=== PATIENT | male | born 1945 | race Caucasian/White ===

== ENCOUNTER 2021-05-21 11:51 | Outpatient (REF) | payer MEDICARE, OTHER, SELFPAY ==
[2021-05-21 13:35] LABS: Anion Gap 16 (12-20); Blood Urea Nitrogen 13 mg/dL (9-16); Calcium 9.2 mg/dL (8.4-10.2); Carbon Dioxide 23 mmol/L (22-29); Chloride 104 mmol/L (96-108); Estimated Glomerular Filt Rate > 60; Potassium 4.3 mmol/L (3.3-5.1); Sodium 139 mmol/L (135-145)
== END 2021-05-21 11:52 | disposition home or self-care (01) ==
LOC: HO.LAB 11:51
PROVIDERS: PCP Internal Medicine; Visit Provider Internal Medicine Hypertension Specialist
DX: I10 Essential (primary) hypertension (principal)
CPT/HCPCS: 36415; 80051; 82310; 82565; 84520

== ENCOUNTER 2021-08-30 10:07 | Outpatient (REF) | payer MEDICARE, OTHER, SELFPAY ==
[2021-08-30 10:25] LABS: Basophils Absolute Auto 0.1 X10*3/uL (0.0-0.2); Basophils Percent Auto 0.9 % (0-2); Hematocrit 42.4 % (42.0-52.0); Imm Gran Abs Auto 0.03 X10*3/uL (0.00-0.03); Imm Gran Pct Auto 0.4 % (0.0-0.4); Red Blood Count 4.71 X10*6/uL (4.60-5.80); SCAN SMEAR FLAG 1
[2021-08-30 10:28] LABS: Eosinophils Absolute Auto 0.5 X10*3/uL (0.0-0.4); Hemoglobin 13.9 g/dl (14.0-18.0); Lymphocytes Absolute Auto 2.6 X10*3/uL (1.2-4.9); Lymphocytes Percent Auto 34.6 % (20-40); Mean Corpuscular HGB Conc 32.8 g/dl (31.0-36.0); Mean Corpuscular Hemoglobin 29.5 pg (27.0-33.0); Mean Platelet Volume 14.1 fL (9.4-12.4); Monocytes Absolute Auto 0.9 X10*3/uL (0.1-1.2); Monocytes Percent Auto 11.4 % (2-11); Neutrophils Absolute Auto 3.5 x10*3/uL (2.0-8.3); Neutrophils Percent Auto 46.7 % (45-73); PLT CLUMP 1; Red Cell Distribution Width 12.4 % (11.0-16.0)
[2021-08-30 10:35] LABS: PLT ABN DIST 1
[2021-08-30 10:36] LABS: Platelet Count 171 X10*3/uL (160-400); White Blood Count 7.5 X10*3/uL (4.8-10.8)
[2021-08-30 10:37] LABS: Alanine Aminotransferase 30 U/L (0-40); Albumin Level 4.1 g/dL (3.5-5.0); Alkaline Phosphatase 92 U/L (39-117); Anion Gap 14 (12-20); Aspartate Amino Transferase 23 U/L (5-37); Bilirubin Total 0.8 mg/dL (0.0-1.0); Blood Urea Nitrogen 14 mg/dL (9-16); Calcium 9.6 mg/dL (8.4-10.2); Carbon Dioxide 26 mmol/L (22-29); Chloride 104 mmol/L (96-108); Cholesterol 105 mg/dL; Estimated Glomerular Filt Rate > 60; Glucose Fasting 149 mg/dL (60-99); HDL Cholesterol 31 mg/dL; LDL Cholesterol Calculated 49 mg/dl; Potassium 3.8 mmol/L (3.3-5.1); Sodium 140 mmol/L (135-145); Total Protein 6.8 g/dL (6.5-8.0); Triglycerides 125 mg/dL
[2021-08-30 10:45] LABS: Appearance Urine HAZY; Color Urine YELLOW; Glucose Urine UA NEG (NEG); Leukocyte Esterase Urine 1+ (NEG); Nitrite Urine NEG (NEG); Specific Gravity - Urine 1.025 (1.005-1.025); Urine Blood NEG (NEG); Urine Ketones NEG (NEG); Urine Protein NEG (NEG-TRACE)
[2021-08-30 10:58] LABS: PSA,Total (Free>4and<10) 0.96 ng/mL (0.00-4.00)
[2021-08-30 11:05] LABS: Microalbum/Creatinine Ratio Ur 31.1 ug/mg cr; Reflex LDLD? No
[2021-08-30 11:15] LABS: Squamous Epithelial Cell Urine 2+ /LPF
[2021-08-30 11:16] LABS: Amorphous Sediment Urine 3+ /LPF; Bacteria Urine 2+ /LPF
[2021-08-30 11:17] LABS: RBC Urine 0 /HPF (0)
[2021-08-30 14:51] LABS: Estimated Average Glucose 186 mg/dL; Hemoglobin A1c % 8.1 %
== END 2021-08-30 10:08 | disposition home or self-care (01) ==
LOC: HO.LNP 10:07
PROVIDERS: Visit Provider Internal Medicine
DX: Z12.5 Encounter for screening for malignant neoplasm of prostate (principal); E11.65 Type 2 diabetes mellitus with hyperglycemia; E78.00 Pure hypercholesterolemia, unspecified; I10 Essential (primary) hypertension; I25.10 Atherosclerotic heart disease of native coronary artery without angina pectoris; N40.0 Benign prostatic hyperplasia without lower urinary tract symptoms
CPT/HCPCS: 80053; 80061; 81001; 82043; 83036; 84153; 85025

== ENCOUNTER 2022-02-28 10:40 | Outpatient (REF) | payer MEDICARE, OTHER, SELFPAY ==
[2022-02-28 11:16] LABS: Estimated Average Glucose 183 mg/dL
[2022-02-28 11:25] LABS: Alanine Aminotransferase 30 U/L (0-40); Albumin Level 4.1 g/dL (3.5-5.0); Alkaline Phosphatase 109 U/L (39-117); Aspartate Amino Transferase 20 U/L (5-37); Bilirubin Direct 0.3 mg/dL (0.0-0.5); Bilirubin Total 0.7 mg/dL (0.0-1.0); Cholesterol 105 mg/dL; Glucose Fasting 180 mg/dL (60-99); HDL Cholesterol 34 mg/dL; LDL Cholesterol Calculated 44 mg/dl; Total Protein 6.7 g/dL (6.5-8.0); Triglycerides 135 mg/dL
[2022-02-28 12:25] LABS: Reflex LDLD? No
== END 2022-02-28 10:41 | disposition home or self-care (01) ==
LOC: HO.LNP 10:40
PROVIDERS: Visit Provider Internal Medicine
DX: E11.65 Type 2 diabetes mellitus with hyperglycemia (principal); E78.00 Pure hypercholesterolemia, unspecified
CPT/HCPCS: 80061; 80076; 82947; 83036

== ENCOUNTER 2022-06-14 12:23 | Outpatient (REF) | payer MEDICARE, OTHER, SELFPAY ==
[2022-06-14 13:27] LABS: Anion Gap 18 (12-20); Blood Urea Nitrogen 16 mg/dL (9-16); Calcium 9.4 mg/dL (8.4-10.2); Carbon Dioxide 25 mmol/L (22-29); Chloride 101 mmol/L (96-108); Estimated Glomerular Filt Rate > 60; Glucose Random 276 mg/dL (60-115); Potassium 4.6 mmol/L (3.3-5.1); Sodium 139 mmol/L (135-145)
== END 2022-06-14 12:24 | disposition home or self-care (01) ==
LOC: HO.LAB 12:23
PROVIDERS: PCP Internal Medicine; Visit Provider Internal Medicine Hypertension Specialist
DX: I10 Essential (primary) hypertension (principal)
CPT/HCPCS: 36415; 80048

== ENCOUNTER 2022-08-06 06:57 | Day surgery (SDC) | payer MEDICARE, OTHER, SELFPAY ==
--- NOTE | 2022-08-05 14:02 | P.CONAN_ITS ---
Documented by User: Nicole Bailey NP 08/05/22 15:04 HPI - Anesthesia Eval Consult details Narrative: 77yo M for Colonoscopy s/p AVR 2013 - Cardiac records requested from [facility] 08/05/22 Stable at 11/2021 cardiac visit (s/p AVR and CABG x 1 in 2013). Good exercise tolerance. 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 Social History Social History Patient Tobacco Use Status: Former Tobacco user Quit Date: many yeears ago Use of substances other than those prescribed or required for medical reasons: No Are you DNR?: No Advance Directives: No Advance Directives Information Provided: Yes Meds Allergies Allergy/AdvReac Type Severity Reaction Status Date / Time Penicillins [PCN] Allergy Unknown Verified 08/05/22 10:02 Home Medications Medication Instructions Recorded Confirmed Last Taken Type amlodipine 10 mg tablet 1 tab PO DAILY 08/05/22 08/05/22 Unknown History aspirin 81 mg tablet 81 mg PO DAILY 08/05/22 08/05/22 Unknown History atorvastatin 20 mg tablet 1 tab PO DAILY 08/05/22 08/05/22 Unknown History fluticasone propionate 50 1 spray intranasal BID 08/05/22 08/05/22 Unknown History mcg/actuation nasal spray,suspension hydrochlorothiazide 25 mg tablet 1 tab PO DAILY 08/05/22 08/05/22 Unknown History insulin human U-100 NPH-regulr subcut 08/05/22 Unknown History 70-30 mix 100 unit/mL subcutaneous susp (Novolin 70/30 U-100 Insulin) metformin 500 mg tablet,extended 1 tab PO BID 08/05/22 08/05/22 Unknown History release 24 hr nebivolol 10 mg tablet 1 tab PO DAILY 08/05/22 08/05/22 Unknown History terazosin 2 mg capsule 1 cap PO BEDTIME 08/05/22 08/05/22 Unknown History Exam Exam Date and Time: August 05, 2022 1402 Pertinent Lab Results Pertinent Lab Results: Laboratory Tests 08/30/21 06/14/22 07:20 12:46 WBC 7.5 Hgb 13.9 L Hct 42.4 Plt Count 171 Sodium 139 Potassium 4.6 D Chloride 101 Carbon Dioxide 25 BUN 16 Creatinine 1.01 Narrative Narrative: ECHO 2019 Nml LV size and systolic function EF 67% Symmetric LVH Well seated prosthetic aortic valve with thin and mobile leaflets and no paravalvular leak Peak aortic valve gradient 20mmHg, mean aortic valve gradient 10mmHg No aortic insufficiency Mild mitral regurg Findings stable c/w 2013 ECHO Assessment and Plan Assessment Anesthesia Assessment: Chart Reviewed Documented by User: Blanca Solano MD 08/06/22 09:13 [facility] Past Medical History Medical History Diabetes mellitus Diabetic retinopathy Hypertension Nephritis Nephrolithiasis DHAVAL on CPAP Squamous cell carcinoma of neck Tubular adenoma Family History Family history of problems with anesthesia: No Surgical History Surgical History History of aortic valve replacement History of appendectomy History of colonoscopy History of lithotripsy History of radical dissection of right side of neck History of Problems with Anesthesia: Yes (S/p radical neck dissection. Told needs ? smaller ETT as ? trachea deviation) Social History Social History Patient Tobacco Use Status: Former Tobacco user Quit Date: many yeears ago Use of substances other than those prescribed or required for medical reasons: No Are you DNR?: No Advance Directives: No Advance Directives Information Provided: Yes Meds Allergies Allergy/AdvReac Type Severity Reaction Status Date / Time Penicillins [PCN] Allergy Unknown Verified 08/05/22 10:02 Home Medications Medication Instructions Recorded Confirmed Last Taken Type amlodipine 10 mg tablet 1 tab PO DAILY 08/05/22 08/05/22 Unknown History aspirin 81 mg tablet 81 mg PO DAILY 08/05/22 08/05/22 Unknown History atorvastatin 20 mg tablet 1 tab PO DAILY 08/05/22 08/05/22 Unknown History fluticasone propionate 50 1 spray intranasal BID 08/05/22 08/05/22 Unknown History mcg/actuation nasal spray,suspension hydrochlorothiazide 25 mg tablet 1 tab PO DAILY 08/05/22 08/05/22 Unknown Histo ry insulin human U-100 NPH-regulr subcut 08/05/22 Unknown History 70-30 mix 100 unit/mL subcutaneous susp (Novolin 70/30 U-100 Insulin) metformin 500 mg tablet,extended 1 tab PO BID 08/05/22 08/05/22 Unknown History release 24 hr nebivolol 10 mg tablet 1 tab PO DAILY 08/05/22 08/05/22 Unknown History terazosin 2 mg capsule 1 cap PO BEDTIME 08/05/22 08/05/22 Unknown History Exam Height,Weight and Vital Signs: Height 5 ft 10.5 in Weight 117.934 kg Vital Signs Temp Pulse Resp BP Pulse Ox O2 Del Method 08/06/22 07:35 98.2 F 64 18 146/70 H 97 Room Air Pertinent Lab Results Pertinent Lab Results: Laboratory Tests 08/30/21 06/14/22 07:20 12:46 WBC 7.5 Hgb 13.9 L Hct 42.4 Plt Count 171 Sodium 139 Potassium 4.6 D Chloride 101 Carbon Dioxide 25 BUN 16 Creatinine 1.01 Lab Results 08/06/22 Range/Units 07:11 POC Glucose 173 H (60-115) mg/dL Airway Mallampati Class: IV TM Dist: >3cm Neck ROM: Full Loose/Missing/Broken Teeth: No (Denies) Heart: RRR Lungs: CTAB Assessment and Plan Assessment Anesthesia Assessment: Anesthesia Plan Discussed Final Anesthetic Review Family History of Problems with Anesthesia: No History of Problems with Anesthesia: Yes (S/p radical neck dissection. Told needs ? smaller ETT as ? trachea deviation) NPO: Yes ASA Class: III Final Preanesthetic Review: No Changes in Pt Med Stat, Meds/Allgs Chart Reviewed, Consent Obtained/Reviewed and Anes Risks/Benef Reviewed Patient Risk: Intermediate Procedure Risk: Low Assessment/Block/Sedation in SS: Assess/Block/Sedation-SS Anesthetic Plan Anesthetic Plan: MAC: Disposition: Standard PACU
[2022-08-06 07:17] LABS: Glucose, Whole Blood 173 mg/dL (60-115)
[2022-08-06 07:35] VITALS: BP 146/70; PULSE 64; RESP 18; TEMP 36.8; O2SAT 97; BMI 36.8
--- NOTE | 2022-08-06 08:16 | MHC.SHP ---
Pre-Procedural Eval Section A Date of Service: 08/06/22 Section B Chief Complaint: screening Details of Present Illness: screening Relevant Family History (Specify if Yes): No Relevant Social History: None Present Medications: see Short Stay Collaborative assessment Medical History: No relevant PMH History of Previous Operations: No relevant previous surgery Allergies: Allergies Allergy/AdvReac Type Severity Reaction Status Date / Time Penicillins [PCN] Allergy Unknown Verified 08/05/22 10:02 Review of Systems Sugical H&P ROS: Negative: Constitution, Cardiovascular, Respiratory, Neurological, Psychiatric, Hem-Onc, Allergic/Immunologic, Gastrointestinal, Genitourinary, Musculoskeletal, Integumentary, Endocrine and Eyes/Ears/Nose/Throat Exam Surgical H&P Exam: Normal: HEENT, Normal: Heart, Normal: Lungs, Normal: Extremities, Normal: Abdomen, Normal: Skin and Normal: Neurological Plan Diagnosis/Plan: Unchanged I have reviewed the history and physical and performed a pertinent physical examination on my patient. No changes have occurred unless specified.
[2022-08-06] MEDS: Lactated Ringers 1,000 ML 100 ML IVCONT (08:20)
--- NOTE | 2022-08-06 09:16 | PM.OP ---
Brief Operative Note Date of Service: 08/06/22 Pre-op diagnosis: screening Post-op diagnosis: same Procedure: colonoscopy Surgeon: Sandeep Polanco Anesthesia: MAC Was an Jackhammer Operator used for this Procedure?: No Estimated blood loss (mL): 5 Pathology: other Condition: stable Disposition: PACU
[2022-08-06 09:18] VITALS: BP 97/75; PULSE 69; RESP 18; TEMP 36.6; O2SAT 95
--- NOTE | 2022-08-06 09:35 | OP_ITS ---
SURGEON: Sandeep Polanco MD INDICATIONS: Colon cancer screening and prior history of adenomatous colon polyps. PREOPERATIVE DIAGNOSIS: POSTOPERATIVE DIAGNOSIS: PROCEDURE PERFORMED: Colonoscopy to the terminal ileum with snare polypectomy and biopsy. ESTIMATED BLOOD LOSS: COMPLICATIONS: ANESTHESIA: ASSISTANTS: SPECIMENS: DESCRIPTION OF PROCEDURE: Date of service: 08/06/22. History and physical performed. The risks and benefits of the procedure were explained to the patient. Informed consent was obtained. The patient was placed in the left lateral decubitus position. A digital rectal exam was performed and was found to be normal. The Olympus pediatric video colonoscope was introduced into the rectum and advanced to the cecum without difficulty. The cecum was identified by transillumination, palpation, and identification of ileocecal valve. Examination was performed. The scope was removed. He tolerated the procedure well and was taken to recovery area in stable condition. FINDINGS: The terminal ileum was briefly examined and appeared normal. The visualized colonic mucosa was normal. There was a large amount of liquid and semi-formed stool left, which limited the sensitivity examination for detection of small polyps. This was washed and suctioned. Multiple polyps were identified and removed using a combination of snare polypectomy and biopsy forceps. All were less than 10 mm. Two were located in the hepatic flexure and were snared. At 85 cm was an 8 mm polyp, which was snared. At 75 cm was a less than 5 mm polyp, which was snared. At 70 cm, a 6 mm polyp was snared, but could not be recovered due to technical reasons. The rectal polyp measuring less than 5 mm was removed with a biopsy forceps. There was extensive sigmoid diverticulosis with redundancy and luminal narrowing. Retroflexed examination showed moderate-sized internal hemorrhoids. IMPRESSION: Colon polyps. RECOMMENDATION: Follow up the biopsy results. MD MYLA Hsieh/ROXANA / [id number] MTDJami
[2022-08-06 09:37] VITALS: BP 133/64; PULSE 65; RESP 18; TEMP 36.8; O2SAT 95
== END 2022-08-06 10:12 | disposition home or self-care (01) ==
PROVIDERS: PCP Internal Medicine; Visit Provider Internal Medicine Gastroenterology
PROC: 0DJD8ZZ Inspection of Lower Intestinal Tract, Via Natural or Artificial Opening Endoscopic (ICD-10-PCS; CPT 45378; principal; 2022-08-06 08:10)
DX: Z12.11 Encounter for screening for malignant neoplasm of colon (principal); Z86.010 Personal history of colon polyps; D12.3 Benign neoplasm of transverse colon; D12.4 Benign neoplasm of descending colon; D12.8 Benign neoplasm of rectum; K57.30 Diverticulosis of large intestine without perforation or abscess without bleeding; K64.8 Other hemorrhoids; G47.33 Obstructive sleep apnea (adult) (pediatric); E11.319 Type 2 diabetes mellitus with unspecified diabetic retinopathy without macular edema; I10 Essential (primary) hypertension; Z79.4 Long term (current) use of insulin; Z79.82 Long term (current) use of aspirin; Z79.51 Long term (current) use of inhaled steroids; Z79.899 Other long term (current) drug therapy; Z88.0 Allergy status to penicillin; Z95.2 Presence of prosthetic heart valve; Z87.442 Personal history of urinary calculi; Z85.828 Personal history of other malignant neoplasm of skin; Z87.891 Personal history of nicotine dependence
CPT/HCPCS: 45385; 45380; 82947; 88305

== ENCOUNTER 2022-08-29 11:01 | Outpatient (REF) | payer MEDICARE, OTHER, SELFPAY ==
[2022-08-29 11:45] LABS: Appearance Urine Clear; Color Urine Yellow; Glucose Urine UA Negative (Negative); Leukocyte Esterase Urine Moderate (2+) (Negative); Nitrite Urine Negative (Negative); UMIC TRIGGER UA YES; Urine Blood Negative (Negative); Urine Ketones Negative (Negative); Urine Protein Negative (Neg-Trace)
[2022-08-29 11:47] LABS: Basophils Absolute Auto 0.1 X10*3/uL (0.0-0.2); Mean Corpuscular Volume 90.1 fL (80.0-98.0); SCAN SMEAR FLAG 1
[2022-08-29 11:48] LABS: Bacteria Urine 2+ (None Seen); Hyaline Casts Urine 0-2 /LPF (0-2); RBC Urine 0-2 /HPF (0-2); WBC Urine >50 /HPF (0-5)
[2022-08-29 11:49] LABS: Basophils Percent Auto 1.1 % (0-2); Eosinophils Absolute Auto 0.5 X10*3/uL (0.0-0.4); Eosinophils Percent Auto 6.1 % (0-4); Hemoglobin 12.9 g/dl (14.0-18.0); Imm Gran Abs Auto 0.01 X10*3/uL (0.00-0.03); Imm Gran Pct Auto 0.1 % (0.0-0.4); Lymphocytes Absolute Auto 2.3 X10*3/uL (1.2-4.9); Lymphocytes Percent Auto 30.4 % (20-40); Mean Corpuscular HGB Conc 32.3 g/dl (31.0-36.0); Mean Corpuscular Hemoglobin 29.1 pg (27.0-33.0); Mean Platelet Volume 13.6 fL (9.4-12.4); Monocytes Absolute Auto 0.9 X10*3/uL (0.1-1.2); Monocytes Percent Auto 11.8 % (2-11); Neutrophils Absolute Auto 3.8 x10*3/uL (2.0-8.3); Neutrophils Percent Auto 50.5 % (45-73); Platelet Count 180 X10*3/uL (160-400); Red Blood Count 4.44 X10*6/uL (4.60-5.80); Red Cell Distribution Width 12.4 % (11.0-16.0); White Blood Count 7.6 X10*3/uL (4.8-10.8)
[2022-08-29 11:50] LABS: MANUAL DIFF FLAG NO; PLT ABN DIST 1
[2022-08-29 12:26] LABS: Creatinine Urine 100.74 mg/dL; Microalbum/Creatinine Ratio Ur 44.6 ug/mg cr
[2022-08-29 12:44] LABS: Estimated Average Glucose 174 mg/dL; Hemoglobin A1c % 7.7 %
[2022-08-29 13:02] LABS: Alanine Aminotransferase 29 U/L (0-40); Alkaline Phosphatase 105 U/L (39-117); Anion Gap 11 (12-20); Aspartate Amino Transferase 22 U/L (5-37); Bilirubin Total 0.7 mg/dL (0.0-1.0); Blood Urea Nitrogen 14 mg/dL (9-16); Calcium 9.4 mg/dL (8.4-10.2); Carbon Dioxide 27 mmol/L (22-29); Chloride 106 mmol/L (96-108); Estimated Glomerular Filt Rate > 60; Glucose Fasting 130 mg/dL (60-99); PSA,Total (Free>4and<10) 0.88 ng/mL (0.00-4.00); Potassium 4.3 mmol/L (3.3-5.1); Sodium 140 mmol/L (135-145); Total Protein 6.5 g/dL (6.5-8.0)
== END 2022-08-29 11:02 | disposition home or self-care (01) ==
LOC: HO.LNP 11:01
PROVIDERS: Visit Provider Internal Medicine
DX: Z12.5 Encounter for screening for malignant neoplasm of prostate (principal); E11.65 Type 2 diabetes mellitus with hyperglycemia; I12.9 Hypertensive chronic kidney disease with stage 1 through stage 4 chronic kidney disease, or unspecified chronic kidney disease; E11.22 Type 2 diabetes mellitus with diabetic chronic kidney disease; N18.9 Chronic kidney disease, unspecified; E78.00 Pure hypercholesterolemia, unspecified
CPT/HCPCS: 80053; 81001; 82043; 83036; 84153; 85025

== ENCOUNTER 2023-03-06 11:29 | Outpatient (REF) | payer MEDICARE, OTHER, SELFPAY ==
[2023-03-06 12:09] LABS: Estimated Average Glucose 180 mg/dL; Hemoglobin A1c % 7.9 %
[2023-03-06 12:31] LABS: Alanine Aminotransferase 29 U/L (0-40); Albumin Level 4.1 g/dL (3.5-5.0); Alkaline Phosphatase 104 U/L (39-117); Aspartate Amino Transferase 22 U/L (5-37); Bilirubin Direct 0.4 mg/dL (0.0-0.5); Bilirubin Total 1.3 mg/dL (0.0-1.0); Cholesterol 112 mg/dL; Glucose Fasting 215 mg/dL (60-99); HDL Cholesterol 34 mg/dL; LDL Cholesterol Calculated 49 mg/dl; Total Protein 6.9 g/dL (6.5-8.0); Triglycerides 145 mg/dL
[2023-03-06 13:07] LABS: Reflex LDLD? No
== END 2023-03-06 11:30 | disposition home or self-care (01) ==
LOC: HO.LNP 11:29
PROVIDERS: Visit Provider Internal Medicine
DX: E11.65 Type 2 diabetes mellitus with hyperglycemia (principal); E78.00 Pure hypercholesterolemia, unspecified
CPT/HCPCS: 80061; 80076; 82947; 83036

== ENCOUNTER 2023-10-03 10:44 | Outpatient (REF) | payer MEDICARE, OTHER, SELFPAY ==
[2023-10-03 10:57] LABS: Basophils Absolute Auto 0.1 X10*3/uL (0.0-0.2); Basophils Percent Auto 0.9 % (0-2); Eosinophils Absolute Auto 0.4 X10*3/uL (0.0-0.4); Eosinophils Percent Auto 4.6 % (0-4); Hematocrit 38.2 % (42.0-52.0); Hemoglobin 12.2 g/dl (14.0-18.0); Imm Gran Abs Auto 0.02 X10*3/uL (0.00-0.03); Imm Gran Pct Auto 0.2 % (0.0-0.4); Lymphocytes Absolute Auto 2.8 X10*3/uL (1.2-4.9); Lymphocytes Percent Auto 30.9 % (20-40); MANUAL DIFF FLAG SCAN; Mean Corpuscular HGB Conc 31.9 g/dl (31.0-36.0); Mean Corpuscular Volume 87.6 fL (80.0-98.0); Mean Platelet Volume 13.7 fL (9.4-12.4); Monocytes Percent Auto 11.3 % (2-11); Neutrophils Absolute Auto 4.7 x10*3/uL (2.0-8.3); Neutrophils Percent Auto 52.1 % (45-73); PLT CLUMP 1; Red Blood Count 4.36 X10*6/uL (4.60-5.80); Red Cell Distribution Width 12.9 % (11.0-16.0); SCAN SMEAR FLAG 1
[2023-10-03 11:01] LABS: Appearance Urine Clear; Color Urine Yellow; Estimated Average Glucose 174 mg/dL; Glucose Urine UA Negative (Negative); Hemoglobin A1c % 7.7 % (<6.0); Leukocyte Esterase Urine Moderate (2+) (Negative); Nitrite Urine Negative (Negative); Specific Gravity - Urine >= 1.030 (1.005-1.025); UMIC TRIGGER UACC YES; Urine Blood Negative (Negative); Urine Ketones Negative (Negative); Urine Protein 30 (1+) mg/dL (Neg-Trace)
[2023-10-03 11:04] LABS: Bacteria Urine None Seen (None Seen); Hyaline Casts Urine 0-2 /LPF (0-2); RBC Urine 0-2 /HPF (0-2); UACC Culture Trigger YES; WBC Urine 21-50 /HPF (0-5)
[2023-10-03 11:05] LABS: Alanine Aminotransferase 21 U/L (0-40); Albumin Level 3.8 g/dL (3.5-5.0); Alkaline Phosphatase 114 U/L (39-117); Anion Gap 12 (12-20); Aspartate Amino Transferase 24 U/L (5-37); Bilirubin Total 0.6 mg/dL (0.0-1.0); Blood Urea Nitrogen 17 mg/dL (9-16); Calcium 9.7 mg/dL (8.4-10.2); Carbon Dioxide 26 mmol/L (22-29); Chloride 105 mmol/L (96-108); Cholesterol 102 mg/dL (<200); Estimated Glomerular Filt Rate > 60; Glucose Random 141 mg/dL (60-115); HDL Cholesterol 29 mg/dL (>40); LDL Cholesterol Calculated 54 mg/dL (<100); Potassium 3.9 mmol/L (3.3-5.1); Sodium 139 mmol/L (135-145); Total Protein 7.1 g/dL (6.5-8.0); Triglycerides 97 mg/dL (<150)
[2023-10-03 11:23] LABS: Creatinine Urine 182.92 mg/dL; Microalbum/Creatinine Ratio Ur 58.4 ug/mg cr (<30)
[2023-10-03 11:25] LABS: PSA,Total (Free>4and<10) 0.69 ng/mL (0.00-4.00)
[2023-10-03 11:42] LABS: Platelet Count 207 X10*3/uL (160-400)
[2023-10-03 11:43] LABS: SLIDE REVIEW VERIFIED
== END 2023-10-03 10:45 | disposition home or self-care (01) ==
LOC: HO.LNP 10:44
PROVIDERS: Visit Provider Internal Medicine
DX: Z12.5 Encounter for screening for malignant neoplasm of prostate (principal); I12.9 Hypertensive chronic kidney disease with stage 1 through stage 4 chronic kidney disease, or unspecified chronic kidney disease; E11.22 Type 2 diabetes mellitus with diabetic chronic kidney disease; N18.9 Chronic kidney disease, unspecified; E78.00 Pure hypercholesterolemia, unspecified; E11.65 Type 2 diabetes mellitus with hyperglycemia; N40.0 Benign prostatic hyperplasia without lower urinary tract symptoms
CPT/HCPCS: 80053; 80061; 81001; 82043; 82570; 83036; 84153; 85025; 87086

== ENCOUNTER 2024-04-02 11:09 | Outpatient (REF) | payer MEDICARE, OTHER, SELFPAY ==
[2024-04-02 12:21] LABS: Alanine Aminotransferase 19 U/L (0-40); Albumin Level 3.9 g/dL (3.5-5.0); Alkaline Phosphatase 142 U/L (39-117); Aspartate Amino Transferase 17 U/L (5-37); Bilirubin Direct 0.2 mg/dL (0.0-0.5); Bilirubin Total 0.6 mg/dL (0.0-1.0); Cholesterol 92 mg/dL (<200); Glucose Fasting 113 mg/dL (60-99); HDL Cholesterol 32 mg/dL (>40); LDL Cholesterol Calculated 48 mg/dL (<100); Total Protein 7.4 g/dL (6.5-8.0); Triglycerides 61 mg/dL (<150)
[2024-04-02 12:36] LABS: Estimated Average Glucose 180 mg/dL; Hemoglobin A1c % 7.9 % (<6.0)
[2024-04-02 13:15] LABS: Reflex LDLD? No
== END 2024-04-02 11:10 | disposition home or self-care (01) ==
LOC: HO.LNP 11:09
PROVIDERS: Visit Provider Internal Medicine
DX: E11.65 Type 2 diabetes mellitus with hyperglycemia (principal); E78.00 Pure hypercholesterolemia, unspecified
CPT/HCPCS: 80061; 80076; 82947; 83036

== ENCOUNTER 2024-07-23 14:29 | Outpatient (REF) | payer MEDICARE, OTHER, SELFPAY ==
[2024-07-23 15:40] LABS: Anion Gap 15 (12-20); Blood Urea Nitrogen 18 mg/dL (9-16); Calcium 9.2 mg/dL (8.4-10.2); Carbon Dioxide 27 mmol/L (22-29); Chloride 100 mmol/L (96-108); Estimated Glomerular Filt Rate > 60; Potassium 4.4 mmol/L (3.3-5.1); Sodium 138 mmol/L (135-145)
== END 2024-07-23 14:30 | disposition home or self-care (01) ==
LOC: HO.LAB 14:29
PROVIDERS: PCP Internal Medicine; Visit Provider Internal Medicine Nephrology
DX: I10 Essential (primary) hypertension (principal)
CPT/HCPCS: 36415; 80051; 82310; 82565; 84520

== ENCOUNTER 2024-08-03 09:00 | Outpatient (REF) | payer MEDICARE, OTHER, SELFPAY ==
[2024-08-04 15:09] LABS: Appearance Urine Clear; Color Urine Yellow; Glucose Urine UA Negative (Negative); Leukocyte Esterase Urine Large (3+) (Negative); Nitrite Urine Negative (Negative); Specific Gravity - Urine <= 1.005 (1.005-1.025); UMIC TRIGGER UA YES; Urine Blood Negative (Negative); Urine Ketones Negative (Negative); Urine Protein Negative (Neg-Trace)
[2024-08-04 15:12] LABS: Bacteria Urine 1+ (None Seen); Hyaline Casts Urine 0-2 /LPF (0-2); RBC Urine 0-2 /HPF (0-2); Squamous Epithelial Cell Urine 0-2 /HPF (0-2); WBC Urine >50 /HPF (0-5)
[2024-08-04 15:56] LABS: Creatinine Urine 40.86 mg/dL; Microalbum/Creatinine Ratio Ur 29.3 ug/mg cr (<30); Total Protein Urine Random < 7 mg/dL (<12)
== END 2024-08-03 09:01 | disposition home or self-care (01) ==
LOC: HO.LNP 09:00
PROVIDERS: Visit Provider Internal Medicine Nephrology
DX: I10 Essential (primary) hypertension (principal)
CPT/HCPCS: 81001; 81003; 82043; 82570; 84156

== ENCOUNTER 2024-10-07 10:32 | Outpatient (REF) | payer MEDICARE, OTHER, SELFPAY ==
[2024-10-07 10:39] LABS: MANUAL DIFF FLAG NO
[2024-10-07 11:04] LABS: Basophils Absolute Auto 0.1 X10*3/uL (0.0-0.2); Basophils Percent Auto 0.7 % (0-2); Eosinophils Absolute Auto 0.3 X10*3/uL (0.0-0.4); Eosinophils Percent Auto 3.6 % (0-4); Hematocrit 34.2 % (42.0-52.0); Hemoglobin 10.6 g/dl (14.0-18.0); Imm Gran Abs Auto 0.02 X10*3/uL (0.00-0.03); Imm Gran Pct Auto 0.2 % (0.0-0.4); Lymphocytes Absolute Auto 1.7 X10*3/uL (1.2-4.9); Lymphocytes Percent Auto 19.3 % (20-40); Mean Corpuscular Hemoglobin 26.8 pg (27.0-33.0); Mean Corpuscular Volume 86.6 fL (80.0-98.0); Mean Platelet Volume 13.2 fL (9.4-12.4); Monocytes Absolute Auto 1.1 X10*3/uL (0.1-1.2); Monocytes Percent Auto 12.1 % (2-11); Neutrophils Absolute Auto 5.6 x10*3/uL (2.0-8.3); Neutrophils Percent Auto 64.1 % (45-73); Platelet Count 247 X10*3/uL (160-400); Red Blood Count 3.95 X10*6/uL (4.60-5.80); Red Cell Distribution Width 13.6 % (11.0-16.0); White Blood Count 8.8 X10*3/uL (4.8-10.8)
[2024-10-07 11:07] LABS: Appearance Urine Cloudy; Color Urine Yellow; Glucose Urine UA Negative (Negative); Leukocyte Esterase Urine Large (3+) (Negative); Nitrite Urine Negative (Negative); UMIC TRIGGER UACC YES; Urine Blood Negative (Negative); Urine Ketones Negative (Negative); Urine Protein Negative (Neg-Trace)
[2024-10-07 11:10] LABS: Bacteria Urine 2+ (None Seen); RBC Urine 0-2 /HPF (0-2); UACC Culture Trigger YES; WBC Urine >50 /HPF (0-5)
[2024-10-07 11:14] LABS: Estimated Average Glucose 197 mg/dL; Hemoglobin A1C 195.0447 umol/L; Hemoglobin A1c % 8.5 % (<6.0); Total Hemoglobin (HGBA1C) 2796.5481 umol/L
[2024-10-07 11:32] LABS: Creatinine Urine 76.24 mg/dL; Microalbum/Creatinine Ratio Ur 41.9 ug/mg cr (<30)
[2024-10-07 12:05] LABS: PSA,Total (Free>4and<10) 0.46 ng/mL (0.00-4.00)
[2024-10-07 12:41] LABS: Alanine Aminotransferase 12 U/L (0-40); Albumin Level 3.4 g/dL (3.5-5.0); Alkaline Phosphatase 132 U/L (39-117); Anion Gap 11 (12-20); Aspartate Amino Transferase 17 U/L (5-37); Bilirubin Total 0.3 mg/dL (0.0-1.0); Blood Urea Nitrogen 23 mg/dL (9-16); Calcium 9.4 mg/dL (8.4-10.2); Carbon Dioxide 29 mmol/L (22-29); Chloride 103 mmol/L (96-108); Cholesterol 94 mg/dL (<200); Estimated Glomerular Filt Rate > 60; Glucose Fasting 200 mg/dL (60-99); HDL Cholesterol 30 mg/dL (>40); LDL Cholesterol Calculated 53 mg/dL (<100); Potassium 5.2 mmol/L (3.3-5.1); Sodium 138 mmol/L (135-145); Total Protein 7.3 g/dL (6.5-8.0); Triglycerides 59 mg/dL (<150)
== END 2024-10-07 10:33 | disposition home or self-care (01) ==
LOC: HO.LNP 10:32
PROVIDERS: Visit Provider Internal Medicine
DX: E11.65 Type 2 diabetes mellitus with hyperglycemia (principal); E78.00 Pure hypercholesterolemia, unspecified; N18.9 Chronic kidney disease, unspecified; I10 Essential (primary) hypertension; Z12.5 Encounter for screening for malignant neoplasm of prostate
CPT/HCPCS: 80053; 80061; 81001; 81003; 82043; 82570; 83036; 84153; 85025; 87086; 87088; 87186

== ENCOUNTER 2024-10-26 15:25 | Outpatient (REF) | payer MEDICARE, OTHER, SELFPAY ==
--- OUTSIDE RECORDS SUMMARY | 2024-10-26 15:29 | XMS_ITS | Encounter Summary ---
Author Organization [facility] [place] [address] Care Team Providers Care Rock Room Worker Name Role Phone Oswaldo Barrett MD Primary Care Provider [phone] Encounter Details Date Type Department Care Team (Late st Contact Info) Description 10/07/2024 Orders [place] [id number] Brianna Lal, RN Sarcoma of neck (Primary Dx) Social History Tobacco Use Types Packs/Day Years Used Date Smoking Tobacco: Never Smokeless Tobacco: Never Alcohol Use Standard Drinks/Week Comments No 0 (1 standard drink = 0.6 oz pur e alcohol) [facility] Utilities Answer Date Recorded In the past 12 months has th e electric, gas, oil, or water company threatened to shut off services in your home? No 10/14/2023 Overall Financial Resource Strain (CARDIA) Answe r Date Recorded How hard is it for you to pa y for the very basics like food, housing, medical care, and heating? Not hard at all 10/14/2023 Hunger Vital Sign Answer Date Recorded Within the past 12 months, y ou worried that your food would run out before you got the money to buy more. Never true 10/14/19 24 Within the past 12 months, t he food you bought just didn't last and you didn't have money to get more. Never true 10/14/2023 PRAPARE - Transportation Answer Date Re corded In the past 12 months, has l ack of transportation kept you from medical appointments or from getting medications? No 09/23 In the past 12 months, has l ack of transportation kept you from meetings, work, or from getting things needed for daily living? No 10/14/2023 Housing Stability Vital Sign Answer Gerber e Recorded In the last 12 months, was t here a time when you were not able to pay the mortgage or rent on time? No 10/14/2023 In the last 12 months, how many places have you lived? 1 10/14/2023 In the last 12 months, was t here a time when you did not have a steady place to sleep or slept in a retirement (including now)? No 10/14/2023 IPV Inpatient Questions Answer Date Recorded Does Anyone Try to Keep You From Having Contact with Others or Doing Things Outside Your Home? 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 An MRI would better characterize the extension along the facial nerve as well as more detailed evaluation of neural foraminal and any extension into the spinal canal (which is felt unlikely based on these images). Thank you for letting us participate in the care of this patient. ??If you are a health care provider and have any questions regarding this report, please contact the number below. ??For patients who have questions please contact the health primary care physician that requested your imaging first. ? 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 COMPARISON: PET/CT scan 11/01/[address] neck 06/17/2024, 01/27/2024. FINDINGS: Interval progression of necrosis and extensive tissue loss site at site of sarcoma involving the right posterior lateral neck. Deep to this necrosis is an extensive soft tissue mass extending from the suboccipital skull through the C6 level where there is broad abutment of the skull and lateral spine with likely infiltration into the neural foramen, but no definite intraspinal extension. Infiltration into the posterior paraspinal muscles in the right side is noted. Subtle periosteal reaction along the outer cortex of the right suboccipital skull likely represents early skull involvement. No osseous changes involve the spine. Tumor surrounds the mastoid tip with extension into the parotid gland and TMJ. The fat within the stylomastoid foramen is partially effaced. Likely complete encasement of the right carotid artery although evaluation is somewhat limited by dental streak artifact. Right-sided neck dissection changes are identified. Normal thyroid gland. Visualized paranasal sinuses and otomastoid spaces are well-aerated. Visualized intracranial structures are normal. Stable opacity left lung apex possibly representing rounded atelectasis. 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 COMPARISON: PET/CT scan 11/01/[address] neck 06/17/2024, 01/27/2024. FINDINGS: Interval progression of necrosis and extensive tissue loss siteat site of sarcoma involving the right posterior lateral neck. Deep to this necrosis is an extensive soft tissue mass extending from the suboccipitalskull through the C6 level where there is broad abutment of the skull andlateral spine with likely infiltration into the neural foramen, but no definite intraspinal extension. Infiltration into the posterior paraspinal musclesin the right side is noted. Subtle periosteal reaction along the outer cortex ofthe right suboccipital skull likely represents early skull involvement. Noosseous changes involve the spine. Tumor surrounds the mastoid tip with extension into the parotid gland andTMJ. The fat within the stylomastoid foramen is partially effaced. Likely complete encasement of the right carotid artery although evaluationis somewhat limited by dental streak artifact. Right-sided neck dissection changes are identified. Normal thyroid gland. Visualized paranasal sinuses and otomastoid spaces are well-aerated.Visualized intracranial structures are normal. Stable opacity left lung apexpossibly representing rounded atelectasis. IMPRESSION Interval progression of the necrotic sarcoma involving the rightposterior lateral neck with probable early involvement of the suboccipital skull, encasement of the carotid artery, extension into the parotid gland and TMJas well as the stylomastoid foramen. An MRI would better characterize the extension along the facial nerve aswell as more detailed evaluation of neural foraminal and any extension into thespinal canal (which is felt unlikely based on these images). Thank you for letting us participate in the care of this patient. If youare a health care provider and have any questions regarding this report,please contact the number below. For patients who have questions please contactthe health primary care physician that requested your imaging first. 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
--- OUTSIDE RECORDS SUMMARY | 2024-10-26 15:29 | XMS_ITS | Encounter Summary ---
Author Organization [facility] Address [facility] [place] [address] Care Team Providers Care Awning Erector Name Role Phone Oswaldo Barrett MD Primary Care Provider [phone] Encounter Details Date Type Department Care Team (Latest Contact Info) Description 10/07/2024 9:05 AM EST Ancillary Procedure Radiology [facility] [place] [address] Ash Dowling MD [facility] [place] [address] Sarcoma of neck Social History Tobacco Use Types Packs/Day Years Used Date Smoking Tobacco: Never Smokeless Tobacco: Never Alcohol Use Standard Drinks/Week Comments No 0 (1 standard drink = 0.6 oz pur e alcohol) [facility] Utilities Answer Date Recorded In the past 12 months has e [employer], gas, oil, or water [employer] threatened to shut off services in your [...] place to sleep or slept in a halfway (including now)? No 10/14/2023 IPV Inpatient Questions [...] on file documented as of this encounter Procedures Procedure Name Priority Date/Time Associated Diagnosis Comments REQUEST FOR 2ND READ CT NECK Routine 10/07/2024 9:00 AM EST Sarcoma of neck documented in this encounter Results * Request For 2nd Read CT Neck (10/07/2024 9:00 AM EST) WORKSTATION ID [id number] RAD Anatomical Region Laterality Modality Neck SO [...] who have questions please contact the health patient care nursing assistant that requested your imaging first. ? 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; Date of exam 20240920 TECHNIQUE: Reinterpretation [...] Sarcoma (RIS) of the Right Neck;Sending Institution [facility]; Date of exam [id number] TECHNIQUE: Reinterpretation [...] patients who have questions please contactthe health patient care nursing assistant that requested your imaging first. 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
--- OUTSIDE RECORDS SUMMARY | 2024-10-26 15:29 | XMS_ITS | Clinical Summary ---
Author Organization [facility] Address [address] [place] [address] Phone Care Team Providers Care Client Advisor Name Role Phone Oswaldo Barrett MD Primary Care Provider Allergies Active Allergy Reactions Criticality Noted Date Comments Penicillins Rash Low 05/24/2021 Medications Fluticasone Propionate (FLONASE ALLERGY RELIEF NA) Active Multiple Vitamins-Minera ls (ICAPS AREDS FORMULA PO) Take 1 capsule by mouth 1 (one) time each day Active aspirin (ST COSMO) 81 MG EC tablet Take 1 tablet by mouth 1 (one) time each day Active atorvastatin (LIPITOR) 20 MG tablet Take 20 mg by mouth 1 (one) time each day 04/30/2021 Active hydroCHLOROthia zide 25 MG tablet Take 25 mg by mouth 1 (one) time each day 04/25/2021 Active NovoLIN 70/30 (70-30) 100 UNIT/ML injection 04/30/2021 Active metFORMIN XR (GLUCOPHAGE-XR) 500 MG 24 hr tablet Take 500 mg by mouth twice a day 05/01/2021 Active terazosin (HYTRIN) 2 MG capsule Take 2 mg by mouth 1 (one) time each day 04/30/2021 Active Multiple Vitamins-Minera ls (ICAPS PLUS PO) Take 1 tablet by mouth 1 (one) time each day Active triamcinolone (KENALOG) 0.1 % cream APPLY TWO TIMES A DAY TO THE AFFECTED AREA(S) OF [place] FOR 1-2 WEEKS AT A TIME FOR FLARES. NOT FOR FACE OR BODY FOLDS 07/31/2021 Active telmisartan (MICARDIS) 80 MG tablet Take 1 tablet (80 mg total) by mouth 1 (one) time each day 90 tablet 3 06/09/2024 Active nebivolol (BYSTOLIC) 10 MG tabletIndicatio ns:Essential hypertension,Ch ronic kidney disease, stage 2 (mild),Type 2 diabetes mellitus with diabetic chronic kidney disease (HCC) Take 1 tablet (10 mg total) by mouth 1 (one) time each day in the evening 90 tablet 3 07/19/2024 07/19/20 25 Active amLODIPine (NORVASC) 10 MG tabletIndicatio ns:Essential hypertension,Ch ronic kidney disease, stage 2 (mild),Type 2 diabetes mellitus with diabetic chronic kidney disease (HCC) Take 1 tablet (10 mg total) by mouth 1 (one) time each day 90 tablet 3 07/19/2024 07/19/20 Active morphine (MS CONTIN) 30 MG 12 hr tablet TAKE ONE TABLET BY MOUTH TWICE A DAY - DO NOT EXCEED 2 TABLETS PER DAY 07/30/2024 Active morphine (MSIR) 15 MG tablet Take 15 mg by mouth 06/21/2024 Active Active Problems Problem Noted Date Diagnosed Date Encounter for fitting and adjustment of hearing aid 07/28/2023 07/28/2023 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 Type 2 diabetes mellitus 07/28/2023 023 Chronic kidney disease, stage 2 (mild) Essential hypertension 04/24/2016 Resolved Problems Problem Noted Date Diagnosed Date Resolved Date Aortic valve disorder 07/04/20202020 Asthma without status asthmaticus 07/04/2020 06/15/2021 Mixed conductive and sensori neural hearing loss 07/04/2020 06/15/2021 Obesity 07/04/2020 06/15/2021 Type 2 diabetes mellitus without complication 07/04/2006/15/2021 History of aortic valve stenosis 04/04/2020 06/15/2021 Obstructive sleep apnea syndrome 04/04/2020 06/15/2021 History of aortic valve replacement 04/24/2016 06/15/2021 Hyperlipidemia 04/24/2016 06/15/2021 Coronary atherosclerosis 11/17/2013 Overview (05/24/2021): Coronary arteriosclerosis Overview: Coronary arteriosclerosis Unspecified malignant neopla sm of skin of scalp and neck 05/01/2012 06/15/2021 Overview (05/24/2021): Jul 29, 2012 Entered By: LUPE HANSEN Comment: Right cervical lymph node Met, s/p dissection and radiation. Encounters Date Type Department Care Team Description 08/09/2024 2:00 PM EST [facility] [address] [place] [address] Jeramie Grant MD Essential hypertension (Primary Dx); Chronic kidney disease, stage 2 (mild) 08/04/2024 Orders Only [facility] [address] [place] [address] Jeramie Grant MD from Last 3 Months Immunizations Name Administration Dates Next Due DTaP, Unspecified 05/23/2012 Influenza Whole 07/08/2002 Influenza, Unspecified 05/23/2021,2019,06/06/2016,06/18/2014 ,05/23/2012 Moderna SARS-COV-2 07/16/2021,11/20/2020, 021 Pneumococcal Conjugate 13-Valent 10/01/2012 Pneumococcal Polysaccharide 05/08/2012 Shingrix 07/03/2018,04/21/2018 Td 07/08/2002 Tdap 05/08/2012 Zoster 09/22/2009,12/30/2008 Family History Medical History Relation Comments Cancer Father liver CA Diabetes Father type 2 Heart disease Father Hypertension Mother Stroke Mother Hypertension Sibling Relation Status Comments Father Mother Sibling Social History Tobacco Use Types Packs/Day Years Used Date Smoking Tobacco: Never Smokeless Tobacco: Never Tobacco Cessation:Counseling Given: Not Answered Sex and Gender Information Value Date Recorded Sex Assigned at Not on file Legal Sex Male 5:10 PM EST Gender Identity Not on file Sexual Orientation Not on file Last Filed Vital Signs Vital Sign Reading Time Taken Comments Blood Pressure 140/90 08/09/2024 2:02 PM EST Pulse 74 08/09/2024 2:02 PM EST Temperature - - Respiratory Rate - - Oxygen Saturation 98% 08/09/2024 2:02 PM EST Inhaled Oxygen Concentration - - Weight 96.8 kg (213 lb 6.4 oz) 08/09/2024 2:02 P M EST Height 180.3 cm (5' 11 ) 07/18/2022 1:54 PM EDT Body Mass Index 29.76 07/18/2022 1:54 PM EDT Plan of Treatment Upcoming Encounters Date Type Department Care Team (Late st Contact Info) Description 08/15/2025 1:15 PM EST [facility] [address] [place] [address] Jeramie Grant MD [address] [facility] [address] [place] [phone] Health Maintenance Due Date Last Done Comments Diabetes: Hemoglobin A1C 07/18/2022 Diabetes: Ophthalmology Exam 07/18/2022 Diabetes: Pedal Pulse Checked 07/18/2022 Diabetes: Sensory Foot Exam 07/18/2022 Diabetes: Visual Foot Exam 07/18/2022 Pneumococcal Vaccine: 65+ Years Completed 10/01/2012, 05/08/2012 Influenza Vaccine Completed 06/02/2024, , 05/23/2020, Additional history exists Hepatitis B Vaccine Aged Out No longe r eligible based on patient's age to complete this topic Procedures Procedure Name Priority Date/Time Associated Diagnosis Comments PROTEIN / CREATININE RATIO, URINE Routine 08/04/2024 2:56 PM EST ALBUMIN, URINE, RANDOM Routine 08/04/2024 2:56 PM EST URINALYSIS WITH MICROSCOPIC Routine 08/04/2024 2:56 PM EST from Last 3 Months Results * Protein, Total, Random Urine w/Creatinine (Protein/Creat Ratio) (08/04/2024 2:56 PM EST) Protein Urine Random <7 <12 mg/dL See order comments Protein/Creatin ine Ratio, Urine TNP <0.2 See order comments Comment: Unable to calculate urine protein creatinine ratio due to low creatinine or protein result. 08/04/2024 2:56 PM EST 08/04/2024 2:56 PM EST Jeramie Grant MD LAB URINE ORDERABLES Final [facility] Performing Organization Address [facility] de Phone Number [place] See order comments [place] [address] * (ABNORMAL) Albumin, urine, random (08/04/2024 2:56 PM EST) Creatinine, Urine 40.86 mg/dL Se e order comments Urine Microalbumin 12.0 mg/L See order comments Microalbumin/Crea tinine Ratio 29.3(H) <30 ug/mg cr See order comments Comment: ?Albumin/Creatinine Ratio Reference Ranges: ?Normal: < 30 ug/mg creatinine ?Microalbuminuria: ??30 - 300 ug/mg creatinine Clinical Albuminuria: ??> 300 ug/mg creatinine 08/04/2024 2:56 PM EST 08/04/2024 2:56 PM EST Jeramie Grant MD LAB URINE ORDERABLES Final [facility] Performing Organization Address [facility] de Phone Number [place] See order comments [place] [address] * (ABNORMAL) Urinalysis with microscopic (08/04/2024 2:56 PM EST) Color Urine Yellow See orde r comments Appearance Urine Clear See order comments pH Urine 6.0 5.0 - 9.0 See order comments Glucose Urine Negative Negative mg/dL See order comments Blood, Urine Negative Negative See ord er comments Specific [place] Urine <=1.005 1.005 - 1.025 See order comments Protein Urine Negative Neg-Trace mg/dL See order comments Ketones, Urine Negative Negative mg/dL See order comments Nitrite, Urine Negative Negative See o rder comments Leukocyte Esterase Urine Large (3+)(A) Negative See order comments RBC, Urine 0-2 0 - 2 /HPF See orde r comments WBC >50(A) 0 - 5 /HPF See order comments Squamous Epithelial, Urine 0-2 0 - 2 /HPF See order comments Bacteria, Urine 1+ None Seen See order comments Hyaline Casts, Urine 0-2 0 - 2 /LPF See order comments 08/04/2024 2:56 PM EST 08/04/2024 2:56 PM EST us Jeramie Grant MD LAB URINE ORDERABLES Edited R esult - Final [place] See order comments [place] [address] from Last 3 Months Insurance [facility] MEDICARE MEDICARE [facility] Care Teams Client Advisor Relationship Specialty Start Date End Date Oswaldo Barrett MD [address] [place], [place] PCP - General Internal Medicine 06/15/21
--- OUTSIDE RECORDS SUMMARY | 2024-10-26 15:29 | XMS_ITS | Encounter Summary ---
Author Organization [facility] [place] [address] Care Team Providers Care Crew Clerk Name Role Phone Oswaldo Barrett MD Primary Care Provider [phone] Encounter Details Date Type Department Care Team (Late st Contact Info) Description 09/30/2024 Telephone [place] [phone] Yumiko Buck Social History Tobacco Use Types Packs/Day Years Used Date Smoking Tobacco: Never Smokeless Tobacco: Never Alcohol Use Standard Drinks/Week Comments No 0 (1 standard drink = 0.6 oz pur e alcohol) [facility] Utilities Answer Date Recorded In the past 12 months has e electric, gas, oil, or water company [...] in a retirement (including now)? No 10/14/2023 [facility] IP[facility] Inpatient Questions Answer Date Recorded Does [...] on file documented as of this encounter Miscellaneous Notes * Telephone Encounter - Yumiko Buck - 10/07/2024 8:06 AM EST Images and report received, please request second read if necessary. * Telephone Encounter - Yumiko Buck - 09/30/2024 2:53 PM EST Fax sent to Allen Castillo From: Yumiko Buck Sent: September 2:53 PM To: '[email or web address]' <[email or web address]> Subject: Request for images Patient: Kamron Coker : 1945 [place], The above patient had images done at your facility and are needed here for proper transition. Please forward the images & reports ISAIAH for our provider to review. Please send them electronically to [facility] to the attention of Dr. Dowling. Specific images & reports we are looking for are: CT Neck 09/20/24 Please push over images and fax over the reports to our image Library to [phone] If you do not have the capability to send electronically please mail disc & reports STANDARD NEXT DAY via FEDEX NUMBER redacted to the address below: [facility] Attn: [facility] [address] [place] [phone] documented in this encounter Plan of Treatment Not on file documented as of this encounter Visit Diagnoses Not on filedocumented in this encounter Care Teams Crew Clerk Relationship Specialty Start Date End Date Oswaldo Barrett MD [address] [place] [address] DR [place], [place] [address] PCP - General 08/14/10 documented as of this encounter
--- OUTSIDE RECORDS SUMMARY | 2024-10-26 15:29 | XMS_ITS | Clinical Summary ---
Author Organization [facility] Address [facility] [place] [address] Care Team Providers Care Industrial Hygiene Technician Name Role Phone Oswaldo Barrett MD Primary Care Provider [phone] Allergies Active Allergy Reactions Criticality Noted Date Comments Penicillins Hives Medium Medications Medication Sig Dispensed Refills Start Date End Date Status selenium sulfide (SELSUN) 2.5 % shampoo 1 Appl(s), Top, QD PRN 05/10/2010 Ac tive atorvastatin (LIPITOR) 10 mg Tablet Take 20 mg by mouth daily. Active terazosin (HYTRIN) 2 mg Capsule Take 2 mg by mouth nightly. Active insulin aspart (NOVOLOG) Solution Inject subcutaneously 2 times daily. Active metFORMIN (GLUCOPHAGE-XR) 500 mg Tablet Sustained Release 24 hr Take 500 mg by mouth 2 times daily. Active Nebivolol (Bystolic) 10 mg Tablet Take by mouth every evening. Active FOLIC ACID/MULTIVITS-MIN /LUT (CENTRUM SILVER ORAL) Take 1 tablet by mouth daily. Active UNABLE TO FIND Take 1 tablet by mouth 2 times daily. Med Name: Eye caps Active Olmesartan-Amlodip ine-HCTZ (TRIBENZOR) 40-10-25 mg Tablet Take by mouth every morning. Active telmisartan (MICARDIS) 80 mg Tablet 5 07/04/2015 Active amLODIPine (NORVASC) 10 mg Tablet Take 10 mg by mouth daily. Active aspirin 81 mg Tablet, Delayed Release (E.C.) Take 81 mg by mouth daily. Active fluticasone (FLONASE) 50 mcg/actuation [place], Suspension 1 spray daily. Act ede multivitamin with minerals Tablet Take 1 tablet by mouth daily. Active insulin NPH - insulin regular 70/30 (NOVOLIN MIX 70/30) Suspension Inject subcutaneously. Active clarithromycin (BIAXIN) 500 mg Tablet Take 500 mg by mouth. Take 1 tablet before dental procedures. Active hydroCHLOROthiazid e (Hydrodiuril) 25 mg Tablet Take 25 mg by mouth daily. Active Vit A,C,D-Bmfk-Ugbpmz 4,296 mcg-226 mg-90 mg Capsule Take 1 capsule by mouth Twice daily. Active Active Problems Problem Noted Date Diagnosed Date Aortic valve disorder 07/04/2020 Asthma without status asthmaticus 07/04/2020 Mixed conductive and sensorineural hearing loss 07/04/2020 Obesity 07/04/2020 Type 2 diabetes mellitus without complication Squamous cell carcinoma of scalp and skin of nec k 07/04/2020 Overview (07/04/2020): Jul 29, 2012 Entered By: LUPE HANSEN Comment: Right cervical lymph node Met, s/p dissection and radiation. DHAVAL on CPAP 04/04/2020 History of coronary artery bypass graft x 1 03/23 Essential hypertension 04/24/2016 History of aortic valve repl acement with bioprosthetic valve 04/24/2016 Other and unspecified hyperlipidemia 04/24/2016 Coronary artery disease invo lving [place] coronary artery of [place] heart without angina pectoris 11/17/2013 Overview (07/04/2020): Overview: Coronary arteriosclerosis Skin cancer of scalp or skin of neck 05/01/2012 Encounters Date Type Department Care Team Description 10/07/2024 9:05 AM EST Ancillary Procedure Radiology Library at [facility] [place] [address] Ash Dowling MD Sarcoma of neck 10/07/2024 Orders [place] [phone] Brianna Lal RN Sarcoma of neck (Primary Dx) 09/30/2024 Telephone [place] [phone] Yumiko Buck 09/20/2024 Ancillary Procedure Radiology [facility] at [facility] [place] [address] Oswaldo Barrett MD from Last 3 Months Family History Medical History Relation Comments Liver Cancer Father Relation Status Comments Father Social History Tobacco Use Types Packs/Day Years Used Date Smoking Tobacco: Never Smokeless Tobacco: Never Tobacco Cessation:Counseling Given: Not Answered Alcohol Use Standard Drinks/Week Comments No 0 (1 standard drink = 0.6 oz pur e alcohol) [facility] Utilities Answer Date Recorded In the [...] place to sleep or slept in a senior living (including now)? No 10/14/2023 [facility] Inpatient Questions Answer Date Recorded Does Anyone [...] Sign Reading Time Taken Comments Blood Pressure 155/72 03/02/2024 3:25 PM EDT Pulse 71 03/02/2024 3:25 PM EDT Temperature 36.8 ??C (98.2 ??F) 03/02/2024 3:25 PM ED T Respiratory Rate 17 03/02/2024 3:25 PM EDT Oxygen Saturation 97% 03/02/2024 3:25 PM EDT Inhaled Oxygen Concentration - - Weight 108.9 kg (240 lb 1.3 oz) 03/02/2024 3:25 PM EDT Height 179.1 cm (5' 10.5 ) 11/27/2023 9:19 AM ES T Body Mass Index 33.96 11/27/2023 9:19 AM EST Plan of Treatment Health Maintenance Due Date Last Done Comments DM Hemoglobin A1c 1955 DM Opthalmology Exam 1955 DM Urine Microalbumin yearly 1955 Pneumoccocal Vaccine: 50+ (1 of 2 - PCV) 1962 Tetanus/Diphtheria/Pertussis Vaccines (1 - Tdap) 05/31 Zoster vaccine (1 of 2) 1993 RSV Vaccine (1 - 1-dose 75+ series) 2018 Covid-19 Vaccine (1 - 2023- season) 2024 Influenza (Flu) vaccine (1 o f 1 - Influenza standard series) 05/23/2024 DM Creatinine yearly 10/14/2024 10/14/2023 Procedures Procedure Name Priority Date/Time Associated Diagnosis Comments REQUEST FOR 2ND READ CT NECK Routine 10/07/2024 9:00 AM EST Sarcoma of neck CT SCAN (SCAN) 09/30/2024 12:00 AM EST FILM LIBRARY - STORAGE ONLY CT NECK Routine 09/20/2024 12:00 AM EST COMPREHENSIVE METABOLIC PANEL Routine 10/14/2023 12:11 PM EST 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 from Last 3 Months or Most Recently Relevant to Health Maintenance Results * Request For 2nd Read CT Neck (10/07/2024 9:00 AM EST) WORKSTATION ID [id number] RAD Anatomical Region Laterality Modality Neck SO [...] who have questions please contact the health critical care registered nurse that requested your imaging first. ? 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 Ash Dowling MD IMG OUTSIDE INTERPR ETATION ORDERABLES * Scan Doc: CT Scan (09/30/2024 12:00 AM EST) Anatomical Region Laterality Modality Other Narrative 09/30/2024 12:00 AM EST Ordered by an unspecified provider. Scanning Provider MEDIA MGR SCAN EXT O RDR/RSLT * Film Library- Storage Only CT Neck (09/20/2024 12:00 AM EST) Narrative [facility] - 09/30/2024 5:02 PM EST This exam is auto-finalizing. It's purpose is for storage only. Oswaldo Barrett MD IMG FILM LIBRARY OR DERABLES [place], [place] * (ABNORMAL) Comprehensive metabolic panel (non-fasting) (10/14/2023 12:11 PM EST) Glucose 275(H) 65 - 199 mg/dL [facility] Comment:Diabetes: >=200 mg/d L plus symptoms Blood Urea Nitrogen 17 10 - 20 mg/dL [facility] Creatinine 0.79(L) 0.80 - 1.50 mg/dL [facility] Sodium 136 135 - 145 mmol/L [facility] Potassium 4.8 3.5 - 5.0 mmol/L [facility] Comment: Please note: ??Patients with WBC >100,000 may have falsely elevated Potassium levels. ??For accurate Potassium quantification in these patients send serum separator tube (gold top) for subsequent determinations. ??Contact the Clinical Chemistry Laboratory if there are any questions. Chloride 99 98 - 107 mmol/L [facility] Carbon Dioxide 26 22 - 31 mmol/L [facility] Anion Gap 11 5 - 15 mmol/L [facility] Calcium 9.9 8.5 - 10.5 mg/dL [facility] Protein, Total 7.6 6.1 - 8.0 g/dL [facility] Albumin 4.2 3.2 - 5.2 g/dL [facility] Aspartate Aminotransferase 17 0 - 39 unit/L [facility] Alanine Aminotransferase 18 0 - 55 unit/L [facility] Alkaline Phosphatase 134(H) 40 - 130 unit/L [facility] Bilirubin, Total 0.7 0.2 - 1.3 mg/dL [facility] Est Glomerular Filtration Rate 90 >=60 mL/min/1. 73 m?? [facility] Comment: This patient's estimated GFR was calculated using the 2020 CKD-EPI equation. The estimated GFR can vary from the measured GFR by up to 30% in the absence of rapidly changing kidney function. Assessment of the estimated GFR is not appropriate when creatinine concentrations are rapidly changing. For clinical situations in which a more precise estimate of GFR is necessary, consider alternative methods of GFR estimation such as a 24-hour urine creatinine clearance. Assignment of CKD stage 1-5 for patients with an eGFR near the transition point between stages may be based on clinical assessment of muscle mass and symptoms in addition to eGFR. Blood 10/14/2023 12:1 1 PM EST 10/14/2023 12:23 PM EST Narrative Resulting Agency Comment Spec In Lab Keke Kemp APRN CHEMISTRY ORDERAB LES [facility] [place] [address] from Last 3 Months or Most Recently Relevant to Health Maintenance Advance Directives Documents on File Type Date Recorded Patient Corporate Lawyer Expl anation Advance Directives and Livin g Will 09/25/2023 4:05 PM Care Teams Industrial Hygiene Technician Relationship Specialty Start Date End Date Oswaldo Barrett MD [address] [place] [address] [place] [address] PCP - General 08/14/10
--- OUTSIDE RECORDS SUMMARY | 2024-10-26 15:29 | XMS_ITS | Encounter Summary ---
Author Organization [facility] Address [address] [facility] [address] [place] [address] Phone Care Team Providers Care Asbestos Remover Name Role Phone Oswaldo Barrett MD Primary Care Provider Encounter Details Date Type Department Care Team (Late st Contact Info) Description 08/04/2023 Office Communication [facility] [address] [facility] [address] [place] [address] Jeramie Grant MD [address] [address] Social History Tobacco Use Types Packs/Day Years Used Date Smoking Tobacco: Never Smokeless Tobacco: Never Sex and Gender Information Value Date Recorded Sex Assigned at Not on file Legal Sex Male 5:10 PM EST Gender Identity Not on file Sexual Orientation Not on file documented as of this encounter Plan of Treatment Upcoming Encounters Date Type Department Care Team (Late st Contact Info) Description 08/15/2025 1:15 PM EST Office Visit [facility] [address] [place] [address] Jeramie Grant MD [address] [address] documented as of this encounter Visit Diagnoses Not on filedocumented in this encounter Care Teams Asbestos Remover Relationship Specialty Start Date End Date Oswaldo Barrett MD [address] [place] [address] [address] [place] PCP - General Internal Medicine 9/24/21 documented as of this encounter
[2024-10-26 15:35] LABS: Appearance Urine Cloudy; Color Urine Yellow; Glucose Urine UA Negative (Negative); Leukocyte Esterase Urine Large (3+) (Negative); Nitrite Urine Negative (Negative); UMIC TRIGGER UACC YES; Urine Blood Trace (Negative); Urine Ketones Negative (Negative); Urine Protein Negative (Neg-Trace)
[2024-10-26 15:37] LABS: Bacteria Urine None Seen (None Seen); Hyaline Casts Urine 0-2 /LPF (0-2); RBC Urine 0-2 /HPF (0-2); Squamous Epithelial Cell Urine 0-2 /HPF (0-2); UACC Culture Trigger YES; WBC Urine >50 /HPF (0-5)
== END 2024-10-26 15:26 | disposition home or self-care (01) ==
LOC: HO.LNP 15:25
PROVIDERS: Visit Provider Internal Medicine
DX: N39.0 Urinary tract infection, site not specified (principal)
CPT/HCPCS: 81001; 87086; 87088; 87186

== ENCOUNTER 2024-11-22 07:30 | Outpatient (REF) | payer MEDICARE, OTHER, SELFPAY ==
[2024-11-22 11:18] LABS: Appearance Urine Clear; Color Urine Yellow; Glucose Urine UA >=1000 mg/dL (Negative); Leukocyte Esterase Urine Negative (Negative); Nitrite Urine Negative (Negative); PH 5.5 (5.0-9.0); UMIC TRIGGER UACC YES; Urine Blood Negative (Negative); Urine Ketones Negative (Negative); Urine Protein Negative (Neg-Trace)
[2024-11-22 11:21] LABS: Bacteria Urine None Seen (None Seen); Hyaline Casts Urine 0-2 /LPF (0-2); RBC Urine 0-2 /HPF (0-2); Squamous Epithelial Cell Urine 0-2 /HPF (0-2); WBC Urine 0-5 /HPF (0-5)
--- OUTSIDE RECORDS SUMMARY | 2024-11-22 13:15 | XMS_ITS ---
Author Organization Oswaldo Barrett MD Address [address] [place] [phone] Care Team Providers Care Funding Specialist Name Role Phone Oswaldo Barrett Primary Care Provider Results Component Value Reference Range Notes UA ClnCatch+Micro w/rflx Cul t (Not yet reviewed by provider) Interpretation: Performing Lab:[facility], [address] [place] [phone] Notes/Report: [id number] Urine, Clean Catch Color Urine Yellow Appearance Urine Clear PH 5.5 5.0-9.0 Glucose Urine UA >=1000 Negative mg/dL Urine Blood Negative Negative Specific [place] - Urine 1.020 1.005-1.025 Urine Protein Negative Neg-Trace mg/dL Urine Ketones Negative Negative mg/dL Nitrite Urine Negative Negative Leukocyte Esterase Urine Negative Negative RBC Urine 0-2 0-2 /HPF WBC Urine 0-5 0-5 /HPF Squamous Epithelial Cell Urine 0-2 0-2 /HPF Bacteria Urine None Seen None Seen Hyaline Casts Urine 0-2 0-2 /LPF REASON FOR VISIT U/A hematuria Encounters Encounter Location Date Provider Diagnosis Oswaldo Barrett MD [address] [place] [phone] 11/22/2024 Oswaldo Barrett Hematuria, unspecified type R31.9 Assessments Encounter Date Diagnosis (ICD Code) Assessment Notes Treatment Notes Treatment Clinical Notes Section Notes 11/22/2024 Hematuria, unspecified type (ICD-10 - R31.9) Plan Of Treatment Pending Test Test Name Order Date UA ClnCatch+Micro w/rflx Cult 11/22/2024 Next Appt Details Provider Name:Oswaldo Fitzgerald ier, 01/14/2025 02:15:00 PM, [address] [place] [address], [phone], Provider Name:Oswaldo Fitzgerald ier, 10/11/2025 07:30:00 AM, [address] [place] [address], [phone], Provider Name:Oswaldo Fitzgerald ier, 10/17/2025 02:30:00 PM, [address] [place] [address], [phone], Progress Notes * Kamron COKER MDOB:[birth year] (79 yo M)Acc No.[id number]:11/22/2024 Progress Note Patient:?Kamron COKER Provider:?Oswaldo Barrett MD :1945???Age:79 Y???Sex:Male Gerber e:11/22/2024 Address:[address] [place] [address], [facility], [id number] Subjective: * Chief Complaints: * ???1. U/A hematuria. * Medical History:? Objective: * Vitals:? Assessment: * Assessment: 1.?Hematuria, unspecified ty pe - R31.9??? Plan: * Treatment: * * The named appointment provid er may or may not be the originator of this progress note, and it is not deemed complete until electronically signed by the appointment provider. Sign off status: Pending * Provider:?Oswaldo Barrett MD Date:?0 11/22/2024 Generated for Toi styles/iBjan/Javeditting on:?11/22/2024 01:15 PM EST
--- OUTSIDE RECORDS SUMMARY | 2024-11-22 13:15 | XMS_ITS ---
Author Organization Oswaldo Barrett MD Address [address] [place] [phone] Care Team Providers Care Car Record Clerk Name Role Phone Oswaldo Barrett Primary Care Provider [phone] Results Component Value Reference Range Notes UA ClnCatch+Micro w/rflx Cul t Reviewed date:10/28/2024 10:00:28 AM Interpretation: Performing Lab:[facility], [address] [place] [phone] Notes/Report: Urine, Clean Catch Color Urine Yellow Appearance Urine Cloudy PH 7.0 5.0-9.0 Glucose Urine UA Negative Negative mg/dL Urine Blood Trace Negative Specific [place] - Urine 1.010 1.005-1.025 Urine Protein Negative Neg-Trace mg/dL Urine Ketones Negative Negative mg/dL Nitrite Urine Negative Negative Leukocyte Esterase Urine Large (3+) Negative RBC Urine 0-2 0-2 /HPF WBC Urine >50 0-5 /HPF Squamous Epithelial Cell Urine 0-2 0-2 /HPF Bacteria Urine None Seen None Seen Hyaline Casts Urine 0-2 0-2 /LPF REASON FOR VISIT U/A Encounters Encounter Location Date Provider Diagnosis Oswaldo Barrett MD [address] [place] [address] [place] [phone] 10/26/2024 Oswaldo Barrett UTI (urinary tract infection) N39.0 Assessments Encounter Date Diagnosis (ICD Code) Assessment Notes Treatment Notes Treatment Clinical Notes Section Notes 10/26/2024 UTI (urinary tract infection) (ICD-10 - N39.0) Plan Of Treatment Next Appt Details Provider Name:Oswaldo chandler, 01/14/2025 02:15:00 PM, [address] [place] [address], [address], [phone], Provider Name:Oswaldo chandler, 10/11/2025 07:30:00 AM, [address] [place] [address], [address], [phone], Provider Name:Oswaldo chandler, 10/17/2025 02:30:00 PM, [address] [place] [address], [address], [phone], Progress Notes * Kamron COKER MDOB:[birth year] (79 yo M)Acc No.[id number]:10/26/2024 Progress Note Patient:?Kamron COKER Provider:?Oswaldo Barrett MD :1945???Age:79 Y???Sex:Male Gerber e:10/26/2024 Address:[address] [place] [address], [id number] Subjective: * Chief Complaints: * ???1. U/A. * Medical History:? Objective: * Vitals:? Assessment: * Assessment: 1.?UTI (urinary tract infect ion) - N39.0 (Primary)??? Plan: * Treatment: * * The named appointment provid er may or may not be the originator of this progress note, and it is not deemed complete until electronically signed by the appointment provider. Sign off status: Pending * Provider:?Oswaldo Barrett MD Date:?0 10/26/2024 Generated for Toi styles/Bijan/Javeditting on:?11/22/2024 01:15 PM EST
--- OUTSIDE RECORDS SUMMARY | 2024-11-22 13:16 | XMS_ITS ---
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 Name Role Phone Oswaldo Barrett Primary Care Provider [phone] Allergies Allergen (clinical drug ingredient) Drug/Non Drug Allergy documented on EMR Reaction Allergy Type Onset Date Status penicillin (uncoded) hives Allergy Active REASON FOR VISIT review labs, Repeat U/A, Accompanied by his son Medications Medication SIG (Take, Route, Frequency, Duration) Notes Start Date End Date Status Bystolic 10 MG 1 tablet Orally Once a day Active Tylenol Extra Strength 500 MG 1 tablet a s needed Orally every 6 hrs for 90 days Active Gaviscon 95-358 MG/15ML 15 mL after meal s and at bedtime as needed Orally Four times a day for 90 days Active Morphine Sulfate 15 MG 1.5 tabs four carolina es a day Orally four times a day Active Morphine Sulfate ER 30 MG 1 capsule thre e ties a day Orally Once a day Active hydroCHLOROthiazide 25 MG 1 capsule in t he morning Orally Once a day Active NovoLIN 70/30 70-30 % as directed Subcutaneous 60u in am 40 in pm 03/12/2012 Active Omeprazole 20 MG 1 capsule Orally Onc e a day 02/03/2018 Active amLODIPine Besylate 10 MG 1 tablet Orall y Once a day Active metFORMIN HCl ER 500 MG 2 tablet with ev ening meal Orally DX E11.65 twice a day Active Atorvastatin Calcium 20 MG 1 tablet Oral ly Once a day Active Telmisartan 80 MG 1 tablet Orally Once a day Active traMADol HCl 50 MG one or 2 tabs Orally twice a day for 30 days 04/09/2024 Active Flonase 50 MCG/ACT 2 sprays Nasally Onc e a day for 90 days Active Terazosin HCl 2 MG 1 capsule Orally Onc e a day for 90 days 06/18/2011 Active Syringe (Disposable) 1 ML use to inject insulin sub Q Dx: E 11.65 twice a day for 90 days 09/28/2019 Active Alcoh-Wipe - use to test blood sugar externally DX E11.65 twice a day for 90 days 09/28/2019 Active Lancets - use to test blood sugar invitro DX: E 11.65 twice a day for 90 days 09/28/2019 Active FreeStyle Lite Test - use to test blood sugar In Vitro DX: 11.65 twice a day for 90 days 09/01/2018 Active Aspirin 81 MG 1 tablet Orally Once a day for 90 days Active Social History Tobacco Use: Social History Observation Description Date Details (start date - stop date) Former Smoker NA - NA Tobacco Use/Smoking Question Answer Notes Patient is a former smoker How long has it been since y ou last smoked? > 10 years Additional Findings: Tobacco Non-User Fo rmer smoker, currently using no form of tobacco Alcohol Screen Question Answer Notes Did you have a drink containing alcohol in the p ast year? No Points 0 Interpretation Negative Vital Signs Blood pressure systolic 132 mm Hg 10/14/19 25 Blood pressure diastolic 54 mm Hg 025 Height 70 in 10/14/2024 Weight 217 lbs 10/14/2024 BMI 31.13 kg/m2 10/14/2024 weight is up 4 pounds since 08-03-24 Encounters Encounter Location Date Provider Diagnosis Oswaldo Barrett MD [address] [place] [address] [address] [place], [place] [id number] 10/14/2024 Oswaldo Barrett Type II or unspecifi ed type diabetes mellitus without mention of complication, uncontrolled E11.65 ; Chronic kidney disease, unspecified CKD stage N18.9 ; Essential hypertension I10 ; Pure hypercholesterolemia E78.00 ; 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 ; Gastroesophageal reflux disease without esophagitis K21.9 and Depression screening Z13.31 Assessments Encounter Date Diagnosis (ICD Code) Assessment Notes Treatment Notes Treatment Clinical Notes Section Notes 10/14/2024 Type II or unspecifi ed type diabetes mellitus without mention of complication, uncontrolled (ICD-10 - E11.65) a1c is satisfactory , will continue current regiment 10/14/2024 Chronic kidney disea se, unspecified CKD stage (ICD-10 - N18.9) stable, 10/14/2024 Essential hypertensi on (ICD-10 - I10) well controlled, will cpntinue current regiment 10/14/2024 Pure hypercholesterolemia (ICD-10 - E78.00) doing well, stable, will continue current regiment 10/14/2024 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 10/14/2024 Gastroesophageal ref lux disease without esophagitis (ICD-10 - K21.9) stable, will contonue current regiment 10/14/2024 Depression screening (ICD-10 - Z13.31) negative screen Plan Of Treatment Medication Medication Name Sig Start Date Stop Date Notes Bystolic 10 MG 1 tablet Orally Once a day hydroCHLOROthiazide 25 MG 1 capsule in t he morning Orally Once a day NovoLIN 70/30 70-30 % as directed Subcut aneous 60u in am 40 in pm 03/12/2012 Omeprazole 20 MG 1 capsule Orally Once a day 02/03/2018 amLODIPine Besylate 10 MG 1 tablet Orally Once a day metFORMIN HCl ER 500 MG 2 tablet with ev ening meal Orally DX E11.65 twice a day Atorvastatin Calcium 20 MG 1 tablet Orally Once a day Telmisartan 80 MG 1 tablet Orally Once a day Treatment Notes Assessment Notes Type II or unspecified type diabetes mellitus without mention of complication, uncontrolled a1c is satisfactory, will continue current regiment Chronic kidney disease, unspecified CKD stage stable, Essential hypertension well controlled, will cpntinue current regiment Pure hypercholesterolemia doing well, st able, will continue current regiment 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 Gastroesophageal reflux dise ase without esophagitis stable, will contonue current regiment Depression screening negative screen Pending Test Test Name Order Date Glucose, finger stick 10/14/2024 Next Appt Details Follow Up: 3 Months, Reason: Provider Name:Oswaldo chandler, 01/14/2025 02:15:00 PM, [address] [place] [address], Suite [facility], [place], [place], [phone], Provider Name:Oswaldo chandler, 10/11/2025 07:30:00 AM, [address] [place] [address], Suite [facility], [place], [place], [phone], Provider Name:Oswaldo chandler, 10/17/2025 02:30:00 PM, [address] [place] [address], [place] [address], [place], [place], [phone], Progress Notes * Kamron COKER MDOB:[birth year] (79 yo M)Acc No.[id number]:10/14/2024 Patient:?Kamron COKER Provider:?Oswaldo Barrett MD :1945???Age:79 Y???Sex:Male Gerber e:10/14/2024 Address:[address] [place] [address], [place], [id number] Subjective: * Chief Complaints: * ???Review labsRepeat U/AAcco mpanied by his son * HPI: ???Depression Screening:?PHQ-9?Little interest or pleasure in doing things?Not at all,?Feeling down, depressed, or hopeless?Not at all,?Trouble falling or staying asleep, or sleeping too much?Not at all,?Feeling tired or having little energy?Not at all,?Poor appetite or overeating?Not at all,?Feeling bad about yourself or that you are a failure, or have let yourself or your family down?Not at all,?Trouble concentrating on things, such as reading the newspaper or watching television?Not at all,?Moving or speaking so slowly that other people could have noticed; or the opposite, being so fidgety or restless that you have been moving around a lot more than usual?Not at all,?Thoughts that you would be better off or of hurting yourself in some way?Not at all,?Total Score?0.?Interpretation and Intervention?Depression Screening Findings?Negative,?Follow-Up for Depression?: review of PHQ-9 found negative result, no follow-up needed.?Communication Needs:?Communication Needs?Does the patient have a hearing impairment?No,?Does the patient have a vision impairment??Yes,?If yes, what is the vision impairment??Glasses,?Does the patient have a cognition impairment??No.?Fall Risk:?History?Have you had any falls with injury in the past year??No,?Have you had two or more falls in the past year??No.?SDOH Questions:?SDOH Questions?In the past year have you been worried about losing housing??No,?In the past year have you or any family members you live with been unable to get any of the following when it was really needed? Check all that apply:?None.?Symptom(s):? patient is a 79 yo male here for review of recent labs and follow up of chronic issues. * ROS:?General/Constitutional:?Patient denies?fatigue, headache.?Change in appetite?denies.?Chills?denies.?Fever?denies.?Ophthalmologic:?Blurred vision?denies.?Discharge?denies.?Pain?denies.?ENT:?Patient denies?decreased sense of smell, any loss of taste, sore throat.?Decreased hearing?denies.?Sore throat?denies.?Swollen glands?denies.?Endocrine:?Cold intolerance?denies.?Excessive thirst?denies.?Heat intolerance?denies.?Weight loss?denies.?Respiratory:?Cough?denies.?Shortness of breath at rest?denies.?Shortness of breath with exertion?denies.?Wheezing?denies.?Cardiovascular:?Chest pain at rest?denies.?Chest pain with exertion?denies.?Irregular heartbeat?denies.?Shortness of breath?denies.?Gastrointestinal:?Abdominal pain?denies.?Change in bowel habits?denies.?Diarrhea?denies.?Nausea?denies.?Rectal bleeding?denies.?Vomiting?denies .?Genitourinary:?Blood in urine?denies.?Difficulty urinating?denies.?Frequent urination?denies.?Musculoskeletal:?Patient denies?muscle aches.?Painful joints?denies.?Weakness?denies.?Peripheral Vascular:?Patient denies?red and blue toes.?Skin:?Dry skin?denies.?Itching?denies.?Denies?Mole(s),? changes in moles, new moles or any lesions of concern.?Denies?Photosensitivity.?Rash?denies.?Neurologic:?Dizziness?denies.?Fainting?denies.?Headache?denies.? * Medical History:? * Surgical History:? * Hospitalization/Major Diagno stic Procedure:? * Family History:?Father: dece ased 80 yrs, diagnosed with Cancer.?Mother: 84 yrs.?1 son(s) . .? Denies mental health/substance abuse family history, Denies mental health/substance abuse family history, Denies mental health/substance abuse family history. * Social History:?Tobacco Use:?Tobacco Use/Smoking?Patient is a?former smoker,?How long has it been since you last smoked??> 10 years,?Additional Findings: Tobacco Non-User?Former smoker, currently using no form of tobacco.?Drugs/Alcohol:?Alcohol Screen?Did you have a drink containing alcohol in the past year??No,?Points?0,?Interpretation?Negative.?Miscellaneous:?Caffeine: yes, frequency:, 1-2 cups per day. Children: yes. Community involvements: yes. Exercise: yes, walks QOD half a mile. Housing: owning. Living with: spouse. Marital status: . Occupation: works full-time. Pets: none. Travel outside of the [place]: no. * Medications:?TakingMorphine Sulfate ER 30 MG Capsule Extended Release 24 Hour 1 capsule three ties a day Orally Once a day Morphine Sulfate 15 MG Tablet 1.5 tabs four times a day Orally four times a day Gaviscon 95-358 MG/15ML Suspension 15 mL after meals and at bedtime as needed Orally Four times a day Tylenol Extra Strength 500 MG Tablet 1 tablet as needed Orally every 6 hrs Aspirin 81 MG Tablet Delayed Release 1 tablet Orally Once a day FreeStyle Lite Test - Strip use to test blood sugar In Vitro DX: 11.65 twice a day Lancets - Miscellaneous use to test blood sugar invitro DX: E 11.65 twice a day Alcoh-Wipe - Sheet use to test blood sugar externally DX E11.65 twice a day Syringe (Disposable) 1 ML Miscellaneous use to inject insulin sub Q Dx: E 11.65 twice a day Terazosin HCl 2 MG Capsule 1 capsule Orally Once a day Flonase 50 MCG/ACT Suspension 2 sprays Nasally Once a day Telmisartan 80 MG Tablet 1 tablet Orally Once a day Atorvastatin Calcium 20 MG Tablet 1 tablet Orally Once a day Omeprazole 20 MG Capsule Delayed Release 1 capsule Orally Once a day traMADol HCl 50 MG Tablet one or 2 tabs Orally twice a day NovoLIN 70/30 70-30 % Suspension as directed Subcutaneous 60u in am 40 in pm metFORMIN HCl ER 500 MG Tablet Extended Release 24 Hour 2 tablet with evening meal Orally DX E11.65 twice a day amLODIPine Besylate 10 MG Tablet 1 tablet Orally Once a day hydroCHLOROthiazide 25 MG Tablet 1 capsule in the morning Orally Once a day Bystolic 10 MG Tablet 1 tablet Orally Once a day Medication List reviewed and reconciled with the patientTaking Morphine Sulfate ER 30 MG Capsule Extended Release 24 Hour 1 capsule three ties a day Orally Once a day Taking Morphine Sulfate 15 MG Tablet 1.5 tabs four times a day Orally four times a day Taking Gaviscon 95-358 MG/15ML Suspension 15 mL after meals and at bedtime as needed Orally Four times a day Taking Tylenol Extra Strength 500 MG Tablet 1 tablet as needed Orally every 6 hrs Taking Aspirin 81 MG Tablet Delayed Release 1 tablet Orally Once a day Taking FreeStyle Lite Test - Strip use to test blood sugar In Vitro DX: 11.65 twice a day Taking Lancets - Miscellaneous use to test blood sugar invitro DX: E 11.65 twice a day Taking Alcoh-Wipe - Sheet use to test blood sugar externally DX E11.65 twice a day Taking Syringe (Disposable) 1 ML Miscellaneous use to inject insulin sub Q Dx: E 11.65 twice a day Taking Terazosin HCl 2 MG Capsule 1 capsule Orally Once a day Taking Flonase 50 MCG/ACT Suspension 2 sprays Nasally Once a day Taking Telmisartan 80 MG Tablet 1 tablet Orally Once a day Taking Atorvastatin Calcium 20 MG Tablet 1 tablet Orally Once a day Taking Omeprazole 20 MG Capsule Delayed Release 1 capsule Orally Once a day Taking traMADol HCl 50 MG Tablet one or 2 tabs Orally twice a day Taking NovoLIN 70/30 70-30 % Suspension as directed Subcutaneous 60u in am 40 in pm Taking metFORMIN HCl ER 500 MG Tablet Extended Release 24 Hour 2 tablet with evening meal Orally DX E11.65 twice a day Taking amLODIPine Besylate 10 MG Tablet 1 tablet Orally Once a day Taking hydroCHLOROthiazide 25 MG Tablet 1 capsule in the morning Orally Once a day Taking Bystolic 10 MG Tablet 1 tablet Orally Once a day Medication List reviewed and reconciled with the patient * Allergies:?penicillin: hives yes[Allergies Verified] Objective: * Vitals:?Ht: 70, Wt: 217, BMI :31.13, BP:132/54, Wt-k.43. weight is up 4 pounds since 08-03-24. * ???Past Orders: ???Lab:Hemoglobin A1c (Order Date - 10/07/2024) (Collection Date & Time - 10/07/2024 07:15 AM) ? Value Reference Range ?Hemoglobin A1c % 8.5 H <6. 0 - % ?Estimated Average Glucose 197 - mg/dL ???Lab:Complete Blood Count Auto Diff (Order Date - 10/07/2024) (Collection Date & Time - 10/07/2024 07:15 AM) ? Value Reference Range ?White Blood Count 8.8 4. 8-10.8 - X10*3/uL ?Red Blood Count 3.95 L 4.60 -5.80 - X10*6/uL ?Hemoglobin 10.6 L 14.0-18.0 - g/dl ?Hematocrit 34.2 L 42.0-52.0 - % ?Mean Corpuscular Volume 86.6 80.0-98.0 - fL ?Mean Corpuscular Hemoglobin 26.8 L 27.0-33.0 - pg ?Mean Corpuscular HGB Conc 31.0 31.0-36.0 - g/dl ?Red Cell Distribution Width 13.6 11.0-16.0 - % ?Platelet Count 247 160-4 00 - X10*3/uL ?Mean Platelet Volume 13.2 H 9.4-12.4 - fL ?Neutrophils Percent Auto 64.1 45-73 - % ?Imm Gran Pct Auto 0.2 0. 0-0.4 - % ?Lymphocytes Percent Auto 19.3 L 20-40 - % ?Monocytes Percent Auto 12.1 H 2-11 - % ?Eosinophils Percent Auto 3.6 0-4 - % ?Basophils Percent Auto 0.7 0-2 - % ?NRBC Pct Auto 0.0 0.0-0. 2 - /100WBC ?Neutrophils Absolute Auto 5.6 2.0-8.3 - x10*3/uL ?Imm Gran Abs Auto 0.02 0. 00-0.03 - X10*3/uL ?Lymphocytes Absolute Auto 1.7 1.2-4.9 - X10*3/uL ?Monocytes Absolute Auto 1.1 0.1-1.2 - X10*3/uL ?Eosinophils Absolute Auto 0.3 0.0-0.4 - X10*3/uL ?Basophils Absolute Auto 0.1 0.0-0.2 - X10*3/uL ?NRBC Abs Auto 0.000 0.0-0. 012 - X10*3/uL ???Lab:UA ClnCatch+Micro w/r flx Cult (Order Date - 10/07/2024) (Collection Date & Time - 10/07/2024 07:15 AM) ? Value Reference Range ?Color Urine Yellow - ?Appearance Urine Cloudy - ?PH 6.0 5.0-9.0 - ?Glucose Urine UA Negative Neg ative - mg/dL ?Urine Blood Negative Negative - ?Specific [place] - Urine 1.020 1.005-1.025 - ?Urine Protein Negative Neg-Tr avtar - mg/dL ?Urine Ketones Negative Negati ve - mg/dL ?Nitrite Urine Negative Negati ve - ?Leukocyte Esterase Urine Large (3+) A Negative - ?RBC Urine 0-2 0-2 - /HPF ?WBC Urine >50 A 0-5 - /HPF ?Squamous Epithelial Cell Urine 3-5 0-2 - /HPF ?Bacteria Urine 2+ None Seen - ?Hyaline Casts Urine 3-5 0-2 - /LPF ???Lab:Comprehensive [place]. P daisy Fast (Order Date - 10/07/2024) (Collection Date & Time - 10/07/2024 07:15 AM) ? Value Reference Range ?Sodium 138 135-145 - mmo l/L ?Bilirubin Total 0.3 0.0- 1.0 - mg/dL ?Aspartate Amino Transferase 17 5-37 - U/L ?Alanine Aminotransferase 12 0-40 - U/L ?Total Protein 7.3 6.5-8. 0 - g/dL ?Albumin Level 3.4 L 3.5-5. 0 - g/dL ?Alkaline Phosphatase 132 H 39-117 - U/L ?Potassium 5.2 H 3.3-5.1 - mmol/L ?Chloride 103 96-108 - mm ol/L ?Carbon Dioxide 29 22-29 - mmol/L ?Anion Gap 11 L 12-20 - ?Blood Urea Nitrogen 23 H 9-16 - mg/dL ?Creatinine 0.74 0.5-1.4 - mg/dL ?Estimated Glomerular Filt Rate > 60 - ?Glucose Fasting 200 H 60-9 9 - mg/dL ?Calcium 9.4 8.4-10.2 - m g/dL ???Lab:Lipid Panel (Order Da te - 10/07/2024) (Collection Date & Time - 10/07/2024 07:15 AM) ? Value Reference Range ?Triglycerides 59 <150 - mg/dL ?Cholesterol 94 <200 - m g/dL ?LDL Cholesterol Calculated 53 <100 - mg/dL ?HDL Cholesterol 30 L >40 - mg/dL ???Lab:PSA,Total (Free>4and< 10) (Order Date - 10/07/2024) (Collection Date & Time - 10/07/2024 07:15 AM) ? Value Reference Range ?PSA,Total (Free>4and<10) 0.46 0.00-4.00 - ng/mL ???Lab:Microalbumin, Random (Order Date - 10/07/2024) (Collection Date & Time - 10/07/2024 07:15 AM) ? Value Reference Range ?Creatinine Urine 76.24 - m g/dL ?Microalbumin Urine 32.0 - mg/L ?Microalbum Creatinin e Ratio Ur 41.9 H <30 - ug/mg cr * Examination: ???General Examination: ?GENERAL APPEARANCE:?well developed, well nourished, in no acute distress.?HEAD:?normocephalic, atraumatic.?EYES:?pupils equal, round, reactive to light and accommodation, sclera non-icteric.?EARS:?normal.?ORAL CAVITY:?mucosa moist.?THROAT:?clear.?NECK/THYROID:?neck supple, full range of motion, no cervical lymphadenopathy, no bruits.?SKIN:?warm and dry, no suspicious lesions.?HEART:?regular rate and rhythm, S1, S2 normal, 3/6 holosystolic.?LUNGS:?clear to auscultation bilaterally.?ABDOMEN:?soft, nontender, nondistended, bowel sounds present, normal, no organomegaly , no masses palpable.?RECTAL EXAM:?not examined.?MALE GENITOURINARY:?not examined.?EXTREMITIES:?no clubbing, cyanosis, or edema.?NEUROLOGIC:?nonfocal, motor strength normal upper and lower extremities, sensory exam intact.? Assessment: * Assessment: 1.?Type II or unspecified ty pe diabetes mellitus without mention of complication, uncontrolled - E11.65 (Primary)???2.?Chronic kidney disease, unspecified CKD stage - N18.9???3.?Essential hypertension - I10???4.?Pure hypercholesterolemia - E78.00???5.?Sarcoma - C49.9???6.?Gastroesophageal reflux disease without esophagitis - K21.9???7.?Depression screening - Z13.31??? Plan: * Treatment: ? Value Reference Range ?Value 256 Notes: a1c is satisfactory, will continue current regiment??2.?Chronic kidney disease, unspecified CKD stage? Notes: stable, ??3.?Essential hypertension? Continue Telmisartan Tablet, 80 MG, 1 tablet, Orally, Once a day;?Continue amLODIPine BesylateTablet, 10 MG, 1 tablet, Orally, Once a day;?Continue hydroCHLOROthiazide Tablet, 25 MG, 1 capsule in the morning, Orally, Once a day;?Continue Bystolic Tablet, 10 MG, 1 tablet, Orally, Once a day.?? Notes: well controlled, will cpntinue current regiment??4.?Pure hypercholesterolemia? Continue Atorvastatin Calcium Tablet, 20 MG, 1 tablet, Orally, Once a day.?? Notes: doing well, stable, will continue current regiment??5.?Sarcoma? Notes: is going through treatment??6.?Gastroesophageal reflux disease without esophagitis? Continue Omeprazole Capsule Delayed Release, 20 MG, 1 capsule, Orally, Once a day.?? Notes: stable, will contonue current regiment??7.?Depression screening? Notes: negative screen?? * Procedure Codes:?88949 ASSAY , GLUCOSE, BLOOD QUANT, Modifiers: QW G2211 Complex e/m visit add on, Modifiers: 25 * Preventive Medicine:? ??Diabetes Care Plan:?Patient Lifestyle Goals?Needs to maintain diet control.?Treatment Goals?A1C< 7.?Barriers ?Needs better diet control.?Self- Managment Plan?Increase light exercise to 3 times a week for 30 minutes.?Expected Outcome?maintaining stable blood sugar levels within a target range.? * Follow Up:?3 Months * * Sign off status: Completed true * Provider:?Oswaldo Barrett MD Date:?0 10/14/2024 Generated for Toi styles/Bijan/Austinransmitting on:?11/22/2024 01:16 PM EST History and Physical Notes * HPI (History of Present Illness) Category Sub-Category Detail Notes Category Not es Symptom(s) patient is a 79 yo male here for review of recent labs and follow up of chronic issues. Depression Screening PHQ-9 Little inte rest or pleasure in doing things: Not at all Feeling down, depressed, or hopeless: No t at all Trouble falling or staying asleep, or sl eeping too much: Not at all Feeling tired or having little energy: N ot at all Poor appetite or overeating: Not at all Feeling bad about yourself o r that you are a failure, or have let yourself or your family down: Not at all Trouble concentrating on thi ngs, such as reading the newspaper or watching television: Not at all Moving or speaking so slowly that other people could have noticed; or the opposite, being so fidgety or restless that you have been moving around a lot more than usual: Not at all Thoughts that you would be b royer off or of hurting yourself in some way: Not at all Total Score: 0 Interpretation and Intervention Depression Miranda sheth Findings: Negative Follow-Up for Depression: : review of PH Q-9 found negative result, no follow-up needed SDOH Questions SDOH Questions In the past year have you been worried about losing housing?: No In the past year have you or any family members you live with been unable to get any of the following when it was really needed? Check all that apply:: None Fall Risk History Have you had any falls with injury i n the past year?: No Have you had two or more falls in the st year?: No Communication Needs Communication Needs Does the patient have a hearing impairment: No Does the patient have a vision impairmen t?: Yes ?If yes, what is the vision impairment?: Glasses Does the patient have a cognition impair ment?: No Examination Category Sub-Category Detail Notes Category Not es General Examination GENERAL APPEARANCE: well dev eloped, well nourished, in no acute distress HEAD: normocephalic, atrau matic EYES: pupils equal, round, reactive to light and accommodation, sclera non- icteric EARS: normal THROAT: clear NECK/THYROID: neck supple, full ra nge of motion, no cervical lymphadenopathy, no bruits HEART: regular rate and rhy thm, S1, S2 normal, 3/6 holosystolic LUNGS: clear to auscultatio n bilaterally ABDOMEN: soft, nontender, non distended, bowel sounds present, normal, no organomegaly , no masses palpable NEUROLOGIC: nonfocal, motor stre ngth normal upper and lower extremities, sensory exam intact SKIN: warm and dry, no angel picious lesions EXTREMITIES: no clubbing, cyanosi s, or edema MALE GENITOURINARY: not examined RECTAL EXAM: not examined ORAL CAVITY: mucosa moist
--- OUTSIDE RECORDS SUMMARY | 2024-11-22 13:16 | XMS_ITS | Clinical Summary ---
Author Organization [facility] Address [address] [address] Phone Care Team Providers Care Web Press Operator Assistant Name Role Phone Oswaldo Barrett MD Primary [...] Overview (05/24/2021): Jul 29, 2012 Entered By: LUEP HANSEN Comment: Right cervical lymph node Met, s/p dissection and radiation. Immunizations Name Administration Dates Next Due DTaP, [...] Visit [facility] [address] [place] [address] [place] [address] Jeramie Grant MD [address] [facility] [address] [place] [address] Health Maintenance Due Date Last Done Comments Diabetes: Hemoglobin A1C 07/18/2022 Diabetes: Pedal Pulse Checked 07/18/2022 Diabetes: Sensory Foot Exam 07/18/2022 Diabetes: Visual Foot Exam 07/18/2022 Diabetes: Ophthalmology Exam 11/17/2025 11/17/2024 Pneumococcal Vaccine: 65+ Years Completed 10/01/2012, 05/08/2012 Influenza Vaccine Completed 06/02/2024, , 05/23/2020, Additional history exists Hepatitis B Vaccine Aged Out No longe r eligible based on patient's age to complete this topic Insurance [address] [address] [address] MEDICARE MEDICARE [facility] Care Teams Web Press Operator Assistant Relationship Specialty Start Date End Date Oswaldo Barrett MD [address] [place] [address] [address] [place] [address] PCP - General Internal Medicine 06/15/21
--- OUTSIDE RECORDS SUMMARY | 2024-11-22 13:16 | XMS_ITS | Encounter Summary ---
Author Organization [facility] Address [address] [facility] [address] [address] [place] [address] Phone Care Team Providers Care Embedded Software Design Engineer Name Role Phone Oswaldo Barrett MD Primary Care Provider Encounter Details Date Type Department Care Team (Late st Contact Info) Description 08/04/2023 Office Communication [facility] [address] [facility] [address] [place] [address] Jeramie Grant MD [address] [address] Social History Tobacco Use Types [...] Visit [facility] [address] [place] [address] [place] [address] Jeramie Grant MD [address] [address] documented as of this encounter Visit Diagnoses Not on filedocumented in this encounter Care Teams Embedded Software Design Engineer Relationship Specialty Start Date End Date Oswaldo Barrett MD [address] [place] [address] [address] TIA OROZCO PCP - General Internal Medicine 9/24/21 documented as of this encounter
== END 2024-11-22 07:31 | disposition home or self-care (01) ==
LOC: HO.LNP 07:30
PROVIDERS: Visit Provider Internal Medicine
DX: R31.9 Hematuria, unspecified (principal)
CPT/HCPCS: 81001

== ENCOUNTER 2024-12-13 09:54 | Outpatient (REF) | payer MEDICARE, OTHER, SELFPAY ==
--- NOTE | ~2024-12-13 | US_ITS ---
EXAMINATION: US TRIPLEX LOWER EXTREMITY, BILATERAL CLINICAL INFORMATION: Edema, lower extremities. COMPARISON: None available. TECHNIQUE: Color-flow triplex imaging with spectral analysis and compression Doppler were performed on the bilateral lower extremities. FINDINGS: Respiratory variation, normal compression and augmented flow are noted throughout the interrogated common femoral vein, superficial femoral vein, profunda femoral vein, popliteal vein and midcalf peroneal and posterior tibial venous segments . There is no Worthy's cyst. US/US venous duplex LE BI IMPRESSION: No acute deep venous thrombosis involving the bilateral lower extremities. Negative for DVT.. Electronically signed by: Luis Daigle MD 12/14/2024 11:20 AM EDT
== END 2024-12-13 09:55 | disposition home or self-care (01) ==
LOC: HO.US 09:54
PROVIDERS: PCP Internal Medicine; Visit Provider Internal Medicine
DX: R60.0 Localized edema (principal)
CPT/HCPCS: 93970

== ENCOUNTER → 2024-12-13 12:40 | Outpatient (BNV) | payer MEDICARE, OTHER, SELFPAY | PROVIDERS: PCP Internal Medicine; Visit Provider Radiology Diagnostic Radiology | DX: R60.0 Localized edema (principal) | CPT/HCPCS: 93970 ==

== ENCOUNTER 2025-03-28 16:09 | Outpatient (REF) | payer MEDICARE, OTHER, SELFPAY ==
--- OUTSIDE RECORDS SUMMARY | 2025-03-28 16:12 | XMS_ITS | Patient Health Record ---
Author Organization [facility] Address [address] [address] Care Team Providers Care Branch Examiner Name Role Phone Oswaldo Barrett MD Primary Care Provider Donald Hutchins Unavailable [phone] Allergies Allergen (clinical drug ingredient) Drug/Non Drug Allergy documented on EMR Reaction Allergy Type Onset Date Status Penicillin Unknown Drug Allergy Active Reason For Referral No Information Medications Medication SIG (Take, Route, Frequency, Duration) Notes Start Date End Date Status amLODIPine Besylate 10 MG 1 tablet Orall y Once a day; Duration: 30 day(s) 05/06/2024 Active HumuLIN 70/30 (70-30) 100 UNIT/ML as directed Subcutaneous 05/06/2024 Act ede Atorvastatin Calcium 20 MG 1 tablet Oral ly Once a day; Duration: 30 day(s) 05/06/2024 Active Morphine Sulfate 15 MG 1 tablet as needed Orally five times daily As needed 07/05/2024 Active Telmisartan 80 MG 1 tablet Orally Once a day; Duration: 30 day(s) 05/06/2024 Active PreserVision AREDS - as directed Orally 05/06/2024 Active Nebivolol HCl 10 MG 1 tablet Orally Once a day; Duration: 30 day(s) 05/06/2024 Active Morphine Sulfate 15 MG 1 tablet as needed Orally every 4 hrs As needed Active traMADol HCl 50 MG 1 tablet as needed O rally Once a day 05/06/2024 Active Morphine Sulfate ER 15 MG 1 tablet Orall y three times daily Active Aspirin 81 MG 1 tablet Orally Once a day; Duration: 30 day(s) 05/06/2024 Active Morphine Sulfate ER 30 MG 1 capsule Oral ly three times daily Active Omeprazole 20 MG 1 tablet 30 minutes before morning meal Orally Once a day; Duration: 30 day(s) 05/06/2024 Active metFORMIN HCl 500 MG 1 tablet with a estefania l Orally Once a day; Duration: 30 day(s) 05/06/2024 Active Tylenol 325 MG 2 tablet as needed O rally three times daily 07/05/2024 Active Fluticasone Propionate 50 MCG/ACT 1 spray in each nostril Nasally Once a day; Duration: 30 day(s) 05/06/2024 Active Problems Problem Type SNOMED Code ICD Code Onset Dates Problem Status W/U Status Risk Notes Problem 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, 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) Active confirmed Problem Dehiscence of surgical wound (21697882) Disruption of external operation (surgical) wound, not elsewhere classified, subsequent encounter (T81.31XD) Active confirmed Problem History of radiation exposure (882293180) Personal history of irradiation (Z92.3) Active confirmed Problem Hyperlipidaemia (19149503) Hyperlipidemia, unspecified hyperlipidemia type (E78.5) Active confirmed Problem Essential hypertension (81975992) Hypertension, unspecified type (I10) Active confirmed Problem Atherosclerotic heart disease of [place] coronary artery without angina pectoris (205481048481776) Coronary artery disease, unspecified vessel or lesion type, unspecified whether angina present, unspecified whether [place] or transplanted heart (I25.10) Active confirmed Problem Aortic valve disorder (2446024) Aortic valve stenosis, etiology of cardiac valve disease unspecified (I35.0) Active confirmed Problem Asthma without status asthmaticus (67506363) Asthma, unspecified asthma severity, unspecified whether complicated, unspecified whether persistent (J45.909) Active confirmed Problem Malignant neoplasm (398566670) Malignant neoplasm (C80.1) Active confirmed Problem Arthritis (5736059) Arthritis (M19.90) Active confirmed Problem Cataract (192046788) Cataract, unspecified cataract type, unspecified laterality (H26.9) Active confirmed Problem 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 (801806154) Type 2 diabetes mellitus with retinopathy, macular edema presence unspecified, unspecified laterality, unspecified retinopathy severity, unspecified whether senior care insulin use (E11.319) Active confirmed Problem History of urinary stone (220778759) H/O renal calculi (Z87.442) Active confirmed Problem Obstructive sleep apnea (21065227) Obstructive sleep apnea (G47.33) Active confirmed Problem 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 Vital Signs Heart Rate 83 /min 08/16/2024 Temperature 98.2 degrees Fahrenheit 08/16/2024 Respiratory Rate 16 /min 08/16/2024 Height-cm 180.34 cm 08/16/2024 Oximetry 96 % 08/16/2024 Blood pressure diastolic 67 mm Hg 08/16/2024 Weight-kg 96.62 kg 08/16/2024 Height 71 in 08/16/2024 Blood pressure systolic 126 mm Hg 08/16/2024 Weight 213 lbs 08/16/2024 BMI 29.7 kg/m2 08/16/2024 Encounters Encounter Location Date Provider Diagnosis [address] [address] 06/21/2024 Donald Raymond Unspecified open wound of other specified part of neck, subsequent encounter S11.80XD ; Disruption of external operation (surgical) wound, not elsewhere classified, subsequent encounter T81.31XD ; 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, 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 and Personal history of irradiation Z92.[address] [address] 07/05/2024 Donald Raymond Unspecified open wound of other specified part of neck, subsequent encounter S11.80XD ; Disruption of external operation (surgical) wound, not elsewhere classified, subsequent encounter T81.31XD ; 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, 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 and Personal history of irradiation Z92.[address] [address] 07/19/2024 Donald Raymond Sarcoma of neck C49.0 ; Disruption of external operation (surgical) wound, not elsewhere classified, subsequent encounter T81.31XD and 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, 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 [address] 08/02/2024 Donald Raymond Sarcoma of neck C49.0 ; Disruption of external operation (surgical) wound, not elsewhere classified, subsequent encounter T81.31XD and 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, 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 [facility] [address] [address] 08/16/2024 Donald Raymond Sarcoma of neck C49.0 ; Disruption of external operation (surgical) wound, not elsewhere classified, subsequent encounter T81.31XD and 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, 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 [address] 05/06/2024 Donald Raymond [address] [address] 06/21/2024 Donald Raymond [address] [address] 07/05/2024 Donald Raymond Assessments Encounter Date Diagnosis (ICD Code) Assessment Notes Treatment Notes Treatment Clinical Notes Section Notes 06/21/2024 Unspecified open wound of other specified part of neck, subsequent encounter (ICD-10 - S11.80XD) 06/21/2024 Disruption of external operation (surgical) wound, not elsewhere classified, subsequent encounter (ICD-10 - T81.31XD) 07/05/2024 Unspecified open wound of other specified part of neck, subsequent encounter (ICD-10 - S11.80XD) 07/19/2024 Sarcoma of neck (ICD-10 - C49.0) 08/02/2024 Sarcoma of neck (ICD-10 - C49.0) 08/16/2024 Sarcoma of neck (ICD-10 - C49.0) 08/16/2024 Disruption of external operation (surgical) wound, not elsewhere classified, subsequent encounter (ICD-10 - T81.31XD) 08/02/2024 Disruption of external operation (surgical) wound, not elsewhere classified, subsequent encounter (ICD-10 - T81.31XD) 07/19/2024 Disruption of external operation (surgical) wound, not elsewhere classified, subsequent encounter (ICD-10 - T81.31XD) 07/05/2024 Disruption of external operation (surgical) wound, not elsewhere classified, subsequent encounter (ICD-10 - T81.31XD) 06/21/2024 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, face and neck (ICD-10 - C49.0) 06/21/2024 Personal history of irradiation (ICD-10 - Z92.3) 07/05/2024 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, face and neck (ICD-10 - C49.0) 07/19/2024 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, face and neck (ICD-10 - C49.0) 08/02/2024 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, face and neck (ICD-10 - C49.0) 08/16/2024 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, face and neck (ICD-10 - C49.0) 07/05/2024 Personal history of irradiation (ICD-10 - Z92.3) 06/21/2024 Opal Lundy 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 He is accomapnied by both his sons at todays visit. Current treatment with use of dankins soaked gauze, then betadine to the dry eschar and then Adaptic then Aquacel Ag to the open wound. Use skin prep or Aquaphor to the periwound, cover with dry dressing. They have no acute concerns at todays visit, however one of the sons works with a wound provider that works with a wound powder that is currently under trials but he is not able to state the name of product or level of trial the product is in. They asked about if utilizing this product would help his wound. I explained I am not able to comment on a drug that is still in the beggining stages of trial and not released to the public. On assessment today, Kamron is noted to be afebrile and other VS were within normal limits. The patient denies pain or discomfort related to wound. We removed dressings, with no suggestive s/s of an underlying infectious process. There was mild foul odor noted. His wound is noted with no significant change since last visit. The wound bed is noted with mod yellowish slough with an area at the center that is the tumor that has a dark brownish/black discoloration that is macerated. The periwound is noted with rolled edges. There is mod drainage. No debridement was performed due to the underlying etiology of wound being cancerous. However, i utilized a salin soaked gauzed to cleans the wound and remove dry exudate to the periphery of the wound. He tolerated well. The wound site were then cleansed with Dakin's solution and thereafter, we applied betadine to the dark brownish black skin at the center of wound, then betadine, then adaptic, then aquacel and covered with dry dressing. visiting nurses are performing dressing changes regularly S/S of infection reviewed and when to go to EDPatient will have FU in two weeks I, Donald Raymond, MSN, HYDRO SPRAYER OPERATOR, MANAGER OF [employer] SAL[employer], examined, evaluated , and treated the patient. Dr. Kenzie Mclain was available for any questions or concerns that I may have had. A total of 30 minutes was spent on this visit (face to face and non face to face) documenting HPI and performing physical exam, reviewing previous notes and testing, reviewing and adjusting treatment plan, counseling the patient on treatment choices, disease process, expected outcomes, and documenting the findings in the note. 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 He is accompanied by both his sons at today's visit. Current treatment with use of dankins soaked gauze, then Betadine to the dry eschar and then Adaptic then Aquacel Ag to the open wound. Use skin prep or Aquaphor to the periwound, cover with dry dressing. They report he has had weight loss and spoke to specification writer and needs to have increase in protein of 100-120g per day. His son reports use of wound powder application as well. Again not recommended due to not FDA approved at this time. On assessment today, Kamron is noted to be afebrile and other VS were within normal limits. The patient denies pain or discomfort related to wound. We removed dressings, with no suggestive s/s of an underlying infectious process. There was mild foul odor noted. His wound is noted with deterioration since last visit based on width. Last week was 4.8cm and at today's visit 6.5cm. The wound bed is noted with mod yellowish slough with an area at the center that is the tumor that has a dark brownish/black discoloration that is macerated. There is a newer darker area noted at 12 o clock of the wound at today's visit. The periwound is noted with rolled edges. There is mod drainage. No debridement was performed due to the underlying etiology of wound being cancerous. However, we utilized a saline soaked gauzed to cleans the wound and remove dry exudate to the periphery of the wound. He tolerated well. The wound site were then cleansed with Dakin's solution and thereafter, we applied Betadine to the dark brownish black skin at the center of wound, then Betadine, then Adaptic, then Aquacel and covered with dry dressing. Visiting nurses are performing dressing changes regularly S/S of infection reviewed and when to go to EDPatient will have FU in two weeks I, Donald Raymond, MSN, HYDRO SPRAYER OPERATOR, MANAGER OF [employer], examined, evaluated, and treated the patient. Dr. Kenzie Mclain was available for any questions or concerns that I may have had. A total of 30 minutes was spent on this visit (face to face and non face to face) documenting HPI and performing physical exam, reviewing previous notes and testing, reviewing and adjusting treatment plan, counseling the patient on treatment choices, disease process, expected outcomes, and documenting the findings in the note. Follow Up 07/19/2024 Opal Lundy presents for his two-week follow up for right neck sarcoma, non-healing wound and STRN. He is accompanied by both his sons at today's visit. Current treatment with use of dankins soaked gauze, then Betadine to the dry eschar and then Adaptic then Aquacel Ag to the open wound. Use skin prep or Aquaphor to the periwound, cover with dry dressing. They have no acute concerns at today's visit. However, son reports he started using the heeling powder to his fathers wound but not clear as how often the application is. He sometimes reports its every other day or once a week. His son called his friend whom he reports is a wound expert and obtained an order for Santyl and has been applying this to wound for past week to 1.5 weeks. We had another discussion that two wound providers over seeing his care is a conflict of interest. I explained that if he wishes that he could continue under the care of his sons friend, or he can continue under my care for his wound. I explained he could take a break from the clinic to try his sons treatment then come back if he wishes. However, having treatments from multiple sources is a conflict of interest at this time. They all agreed they would no longer perform outside treatments and continue wound care treatment at new care at this time. He reports he has appointment with oncologist later this week. Of note: his morphine dose continues to increase, and he is noted with more forgetfulness at this time. On assessment today, Kamron is noted to be afebrile and other VS were within normal limits. The patient denies pain or discomfort related to wound. We removed dressings, with no suggestive s/s of an underlying infectious process. There was mild foul odor noted. His wound is noted with significant deterioration since last visit based on assessment and measurements. His wound at last visit was 0.5cm and today is 1.3cm. There is substantial slough throughout the wound med with callus to periwound. The surrounding skin of periwound is noted with transient erythema with probable source from Santyl application not confined to the wound.The center that is the tumor that has a dark brownish/black discoloration that is macerated and significantly loser then prior visit. No debridement was performed due to the underlying etiology of wound being cancerous. However, I utilized a saline soaked gauzed to cleans the wound and remove dry exudate to the periphery of the wound. He tolerated well. The wound site were then cleansed with Dakin's solution and thereafter, we applied Betadine to the dark brownish black skin at the center of wound, then Betadine, then abatic, then Aquacel and covered with dry dressing. Visiting nurses are performing dressing changes regularly S/S of infection reviewed and when to go to EDPatient will have FU in two weeks I, Donald Raymond, MSN, HYDRO SPRAYER OPERATOR, MANAGER OF [employer], examined, evaluated, and treated the patient. Dr. Kenzie Mclain was available for any questions or concerns that I may have had. A total of 40 minutes was spent on this visit (face to face and non face to face) documenting HPI and performing physical exam, reviewing previous notes and testing, reviewing and adjusting treatment plan, counseling the patient on treatment choices, disease process, expected outcomes, and documenting the findings in the note. I reviewed extensivleyconcerns with deterioration and use of outside products with probable correlation of deterioration. 08/02/2024 Opal Lundy presents for his two-week follow-up for right neck sarcoma, non-healing wound and STRN. He is accompanied by both his sons at today's visit. Current treatment with use of dankins soaked gauze, then Betadine to the dry eschar and then Adaptic then Aquacel Ag to the open wound. Use skin prep or Aquaphor to the periwound, cover with dry dressing. They have no acute concerns at today's visit. However, son reports he started using the heeling powder to his fathers wound but not clear as how often the application is. He sometimes reports its every other day or once a week. His son called his friend whom he reports is a wound expert and obtained an order for Santyl and has been applying this to wound for past week to 1.5 weeks. We had another discussion that two wound providers over seeing his care is a conflict of interest. I explained that if he wishes that he could continue under the care of his sons friend, or he can continue under my care for his wound. I explained he could take a break from the clinic to try his sons treatment then come back if he wishes. However, having treatments from multiple sources is a conflict of interest at this time. They all agreed they would no longer perform outside treatments and continue wound care treatment at new care at this time. He reports he has appointment with oncologist later this week. Of note: his morphine dose continues to increase, and he is noted with more forgetfulness at this time. His sons report that he may have a surgical debridement of wound. As of wound care, this is not something that can be performed in the office do to the anatomy of the wound and proximity of the arteries, carotid, and risk involved. Again patient is with palliative mindset with wound care. On assessment today, Kamron is noted to be afebrile and other VS were within normal limits. The patient denies pain or discomfort related to wound. We removed dressings, with no suggestive s/s of an underlying infectious process. There was mild foul odor noted. His wound is noted with deterioration since last visit based on assessment and measurements. There is substantial slough throughout the wound bed with callus/fibrinous periwound as well as dried slough noted. The surrounding skin of periwound is noted with transient erythema due to no use of zinc.The center that is the tumor that has a dark brownish/black discoloration that is macerated and significantly loser then prior visit. No debridement was performed due to the underlying etiology of wound being cancerous. However, I utilized a saline soaked gauzed to cleans the wound and remove dry exudate to the periphery of the wound. He tolerated well. The wound site were then cleansed with Dakin's solution and thereafter, we applied Betadine to the dark brownish black skin at the center of wound, then Betadine, then abatic, then Aquacel and covered with dry dressing. Visiting nurses are performing dressing changes regularly recommended the above dressing changes regularly to aid with keeping moisture level down and aid with decrease odor. may reduce the time with dankins due to burning sensation.S/S of infection reviewed and when to go to EDPatient will have FU in two weeks I, Donald Raymond, MSN, HYDRO SPRAYER OPERATOR, MANAGER OF [employer], examined, evaluated, and treated the patient. Dr. Kenzie Mclain was available for any questions or concerns that I may have had. A total of 30 minutes was spent on this visit (face to face and non face to face) documenting HPI and performing physical exam, reviewing previous notes and testing, reviewing and adjusting treatment plan, counseling the patient on treatment choices, disease process, expected outcomes, and documenting the findings in the note. I reviewed extensivleyconcerns with deterioration and use of outside products with probable correlation of deterioration. 08/16/2024 Opal Lundy presents for his follow-up for right neck sarcoma, non-healing wound and STRN. He is accompanied by both his sons at today's visit. Current treatment with use of dankins soaked gauze, then Betadine to the dry eschar and then Adaptic then Aquacel Ag to the open wound. Use skin prep or Aquaphor to the periwound, cover with dry dressing. They report the oncologist has made a referral for surgical debridement of right neck sarcoma, however the surgeon has been difficult to get in touch with and not returned there call. This wound continues to deteriorate and patient may benefit from palliative or hospice services when patient and family are ready. I recommended the PCP and other providers overseeing care to consider this possibility as patient is now noted with decreased weight, son reports he is not eating well and has sought out a RD to aid with nutritional supplements, as well as morphine dosing has increased and now patient is noted with changes in mood such as irritability and forgetfulness. On assessment today, Kamron is noted to be afebrile and other VS were within normal limits. The patient denies pain or discomfort related to wound. We removed dressings, with no suggestive s/s of an underlying infectious process. There continues to have odor from wound. His wound continues with deterioration at every visit based on assessment and measurements. There is substantial slough throughout the wound bed with callus/fibrinous periwound as well as dried slough noted. The surrounding skin of periwound is noted with transient erythema due to no use of zinc.The center that is the tumor that has a dark brownish/black discoloration that is macerated and at every visit becomes softer and more pliable. No debridement was performed due to the underlying etiology of wound being cancerous. However, I utilized a saline soaked gauzed to cleans the wound and remove dry exudate to the periphery of the wound. He tolerated well. The wound site were then cleansed with Dakin's solution and thereafter, we applied Betadine to the dark brownish black skin at the center of wound, then Betadine, then abatic, then Aquacel and covered with dry dressing. Conversation with patient, and both sons and new care staff to address wound at today's visit. This is a cancerous non-healing wound that in office is non debrideable due to the anatomical positioning of wound and proximity to carotid and other vessels. At this time the wound clinic is not able to offer a beneficial treatment that will aid with goals of care of patient and son. We discussed speaking with the referring provider that made referral for surgical debridement to help navigate and expedite that process. We reviewed the surgeon that reviews the wound monthly per the patient and family to make a referral for VNA to come, so they can have oversite to help assist them at home as well as identify infectious property. The sons verbalized understanding and agreed with the conversation and also felt it best to get the wound oversite at home especially due to winter coming and preventing there father from getting sick. I reminded them they can always call the wound clinic, and we would aid them any way we can if possible. I, Donald Raymond, MSN, HYDRO SPRAYER OPERATOR, MANAGER OF [employer], examined, evaluated, and treated the patient. Dr. Kenzie Mclain was available for any questions or concerns that I may have had. A total of 40 minutes was spent on this visit (face to face and non face to face) documenting HPI and performing physical exam, reviewing previous notes and testing, reviewing and adjusting treatment plan, counseling the patient on treatment choices, disease process, expected outcomes, and documenting the findings in the note. I reviewed extensivley concerns with deterioration and use of outside products with probable correlation of deterioration. Plan Of Treatment No Information Insurance Providers Payer Name Payer Address Payer Phone Subscriber Number Group Number Insured Name Patient Relationship to Insured Coverage Start Date Coverage End Date Medicare [address] HILARY GONZALES [id number] Kamron Coker Self - patient is the insured [facility] [address] [place], [place] [id number] Kamron Coker Self - patient is the insured Medical (General) History Medical History History ICD Code Arthritis M19.90 Asthma, unspecified asthma s everity, unspecified whether complicated, unspecified whether persistent J45.909 Cataract, unspecified cataract type, uns pecified laterality H26.9 Coronary artery disease, uns pecified vessel or lesion type, unspecified whether angina present, unspecified whether [place] or transplanted heart I25.10 H/O renal calculi Z87.442 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, macular edema presence unspecified, unspecified laterality, unspecified retinopathy severity, unspecified whether senior care insulin use E11.319 Hyperlipidemia, unspecified hyperlipidem ia type E78.5 Hypertension, unspecified type I10 Malignant neoplasm C80.1 Obstructive sleep apnea G47.33 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
--- OUTSIDE RECORDS SUMMARY | 2025-03-28 16:12 | XMS_ITS | Clinical Summary ---
Author Organization [facility] Address [address] [address] Phone Care Team Providers Care Amortization Clerk Name Role Phone Oswaldo Barrett MD [...] node Met, s/p dissection and radiation. Immunizations Immunization Administration Dates Next Due DTaP, Unspecified 05/23/2012 [...] Visit [facility] [address] [place] [address] [facility] [place] [address] Jeramie Grant MD [address] [facility] [address] [place] [address] Health Maintenance Due Date Last Done Comments Diabetes: Hemoglobin A1C 07/18/2022 Diabetes: Pedal Pulse Checked 07/18/2022 Diabetes: Sensory Foot Exam 07/18/2022 Diabetes: Visual Foot Exam 07/18/2022 Influenza Vaccine (#1) 2025 4, 05/23/2021, 05/23/2020, Additional history exists Diabetes: Ophthalmology Exam 11/17/2025 11/17/2024 Pneumococcal Vaccine: 50+ Years Completed 10/01/2012, 05/08/2012 Pneumococcal Vaccine: Peds (0 to 5 Years) and At-Risk Patients (6 to 49 Years) Discontinued 10/01/2012, 05/08/2012 Hepatitis B Vaccine Aged Out No longe r eligible based on patient's age to complete this topic [place] [address] Medicare Medicare [facility] Care Teams Amortization Clerk Relationship Specialty Start Date End Date Oswaldo Barrett MD [address] [place] [address] [id number] [place], [place] PCP - General Internal Medicine 06/15/21
== END 2025-03-28 16:10 | disposition home or self-care (01) ==
LOC: HO.LNP 16:09
PROVIDERS: Visit Provider Surgery
DX: Z13.89 Encounter for screening for other disorder (principal)

== ENCOUNTER 2025-04-26 08:32 | Inpatient (IN) | payer MEDICARE, OTHER, SELFPAY ==
--- OUTSIDE RECORDS SUMMARY | 2024-08-30 07:30 | XMS_ITS ---
Author Organization [facility] Address [address] [address] Care Team Providers Care Chemical Equipment Sales Engineer Name Role Phone Arnold ORTIZ, Oswaldo Primary Care Provider Donald Hutchins [phone] Encounters Encounter Location Date Provider Diagnosis [facility] [address] [address] 08/30/2024 Donald Raymond Plan Of Treatment No Information Progress Notes * Dell MEJÍAOB:1945 (79 yo M)Acc No.[id number]:08/30/2024 Follow-Up Visit Patient: Kamron RUIZ Provider: Jami Raymond NP :1945 A ge:79 Y S ex:Male Date:08/30/2024 [facility] Pcp:Oswaldo Barrett MD Subjective: * Chief Complaints: * * Medical History: Objective: * Vitals: Assessment: Plan: * Treatment: * Billing Information: * Visit Code: * Procedure Codes: * Electronic signature of Cuong Raymond NP on 04/26/2025 at 10:07 AM EDT Sign off status: Pending * Provider: Jami Raymond NP Date: 10/31/2023 Generated for Simini ng/Faxing/eTransmitting on: 0 04/26/2025 10:07 AM EDT
--- OUTSIDE RECORDS SUMMARY | 2025-03-29 10:15 | XMS_ITS ---
Author Organization Oswaldo Barrett MD Address [address] [place] [phone] Care Team Providers Care Geoduck Diver Name Role Phone Oswaldo Barrett Primary Care Provider Allergies Allergen (clinical drug ingredient) Drug/Non Drug Allergy documented on EMR Reaction Allergy Type Onset Date Status penicillin (uncoded) hives Allergy Active Results Component Value Reference Range Notes Hemoglobin A1c Reviewed date:03/29/2025 03:31:31 PM Interpretation: Performing Lab: Notes/Report: Hemoglobin A1c 7.7 Glucose, finger stick Reviewed date:03/29/2025 02:14:29 PM Interpretation: Performing Lab: Notes/Report: Value 252 REASON FOR VISIT 6 week, Blood sugar is 271 A1C is 7.7 results below are incorrect, Accompanied by son Medications Medication SIG (Take, Route, Frequency, Duration) Notes Start Date End Date Status NovoLIN 70/30 70-30 % as directed Subcutaneous 60u in am 40 in pm 03/12/2012 Active metFORMIN HCl ER 500 MG 2 tablet with ev ening meal Orally DX E11.65 twice a day Active Doxycycline Hyclate 100 MG 1 capsule Ora lly twice a day for 10 days 12/28/2024 Active Morphine Sulfate 15 MG 1.5 tabs four [place]ol[place] es a day Orally four times a day Not-Taking Morphine Sulfate ER 30 MG 1 capsule thre e ties a day Orally Once a day Not-Taking Furosemide 40 MG 2 tabs Orally Once a day for 30 days 11/30/2024 Active hydroCHLOROthiazide 25 MG 1 capsule in t he morning Orally Once a day Active Bystolic 10 MG 1 tablet Orally Once a day Active Omeprazole 20 MG 1 capsule Orally Onc e a day 02/03/2018 Active amLODIPine Besylate 10 MG 1 tablet Orall y Once a day Active Terazosin HCl 2 MG 1 capsule Orally Onc e a day for 90 days 06/18/2011 Active Flonase 50 MCG/ACT 2 sprays Nasally Onc e a day for 90 days Active traMADol HCl 50 MG one or 2 tabs Orally twice a day for 30 days 04/09/2024 Active Telmisartan 80 MG 1 tablet Orally Once a day Active Atorvastatin Calcium 20 MG 1 tablet Oral ly Once a day Active Alcoh-Wipe - use to test blood sugar externally DX E11.65 twice a day for 90 days 09/28/2019 Active Syringe (Disposable) 1 ML use to inject insulin sub Q Dx: E 11.65 twice a day for 90 days 09/28/2019 Active FreeStyle Lite Test - use to test blood sugar In Vitro DX: 11.65 twice a day for 90 days 09/01/2018 Active Lancets - use to test blood sugar invitro DX: E 11.65 twice a day for 90 days 09/28/2019 Active Aspirin 81 MG 1 tablet Orally Once a day for 90 days Active Pregabalin 25 MG 1 capsule Orally Twice a day Active Tylenol 8 Hour 650 MG 2 tablets as neede d Orally every 8 hrs Active oxyCODONE HCl 10 MG 1 tablet as needed Orally every 6 hrs Active fentaNYL 100 MCG/HR 1 patch to skin Transdermal Active Gaviscon 95-358 MG/15ML 15 mL after meal s and at bedtime as needed Orally Four times a day for 90 days Active Vital Signs Blood pressure systolic 132 mm Hg 03/29/20 25 Blood pressure diastolic 54 mm Hg 025 Height 70 in 03/29/2025 Weight 212 lbs 03/29/2025 BMI 30.42 kg/m2 03/29/2025 weight is down 7 pounds [facility] 5-27-25 Encounters Encounter Location Date Provider Diagnosis Oswaldo Barrett MD [address] [place] [phone] 03/29/2025 Oswaldo Barrett Type II or unspecified type diabetes mellitus without mention of complication, uncontrolled E11.65 Assessments Encounter Date Diagnosis (ICD Code) Assessment Notes Treatment Notes Treatment Clinical Notes Section Notes 03/29/2025 Type II or unspecified type diabetes mellitus without mention of complication, uncontrolled (ICD-10 - E11.65) continue with present treatment doing well Plan Of Treatment Treatment Notes Assessment Notes Type II or unspecified type diabetes mellitus without mention of complication, uncontrolled continue with present treatment doing well Next Appt Details Follow Up: 2 Months, Reason: Provider Name:Oswaldo chandler, 05/30/2025 02:00:00 PM, [address] [place] [address], [phone], Provider Name:Oswaldo chandler, 10/11/2025 07:30:00 AM, [address] [place] [address], [phone], Provider Name:Oswaldo chandler, 10/17/2025 02:30:00 PM, [address] [place] [address], [phone], Progress Notes * Kamron COKER MDOB:[birth year] (79 yo M)Acc No.[id number]:03/29/2025 Progress Notes Patient: Kamron RUIZ Provider: Iam Barrett MD :1945 A ge:79 Y S ex:Male Date:03/29/2025 Address:[address] [place] [address], [facility] [id number] Subjective: * Chief Complaints: * 6 weekBlood sugar is 271 A1C is 7.7 results below are incorrectAccompanied by son * HPI: S ymptom(s): patient is a 79 yo male here for 6 week follow up visit/ having a lot more infection and got more cultures. * ROS: G eneral/Constitutional: Denies C hills. D enies F atigue. D enies F ever. D enies H eadache. E NT: Denies S ore throat. E ndocrine: Denies D ifficulty sleeping. D enies D izziness.?Denies E xcessive sweating. D enies E xcessive thirst. A dmits F requent urination. R espiratory: Denies C ough. D enies S hortness of breath at rest. D enies S hortness of breath with exertion. G astrointestinal: Denies D iarrhea. D enies N ausea. * Medical History: * Surgical History: * Hospitalization/Major Diagno stic Procedure: * Medications: T akingPregabalin 25 MG Capsule 1 capsule Orally Twice a day Tylenol 8 Hour 650 MG Tablet Extended Release 2 tablets as needed Orally every 8 hrs oxyCODONE HCl 10 MG Tablet 1 tablet as needed Orally every 6 hrs fentaNYL 100 MCG/HR Patch 72 Hour 1 patch to skin Transdermal Gaviscon 95-358 MG/15ML Suspension 15 mL after meals and at bedtime as needed Orally Four times a day Aspirin 81 MG Tablet Delayed Release 1 [...] Suspension 2 sprays Nasally Once a day traMADol HCl 50 MG Tablet one or 2 tabs Orally twice a day Telmisartan 80 MG Tablet 1 tablet Orally Once a day Atorvastatin Calcium 20 MG Tablet 1 tablet Orally Once a day Omeprazole 20 MG Capsule Delayed Release 1 capsule Orally Once a day amLODIPine Besylate 10 MG Tablet 1 tablet Orally Once a day hydroCHLOROthiazide 25 MG Tablet 1 capsule in the morning Orally Once a day Bystolic 10 MG Tablet 1 tablet Orally Once a day Furosemide 40 MG Tablet 2 tabs Orally Once a day Doxycycline Hyclate 100 MG Capsule 1 capsule Orally twice a day NovoLIN 70/30 70-30 % Suspension as directed Subcutaneous 60u in am 40 in pm metFORMIN HCl ER 500 MG Tablet Extended Release 24 Hour 2 tablet with evening meal Orally DX E11.65 twice a day Taking Pregabalin 25 MG Capsule 1 capsule Orally Twice a day Taking Tylenol 8 Hour 650 MG Tablet Extended Release 2 tablets as needed Orally every 8 hrs Taking oxyCODONE HCl 10 MG Tablet 1 tablet as needed Orally every 6 hrs Taking fentaNYL 100 MCG/HR Patch 72 Hour 1 patch to skin Transdermal Taking Gaviscon 95-358 MG/15ML Suspension 15 mL after meals and at bedtime as needed Orally Four times a day Taking Aspirin 81 MG Tablet Delayed Release [...] 2 sprays Nasally Once a day Taking traMADol HCl 50 MG Tablet one or 2 tabs Orally twice a day Taking Telmisartan 80 MG Tablet 1 tablet Orally Once a day Taking Atorvastatin Calcium 20 MG Tablet 1 tablet Orally Once a day Taking Omeprazole 20 MG Capsule Delayed Release 1 capsule Orally Once a day Taking amLODIPine Besylate 10 MG Tablet 1 tablet Orally Once a day Taking hydroCHLOROthiazide 25 MG Tablet 1 capsule in the morning Orally Once a day Taking Bystolic 10 MG Tablet 1 tablet Orally Once a day Taking Furosemide 40 MG Tablet 2 tabs Orally Once a day Taking Doxycycline Hyclate 100 MG Capsule 1 capsule Orally twice a day Taking NovoLIN 70/30 70-30 % Suspension as directed Subcutaneous 60u in am 40 in pm Taking metFORMIN HCl ER 500 MG Tablet Extended Release 24 Hour 2 tablet with evening meal Orally DX E11.65 twice a day Not-Taking/PRNMorphine Sulfate ER 30 MG Capsule Extended Release 24 Hour 1 capsule three ties a day Orally Once a day Morphine Sulfate 15 MG Tablet 1.5 tabs four times a day Orally four times a day Not-Taking/PRN Morphine Sulfate ER 30 MG Capsule Extended Release 24 Hour 1 capsule three ties a day Orally Once a day Not-Taking/PRN Morphine Sulfate 15 MG Tablet 1.5 tabs four times a day Orally four times a day * Allergies: p enicillin: hivesyes[Allergies Verified] Objective: * Vitals: H t: 70, Wt: 212, BMI:30.42, BP:132/54, Wt-k.16. weight is down 7 pounds since 02-15-25. * Examination: G eneral Examination: GENERAL APPEARANCE: p leasant, in no acute distress. HEAD: n ormocephalic. SKIN: a bnormal with scabs coming off face. HEART: n o murmurs, rubs, gallops, regular rate and rhythm.? LUNGS: c lear to auscultation bilaterally. Assessment: * Assessment: 1. T ype II or unspecified type diabetes mellitus without mention of complication, uncontrolled - E11.65 (Primary) Plan: * Treatment: Value Reference Range H emoglobin A1c 7.7 * Nahed Nichols 03/29/20 02:27:20 PM EDT > Patient's A1C is 7.7 ?LAB: Glucose, finger stick (Collection Date & Time - 03/29/2025)* Value Reference Range V alue 252 * Nahed Nichols 03/29/20 02:27:51 PM EDT > Patient's blood sugar is 271 Notes: continue with present treatment doing well?? * Procedure Codes: 8 2947 ASSAY, GLUCOSE, BLOOD QUANT, Modifiers: QW 71195 GLYCATED HEMOGLOBIN TEST, Modifiers: QW * Follow Up: 2 Months * * Sign off status: Completed true * Provider: Iam Barrett MD Date: 0 03/29/2025 Generated for Toi styles/Bijan/eTransmitting on: 0 04/26/2025 08:50 AM EDT History and Physical Notes * HPI (History of Present Illness) Category Sub-Category Detail Notes Category Not es Symptom(s) patient is a 79 yo male here for 6 week follow up visit/ having a lot more infection and got more cultures. Examination Category Sub-Category Detail Notes Category Not es General Examination GENERAL APPEARANCE: pleasant, in n o acute distress HEAD: normocephalic HEART: no murmurs, rubs, ga llops, regular rate and rhythm LUNGS: clear to auscultatio n bilaterally SKIN: abnormal with scabs coming off face
[2025-04-26] VITALS (19 sets, daily range): BP systolic 105–171; BP diastolic 46–70; PULSE 63–81; RESP 15–22; TEMP 36.1–37.6; O2SAT 94–98; BMI 28.1; BMI 31.0
--- NOTE | ~2025-04-26 | CT_ITS ---
EXAMINATION: CT HEAD WITH/WITHOUT CONTRAST CLINICAL INFORMATION: Infection. COMPARISON: Please refer to the CT neck examination performed concurrently. TECHNIQUE: Contiguous axial imaging was performed from the skull base to vertex before and after the administration of 100 mL of Omnipaque [address] examination was performed using dose optimization techniques as appropriate, variously including the following: *Automated exposure control *Adjustment of mA and/or kV according to patient size (this includes techniques or standardized protocols for targeted exams where dose is matched to indication/reason for exam; i.e. extremities or head) *Use of iterative reconstruction technique FINDINGS: Please refer to the CT neck examination performed concurrently. There is no evidence of intracranial hemorrhage or extra-axial fluid collection. There is no mass effect, or edema. No CT evidence of acute territorial infarct. Ventricles, sulci, and cisterns are diffusely somewhat prominent, in keeping with age related cerebral and cerebellar volume loss. No hydrocephalus. No midline shift. Negative hyperdense MCA sign. Negative insular ribbon sign. Patchy periventricular and deep white matter hypoattenuation is consistent with mild to moderate small vessel ischemic changes. Normal pituitary. Mild atheromatous calcification of the bilateral carotid siphons and V4 segments vertebral arteries bilaterally. There is ossification of the anterior and posterior falx. There are pachymeningeal calcifications of the tentorium. Globes and orbital contents demonstrate bilateral lens replacements but are otherwise normal. Extracranial soft tissues demonstrate edema and phlegmonous changes extending from the right posterior ear, abutting the right mastoid, to the right mid occipital region, where there appears to be soft tissue ulceration. Refer to the dedicated CT neck report. The paranasal sinuses are normally pneumatized. Fluid opacification of the right mastoid tip. Inflammation of the right external auditory canal and associated soft tissues with phlegmonous changes. No evidence of coalescent mastoiditis. No bone lesions. There are no acute fractures evident. CT/CT head/brain wo/w IV con IMPRESSION: 1. No acute intracranial abnormality. 2. 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 Refer to the dedicated neck CT report, which was performed concurrently. Electronically signed by: Ashu Denis MD 04/26/2025 12:14 PM EDT
--- NOTE | ~2025-04-26 | CT_ITS ---
EXAMINATION: CT SOFT TISSUE NECK WITH CONTRAST CLINICAL INFORMATION: Infection. COMPARISON: None available. TECHNIQUE: Following the intravenous administration of 60 mL of Omnipaque 350 intravenous contrast, helical imaging was performed in the axial plane with generation of coronal and sagittal reformatted images. This CT examination was performed using dose optimization techniques as appropriate, variously including the following: *Automated exposure control *Adjustment of mA and/or kV according to patient size (this includes techniques or standardized protocols for targeted exams where dose is matched to indication/reason for exam; i.e. 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 The right internal jugular vein has been resected along with the right sternocleidomastoid muscle, and much of the right posterior lateral neck as well. Edema and thickening along the right occipital soft tissues is present, with a focal ulceration seen in the right occiput. Underlying extensive inflammation and phlegmonous changes are present. There is thickening of the right external auditory canal including the membranous and osseous canal. Posterior to the canal and posteroinferior to the right ear there is soft tissue edema and a suspected abscess collection versus phlegmonous collection which extends posterior lateral to the mastoid, and abuts the mastoid tip, measuring approximately 3.8 x 1.8 x 3.3 cm (AP, TRV, CC). Edema and phlegmonous change extends along the posterior right occiput the approximate right paramedian neck and inferior along the surgical resection plane. Abutting the mastoid tip there are mild permeative type osseous changes of which osteomyelitis cannot be excluded given the appearance. There is opacification of the right mastoid tip. 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 The right submandibular gland has been resected along with the right parotid gland. There are infiltrative changes in the right parotid space, surrounding the right posterior masseter muscle. No obvious mucosal space lesion is evident. The left internal jugular vein is patent. There are moderate right greater than left carotid bulb calcifications present. No abnormal lymphadenopathy is present. The larynx, epiglottis, aryepiglottic folds, subglottic trachea, and thyroid gland are unremarkable in appearance. The superior esophagus is normal in appearance. The imaged upper mediastinal contents demonstrate no abnormalities. There is linear scarring/consolidation in the left upper lobe anteriorly. Lung apices otherwise appear grossly clear. Imaged intracranial contents demonstrate patent dural venous sinuses. No mass effect, edema, hemorrhage, or abnormal enhancement. The globes and orbits demonstrate lens replacements bilaterally. They are otherwise normal. CT/CT soft tissue neck w IV con IMPRESSION: 1. Complex examination. Modified radical right neck dissection with extensive postoperative changes in the right posterolateral neck. Edema and phlegmonous change extends from the right external auditory canal to the right paramedian occiput and inferiorly along the right posterior neck. There appears to be a soft tissue ulceration present in the right occipital soft tissues. 2. 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 Cannot exclude an abscess collection posterior and inferior to the ear/mastoid versus a phlegmonous collection measuring approximately 3.8 x 1.8 x 3.3 cm. 3. Cannot exclude osteomyelitis of the right mastoid tip with mild permeative bone changes and opacification of the right mastoid tip. 4. Additional findings as detailed in the body of the report. Electronically signed by: Ashu Denis MD 04/26/2025 12:06 PM EDT
--- NOTE | ~2025-04-26 | XR_ITS ---
EXAMINATION: XR CHEST CLINICAL INFORMATION: cough COMPARISON: None available. TECHNIQUE: Frontal view of the chest was obtained. FINDINGS: Prior median sternotomy. The cardiac and mediastinal contours appear normal. There is vascular congestion or crowding in the hilar regions. There are low lung volumes. There is bronchovascular crowding in the perihilar regions and lower lungs bilaterally. There is patchy opacity in the right lung base which could represent pneumonia versus atelectasis in the appropriate clinical setting. No pneumothorax or effusion. No focal osseous or soft tissue abnormality. XR/XR chest 1V IMPRESSION: 1. Low lung volumes with bilateral bronchovascular crowding in the perihilar regions and lower lungs. 2. Patchy opacity in the right lung base, possibly atelectasis versus pneumonia in the appropriate clinical setting. 3. Prior median sternotomy. Electronically signed by: Ashu Denis MD 04/28/2025 09:17 AM EDT
--- NOTE | 2025-04-26 08:44 | ED.GENADULT ---
HPI - General Adult General Chief complaint: Wound/Laceration Stated complaint: Wound on neck, sent by Time Seen by Provider: 04/26/25 09:31 Source: patient and family (, son at bedside corroborating history) Mode of arrival: ambulatory Limitations: no limitations History of Present Illness ED Provider: Shivani Reardon PA-C HPI narrative: 79-year-old male with medical history of T2DM, DHAVAL, diabetic retinopathy, squamous cell carcinoma of the neck, HTN, tubular adenoma, presents to the ED today due to chronic wound of the right neck. Patient follows Dr. Rahman at the wound clinic, she encouraged patient to present today for further evaluation and possible debridement. Patient states wound has been worsening over this week, now with increased purulent drainage, foul smell, weakness and headaches. Patient denies chest pain, shortness of breath, visual changes, nausea, vomiting, fever, chills, black/tarry stool, urinary symptoms Related Data Home Medications ?Medication ?Instructions ?Recorded ?Confirmed amlodipine 10 mg tablet 1 tab PO DAILY 08/05/22 04/26/25 atorvastatin 20 mg tablet 1 tab PO DAILY 08/05/22 04/26/25 fluticasone propionate 50 1 spray intranasal BEDTIME PRN 08/05/22 04/26/25 mcg/actuation nasal Nasal Congestion spray,suspension insulin human U-100 NPH-regulr See Protocol subcut BIDPC 08/05/22 04/26/25 70-30 mix 100 unit/mL subcutaneous susp (Novolin 70/30 U-100 Insulin) metformin 500 mg tablet,extended 1 tab PO BID 08/05/22 04/26/25 release 24 hr nebivolol 10 mg tablet 1 tab PO DAILY 08/05/22 04/26/25 terazosin 2 mg capsule 1 cap PO BEDTIME 08/05/22 04/26/25 acetaminophen 500 mg tablet 500 mg PO DAILY@1200,2100 PRN Pain 04/26/25 04/26/25 aspirin 81 mg tablet,delayed 81 mg PO DAILY 04/26/25 04/26/25 release cholecalciferol (vitamin D3) 25 25 mcg PO DAILY 04/26/25 04/26/25 mcg (1,000 unit) tablet (Vitamin D3) fentanyl 100 mcg/hr transdermal 1 patch topical Q48H 04/26/25 04/26/25 patch furosemide 40 mg tablet 80 mg PO DAILY 04/26/25 04/26/25 multivitamin with minerals 1 tab PO DAILY 04/26/25 04/26/25 naloxone 0.4 mg/mL injection 0.4 mg subcut Q2M PRN Opioid 04/26/25 04/26/25 solution Overdose oxycodone 10 mg tablet 10 - 20 mg PO Q4-6H PRN pain 04/26/25 04/26/25 telmisartan 80 mg tablet 80 mg PO DAILY 04/26/25 04/26/25 vitamins A,C,R-qjks-dzoefy 4,296 1 cap PO BID 04/26/25 04/26/25 mcg-226 mg-90 mg capsule (PreserVision AREDS) Allergies Allergy/AdvReac Type Severity Reaction Status Date / Time Penicillins (PCN) Allergy Unknown Verified 04/26/25 08:52 FOR[facility]LY [facility] Past Medical History Attestation statement: The following information was validated with the patient. 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 History of lithotripsy History of appendectomy History of colonoscopy Social History Social History Household Members: Spouse and Children Housing: House Do you presently have visiting nurse or other home services: No Patient Tobacco Use Status: Former Tobacco user e-Cigarette/Vaping Use: Never Used Second Hand Smoke Exposure: No Physical Exam ED Vital Signs: Vital Signs - 24 hr 04/26/25 08:43 04/26/25 10:19 04/26/25 10:22 Temperature 98.1 F 99.5 F 99.5 F Pulse Rate 77 75 Respiratory Rate 16 16 Blood Pressure 105/53 L 129/53 L Pulse Oximetry 96 96 Oxygen Delivery Method Room Air Room Air 04/26/25 11:22 04/26/25 11:57 04/26/25 12:50 Temperature 97.9 F Pulse Rate 63 Respiratory Rate 15 15 16 Blood Pressure 113/46 L Pulse Oximetry 94 Oxygen Delivery Method Room Air 04/26/25 13:34 Temperature Pulse Rate 69 Respiratory Rate 15 Blood Pressure 125/48 L Pulse Oximetry 96 Oxygen Delivery Method Room Air BMI result Body Mass Index 28.1 GENERAL APPEARANCE: ?AxOx4, patient clutching his head due to pain, uncomfortable appearing HEENT: ?Multiple patches of actinic keratosis, erythema of right side of face, Dry oral MM. EOMI, clear conjunctiva, oropharynx clear, tolerating oral secretions, speaking in full clear sentences NECK: large wound of R posterior neck, see photos attached, no lymphadenopathy appreciated, no trismus, uvula midline, no uvular edema, no submental swelling, no sublingual swelling HEART:? Normal rate and regular rhythm, normal S1/S2, no m/r/g LUNGS:? CTAB, moving air well. No crackles or wheezes are heard. No increased work of breathing noted ABDOMEN: ?Soft, nontender, nondistended with good bowel sounds heard. BACK: No CVAT, no obvious deformity. EXTREMITIES: ?Without cyanosis, clubbing or edema. NEUROLOGICAL: ?Grossly nonfocal. Alert and oriented, moving all 4 extremities. Observed to ambulate with normal gait. Skin: ?Warm and dry without any rash. Course Course Course Narrative: This is an RME: Additional HPI, ROS, PE not included below will be deferred to primary provider. 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 Dr Zepeda has been treating cancerous lesions and has been followed for wound care through her office. Reports that there are now abscesses and patient reporting that he believes that the right ear is infected. Reports that he has had right ear pain for the last 2 weeks. Son reports that he was instructed to come to the ED for Dr. Zepeda to see patient. Plan: Labs, further ER eval needed Medications Administered Generic Name Dose Route Start Last Admin Trade Name Freq PRN Reason Stop Dose Admin Acetaminophen 650 mg 04/26/25 14:37 04/27/25 10:32 Acetaminophen 325 Mg Tablet PO 650 mg Q6H PRN Administration Pain, Mild 1-3,fever,headache Amlodipine Besylate 10 mg 04/27/25 09:00 04/27/25 10:28 Amlodipine Besylate 10 Mg Tablet PO 10 mg DAILY THOMAS Administration Protocol Aspirin 81 mg 04/27/25 09:00 04/27/25 10:28 Aspirin Enteric Coated 81 Mg Tablet. PO 81 mg DAILY THOMAS Administration Atorvastatin Calcium 20 mg 04/27/25 09:00 04/27/25 10:28 Atorvastatin Calcium 20 Mg Tablet PO 20 mg DAILY THOMAS Administration Doxazosin Mesylate 2 mg 04/26/25 21:00 04/26/25 22:09 Doxazosin Mesylate 2 Mg Tablet PO 2 mg BEDTIME THOMSA Administration Furosemide 80 mg 04/27/25 09:00 04/27/25 10:28 Furosemide 40 Mg Tablet PO 80 mg DAILY THOMAS Administration Protocol Hydromorphone HCl 1 mg 04/26/25 14:37 04/26/25 15:14 Hydromorphone Hcl 1 Mg/Ml Syringe IVPUSH 1 mg ONCE PRN Administration Pain, Severe (Pain Scale 7-10) Protocol Hydromorphone HCl 1 mg 04/27/25 03:57 04/27/25 12:44 Hydromorphone Hcl 1 Mg/Ml Syringe IVPUSH 1 mg Q4H PRN Administration Pain, Severe (Pain Scale 7-10) Protocol Lactated Ringer's 1,000 mls @ 100 mls/hr 04/26/25 14:45 04/27/25 10:34 Lr IVCONT 100 mls/hr .Q10H THOMAS Administration Vancomycin HCl 1,500 mg/ 500 mls @ 333.333 mls/hr 04/27/25 13:00 04/27/25 12:22 Sodium Chloride IV 333.33 mls/hr Q24H THOMAS Administration Cefepime HCl 2 gm in 50 mls @ 100 mls/hr 04/27/25 12:00 04/27/25 12:36 Maxipime IV Infused Q24H THOMAS Infusion Insulin Human Lispro 0 unit 04/27/25 07:30 04/27/25 11:43 Insulin Lispro 100 Unit/Ml 3 Ml Vial SUBCUT 2 unit QIDACHS THOMAS Administration Protocol Metoprolol Succinate 200 mg 04/27/25 09:00 04/27/25 10:27 Metoprolol Succinate Er 100 Mg Tab.Er.24h PO 200 mg DAILY THOMAS Administration Oxycodone HCl 10 mg 04/26/25 19:30 04/27/25 07:49 Oxycodone Hcl Immed Release 5 Mg Tablet PO 10 mg Q4H PRN Administration Pain, Moderate(Pain Scale 4-6) Sodium Chloride 3 ml 04/26/25 16:00 04/27/25 07:49 0.9 % Sodium Chloride Flush 3 Ml Syringe IVFLUSH Not Given QSHIFT THOMAS Sodium Hypochlorite 1 appl 04/27/25 09:00 04/27/25 12:47 Sodium Hypochlorite 0.125% 473 Ml Solution TOPICAL 04/28/25 18:00 1 appl DAILY THOMAS Administration Valsartan 160 mg 04/27/25 09:00 04/27/25 10:28 Valsartan 160 Mg Tablet PO 160 mg DAILY THOMAS Administration Vitamin D 25 mcg 04/27/25 09:00 04/27/25 10:28 Cholecalciferol (Vitamin D3) 25 Mcg Tablet PO 25 mcg DAILY THOMAS Administration Discontinued Medications Generic Name Dose Route Start Last Admin Trade Name Freq PRN Reason Stop Dose Admin Hydromorphone HCl 1 mg 04/26/25 09:47 04/26/25 10:11 Hydromorphone Hcl 1 Mg/Ml Syringe IVPUSH 04/26/25 09:48 1 mg ONCE ONE Administration Protocol Hydromorphone HCl 1 mg 04/26/25 11:19 04/26/25 11:22 Hydromorphone Hcl 1 Mg/Ml Syringe IVPUSH 04/26/25 11:20 1 mg ONCE ONE Administration Protocol Hydromorphone HCl 1 mg 04/26/25 12:48 04/26/25 12:50 Hydromorphone Hcl 1 Mg/Ml Syringe IVPUSH 04/26/25 12:49 1 mg ONCE ONE Administration Protocol Hydromorphone HCl 1 mg 04/26/25 16:38 04/26/25 17:07 Hydromorphone Hcl 1 Mg/Ml Syringe IVPUSH 04/26/25 16:39 1 mg ONCE ONE Administration Protocol Hydromorphone HCl 1 mg 04/26/25 17:29 04/26/25 20:25 Hydromorphone Hcl 1 Mg/Ml Syringe IVPUSH 04/26/25 17:30 Not Given ONCE ONE Protocol Hydromorphone HCl 1 mg 04/27/25 00:37 04/27/25 00:49 Hydromorphone Hcl 1 Mg/Ml Syringe IVPUSH 04/27/25 00:38 1 mg ONCE ONE Administration Protocol Vancomycin HCl 2,000 mg in 500 mls @ 250 mls/hr 04/26/25 12:24 04/26/25 16:00 Vancomycin/Ns IV 04/26/25 14:23 Infused ONCE ONE Infusion Cefepime HCl 2 gm in 50 mls @ 100 mls/hr 04/26/25 12:28 04/26/25 13:30 Maxipime IV 04/26/25 12:57 Infused ONCE ONE Infusion Iohexol 100 ml 04/26/25 11:21 04/26/25 11:21 Iohexol 350 Mg/Ml 100 Ml Infus..Btl IV 04/26/25 11:22 60 ml ONCE ONE Administration Oxycodone HCl 20 mg 04/26/25 16:38 04/26/25 17:04 Oxycodone Hcl Immed Release 5 Mg Tablet PO 04/26/25 16:39 20 mg ONCE ONE Administration Sodium Hypochlorite 1 appl 04/26/25 19:28 04/26/25 23:15 Sodium Hypochlorite 0.125% 473 Ml Solution TOPICAL 04/26/25 19:29 Not Given ONCE ONE Medical Decision Making Medical Decision Making MDM Narrative: 79-year-old male with medical history of T2DM, DHAVAL, diabetic retinopathy, squamous cell carcinoma of the neck, HTN, tubular adenoma, presents to the ED today due to chronic wound of the right neck. Patient follows Dr. Rahman at the wound clinic, she encouraged patient to present today for further evaluation and possible debridement. Patient states wound has been worsening over this week, now with increased purulent drainage, foul smell, weakness and headaches. Patient with significant pain, medicating with 1 mg Dilaudid. Course 12:06- at 12:06 on 04/26/2025 I am considering sepsis due to CT findings of edema and phlegmonous change extending from the right external auditory canal to the right paramedian occiput and inferiorly along the right posterior neck, soft tissue ulceration of the right occipital soft tissues, right-sided malignant otitis externa with possible abscess collection posterior and inferior to the ear/mastoid verse a phlegmonous collection measuring approximately 3.8 x 1.8 x 3.3 cm. Can not exclude osteomyelitis of the right mastoid tip with mild permeative bone changes and opacification of the right mastoid tip. Labs revealed leukocytosis of 16.3, normocytic anemia with hemoglobin of 9.6/hematocrit of 30.1, serum glucose 134, no evidence of electrolyte imbalance. Blood cultures and lactic acid obtained, lactic acid WNL at 1.5. Patient does not meet sepsis criteria, rectal temperature of 99.5?, without tachycardia at 63 beats per minute. IV cefepime and vancomycin started for empirical coverage. Results discussed with Dr. Rahman who follows the patient in wound clinic, is coming to ED to observe and discuss course of care. 12:50- patient pain returning, will give another 1 mg IV Dilaudid for pain management. VS remain stable without tachycardia. 14:45- Patient stable at this time, VSS, pain well managed. Surgeon Dr. Yang admitted patient to medicine and will take him to the OR later today for debridement Differential Diagnosis Differential Diagnoses: The differential diagnosis associated with the presentation includes Sepsis, infection, phlegmon, abscess, Igor's angina Admission/Observation Consideration of admission/observation: Escalation of care including admission/observation considered Consult Healthcare Provider Management of the patient was discussed with: Intellectual Property Paralegal (Surgeon Dr. Rahman) Requests case with surgeon Dr. Rahman who follows patient wound clinic. She will see him later in OR today for debridement of wound. Lab Data MDM Lab Attestation statement: I reviewed the patient's lab results. 04/27/25 06:25 04/27/25 06:25 Labs: Lab Results 04/26/25 04/26/25 Range/Units 09:12 11:27 WBC 16.3 H (4.8-10.8) X10*3/uL RBC 3.69 L (4.60-5.80) X10*6/uL Hgb 9.6 L (14.0-18.0) g/dl Hct 30.1 L (42.0-52.0) % MCV 81.6 (80.0-98.0) fL MCH 26.0 L (27.0-33.0) pg MCHC 31.9 (31.0-36.0) g/dl RDW 14.3 (11.0-16.0) % Plt Count 330 D (160-400) X10*3/uL MPV 11.7 (9.4-12.4) fL Immature Gran % (Auto) 0.6 H (0.0-0.4) % Neut % (Auto) 84.8 H (45-73) % Lymph % (Auto) 5.1 L (20-40) % [place] % (Auto) 8.9 (2-11) % Eos % (Auto) 0.3 (0-4) % Baso % (Auto) 0.3 (0-2) % Lymph # (Auto) 0.8 L (1.2-4.9) X10*3/uL [place] # (Auto) 1.5 H (0.1-1.2) X10*3/uL Eos # (Auto) 0.1 (0.0-0.4) X10*3/uL Baso # (Auto) 0.1 (0.0-0.2) X10*3/uL Abs Immat Gran (auto) 0.09 H (0.00-0.03) X10*3/uL Absolute Neuts (auto) 13.9 H (2.0-8.3) x10*3/uL Absolute Nucleated RBC 0.000 (0.0-0.012) X10*3/uL Nucleated RBC % (auto) 0.0 (0.0-0.2) /100WBC Sodium 137 (135-145) mmol/L Potassium 4.2 (3.3-5.1) mmol/L Chloride 97 (96-108) mmol/L Carbon Dioxide 30 H (22-29) mmol/L Anion Gap 14 (12-20) BUN 23 H (9-16) mg/dL Creatinine 0.73 (0.5-1.4) mg/dL Estim Creat Clear Calc 83.7 Estimated GFR > 60 POC Glucose 131 H (60-115) mg/dL Random Glucose 134 H (60-115) mg/dL Lactic Acid 1.5 (0.5-2.0) mmol/L Calcium 9.3 (8.4-10.2) mg/dL Total Bilirubin 0.8 (0.0-1.0) mg/dL Direct Bilirubin 0.4 (0.0-0.5) mg/dL AST 22 (5-37) U/L ALT 12 (0-40) U/L Alkaline Phosphatase 147 H (39-117) U/L Total Protein 7.3 (6.5-8.0) g/dL Albumin 3.5 (3.5-5.0) g/dL Independent Interpretation I performed an independent interpretation of an: CT Scan Interpretation: I personally interpreted the CT head neck which revealed fluid collection of the right-sided neck, I agree with the radiologist's impression. Radiology Impression Discussion of test interpretation with radiology: I have reviewed the radiologist's reading. Radiologist Impression: CT neck soft tissue FINDINGS: There has been a modified right radical neck dissection. The right internal jugular vein has been resected along with the right sternocleidomastoid muscle, and much of the right posterior lateral neck as well. Edema and thickening along the right occipital soft tissues is present, with a focal ulceration seen in the right occiput. Underlying extensive inflammation and phlegmonous changes are present. There is thickening of the right external auditory canal including the membranous and osseous canal. Posterior to the canal and posteroinferior to the right ear there is soft tissue edema and a suspected abscess collection versus phlegmonous collection which extends posterior lateral to the mastoid, and abuts the mastoid tip, measuring approximately 3.8 x 1.8 x 3.3 cm (AP, TRV, CC). Edema and phlegmonous change extends along the posterior right occiput the approximate right paramedian neck and inferior along the surgical resection plane. Abutting the mastoid tip there are mild permeative type osseous changes of which osteomyelitis cannot be excluded given the appearance. There is opacification of the right mastoid tip. 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 The right submandibular gland has been resected along with the right parotid gland. There are infiltrative changes in the right parotid space, surrounding the right posterior masseter muscle. No obvious mucosal space lesion is evident. The left internal jugular vein is patent. There are moderate right greater than left carotid bulb calcifications present. No abnormal lymphadenopathy is present. The larynx, epiglottis, aryepiglottic folds, subglottic trachea, and thyroid gland are unremarkable in appearance. The superior esophagus is normal in appearance. The imaged upper mediastinal contents demonstrate no abnormalities. There is linear scarring/consolidation in the left upper lobe anteriorly. Lung apices otherwise appear grossly clear. Imaged intracranial contents demonstrate patent dural venous sinuses. No mass effect, edema, hemorrhage, or abnormal enhancement. The globes and orbits demonstrate lens replacements bilaterally. They are otherwise normal. CT/CT soft tissue neck w IV con IMPRESSION: 1. Complex examination. Modified radical right neck dissection with extensive postoperative changes in the right posterolateral neck. Edema and phlegmonous change extends from the right external auditory canal to the right paramedian occiput and inferiorly along the right posterior neck. There appears to be a soft tissue ulceration present in the right occipital soft tissues. 2. 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 Cannot exclude an abscess collection posterior and inferior to the ear/mastoid versus a phlegmonous collection measuring approximately 3.8 x 1.8 x 3.3 cm. 3. Cannot exclude osteomyelitis of the right mastoid tip with mild permeative bone changes and opacification of the right mastoid tip. 4. Additional findings as detailed in the body of the report. Electronically signed by: Ashu Denis MD 04/26/2025 12:06 PM EDT Dictated By: Ashu Denis MD Signed By: <Electronically signed by Ashu Denis MD in [place]> 04/26/[address] head FINDINGS: Please refer to the CT neck examination performed concurrently. There is no evidence of intracranial hemorrhage or extra-axial fluid collection. There is no mass effect, or edema. No CT evidence of acute territorial infarct. Ventricles, sulci, and cisterns are diffusely somewhat prominent, in keeping with age related cerebral and cerebellar volume loss. No hydrocephalus. No midline shift. Negative hyperdense MCA sign. Negative insular ribbon sign. Patchy periventricular and deep white matter hypoattenuation is consistent with mild to moderate small vessel ischemic changes. Normal pituitary. Mild atheromatous calcification of the bilateral carotid siphons and V4 segments vertebral arteries bilaterally. There is ossification of the anterior and posterior falx. There are pachymeningeal calcifications of the tentorium. Globes and orbital contents demonstrate bilateral lens replacements but are otherwise normal. Extracranial soft tissues demonstrate edema and phlegmonous changes extending from the right posterior ear, abutting the right mastoid, to the right mid occipital region, where there appears to be soft tissue ulceration. Refer to the dedicated CT neck report. The paranasal sinuses are normally pneumatized. Fluid opacification of the right mastoid tip. Inflammation of the right external auditory canal and associated soft tissues with phlegmonous changes. No evidence of coalescent mastoiditis. No bone lesions. There are no acute fractures evident. CT/CT head/brain wo/w IV con IMPRESSION: 1. No acute intracranial abnormality. 2. 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 Refer to the dedicated neck CT report, which was performed concurrently. Electronically signed by: Ashu Denis MD 04/26/2025 12:14 PM EDT RP Dictated By: Ashu Denis MD Signed By: <Electronically signed by Ashu Denis MD in [place]> 04/26/25 1214 External Record Review External record reviewed: Inpatient record, Office record and Outpatient record Chronic Conditions Patient?s care impacted by: Diabetes, Hypertension and Other (Neck wound) Critical Care Time Critical Care Time Critical Care Time: Yes Total Critical Care Time: 45 Attestation: Time is exclusive of separately billable procedures. Time includes: direct patient care, patient reassessment, coordination of patient care, interpretation of data (laboratory data, pulse oximetry, CT scans), review of patient's medical records, medical consultation and documentation of patient care. Repeat IV dilaudid with some improvement in pain. Procedures excluded from critical care time: electrocardiography. I attest to this time spent taking care of the patient Discharge Plan Discharge Clinical Impression: Abscess Patient Disposition: Admitted As Inpatient Discharge Date/Time: 04/26/25 20:28
[2025-04-26 09:24] LABS: MANUAL DIFF FLAG NO
[2025-04-26 09:27] LABS: Hematocrit 30.1 % (42.0-52.0); Hemoglobin 9.6 g/dl (14.0-18.0); Imm Gran Abs Auto 0.09 X10*3/uL (0.00-0.03); Imm Gran Pct Auto 0.6 % (0.0-0.4); Lymphocytes Absolute Auto 0.8 X10*3/uL (1.2-4.9); Mean Corpuscular HGB Conc 31.9 g/dl (31.0-36.0); Mean Corpuscular Hemoglobin 26.0 pg (27.0-33.0); Mean Corpuscular Volume 81.6 fL (80.0-98.0); NRBC Abs Auto 0.000 X10*3/uL (0.0-0.012); NRBC Pct Auto 0.0 /100WBC (0.0-0.2); Platelet Count 330 X10*3/uL (160-400); Red Blood Count 3.69 X10*6/uL (4.60-5.80); White Blood Count 16.3 X10*3/uL (4.8-10.8)
[2025-04-26 09:44] LABS: Alanine Aminotransferase 12 U/L (0-40); Albumin Level 3.5 g/dL (3.5-5.0); Alkaline Phosphatase 147 U/L (39-117); Anion Gap 14 (12-20); Aspartate Amino Transferase 22 U/L (5-37); Blood Urea Nitrogen 23 mg/dL (9-16); Calcium 9.3 mg/dL (8.4-10.2); Carbon Dioxide 30 mmol/L (22-29); Chloride 97 mmol/L (96-108); Creatinine Clr Calc Pharmacy 83.7; Estimated Glomerular Filt Rate > 60; Potassium 4.2 mmol/L (3.3-5.1); Sodium 137 mmol/L (135-145); Total Protein 7.3 g/dL (6.5-8.0)
--- NOTE | 2025-04-26 10:03 | PC.NURSE ---
Pt roomed and changed, DSD removed by family and provider. Pt very uncomfortable. A&O X4. VSS Pt awaiting IV access, Difficult stick. Another RN called.
--- OUTSIDE RECORDS SUMMARY | 2025-04-26 10:08 | XMS_ITS | Clinical Summary ---
Author Organization [facility] Address [facility] [place] [address] Care Team Providers Care Wastewater Technician Name Role Phone Oswaldo Barrett MD Primary Care Provider [phone] Allergies Active Allergy Reactions Criticality Noted Date Comments Penicillins Hives Medium Medications selenium sulfide (SELSUN) 2.5 % shampoo 1 Appl(s), Top, QD PRN 0 Active atorvastatin (LIPITOR) 10 mg Tablet Take 20 mg by mouth daily. Active terazosin (HYTRIN) 2 mg Capsule Take 2 mg by mouth nightly. Active insulin aspart (NOVOLOG) Solution Inject subcutaneously 2 times daily. Active metFORMIN (GLUCOPHAGE-XR ) 500 mg Tablet Sustained Release 24 hr Take 500 mg by mouth 2 times daily. Active Nebivolol (Bystolic) 10 mg Tablet Take by mouth every evening. Active FOLIC ACID/MULTIVITS -MIN/LUT (CENTRUM SILVER ORAL) Take 1 tablet by mouth daily. Active UNABLE TO FIND Take 1 tablet by mouth 2 times daily. Med Name: Eye caps Active Olmesartan-Aml odipine-HCTZ (TRIBENZOR) 40-10-25 mg Tablet Take by mouth every morning. Active telmisartan (MICARDIS) 80 mg Tablet 5 5 Active amLODIPine (NORVASC) 10 mg Tablet Take 10 mg by mouth daily. Active aspirin 81 mg Tablet, Delayed Release (E.C.) Take 81 mg by mouth daily. Active fluticasone (FLONASE) 50 mcg/actuation Sullivan, Suspension 1 spray daily. Acti ve multivitamin with minerals Tablet Take 1 tablet by mouth daily. Active insulin NPH - insulin regular 70/30 (NOVOLIN MIX 70/30) Suspension Inject subcutaneously. Active clarithromycin (BIAXIN) 500 mg Tablet Take 500 mg by mouth. Take 1 tablet before dental procedures. Active hydroCHLOROthi azide (Hydrodiuril) 25 mg Tablet Take 25 mg by mouth daily. Active Vit A,C,E-Zinc-[place] Support Worker per 4,296 mcg-226 mg-90 mg Capsule Take 1 [...] hyperlipidemia 04/24/2016 Coronary artery disease invo [place]ving [place] coronary artery of [place] heart without angina pectoris 11/17/2013 Overview (07/04/2020): Overview: Coronary arteriosclerosis Skin cancer of scalp or skin of neck 05/01/2012 Encounters Date Type Department Care Team Description 04/18/2025 [place] [address] Ash Dowling MD from Last 3 Months Family History Medical History Relation Comments Liver Cancer Father Relation Status Comments Father Social History Tobacco Use Types Packs/Day Years Used Date Smoking Tobacco: Never Smokeless Tobacco: Never Tobacco Cessation:Counseling Given: Not Answered Alcohol Use Standard Drinks/Week Comments No 0 (1 standard drink = 0.6 oz pur e alcohol) [facility] Utilities Answer Date Recorded In the [...] place to sleep or slept in a care home (including now)? No 10/14/2023 DH IPV Inpatient [...] at Not on file Legal Sex Male 6:41 AM EST Gender Identity Not on file Sexual Orientation Not on file Last Filed Vital Signs Vital Sign Reading Time Taken Comments Blood Pressure 155/72 03/02/2024 3:25 PM EDT Pulse 71 03/02/2024 3:25 PM EDT Temperature 36.8 C (98.2 F) 03/02/2024 3:25 PM EDT Respiratory Rate 17 03/02/2024 3:25 PM EDT [...] Done Comments DM Hemoglobin A1c 1955 DM Ophthalmology Exam 1955 DM Urine Microalbumin yearly 1955 Pneumoccocal Vaccine: 50+ (1 of 2 - PCV) 1962 Tetanus/Diphtheria/Pertussis Vaccines (1 - Tdap) 05/31 Zoster vaccine (1 of 2) 1993 RSV Vaccine (1 - 1-dose 75+ series) 2018 Covid-19 Vaccine (1 - season) 2024 DM Creatinine yearly 10/14/2024 10/14/2023 Influenza (Flu) vaccine (1 o f 1 - Influenza standard series) 05/23/2025 Procedures Procedure Name Priority Date/Time Associated Diagnosis Comments COMPREHENSIVE METABOLIC PANEL Routine 10/14/2023 12:11 PM EST 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 from Last 3 Months or Most Recently Relevant to Health Maintenance Results * (ABNORMAL) Comprehensive metabolic panel (non-fasting) (10/14/2023 12:11 PM EST) Glucose 275(H) 65 - 199 mg/dL [facility] Comment:Diabetes: >=200 mg/d L plus symptoms Blood Urea Nitrogen 17 10 - 20 mg/dL [facility] Creatinine 0.79(L) 0.80 - 1.50 mg/dL [facility] Sodium 136 135 - 145 mmol/L [facility] Potassium 4.8 3.5 - 5.0 mmol/L [facility] Comment: Please note: Patients with WBC >100,000 may have falsely elevated Potassium levels. For accurate Potassium quantification in these patients send serum separator tube (gold top) for subsequent determinations. Contact the Clinical Chemistry Laboratory if there are any questions. Chloride 99 98 - 107 mmol/L [facility] Carbon Dioxide 26 22 - 31 mmol/L [facility] Anion Gap 11 5 - 15 mmol/L [facility] Calcium 9.9 8.5 - 10.5 mg/dL [facility] Protein, Total 7.6 6.1 - 8.0 g/dL [facility] Albumin 4.2 3.2 - 5.2 g/dL [facility] Aspartate Aminotransferase 17 0 - 39 unit/L [facility] Alanine Aminotransferase 18 0 - 55 unit/L [facility] Alkaline Phosphatase 134(H) 40 - 130 unit/L [facility] Bilirubin, Total 0.7 0.2 - 1.3 mg/dL [facility] Est Glomerular Filtration Rate 90 >=60 mL/min/1. 73 m [facility] Comment: This patient's estimated GFR was [...] Narrative Resulting Agency Comment Spec In Lab us Keke Kemp APRN CHEMISTRY ORDERABLES Blanca yin Result [facility] [place] [address] from Last 3 Months or Most Recently Relevant to Health Maintenance Insurance [employer] MEDICARE MD RADHA [id number] [employer] Advance Directives Documents on File Type Date Recorded Patient Customer Experience Leader Expl anation Advance Directives and Livin g Will 09/25/2023 4:05 PM Care Teams Wastewater Technician Relationship Specialty Start Date End Date Oswaldo Barrett MD [address] [place] [address] [place] [phone] PCP - General 08/14/10
--- OUTSIDE RECORDS SUMMARY | 2025-04-26 10:08 | XMS_ITS | Clinical Summary ---
Author Organization [facility] Address [address] [place] [place] [address] Phone Care Team Providers Care Oil Tank Car Cleaner Name Role Phone Oswaldo Barrett MD Primary [...] Care Team (Late st Contact Info) Description 08/22/2025 1:15 PM EST Office Visit [facility] [address] [place] [address] [facility] [place] [address] Jeramie Grant MD [address] [facility] [address] [place] [address] Health Maintenance Due Date Last [...] patient's age to complete this [place] [address] [place] [id number] Medicare Medicare [facility] Care Teams Oil Tank Car Cleaner Relationship Specialty Start Date End Date Oswaldo Barrett MD [address] [place] [address] [id number] [place], [place] PCP - General Internal Medicine 06/15/21
[2025-04-26] MEDS: iohexoL 350 MG/ML 100 ML INFUS..BTL IV (11:21)
[2025-04-26 11:30] LABS: Glucose, Whole Blood 131 mg/dL (60-115)
[2025-04-26] MEDS: cefEPime HCl/D5W 2 GM/50 ML PIGGYBACK IV (12:52)
[2025-04-26] MEDS: vancomycin/NS 2,000 MG/500 ML PLAST..BAG 250 MG IV (13:29)
--- NOTE | 2025-04-26 15:05 | PM.HPGS ---
History of Present Illness History of Present Illness Date of Service: 04/26/25 Chief complaint: neck wound Narrative: Kamron Coker is a 79 year old male who has a history of right-sided head and neck cancer underwent radical neck dissection and closure at [facility]. 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 This was debrided and has been cleaned up and the patient has been followed by radiation oncologist at [facility]. He has seen head and neck surgeons at [facility] who have not wanted to pursue any further surgical intervention. We have been following him for the last 8 months at wound care center here with sharp debridements done in the office and dressing changes. Patient has over the last 3 weeks started to develop worsening skin breakdown in abscess type pockets which have been more painful and created more drainage. The wound seems to be expanding towards the air and towards the occiput mastoid area. I had discussions with the patient's radiation oncologist as well as his original head and neck surgeon at [facility] and they both would like him to have deep biopsies and debridement of these areas. Patient has also seen infectious diseases last week at [facility]. All recommending further debridement. Patient's head and neck surgeons would prefer for this initial step to be done locally before any transfers are done to them. As a result patient is coming in in order to get this carried out by myself in the operating room. Over the last 2 3 days patient is starting have more redness on his face and feeling worse and more pain. Having a lot of drainage from his ear. CT scan done in the emergency room shows the necrotic soft tissue areas superficially and along the cavities of the wound margins however deep tissue does not seem to be obvious for any metastatic disease. The external ear canal looks very inflamed by CT scan and there is drainage that has solidified in his ear canal. [facility] Past Medical History Medical History DHAVAL on CPAP Diabetic retinopathy Nephritis Squamous cell carcinoma of neck Hypertension Nephrolithiasis Diabetes mellitus Tubular adenoma Surgical History Surgical History History of aortic valve replacement History of radical dissection of right side of neck History of lithotripsy History of appendectomy History of colonoscopy Social History Social History Patient Tobacco Use Status: Former Tobacco user Use of substances other than those prescribed or required for medical reasons: No Advance Directives: No Advance Directives Information Provided: Yes Meds Allergies Allergy/AdvReac Type Severity Reaction Status Date / Time Penicillins (PCN) Allergy Unknown Verified 04/26/25 08:52 Active Medications: Current Medications Acetaminophen (Acetaminophen 325 Mg Tablet) 650 mg PO Q6H PRN PRN Reason: Pain, Mild 1-3,fever,headache Calcium Carbonate (Calcium Carbonate 750 Mg Tab.Chew) 750 mg PO Q4H PRN PRN Reason: Heartburn Hydromorphone HCl (Hydromorphone Hcl 1 Mg/Ml Syringe) 1 mg IVPUSH ONCE PRN; Protocol PRN Reason: Pain, Severe (Pain Scale 7-10) Lactated Ringer's (Lr) 1,000 mls @ 100 mls/hr IVCONT .Q10H THOMAS Magnesium Hydroxide (Milk Of Magnesia 30 Ml Oral.Susp) 30 ml PO DAILY PRN PRN Reason: Constipation Melatonin (Melatonin 3 Mg Tablet) 6 mg PO BEDTIME PRN PRN Reason: Insomnia Ondansetron HCl (Ondansetron Hcl 4 Mg/2 Ml Vial) 4 mg IVPUSH Q8H PRN PRN Reason: Nausea and Vomiting Sodium Chloride (0.9 % Sodium Chloride Flush 3 Ml Syringe) 3 ml IVFLUSH QSHIFT THOMAS Home Medications ?Medication ?Instructions ?Recorded ?Confirmed ?Last Taken ?Type amlodipine 10 mg tablet 1 tab PO DAILY 08/05/22 08/05/22 Unknown History aspirin 81 mg tablet 81 mg PO DAILY 08/05/22 08/05/22 Unknown History atorvastatin 20 mg tablet 1 tab PO DAILY 08/05/22 08/05/22 Unknown History fluticasone propionate 50 1 spray intranasal BID 08/05/22 08/05/22 Unknown History mcg/actuation nasal spray,suspension hydrochlorothiazide 25 mg tablet 1 tab PO DAILY 08/05/22 08/05/22 Unknown History insulin human U-100 NPH-regulr subcut 08/05/22 Unknown History 70-30 mix 100 unit/mL subcutaneous susp (Novolin 70/30 U-100 Insulin) metformin 500 mg tablet,extended 1 tab PO BID 08/05/22 08/05/22 Unknown History release 24 hr nebivolol 10 mg tablet 1 tab PO DAILY 08/05/22 08/05/22 Unknown History terazosin 2 mg capsule 1 cap PO BEDTIME 08/05/22 08/05/22 Unknown History Physical Exam Vital Signs: Vital Signs: Last Vital Signs Temp 97.9 F 04/26/25 11:57 Pulse 69 04/26/25 13:34 Resp 15 04/26/25 13:34 BP 125/48 L 04/26/25 13:34 Pulse Ox 96 04/26/25 13:34 O2 Del Method Room Air 04/26/25 13:34 BMI result Body Mass Index 28.1 Const: General: cooperative, healthy appearing, comfortable and no acute distress Neck: Other: Right side large necrotic mass extending from around the air going to the occiput necrotic tissue at the base Resp: Effort & Inspection: normal respiratory effort Auscultation: clear to auscultation bilaterally Cardio: Rate: regular rate Rhythm: regular rhythm GI: Other: Benign Results Results Labs: Short CBC 04/26/25 Range/Units 09:12 WBC 16.3 H (4.8-10.8) X10*3/uL Hgb 9.6 L (14.0-18.0) g/dl Hct 30.1 L (42.0-52.0) % Plt Count 330 D (160-400) X10*3/uL BMP 04/26/25 09:12 Sodium 137 Potassium 4.2 Chloride 97 Carbon Dioxide 30 H BUN 23 H Creatinine 0.73 Calcium 9.3 Liver Function 04/26/25 Range/Units 09:12 Total Bilirubin 0.8 (0.0-1.0) mg/dL Direct Bilirubin 0.4 (0.0-0.5) mg/dL AST 22 (5-37) U/L ALT 12 (0-40) U/L Alkaline Phosphatase 147 H (39-117) U/L Albumin 3.5 (3.5-5.0) g/dL Additional studies: Signed Patient: Kamron Coker MR#: [id number] : 1945 Acct:[id number] Age/Sex: 79 / M ADM Date: 04/26/25 Loc: HO.ED Attending Dr: Ordering Physician: Caron Parrish PA-C Date of Service: 04/26/25 Procedure(s): CT soft tissue neck w IV con Accession Number(s): [id number] cc: Caron Parrish PA-C; Oswaldo Barrett MD~ Report Number: [id number]: Total DLP = 2528.00 mGy-cm EXAMINATION: CT SOFT TISSUE NECK WITH CONTRAST CLINICAL INFORMATION: Infection. COMPARISON: None available. TECHNIQUE: Following the intravenous administration of 60 mL of Omnipaque 350 intravenous contrast, helical imaging was performed in the axial plane with generation of coronal and sagittal reformatted images. This CT examination was performed using dose optimization techniques as appropriate, variously including the following: *Automated exposure control *Adjustment of mA and/or kV according to patient size (this includes techniques or standardized protocols for targeted exams where dose is matched to indication/reason for exam; i.e. 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 The right internal jugular vein has been resected along with the right sternocleidomastoid muscle, and much of the right posterior lateral neck as well. Edema and thickening along the right occipital soft tissues is present, with a focal ulceration seen in the right occiput. Underlying extensive inflammation and phlegmonous changes are present. There is thickening of the right external auditory canal including the membranous and osseous canal. Posterior to the canal and posteroinferior to the right ear there is soft tissue edema and a suspected abscess collection versus phlegmonous collection which extends posterior lateral to the mastoid, and abuts the mastoid tip, measuring approximately 3.8 x 1.8 x 3.3 cm (AP, TRV, CC). Edema and phlegmonous change extends along the posterior right occiput the approximate right paramedian neck and inferior along the surgical resection plane. Abutting the mastoid tip there are mild permeative type osseous changes of which osteomyelitis cannot be excluded given the appearance. There is opacification of the right mastoid tip. 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 The right submandibular gland has been resected along with the right parotid gland. There are infiltrative changes in the right parotid space, surrounding the right posterior masseter muscle. No obvious mucosal space lesion is evident. The left internal jugular vein is patent. There are moderate right greater than left carotid bulb calcifications present. No abnormal lymphadenopathy is present. The larynx, epiglottis, aryepiglottic folds, subglottic trachea, and thyroid gland are unremarkable in appearance. The superior esophagus is normal in appearance. The imaged upper mediastinal contents demonstrate no abnormalities. There is linear scarring/consolidation in the left upper lobe anteriorly. Lung apices otherwise appear grossly clear. Imaged intracranial contents demonstrate patent dural venous sinuses. No mass effect, edema, hemorrhage, or abnormal enhancement. The globes and orbits demonstrate lens replacements bilaterally. They are otherwise normal. CT/CT soft tissue neck w IV con IMPRESSION: 1. Complex examination. Modified radical right neck dissection with extensive postoperative changes in the right posterolateral neck. Edema and phlegmonous change extends from the right external auditory canal to the right paramedian occiput and inferiorly along the right posterior neck. There appears to be a soft tissue ulceration present in the right occipital soft tissues. 2. 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 Cannot exclude an abscess collection posterior and inferior to the ear/mastoid versus a phlegmonous collection measuring approximately 3.8 x 1.8 x 3.3 cm. 3. Cannot exclude osteomyelitis of the right mastoid tip with mild permeative bone changes and opacification of the right mastoid tip. 4. Additional findings as detailed in the body of the report. 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 Also with facial cellulitis. Plan to admit go to the OR for debridement and biopsies sent for pathology. Also treat with IV vanco get ID consult. Patient and family understand and agree with the above plan. Based on the results we will update his team of radiation oncologist as well as head and neck surgeons both at [facility] in [facility] General. Quality Stroke Does the patient have a stroke diagnosis?: No VTE Prior VTE?: No VTE Risk Level:: Surgical - moderate VTE Device Contraindication: N/A - Device Ordered VTE Drug Contraindication: N/A - Med Ordered Procedures Date of Service Date of Service: 04/26/25
[2025-04-26] MEDS: Lactated Ringers 1,000 ML 100 ML IVCONT ×2 (15:55→23:27)
--- NOTE | 2025-04-26 16:04 | PC.NURSE ---
Assumed care of this patient at 1500, patient moaning in pain after recieving 1mg around an hour ago, family and patient requesting additional pain meds. Admitting Dr. Lacey coffman messaged requesting pain meds, awaiting response/orders.
[2025-04-26] MEDS: oxyCODONE HCl Immed Release 5 MG TABLET 20 MG PO (17:04)
--- NOTE | 2025-04-26 17:16 | PC.NURSE ---
Gave report to Kamron in PACU, will come get patient for OR when ready for him.
--- NOTE | 2025-04-26 17:18 | ECG_ITS ---
Test Reason : HEART RATE CHECK Blood Pressure : */* mmHG Vent. Rate : 77 BPM Atrial Rate : 77 BPM P-R Int : 228 ms QRS Dur : 148 ms QT Int : 440 ms P-R-T Axes : 66 83 10 degrees QTcB Int : 497 ms Sinus rhythm with 1st degree A-V block Right bundle branch block Abnormal ECG No previous ECGs available Referred By: Caron Parrish Electronically Signed By: FILEMON BERGER
--- NOTE | 2025-04-26 17:22 | PC.NURSE ---
EKG ordered for patient as patient is slotted for OR, ED provider made aware.
--- NOTE | 2025-04-26 17:27 | PHA.MEDREC ---
Pharmacy Consult ? Medication Reconciliation Pharmacy has completed the medication reconciliation. Spoke with pt family at bedside and [facility]. Per family pt is no longer taking: Santyl topical cream, Omeprazole, Hydrochlorothiazide (pt stopped it when he started Furosemide) and Pregabalin.
--- NOTE | 2025-04-26 17:31 | PHA.MEDREC ---
Addendum entered by Tam Snow [facility] 04/26/25 17:47: med rec reviewed Original Note: Pharmacy Consult ? Medication Reconciliation Pharmacy has completed the medication reconciliation. Spoke with pt family at bedside and [facility]. Per family pt is no longer taking: Santyl topical cream, Omeprazole, Hydrochlorothiazide (pt stopped it when he started Furosemide) and Pregabalin. Pt family confirmed the Novolog insulin; stating he tests his sugar levels, deepening on his sugar levels BID after meals and injects himself per a sliding scale.
--- NOTE | 2025-04-26 17:37 | PC.NURSE ---
Patient en route to OR w/ transport Job
--- NOTE | 2025-04-26 17:55 | HO.ANESPROP2 ---
HPI - Anesthesia Eval Consult details Narrative: Right neck/occipital area wound PMFSH Active Problems Active Problems: All Active Problems Head and neck malignancy (Acute) Abscess (Acute) Past Medical History Medical History DHAVAL on CPAP Diabetic retinopathy Nephritis Squamous cell carcinoma of neck Hypertension Nephrolithiasis Diabetes mellitus Tubular adenoma Family History Family history of problems with anesthesia: No Surgical History Surgical History History of aortic valve replacement History of radical dissection of right side of neck History of lithotripsy History of appendectomy History of colonoscopy History of Problems with Anesthesia: Yes (S/p radical neck dissection. Told needs ? smaller ETT as ? trachea deviation) Social History Social History Patient Tobacco Use Status: Former Tobacco user Use of substances other than those prescribed or required for medical reasons: No Advance Directives: No Advance Directives Information Provided: Yes Meds Allergies Allergy/AdvReac Type Severity Reaction Status Date / Time Penicillins (PCN) Allergy Unknown Verified 04/26/25 08:52 Active Medications: Current Medications Acetaminophen (Acetaminophen 325 Mg Tablet) 650 mg PO Q6H PRN PRN Reason: Pain, Mild 1-3,fever,headache Calcium Carbonate (Calcium Carbonate 750 Mg Tab.Chew) 750 mg PO Q4H PRN PRN Reason: Heartburn Hydromorphone HCl (Hydromorphone Hcl 1 Mg/Ml Syringe) 1 mg IVPUSH ONCE PRN; Protocol PRN Reason: Pain, Severe (Pain Scale 7-10) Last Admin: 04/26/25 15:14 Dose: 1 mg Lactated Ringer's (Lr) 1,000 mls @ 100 mls/hr IVCONT .Q10H TOHMAS Last Admin: 04/26/25 15:55 Dose: 100 mls/hr Vancomycin HCl 1,500 mg/ (Sodium Chloride) 500 mls @ 333.333 mls/hr IV Q24H THOMAS Magnesium Hydroxide (Milk Of Magnesia 30 Ml Oral.Susp) 30 ml PO DAILY PRN PRN Reason: Constipation Melatonin (Melatonin 3 Mg Tablet) 6 mg PO BEDTIME PRN PRN Reason: Insomnia Ondansetron HCl (Ondansetron Hcl 4 Mg/2 Ml Vial) 4 mg IVPUSH Q8H PRN PRN Reason: Nausea and Vomiting Pharmacy Consult (Consult Rx Vancomycin Dosing) 1 each MISCELLANE DAILY PRN PRN Reason: Consult order Sodium Chloride (0.9 % Sodium Chloride Flush 3 Ml Syringe) 3 ml IVFLUSH QSHI Last Admin: 04/26/25 16:00 Dose: Not Given Home Medications ?Medication ?Instructions ?Recorded ?Confirmed ?Last Taken ?Type amlodipine 10 mg tablet 1 tab PO DAILY 08/05/22 04/26/25 04/26/25 History atorvastatin 20 mg tablet 1 tab PO DAILY 08/05/22 04/26/25 04/26/25 History fluticasone propionate 50 1 spray intranasal BEDTIME PRN 08/05/22 04/26/25 Unknown History mcg/actuation nasal Nasal Congestion spray,suspension insulin human U-100 NPH-regulr See Protocol subcut BIDPC 08/05/22 04/26/25 04/25/25 History 70-30 mix 100 unit/mL subcutaneous susp (Novolin 70/30 U-100 Insulin) metformin 500 mg tablet,extended 1 tab PO BID 08/05/22 04/26/25 04/26/25 History release 24 hr nebivolol 10 mg tablet 1 tab PO DAILY 08/05/22 04/26/25 04/26/25 History terazosin 2 mg capsule 1 cap PO BEDTIME 08/05/22 04/26/25 04/25/25 History acetaminophen 500 mg tablet 500 mg PO DAILY@1200,2100 PRN Pain 04/26/25 04/26/25 Unknown History aspirin 81 mg tablet,delayed 81 mg PO DAILY 04/26/25 04/26/25 04/26/25 History release cholecalciferol (vitamin D3) 25 25 mcg PO DAILY 04/26/25 04/26/25 04/26/25 History mcg (1,000 unit) tablet (Vitamin D3) fentanyl 100 mcg/hr transdermal 1 patch topical Q48H 04/26/25 04/26/25 04/26/25 History patch furosemide 40 mg tablet 80 mg PO DAILY 04/26/25 04/26/25 04/26/25 History multivitamin with minerals 1 tab PO DAILY 04/26/25 04/26/25 04/26/25 History naloxone 0.4 mg/mL injection 0.4 mg subcut Q2M PRN Opioid 04/26/25 04/26/25 04/26/25 History solution Overdose oxycodone 10 mg tablet 10 - 20 mg PO Q4-6H PRN pain 04/26/25 04/26/25 04/25/25 History telmisartan 80 mg tablet 80 mg PO DAILY 04/26/25 04/26/25 04/26/25 History vitamins A,C,L-mfcp-hczdxr 4,296 1 cap PO BID 04/26/25 04/26/25 04/26/25 History mcg-226 mg-90 mg capsule (PreserVision AREDS) Exam Height,Weight and Vital Signs: Height 5 ft 8 in Weight 83.915 kg Last Vital Signs Temp 98.8 F 04/26/25 17:48 Pulse 66 04/26/25 17:48 Resp 16 04/26/25 17:48 BP 128/51 L 04/26/25 17:48 Pulse Ox 95 04/26/25 17:48 O2 Del Method Room Air 04/26/25 17:48 Pertinent Lab Results Pertinent Lab Results: Laboratory Tests 04/26/25 04/26/25 09:12 11:27 WBC 16.3 H RBC 3.69 L Hgb 9.6 L Hct 30.1 L MCV 81.6 MCH 26.0 L MCHC 31.9 RDW 14.3 Plt Count 330 D MPV 11.7 Immature Gran % (Auto) 0.6 H Neut % (Auto) 84.8 H Lymph % (Auto) 5.1 L [place] % (Auto) 8.9 Eos % (Auto) 0.3 Baso % (Auto) 0.3 Lymph # (Auto) 0.8 L [place] # (Auto) 1.5 H Eos # (Auto) 0.1 Baso # (Auto) 0.1 Abs Immat Gran (auto) 0.09 H Absolute Neuts (auto) 13.9 H Absolute Nucleated RBC 0.000 Nucleated RBC % (auto) 0.0 Sodium 137 Potassium 4.2 Chloride 97 Carbon Dioxide 30 H Anion Gap 14 BUN 23 H Creatinine 0.73 Estim Creat Clear Calc 83.7 Estimated GFR > 60 POC Glucose 131 H Random Glucose 134 H Lactic Acid 1.5 Calcium 9.3 Total Bilirubin 0.8 Direct Bilirubin 0.4 AST 22 ALT 12 Alkaline Phosphatase 147 H Total Protein 7.3 Albumin 3.5 Airway Mallampati Class: II TM Dist: >3cm Neck ROM: Full Loose/Missing/Broken Teeth: No Heart: RRR Lungs: cta Assessment and Plan Assessment Anesthesia Assessment: Anesthesia Plan Discussed and Chart Reviewed Final Anesthetic Review Family History of Problems with Anesthesia: No History of Problems with Anesthesia: Yes (S/p radical neck dissection. Told needs ? smaller ETT as ? trachea deviation) NPO: Yes ASA Class: III Final Preanesthetic Review: No Changes in Pt Med Stat, Meds/Allgs Chart Reviewed, Consent Obtained/Reviewed and Anes Risks/Benef Reviewed Patient Risk: Intermediate Procedure Risk: Low Anesthetic Plan Anesthetic Plan: GA Disposition: Standard PACU
--- NOTE | 2025-04-26 18:16 | PHA.PROG ---
Admission Date/Time: April 26, 2025 14:38 Indication: skin Weight in k.915 kg Adjusted body weight in Kg: Scheller body weight in Kg: Obesity Dosing Indication % IBW: Serum Creatinine - Last 168 Hours 04/26/25 09:12 Creatinine 0.73 Estimated CrCl and GFR - Last 168 Hours 04/26/25 09:12 Estim Creat Clear Calc 83.7 Estimated GFR > 60 Vancomycin Loading Dose: 2000mg x 1 Current Vancomycin Dosing Regimen: 1500mg Q24H Vancomycin Monitoring using AUC goal of 400 - 600 range with trough as surrogate marker: 410 mg/L Date and Time for next Vancomycin Level to be drawn: 04/29 @1100 Pharmacist Comments on Vancomycin Plan: predicted trough of 10.8 Vancomycin dosing will take advantage of [employer] as a clinical decision support tool that uses Bayesian modeling to calculate individual patient's pharmacokinetic parameters and forecast the patient's drug concentration time course with the target goal AUC 24 range of 400 - 600 mg/L/hr.
--- NOTE | 2025-04-26 19:00 | P.CONHOSP_ITS ---
History of Present Illness Data of Consult Service Date: 04/26/25 Requesting physician: Sonia Rahman Primary Care Provider: Oswaldo Barrett MD [facility] Reason for consult: medical management 79-year-old male with medical history of T2DM, DHAVAL, diabetic retinopathy, squamous cell carcinoma of the neck, esophageal stricture on soft diet, HTN, tubular adenoma, presented to the ED earlier today due to chronic wound of the right neck. Pt was evaluated by GENERAL SURGERY and was taken to the OR for wound debridement for head and neck infection stemming from original SCC of the neck. Hospitalist group asked to consult for medical management. Patient is seen status post procedure after coming out of PACU was complaining of severe pain in the affected area. This physician underwriter did review patient's medical history and surgical history knee confirmed by saying yes but would not elaborate further. Patient is a known diabetic. Spoke with nursing in the will be medicated with IV pain medication as ordered by the surgeon. Patient currently denies any significant medical concerns at this time. Review of Systems 2 Review of Systems: Patient reporting pain in the affected area, right neck status post I&D. Patient is currently denying any chest pain or shortness of breath at rest. Patient denies any abdominal pain, nausea or vomiting. Patient is denying any chills or fever. Patient is not having any issues with swallowing Yes all other systems are reviewed and are negative [facility] Medical History (Updated 04/26/25 @ 22:27 by TONI Trinh-MYLA) Esophageal stricture DHAVAL on CPAP Diabetic retinopathy Nephritis Squamous cell carcinoma of neck Hypertension Nephrolithiasis Diabetes mellitus Tubular adenoma Cognitive capacity: Alert and orientated x3 Functional capacity: independent ambulation Surgical History History of aortic valve replacement History of radical dissection of right side of neck History of lithotripsy History of appendectomy History of colonoscopy Social History Household Members: Spouse and Children Housing: House Do you presently have visiting nurse or other home services: No Patient Tobacco Use Status: Former Tobacco user Smoked in Last 30 Days: No e-Cigarette/Vaping Use: Never Used Patient Interested in Nicotine Replacement: No Patient Given Instructions on How to Stop Smoking: No Second Hand Smoke Exposure: No Use of substances other than those prescribed or required for medical reasons: No Have you been hit, kicked, punched, or otherwise hurt by someone within the past year? If so, by whom?: No Do you feel safe in your current relationship?: No Is there a partner from a previous relationship who is making you feel unsafe now?: No Are you made to feel afraid or neglected: No Spiritual Healthcare Practices: latter-day Advance Directives: No Advance Directives Information Provided: Yes Do you have a plan to hurt others: No Plan Recently lost weight without trying: Yes How much weight loss: 2-13 pounds Nutrition Risks: No Nutritional Risk Poor oral hygiene: Yes Ebola Risk: Travel/Contact With Anyone From Affected Area/s: No Has Patient Experienced Ebola Symptoms: No Meds Allergies Allergy/AdvReac Type Severity Reaction Status Date / Time Penicillins (PCN) Allergy Unknown Verified 04/26/25 08:52 Active Medications: Current Medications Acetaminophen (Acetaminophen 325 Mg Tablet) 650 mg PO Q6H PRN PRN Reason: Pain, Mild 1-3,fever,headache Calcium Carbonate (Calcium Carbonate 750 Mg Tab.Chew) 750 mg PO Q4H PRN PRN Reason: Heartburn Fentanyl (Fentanyl Citrate/Pf 100 Mcg/2 Ml Vial) 25 mcg IVPUSH Q5M PRN PRN Reason: Pain, Severe (Pain Scale 7-10) Stop: 04/26/25 23:57 Hydromorphone HCl (Hydromorphone Hcl 1 Mg/Ml Syringe) 1 mg IVPUSH ONCE PRN; Protocol PRN Reason: Pain, Severe (Pain Scale 7-10) Last Admin: 04/26/25 15:14 Dose: 1 mg Hydromorphone HCl (Hydromorphone Hcl 0.5 Mg/0.5 Ml Syringe) 0.25 mg IVPUSH Q5M PRN PRN Reason: Pain, Moderate to Severe (Pain Scale 4-10) Stop: 04/26/25 23:57 Lactated Ringer's (Lr) 1,000 mls @ 100 mls/hr IVCONT .Q10H THOMAS Last Admin: 04/26/25 15:55 Dose: 100 mls/hr Vancomycin HCl 1,500 mg/ (Sodium Chloride) 500 mls @ 333.333 mls/hr IV Q24H THOMAS Magnesium Hydroxide (Milk Of Magnesia 30 Ml Oral.Susp) 30 ml PO DAILY PRN PRN Reason: Constipation Melatonin (Melatonin 3 Mg Tablet) 6 mg PO BEDTIME PRN PRN Reason: Insomnia Naloxone HCl (Naloxone Hcl 0.4 Mg/Ml Vial) 0.04 mg IVPUSH Q5M PRN PRN Reason: Excessive sedation or RR < 8 Ondansetron HCl (Ondansetron Hcl 4 Mg/2 Ml Vial) 4 mg IVPUSH Q8H PRN PRN Reason: Nausea and Vomiting Ondansetron HCl (Ondansetron Hcl 4 Mg/2 Ml Vial) 4 mg IVPUSH ONCE PRN PRN Reason: Nausea and Vomiting Stop: 04/26/25 23:57 Pharmacy Consult (Consult Rx Vancomycin Dosing) 1 each MISCELLANE DAILY PRN PRN Reason: Consult order Sodium Chloride (0.9 % Sodium Chloride Flush 3 Ml Syringe) 3 ml IVFLUSH QSHIFT [facility] Last Admin: 04/26/25 16:00 Dose: Not Given Home Medications ?Medication ?Instructions ?Recorded ?Confirmed ?Last Taken ?Type amlodipine 10 mg tablet 1 tab PO DAILY 08/05/2202/1304/26/25 History atorvastatin 20 mg tablet 1 tab PO DAILY 08/05/2202/1304/26/25 History fluticasone propionate 50 1 spray intranasal BEDTIME P RN 08/05/22 04/26/25 Unknown History mcg/actuation nasal Nasal Congestion spray,suspension insulin human U-100 NPH-regulr See Protocol subcut BID PC 08/05/22 04/26/25 04/25/25 History 70-30 mix 100 unit/mL subcutaneous susp (Novolin 70/30 U-100 Insulin) metformin 500 mg tablet,extended 1 tab PO BID 08/05/22 04/26/25 04/26/25 History release 24 hr nebivolol 10 mg tablet 1 tab PO DAILY 08/05/2202/1304/26/25 History terazosin 2 mg capsule 1 cap PO BEDTIME 08/05/2204/25/25 History acetaminophen 500 mg tablet 500 mg PO DAILY@1200,2100 PRN Pain 04/26/25 04/26/25 Unknown History aspirin 81 mg tablet,delayed 81 mg PO DAILY 04/26/25 0 04/26/25 04/26/25 History release cholecalciferol (vitamin D3) 25 25 mcg PO DAILY 04/26/25 04/26/25 History mcg (1,000 unit) tablet (Vitamin D3) fentanyl 100 mcg/hr transdermal 1 patch topical Q48H 0 04/26/25 04/26/25 04/26/25 History patch furosemide 40 mg tablet 80 mg PO DAILY 04/26/25 08/0 02/1304/26/25 History multivitamin with minerals 1 tab PO DAILY 04/26/2502/1304/26/25 History naloxone 0.4 mg/mL injection 0.4 mg subcut Q2M PRN Opi oid 04/26/25 04/26/25 04/26/25 History solution Overdose oxycodone 10 mg tablet 10 - 20 mg PO Q4-6H PRN pain 04/26/25 04/26/25 04/25/25 History telmisartan 80 mg tablet 80 mg PO DAILY 04/26/25 0802/1304/26/25 History vitamins A,C,B-wytg-qlugwz 4,296 1 cap PO BID 04/26/25 04/26/25 04/26/25 History mcg-226 mg-90 mg capsule (PreserVision AREDS) Physical Exam 2 Vital Signs and Narrative: Vital Signs: Last Vital Signs Temp 98.8 F 04/26/25 17:48 Pulse 66 04/26/25 17:48 Resp 16 04/26/25 17:48 BP 128/51 L 04/26/25 17:48 Pulse Ox 95 04/26/25 17:48 O2 Del Method Room Air 04/26/25 17:48 BMI result Body Mass Index 28.1 Alert and orientated X3, uncooperative with the HPI due to significant pain in the right neck area Neuro: CN II-X11 intact, no deficits, visual acuity intact EYES: PERRLA, EOM intact, sclerae nonicteric ENT: hearing intact, redenss noted external auditory canal R ear, no issues with swallowing, uvula midline, lips moist, nares patent no epistaxis Cardiac: S1 S2 RRR, no murmur, no JVD, no edema in Lower ext Pulmonary: lungs clear to auscultation B Abdominal: BS active in all 4 quadrants, no guarding, tenderness, rebounding MSK: strength 5/5 upper and lower extremities : no CVA tenderness no bladder distension Extremities: no edema in lower extremities, PT and DP pulses palpable +2 Psych: mood anxious, judgement and insight fair Skin: Large dressing over the right neck area currently clean and dry Results Labs 04/26/25 09:12 04/26/25 09:12 Labs: Laboratory Results - last 24 hr 04/26/25 04/26/25 09:12 11:27 MCV 81.6 MCH 26.0 L MCHC 31.9 RDW 14.3 Plt Count 330 D MPV 11.7 Immature Gran % (Auto) 0.6 H Neut % (Auto) 84.8 H Lymph % (Auto) 5.1 L [place] % (Auto) 8.9 Eos % (Auto) 0.3 Baso % (Auto) 0.3 Lymph # (Auto) 0.8 L [place] # (Auto) 1.5 H Eos # (Auto) 0.1 Baso # (Auto) 0.1 Abs Immat Gran (auto) 0.09 H Absolute Neuts (auto) 13.9 H Absolute Nucleated RBC 0.000 Nucleated RBC % (auto) 0.0 Anion Gap 14 Estim Creat Clear Calc 83.7 Estimated GFR > 60 POC Glucose 131 H Random Glucose 134 H Lactic Acid 1.5 Calcium 9.3 Total Bilirubin 0.8 Direct Bilirubin 0.4 AST 22 ALT 12 Alkaline Phosphatase 147 H Total Protein 7.3 Albumin 3.5 ECG Attestation: I personally reviewed and interpreted this ECG as follows: (Sinus rhythm with 1st degree A-V block Right bundle branch block IA 228) Imaging Radiologist's Impressions: Impressions Head CT 04/26/25 09:36 IMPRESSION: 1. No acute intracranial abnormality. 2. 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 Refer to the dedicated neck CT report, which was performed concurrently. Electronically signed by: Ashu Denis MD 04/26/2025 12:14 PM EDT RP Soft Tissue Neck CT 04/26/25 10:39 IMPRESSION: 1. Complex examination. Modified radical right neck dissection with extensive postoperative changes in the right posterolateral neck. Edema and phlegmonous change extends from the right external auditory canal to the right paramedian occiput and inferiorly along the right posterior neck. There appears to be a soft tissue ulceration present in the right occipital soft tissues. 2. 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 Cannot exclude an abscess collection posterior and inferior to the ear/mastoid versus a phlegmonous collection measuring approximately 3.8 x 1.8 x 3.3 cm. 3. Cannot exclude osteomyelitis of the right mastoid tip with mild permeative bone changes and opacification of the right mastoid tip. 4. Additional findings as detailed in the body of the report. Electronically signed by: Ashu Denis MD 04/26/2025 12:06 PM EDT RP Assessment and Plan (1) Abscess: Status: Acute (2) First degree atrioventricular block: Status: Acute Plan 79-year-old male with medical history of T2DM, DHAVAL, diabetic retinopathy, squamous cell carcinoma of the neck, esophageal stricture on soft diet, HTN, tubular adenoma, presented to the ED earlier today due to chronic wound of the right neck. Pt was evaluated by GENERAL SURGERY and was taken to the OR for wound debridement for head and neck infection stemming from original SCC of the neck. Hospitalist group asked to consult for medical management. Pt offers no specific medical complaints at this time. Pt is reporting pain from procedure and nursing are aware and will be administering pain medication. ABSCESS neck s/p surgical debridement/ hx of neck cancer Mgmt per surgery ID consulted per surgery Incentive spirometer DMII SSI Diabetic diet HX of esophageal stricture SOft diet per pt's spouse ordered Pt has not required PPI so far Aspiration precautions ordered HTN Can continue amlodipine, telmisartan (substitues ordered by surgeon) Pt also on lasix and nebivolol at home, note pt has a first degree AVB on ECG, IA 228: currently on metoprolol succinate ER 200 mg daily per surgeon which is the correct conversion of 10 mgs of nebivolol Pt should follow with mat tester as an outpatient HLD Continue statin, ASA Cardiac diet We appreciate this consultation and as patient has no specific medical concerns at this time, hospitalist group will sign off. Please reconsult with any questions or concerns as needed.
[2025-04-26 21:29] LABS: Glucose, Whole Blood 187 mg/dL (60-115)
[2025-04-26] MEDS: 0.9 % Sodium Chloride Flush 3 ML SYRINGE IVFLUSH (22:10)
[2025-04-27] VITALS (10 sets, daily range): BP systolic 124–150; BP diastolic 60–69; PULSE 63–86; RESP 14–18; TEMP 36.1–37.6; O2SAT 94–97; BMI 31.0
[2025-04-27] MEDS: oxyCODONE HCl Immed Release 5 MG TABLET 10 MG PO ×3 (00:41→16:44)
--- NOTE | 2025-04-27 04:59 | PC.NURSE ---
pt came to floor at 2027 some pain reported but tolerable , dsg to back head and neck CDI , family present in room and Son. medications given no problem with swallow he has hx of trachea deviation. [facility] came did assessment and she stated pt has lots of pain she will order iv med , but when we went to room pt fell to sleep but when woke up again moaning, and getting louder very uncomfortable oxycodone given 10 mg but didnt help and with repositioning the pain was unbearable, we reached out to [facility] [place] for iv med we were going to give earlier med was ordered and given . More comfortable after . Vss
--- NOTE | 2025-04-27 06:34 | PC.NURSE ---
pt unable to wear cpap mask very uncomfortable on his head d/t large dsg and wound on back of his head place on 2 L of oxygen
[2025-04-27 07:16] LABS: Glucose, Whole Blood 200 mg/dL (60-115)
[2025-04-27 07:22] LABS: MANUAL DIFF FLAG NO
[2025-04-27 07:26] LABS: Hematocrit 26.4 % (42.0-52.0); Hemoglobin 8.7 g/dl (14.0-18.0); Imm Gran Abs Auto 0.08 X10*3/uL (0.00-0.03); Imm Gran Pct Auto 0.6 % (0.0-0.4); Lymphocytes Absolute Auto 0.8 X10*3/uL (1.2-4.9); Mean Corpuscular HGB Conc 33.0 g/dl (31.0-36.0); Mean Corpuscular Hemoglobin 26.5 pg (27.0-33.0); Mean Corpuscular Volume 80.5 fL (80.0-98.0); NRBC Abs Auto 0.000 X10*3/uL (0.0-0.012); NRBC Pct Auto 0.0 /100WBC (0.0-0.2); Platelet Count 285 X10*3/uL (160-400); Red Blood Count 3.28 X10*6/uL (4.60-5.80); White Blood Count 14.3 X10*3/uL (4.8-10.8)
[2025-04-27 07:42] LABS: Alanine Aminotransferase 11 U/L (0-40); Albumin Level 2.8 g/dL (3.5-5.0); Alkaline Phosphatase 123 U/L (39-117); Anion Gap 12 (12-20); Aspartate Amino Transferase 26 U/L (5-37); Blood Urea Nitrogen 12 mg/dL (9-16); Calcium 8.6 mg/dL (8.4-10.2); Carbon Dioxide 27 mmol/L (22-29); Chloride 101 mmol/L (96-108); Creatinine Clr Calc Pharmacy 116.2; Estimated Glomerular Filt Rate > 60; Potassium 4.1 mmol/L (3.3-5.1); Sodium 136 mmol/L (135-145); Total Protein 6.1 g/dL (6.5-8.0)
--- NOTE | 2025-04-27 08:03 | P.PNGS_ITS ---
Subjective Subjective Date of Service: 04/27/25 <Nam Wills PA-C - Last Filed: 04/27/25 13:54> 04/29/25 <Sonia Rahman MD - Last Filed: 04/29/25 16:49> Interval history: patient very uncomfortable this morning. In a lot of pain overnight. The nasal cannula is bothering him <Nam Wills PA-C - Last Filed: 04/27/25 13:54> Physical Exam 2 Vital Signs: Vital Signs: Last Vital Signs Temp 96.9 F 04/27/25 07:23 Pulse 82 04/27/25 07:23 Resp 18 04/27/25 07:23 BP 140/63 H 04/27/25 07:23 Pulse Ox 97 04/27/25 07:23 O2 Del Method Nasal Cannula 04/27/25 07:23 O2 Flow Rate 2 04/27/25 07:23 BMI result Body Mass Index 31.0 <Nam Wills PA-C - Last Filed: 04/27/25 13:54> Const: General: no acute distress; No comfortable <Nam Wills PA-C - Last Filed: 04/27/25 13:54> Orientation/consciousness: patient oriented x3 <ACOSTA Justin Last Filed: 04/27/25 13:54> HEENT: Other: large right post auricular dressing. no strike through. some serosanguineous drainage in right ear <Nam Wills PA-C - Last Filed: 04/27/25 13:54> Neuro: General: patient oriented x3 <ACOSTA Justin Last Filed: 04/27/25 13:54> Objective Data Active Medications Acetaminophen (Acetaminophen 325 Mg Tablet) 650 mg PO Q6H PRN PRN Reason: Pain, Mild 1-3,fever,headache Amlodipine Besylate (Amlodipine Besylate 10 Mg Tablet) 10 mg PO DAILY [facility]; Protocol Aspirin (Aspirin Enteric Coated 81 Mg Tablet.Dr) 81 mg PO DAILY [facility] Atorvastatin Calcium (Atorvastatin Calcium 20 Mg Tablet) 20 mg PO DAILY [facility] Calcium Carbonate (Calcium Carbonate 750 Mg Tab.Chew) 750 mg PO Q4H PRN PRN Reason: Heartburn Dextrose (Dextrose 50 % 25 Gm/50 Ml Syringe) 25 gm IVPUSH Q15M PRN; Protocol PRN Reason: per Hypoglycemia Standing Ord. Doxazosin Mesylate (Doxazosin Mesylate 2 Mg Tablet) 2 mg PO BEDTIME [facility] Last Admin: 04/26/25 22:09 Dose: 2 mg Documented By: EZRA Comments: Fentanyl (Fentanyl 100 Mcg Patch.Td72) 100 mcg TRANSDERMA Q48H [facility] Furosemide (Furosemide 40 Mg Tablet) 80 mg PO DAILY [facility]; Protocol Glucose (Glucose Gel 15 Gm Gel..Gram.) 15 gm PO Q15M PRN; Protocol PRN Reason: per Hypoglycemia Standing Ord. Hydromorphone HCl (Hydromorphone Hcl 1 Mg/Ml Syringe) 1 mg IVPUSH ONCE PRN; Protocol PRN Reason: Pain, Severe (Pain Scale 7-10) Last Admin: 04/26/25 15:14 Dose: 1 mg Documented By: FRANKIE Hydromorphone HCl (Hydromorphone Hcl 1 Mg/Ml Syringe) 1 mg IVPUSH Q4H PRN; Protocol PRN Reason: Pain, Severe (Pain Scale 7-10) Lactated Ringer's (Lr) 1,000 mls @ 100 mls/hr IVCONT .Q10H [facility] Last Admin: 04/26/25 23:27 Dose: 100 mls/hr Documented By: EZRA Vancomycin HCl 1,500 mg/ (Sodium Chloride) 500 mls @ 333.333 mls/hr IV Q24H [facility] Cefepime HCl (Maxipime) 2 gm in 50 mls @ 100 mls/hr IV Q24H [facility] Insulin Human Lispro (Insulin Lispro 100 Unit/Ml 3 Ml Vial) 0 unit SUBCUT QIDACHS [facility]; Protocol Last Admin: 04/27/25 07:49 Dose: 4 unit Documented By: KRISTIN Magnesium Hydroxide (Milk Of Magnesia 30 Ml Oral.Susp) 30 ml PO DAILY PRN PRN Reason: Constipation Melatonin (Melatonin 3 Mg Tablet) 6 mg PO BEDTIME PRN PRN Reason: Insomnia Metoprolol Succinate (Metoprolol Succinate Er 100 Mg Tab.Er.24h) 200 mg PO DAILY [facility] Naloxone HCl (Naloxone Hcl 0.4 Mg/Ml Vial) 0.04 mg IVPUSH Q5M PRN PRN Reason: Excessive sedation or RR < 8 Ondansetron HCl (Ondansetron Hcl 4 Mg/2 Ml Vial) 4 mg IVPUSH Q8H PRN PRN Reason: Nausea and Vomiting Oxycodone HCl (Oxycodone Hcl Immed Release 5 Mg Tablet) 10 mg PO Q4H PRN PRN Reason: Pain, Moderate(Pain Scale 4-6) Last Admin: 04/27/25 07:49 Dose: 10 mg Documented By: KRISTIN Pharmacy Consult (Consult Rx Vancomycin Dosing) 1 each MISCELLANE DAILY PRN PRN Reason: Consult order Sodium Chloride (0.9 % Sodium Chloride Flush 3 Ml Syringe) 3 ml IVFLUSH QSHIFT [facility] Last Admin: 04/27/25 07:49 Dose: Not Given Documented By: KRISTIN Non-Admin Reason: IV Running Sodium Hypochlorite (Sodium Hypochlorite 0.125% 473 Ml Solution) 1 appl TOPICAL DAILY [facility] Stop: 04/28/25 18:00 Valsartan (Valsartan 160 Mg Tablet) 160 mg PO DAILY [facility] Vitamin D (Cholecalciferol (Vitamin D3) 25 Mcg Tablet) 25 mcg PO DAILY [facility] <Nam Wills PA-C - Last Filed: 04/27/25 13:54> Labs CBC & Chem 7: 04/28/25 06:30 04/29/25 05:21 <Nam Wills PA-C - Last Filed: 04/27/25 13:54> Labs: Laboratory Results - last 24 hr 04/26/25 04/26/25 04/26/25 09:12 11:27 21:18 MCV 81.6 MCH 26.0 L MCHC 31.9 RDW 14.3 Plt Count 330 D MPV 11.7 Immature Gran % (Auto) 0.6 H Neut % (Auto) 84.8 H Lymph % (Auto) 5.1 L Morton % (Auto) 8.9 Eos % (Auto) 0.3 Baso % (Auto) 0.3 Lymph # (Auto) 0.8 L Morton # (Auto) 1.5 H Eos # (Auto) 0.1 Baso # (Auto) 0.1 Abs Immat Gran (auto) 0.09 H Absolute Neuts (auto) 13.9 H Absolute Nucleated RBC 0.000 Nucleated RBC % (auto) 0.0 Anion Gap 14 Estim Creat Clear Calc 83.7 Estimated GFR > 60 POC Glucose 131 H 187 H Random Glucose 134 H Lactic Acid 1.5 Calcium 9.3 Total Bilirubin 0.8 Direct Bilirubin 0.4 AST 22 ALT 12 Alkaline Phosphatase 147 H Total Protein 7.3 Albumin 3.5 04/27/25 04/27/25 06:25 07:12 MCV 80.5 MCH 26.5 L MCHC 33.0 RDW 14.2 Plt Count 285 MPV 11.9 Immature Gran % (Auto) 0.6 H Neut % (Auto) 84.5 H Lymph % (Auto) 5.3 L Morton % (Auto) 8.3 Eos % (Auto) 0.8 Baso % (Auto) 0.5 Lymph # (Auto) 0.8 L Morton # (Auto) 1.2 Eos # (Auto) 0.1 Baso # (Auto) 0.1 Abs Immat Gran (auto) 0.08 H Absolute Neuts (auto) 12.1 H Absolute Nucleated RBC 0.000 Nucleated RBC % (auto) 0.0 Anion Gap 12 Estim Creat Clear Calc 116.2 Estimated GFR > 60 POC Glucose 200 H Random Glucose 204 H Lactic Acid Calcium 8.6 D Total Bilirubin 0.7 Direct Bilirubin AST 26 ALT 11 Alkaline Phosphatase 123 H Total Protein 6.1 L Albumin 2.8 L <Nam Wills PA-C - Last Filed: 04/27/25 13:54> Procedures Date of Service Date of Service: 04/27/25 <Nam Wills PA-C - Last Filed: 04/27/25 13:54> 04/29/25 <Sonia Rahman MD - Last Filed: 04/29/25 16:49> Progress Note: A&P Assessment and plan (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 <Nam Wills PA-C - Last Filed: 04/27/25 13:54> Assessment and Plan: 79 year old male who has a history of right-sided head and neck cancer underwent radical neck dissection and closure at [facility]. 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 Patient is POD1 debridement of this wound. Multiple biopsies were taken, results pending. Patient appearing very frail, deconditioned. Very uncomfortable due to pain from the wound. Requiring large amounts of narcotics, is still poorly controlled. He remains on IV vanco, ID consult pending. After debridement there still remains some areas of slough and necrotic tissue in the posterior aspect of the wound. There were no more pockets of pus. Cellulitis of the face and right ear appear improved, packing from ear removed, does not need to be redressed. We will continue with dressing changes twice daily using Dakin soaked Kerlix lightly packed into the wound dressed with then gauze, ABD pads and tape. <Nam Wills PA-C - Last Filed: 04/27/25 13:54> 79 year old male who has a history of right-sided head and neck cancer underwent radical neck dissection and closure at [facility]. 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 Patient is POD1 debridement of this wound. Multiple biopsies were taken, results pending. Patient appearing very frail, deconditioned. Very uncomfortable due to pain from the wound. Requiring large amounts of narcotics, is still poorly controlled. He remains on IV vanco, ID consult pending. After debridement there still remains some areas of slough and necrotic tissue in the posterior aspect of the wound. There were no more pockets of pus. Cellulitis of the face and right ear appear improved, packing from ear removed, does not need to be redressed. We will continue with dressing changes twice daily using Dakin soaked Kerlix lightly packed into the wound dressed with then gauze, ABD pads and tape. agree with above - still awaiting final path to decide next steps <Sonia Rahman MD - Last Filed: 04/29/25 16:49> Time Spent With Patient Time: Total time managing care of this patient today ____ minutes. <Nam Wills PA-C - Last Filed: 04/27/25 13:54> Quality Stroke Does the patient have a stroke diagnosis?: No <aNm Wills PA-C - Last Filed: 04/27/25 13:54> VTE Prior VTE?: No <Nam Wills PA-C - Last Filed: 04/27/25 13:54> VTE Risk Level:: Surgical - moderate <ACOSTA Justin Last Filed: 04/27/25 13:54> VTE Device Contraindication: N/A - Device Ordered <Nam Wills PA-C - Last Filed: 04/27/25 13:54> VTE Drug Contraindication: N/A - Med Ordered <Nam Wills PA-C - Last Filed: 04/27/25 13:54>
--- NOTE | 2025-04-27 08:41 | HO.POSTANES ---
Post Anesthesia Evaluation Post Anesthesia Evaluation Date of Service: 04/27/25 Vital Signs: Vital Signs Temp Pulse Resp BP Pulse Ox O2 Del Method O2 Flow Rate 04/27/25 07:23 96.9 F 82 18 140/63 H 97 Nasal Cannula 2 04/27/25 03:36 97.7 F 86 16 149/69 H 96 Nasal Cannula 2 04/26/25 23:07 97.0 F 72 16 130/60 97 Nasal Cannula 2 04/26/25 22:09 132/60 Anesthesia: General Mental Status: Awake Pain Control: Satisfactory Nausea/Vomiting: None Hydration: Adequate Anesthesia-Related Issues: No Anes. Related Issues
[2025-04-27] MEDS: Metoprolol Succinate ER 100 MG TAB.ER.24H 200 MG PO (10:27)
[2025-04-27] MEDS: Aspirin Enteric Coated 81 MG TABLET.DR PO (10:28)
[2025-04-27] MEDS: Lactated Ringers 1,000 ML 100 ML IVCONT ×2 (10:34→19:07)
[2025-04-27 11:11] LABS: Glucose, Whole Blood 168 mg/dL (60-115)
--- NOTE | 2025-04-27 11:29 | MHC.CLN ---
NUTRITION DIET=DIABETIC 2200 KCALS, CARDIAC, CHOPPED CONSISTENCY. ADMITTED FOR DEBRIDEMENT OF NECK WOUND. FOLLOW FOR PO INTAKE AND DIET TOLERANCE. SEE CLINICAL NUTRITION ASSESSMENT 04/27/25.
[2025-04-27] MEDS: cefEPime HCl/D5W 2 GM/50 ML PIGGYBACK IV (11:43)
--- NOTE | 2025-04-27 16:01 | MHC.CM.PN ---
IMM delivered. Patient lives in a home w/ . Reports he is functionally independent at baseline, but has been experiencing increased weakness. Uses CPAP, [employer] is supplier. No services. Reports he has been managing his wound care independently. PCP Oswaldo Barrett MD Reports he has an HCP naming his , Yenny, as [facility]. Copy requested. DP: Awaiting PT eval. STR vs home w/ services. Patient lives in [place] and prefers a facility in that area. No preference to [facility]. Referrals sent via [facility]. CM will continue to follow.
[2025-04-27 16:19] LABS: Glucose, Whole Blood 184 mg/dL (60-115)
--- NOTE | 2025-04-27 16:42 | P.CNID_ITS ---
History of Present Illness Data of Consult Service Date: 04/27/25 Requesting physician: Sonia Rahman Primary Care Provider: Oswaldo Barrett MD [facility] Reason for consult: right neck wound He has worsening right neck wound and pain. He has no fever or chills. He has culture taken and pending. 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 He sees Wound Care. Review of Systems 2 Review of Systems: Yes all other systems are reviewed and are negative [facility] Past Medical History Medical History Esophageal stricture DHAVAL on CPAP Diabetic retinopathy Nephritis Squamous cell carcinoma of neck Hypertension Nephrolithiasis Diabetes mellitus Tubular adenoma Surgical History Surgical History History of aortic valve replacement History of radical dissection of right side of neck History of lithotripsy History of appendectomy History of colonoscopy Social History Social History Household Members: Spouse and Children Housing: House Do you presently have visiting nurse or other home services: No Patient Tobacco Use Status: Former Tobacco user e-Cigarette/Vaping Use: Never Used Second Hand Smoke Exposure: No service: No Travel History Ebola Risk: Travel/Contact With Anyone From Affected Area/s: No Has Patient Experienced Ebola Symptoms: No Meds Allergies Allergy/AdvReac Type Severity Reaction Status Date / Time Penicillins (PCN) Allergy Unknown Verified 04/26/25 08:52 Active Medications: Current Medications Acetaminophen (Acetaminophen 325 Mg Tablet) 650 mg PO Q6H PRN PRN Reason: Pain, Mild 1-3,fever,headache Last Admin: 04/27/25 10:32 Dose: 650 mg Amlodipine Besylate (Amlodipine Besylate 10 Mg Tablet) 10 mg PO DAILY [facility]; Protocol Last Admin: 04/27/25 10:28 Dose: 10 mg Aspirin (Aspirin Enteric Coated 81 Mg Tablet.) 81 mg PO DAILY [facility] Last Admin: 04/27/25 10:28 Dose: 81 mg Atorvastatin Calcium (Atorvastatin Calcium 20 Mg Tablet) 20 mg PO DAILY [facility] Last Admin: 04/27/25 10:28 Dose: 20 mg Calcium Carbonate (Calcium Carbonate 750 Mg Tab.Chew) 750 mg PO Q4H PRN PRN Reason: Heartburn Dextrose (Dextrose 50 % 25 Gm/50 Ml Syringe) 25 gm IVPUSH Q15M PRN; Protocol PRN Reason: per Hypoglycemia Standing Ord. Doxazosin Mesylate (Doxazosin Mesylate 2 Mg Tablet) 2 mg PO BEDTIME [facility] Last Admin: 04/26/25 22:09 Dose: 2 mg Fentanyl (Fentanyl 100 Mcg Patch.Td72) 100 mcg TRANSDERMA Q48H [facility] Furosemide (Furosemide 40 Mg Tablet) 80 mg PO DAILY [facility]; Protocol Last Admin: 04/27/25 10:28 Dose: 80 mg Glucose (Glucose Gel 15 Gm Gel..Gram.) 15 gm PO Q15M PRN; Protocol PRN Reason: per Hypoglycemia Standing Ord. Hydromorphone HCl (Hydromorphone Hcl 1 Mg/Ml Syringe) 1 mg IVPUSH ONCE PRN; Protocol PRN Reason: Pain, Severe (Pain Scale 7-10) Last Admin: 04/26/25 15:14 Dose: 1 mg Hydromorphone HCl (Hydromorphone Hcl 1 Mg/Ml Syringe) 1 mg IVPUSH Q4H PRN; Protocol PRN Reason: Pain, Severe (Pain Scale 7-10) Last Admin: 04/27/25 12:44 Dose: 1 mg Lactated Ringer's (Lr) 1,000 mls @ 100 mls/hr IVCONT .Q10H [facility] Last Admin: 04/27/25 10:34 Dose: 100 mls/hr Vancomycin HCl 1,500 mg/ (Sodium Chloride) 500 mls @ 333.333 mls/hr IV Q24H [facility] Last Infusion: 04/27/25 14:53 Dose: Infused Cefepime HCl (Maxipime) 2 gm in 50 mls @ 100 mls/hr IV Q24H [facility] Last Infusion: 04/27/25 12:36 Dose: Infused Insulin Human Lispro (Insulin Lispro 100 Unit/Ml 3 Ml Vial) 0 unit SUBCUT QIDACHS [facility]; Protocol Last Admin: 04/27/25 11:43 Dose: 2 unit Magnesium Hydroxide (Milk Of Magnesia 30 Ml Oral.Susp) 30 ml PO DAILY PRN PRN Reason: Constipation Melatonin (Melatonin 3 Mg Tablet) 6 mg PO BEDTIME PRN PRN Reason: Insomnia Metoprolol Succinate (Metoprolol Succinate Er 100 Mg Tab.Er.24h) 200 mg PO DAILY [facility] Last Admin: 04/27/25 10:27 Dose: 200 mg Naloxone HCl (Naloxone Hcl 0.4 Mg/Ml Vial) 0.04 mg IVPUSH Q5M PRN PRN Reason: Excessive sedation or RR < 8 Ondansetron HCl (Ondansetron Hcl 4 Mg/2 Ml Vial) 4 mg IVPUSH Q8H PRN PRN Reason: Nausea and Vomiting Oxycodone HCl (Oxycodone Hcl Immed Release 5 Mg Tablet) 10 mg PO Q4H PRN PRN Reason: Pain, Moderate(Pain Scale 4-6) Last Admin: 04/27/25 07:49 Dose: 10 mg Pharmacy Consult (Consult Rx Vancomycin Dosing) 1 each MISCELLANE DAILY PRN PRN Reason: Consult order Sodium Chloride (0.9 % Sodium Chloride Flush 3 Ml Syringe) 3 ml IVFLUSH QSHIFT [facility] Last Admin: 04/27/25 15:47 Dose: Not Given Sodium Hypochlorite (Sodium Hypochlorite 0.125% 473 Ml Solution) 1 appl TOPICAL DAILY [facility] Stop: 04/28/25 18:00 Last Admin: 04/27/25 12:47 Dose: 1 appl Valsartan (Valsartan 160 Mg Tablet) 160 mg PO DAILY [facility] Last Admin: 04/27/25 10:28 Dose: 160 mg Vitamin D (Cholecalciferol (Vitamin D3) 25 Mcg Tablet) 25 mcg PO DAILY [facility] Last Admin: 04/27/25 10:28 Dose: 25 mcg Home Medications ?Medication ?Instructions ?Recorded ?Confirmed ?Last Taken ?Type amlodipine 10 mg tablet 1 tab PO DAILY 08/05/2202/1304/26/25 History atorvastatin 20 mg tablet 1 tab PO DAILY 08/05/2202/1304/26/25 History fluticasone propionate 50 1 spray intranasal BEDTIME P RN 08/05/22 04/26/25 Unknown History mcg/actuation nasal Nasal Congestion spray,suspension insulin human U-100 NPH-regulr See Protocol subcut BID PC 08/05/22 04/26/25 04/25/25 History 70-30 mix 100 unit/mL subcutaneous susp (Novolin 70/30 U-100 Insulin) metformin 500 mg tablet,extended 1 tab PO BID 08/05/22 04/26/2525 History release 24 hr nebivolol 10 mg tablet 1 tab PO DAILY 08/05/2202/1304/26/25 History terazosin 2 mg capsule 1 cap PO BEDTIME 08/05/2204/25/25 History acetaminophen 500 mg tablet 500 mg PO DAILY@1200,2100 PRN Pain 04/26/25 04/26/25 Unknown History aspirin 81 mg tablet,delayed 81 mg PO DAILY 04/26/25 0 04/26/25 04/26/25 History release cholecalciferol (vitamin D3) 25 25 mcg PO DAILY 04/26/25 04/26/25 History mcg (1,000 unit) tablet (Vitamin D3) fentanyl 100 mcg/hr transdermal 1 patch topical Q48H 0 04/26/25 04/26/25 04/26/25 History patch furosemide 40 mg tablet 80 mg PO DAILY 04/26/2502/1304/26/25 History multivitamin with minerals 1 tab PO DAILY 04/26/2502/1304/26/25 History naloxone 0.4 mg/mL injection 0.4 mg subcut Q2M PRN Opi oid 04/26/25 04/26/25 04/26/25 History solution Overdose oxycodone 10 mg tablet 10 - 20 mg PO Q4-6H PRN pain 04/26/25 04/26/25 04/25/25 History telmisartan 80 mg tablet 80 mg PO DAILY 04/26/2502/1304/26/25 History vitamins A,C,H-snwt-chsrdq 4,296 1 cap PO BID 04/26/25 04/26/25 04/26/25 History mcg-226 mg-90 mg capsule (PreserVision AREDS) Physical Exam 2 Vital Signs: Vital Signs: Last Vital Signs Temp 97.6 F 04/27/25 15:49 Pulse 69 04/27/25 15:49 Resp 18 04/27/25 15:49 BP 150/66 H 04/27/25 15:49 Pulse Ox 94 04/27/25 15:49 O2 Del Method BiPAP 04/27/25 15:49 O2 Flow Rate 2 04/27/25 10:30 BMI result Body Mass Index 31.0 Const: General: cooperative HEENT: Other: open wound right neck involving cervical area and area near ear Face and sinus: Yes normal facial exam Mouth: Normal oral and palatal mucosa present Teeth and gingiva: dentition normal Eyes: General: appearance normal, both eyes and all related structures P upils: Equal, round and reactive pupils present Resp: Effort & Inspection: normal respiratory effort Cardio: Rate: regular rate Rhythm: regular rhythm GI: Palpation (GI): Soft to palpation and nontender : General: Yes no CVA tenderness Back/Spine/Pelvis: Back: no CVA tenderness Skin: General skin exam: no rashes or lesions noted Neuro: General: moves all extremities Cranial nerves: Yes Equal, round and reactive pupils present Extrem: General: Yes normal to inspection Psych: Appearance: grossly normal Results Labs 04/27/25 06:25 04/27/25 06:25 Labs: Short CBC 04/27/25 Range/Units 06:25 WBC 14.3 H (4.8-10.8) X10*3/uL Hgb 8.7 L (14.0-18.0) g/dl Hct 26.4 L (42.0-52.0) % Plt Count 285 (160-400) X10*3/uL BMP 04/27/25 06:25 Sodium 136 Potassium 4.1 Chloride 101 Carbon Dioxide 27 BUN 12 Creatinine 0.55 Calcium 8.6 D Liver Function 04/27/25 Range/Units 06:25 Total Bilirubin 0.7 (0.0-1.0) mg/dL AST 26 (5-37) U/L ALT 11 (0-40) U/L Alkaline Phosphatase 123 H (39-117) U/L Albumin 2.8 L (3.5-5.0) g/dL Microbiology Microbiology Results: Microbiology 04/26/25 09:12 Blood - Venous Blood Culture - Preliminary No growth after 24 hours. 04/26/25 09:12 Blood - Venous Blood Culture - Preliminary No growth after 24 hours. 04/26/25 18:30 Neck Gram Stain - Final 04/26/25 18:30 Neck Routine Culture - Preliminary Culture in progress. Assessment and Plan (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 (2) Abscess: Status: Acute Plan Await culture. Cefepime and Vancomycin appropriate. Would add Flagyl 500 mg every 12hours. Manage at [facility] if able ,see ENT there who he is familar with.
[2025-04-27] MEDS: metroNIDAZOLE/NS 500 MG/100 ML PIGGYBACK 100 MG IV (19:07)
--- NOTE | 2025-04-27 19:49 | P.EN_ITS ---
Event Note Date of Service: 04/27/25 Event Note: Patient is seen for follow-up noting patient's blood sugars are somewhat elevated but vital signs overall controlled. Patient was out of bed sitting in the chair eating dinner and appeared more comfortable and in less pain. Patient appreciated the visit. Patient's appetite is improving. DMII Added equivalent to pt's Novolin 70/30 U-100 insulin to help with increasing Blood Glucose levels Pt is dealing with an active infection which may also contribute to hyp oerglycemia. Pt seen by ID today and yl added to cefepime and vanco. HTN BP well controlled, continue current medication regimen Hospitalist group will sign off at this time. We appreciate the consultation and please reach out with any questions or concerns or further needs for this patient. Time Spent With Patient Time: Total time managing care of this patient today ____ minutes.
[2025-04-27 20:43] LABS: Glucose, Whole Blood 237 mg/dL (60-115)
[2025-04-28] VITALS (7 sets, daily range): BP systolic 126–160; BP diastolic 63–70; PULSE 67–79; RESP 16–18; TEMP 36–38.4; O2SAT 89–95
[2025-04-28] MEDS: Lactated Ringers 1,000 ML 100 ML IVCONT (05:29)
[2025-04-28] MEDS: metroNIDAZOLE/NS 500 MG/100 ML PIGGYBACK 100 MG IV ×2 (06:16→18:17)
[2025-04-28 07:32] LABS: Glucose, Whole Blood 190 mg/dL (60-115)
[2025-04-28 07:34] LABS: Creatinine Clr Calc Pharmacy 112.1; Estimated Glomerular Filt Rate > 60
[2025-04-28] MEDS: fentaNYL 100 MCG PATCH.TD72 TRANSDERMA (07:43)
[2025-04-28 07:54] LABS: Hematocrit 27.9 % (42.0-52.0); Hemoglobin 9.3 g/dl (14.0-18.0); Mean Corpuscular HGB Conc 33.3 g/dl (31.0-36.0); Mean Corpuscular Hemoglobin 26.5 pg (27.0-33.0); Mean Corpuscular Volume 79.5 fL (80.0-98.0); NRBC Abs Auto 0.000 X10*3/uL (0.0-0.012); NRBC Pct Auto 0.0 /100WBC (0.0-0.2); Platelet Count 288 X10*3/uL (160-400); Red Blood Count 3.51 X10*6/uL (4.60-5.80); White Blood Count 10.6 X10*3/uL (4.8-10.8)
--- NOTE | 2025-04-28 08:25 | HO.PM.IMPN ---
Subjective Subjective Date of Service: 04/28/25 Interval History: Seen and examined this morning Follow-up for medical consultation Patient awake, alert, appears uncomfortable, history limited Review of Systems Review of Systems: Yes all other systems are reviewed and are negative Constitutional Constitutional: Denies chills and Reports fever(s) Gastrointestinal Gastrointestinal: Denies abdominal pain and Denies vomiting Physical Exam Vital Signs: Vital Signs: Last Vital Signs Temp 101.1 F H 04/28/25 07:41 Pulse 79 04/28/25 07:41 Resp 16 04/28/25 07:41 BP 159/70 H 04/28/25 07:41 Pulse Ox 89 L 04/28/25 07:41 O2 Del Method Room Air 04/28/25 07:41 O2 Flow Rate 2 04/27/25 10:30 BMI result Body Mass Index 31.0 Const: Other: Awake, alert. Appears uncomfortable Orientation/consciousness: patient oriented x3 HEENT: Other: dressing right side of neck Resp: Other: Left basilar rales Effort & Inspection: normal respiratory effort, able to speak in complete sentences, no respiratory distress and no use of accessory muscles Cardio: Rate: regular rate GI: Inspection: No distended Palpation (GI): Soft to palpation and nontender Neuro: General: patient oriented x3 and moves all extremities Objective Data Active Medications Acetaminophen (Acetaminophen 325 Mg Tablet) 650 mg PO Q6H PRN On Hold: 04/28/25 08:14 Comment: PT IS NOW ON IV TYLENOL PRN Reason: Pain, Mild 1-3,fever,headache Last Admin: 04/28/25 07:43 Dose: 650 mg Documented By: RADHA Amlodipine Besylate (Amlodipine Besylate 10 Mg Tablet) 10 mg PO DAILY [facility]; Protocol Last Admin: 04/28/25 07:56 Dose: 10 mg Documented By: RADHA Aspirin (Aspirin Enteric Coated 81 Mg Tablet.Dr) 81 mg PO DAILY [facility] Last Admin: 04/28/25 07:57 Dose: 81 mg Documented By: RADHA Atorvastatin Calcium (Atorvastatin Calcium 20 Mg Tablet) 20 mg PO DAILY [facility] Last Admin: 04/28/25 07:42 Dose: 20 mg Documented By: RADHA Calcium Carbonate (Calcium Carbonate 750 Mg Tab.Chew) 750 mg PO Q4H PRN PRN Reason: Heartburn Dextrose (Dextrose 50 % 25 Gm/50 Ml Syringe) 25 gm IVPUSH Q15M PRN; Protocol PRN Reason: per Hypoglycemia Standing Ord. Doxazosin Mesylate (Doxazosin Mesylate 2 Mg Tablet) 2 mg PO BEDTIME [facility] Last Admin: 04/27/25 20:53 Dose: 2 mg Documented By: MENDOZA Fentanyl (Fentanyl 100 Mcg Patch.Td72) 100 mcg TRANSDERMA Q48H [facility] Last Admin: 04/28/25 07:43 Dose: 100 mcg Documented By: RADHA Furosemide (Furosemide 40 Mg Tablet) 80 mg PO DAILY [facility]; Protocol Last Admin: 04/28/25 07:42 Dose: 80 mg Documented By: RADHA Glucose (Glucose Gel 15 Gm Gel..Gram.) 15 gm PO Q15M PRN; Protocol PRN Reason: per Hypoglycemia Standing Ord. Hydromorphone HCl (Hydromorphone Hcl 1 Mg/Ml Syringe) 1 mg IVPUSH Q3H PRN; Protocol PRN Reason: Pain, Severe (Pain Scale 7-10) Lactated Ringer's (Lr) 1,000 mls @ 100 mls/hr IVCONT .Q10H [facility] Last Admin: 04/28/25 05:29 Dose: 100 mls/hr Documented By: MENDOZA Vancomycin HCl 1,500 mg/ (Sodium Chloride) 500 mls @ 333.333 mls/hr IV Q24H [facility] Last Infusion: 04/27/25 14:53 Dose: Infused Documented By: ROCHELLE Cefepime HCl (Maxipime) 2 gm in 50 mls @ 100 mls/hr IV Q24H [facility] Last Infusion: 04/27/25 12:36 Dose: Infused Documented By: ROCHELLE Metronidazole (Flagyl) 500 mg in 100 mls @ 100 mls/hr IV Q12H [facility] Last Infusion: 04/28/25 07:21 Dose: Infused Documented By: RADHA Acetaminophen (Ofirmev) 1,000 mg in 100 mls @ 400 mls/hr IV Q6H [facility] Stop: 04/29/25 02:29 Insulin Human Lispro (Insulin Lispro 100 Unit/Ml 3 Ml Vial) 0 unit SUBCUT QIDACHS [facility]; Protocol Last Admin: 04/28/25 07:45 Dose: 2 unit Documented By: RADHA Magnesium Hydroxide (Milk Of Magnesia 30 Ml Oral.Susp) 30 ml PO DAILY PRN PRN Reason: Constipation Melatonin (Melatonin 3 Mg Tablet) 6 mg PO BEDTIME PRN PRN Reason: Insomnia Metoprolol Succinate (Metoprolol Succinate Er 100 Mg Tab.Er.24h) 200 mg PO DAILY [facility] Last Admin: 04/28/25 07:43 Dose: 200 mg Documented By: RADHA Naloxone HCl (Naloxone Hcl 0.4 Mg/Ml Vial) 0.04 mg IVPUSH Q5M PRN PRN Reason: Excessive sedation or RR < 8 Ondansetron HCl (Ondansetron Hcl 4 Mg/2 Ml Vial) 4 mg IVPUSH Q8H PRN PRN Reason: Nausea and Vomiting Oxycodone HCl (Oxycodone Hcl Immed Release 5 Mg Tablet) 10 mg PO Q4H PRN PRN Reason: Pain, Moderate(Pain Scale 4-6) Last Admin: 04/27/25 16:44 Dose: 10 mg Documented By: KRISTIN Pharmacy Consult (Consult Rx Vancomycin Dosing) 1 each MISCELLANE DAILY PRN PRN Reason: Consult order Sodium Chloride (0.9 % Sodium Chloride Flush 3 Ml Syringe) 3 ml IVFLUSH QSHIFT [facility] Last Admin: 04/28/25 00:47 Dose: Not Given Documented By: MENDOZA Non-Admin Reason: IV Running Sodium Hypochlorite (Sodium Hypochlorite 0.125% 473 Ml Solution) 1 appl TOPICAL DAILY [facility] Stop: 04/28/25 18:00 Last Admin: 04/27/25 12:47 Dose: 1 appl Documented By: ROCHELLE Comments: administered by surgical team during dressing change. Valsartan (Valsartan 160 Mg Tablet) 160 mg PO DAILY [facility] Last Admin: 04/28/25 07:43 Dose: 160 mg Documented By: RADHA Vitamin D (Cholecalciferol (Vitamin D3) 25 Mcg Tablet) 25 mcg PO DAILY [facility] Last Admin: 04/28/25 07:43 Dose: 25 mcg Documented By: RADHA Labs 04/28/25 06:30 04/28/25 06:30 Labs: Laboratory Results - last 24 hr 04/27/25 04/27/25 04/27/25 11:08 16:12 20:40 MCV MCH MCHC RDW Plt Count MPV Absolute Nucleated RBC Nucleated RBC % (auto) Hold Purple Top Estim Creat Clear Calc Estimated GFR POC Glucose 168 H 184 H 237 H 04/28/25 04/28/25 06:30 07:11 MCV 79.5 L MCH 26.5 L MCHC 33.3 RDW 14.2 Plt Count 288 MPV 12.1 Absolute Nucleated RBC 0.000 Nucleated RBC % (auto) 0.0 Hold Purple Top SEE NOTE Estim Creat Clear Calc 112.1 Estimated GFR > 60 POC Glucose 190 H Microbiology Microbiology Results: Microbiology 04/26/25 09:12 Blood Culture - Preliminary Blood - Venous No growth after 24 hours. 04/26/25 09:12 Blood Culture - Preliminary Blood - Venous No growth after 24 hours. 04/26/25 18:30 Gram Stain - Final Neck Routine Culture - Preliminary Culture in progress. Assessment and Plan (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 Plan This is an 79-year-old male with medical history of T2DM, DHAVAL, diabetic retinopathy, squamous cell carcinoma of the neck, esophageal stricture on soft diet, HTN, tubular adenoma, presented to the ED earlier today due to chronic wound of the right neck. Pt was evaluated by GENERAL SURGERY and was taken to the OR for wound debridement for head and neck infection stemming from original SCC of the neck. Hospitalist group asked to consult for medical management. 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 - followed at [facility] General POD2 s/p debridement by general surgery ID following, recommend cefepime, vancomycin and Flagyl Blood cultures negative to date Wound culture pending Pathology pending wound care as per surgical team pain management - pt on fentayl and prn oxy at baseline; increased frequency of prn dilaudid; will add IV tylenol Leukocytosis resolved, spiked fever 101 this morning Fever possible atelectasis possible aspiration on broad spectrum abx does not meet sepsis criteria check cxr Dysphagia due to underlying esophageal stricture noted to be coughing after drinking liquid; on soft diet at baseline speech eval pending NPO for now continue aspiration precautions DMII hold metformin on NPH at baseline SSI NPO diet until speech eval, then resume diabetic diet HTN Continue amlodipine nebivolol converted to metoprolol telmisartan converted to valsartan hold lasix while receiving IVF Pt should follow with commercial center manager as an outpatient HLD Continue statin, ASA Thank you for allowing us to participate in the care of this patient, we will follow along with you Quality Stroke Does the patient have a stroke diagnosis?: No VTE Prior VTE?: No VTE Risk Level:: Surgical - moderate VTE Device Contraindication: N/A - Device Ordered VTE Drug Contraindication: N/A - Med Ordered
--- NOTE | 2025-04-28 08:39 | PM.PNGS ---
Subjective Subjective Date of Service: 04/28/25 <Nam Wills PA-C - Last Filed: 04/28/25 10:21> 04/29/25 <Sonia Rahman MD - Last Filed: 04/29/25 16:48> Patient reports: fever <ACOSTA Justin Last Filed: 04/28/25 10:21> Interval history: febrile this morning, desating to 89 on room air, will not use supplemental O2 due to pain associated with nasal cannula <Nam Wills PA-C - Last Filed: 04/28/25 10:21> Physical Exam Vital Signs: Vital Signs: Last Vital Signs Temp 101.1 F H 04/28/25 07:41 Pulse 79 04/28/25 07:41 Resp 16 04/28/25 07:41 BP 159/70 H 04/28/25 07:41 Pulse Ox 89 L 04/28/25 07:41 O2 Del Method Room Air 04/28/25 07:41 O2 Flow Rate 2 04/27/25 10:30 BMI result Body Mass Index 31.0 <Nam Wills PA-C - Last Filed: 04/28/25 10:21> Const: General: comfortable, no acute distress and tired appearing <ACOSTA Justin Last Filed: 04/28/25 10:21> Orientation/consciousness: patient oriented x3 <ACOSTA Justin Last Filed: 04/28/25 10:21> Neuro: General: patient oriented x3 <ACOSTA Justin Last Filed: 04/28/25 10:21> Objective Data Active Medications Acetaminophen (Acetaminophen 325 Mg Tablet) 650 mg PO Q6H PRN On Hold: 04/28/25 08:14 Comment: PT IS NOW ON IV TYLENOL PRN Reason: Pain, Mild 1-3,fever,headache Last Admin: 04/28/25 07:43 Dose: 650 mg Documented By: RADHA Amlodipine Besylate (Amlodipine Besylate 10 Mg Tablet) 10 mg PO DAILY [facility]; Protocol Last Admin: 04/28/25 07:56 Dose: 10 mg Documented By: RADHA Aspirin (Aspirin Enteric Coated 81 Mg Tablet.) 81 mg PO DAILY [facility] Last Admin: 04/28/25 07:57 Dose: 81 mg Documented By: RADHA Atorvastatin Calcium (Atorvastatin Calcium 20 Mg Tablet) 20 mg PO DAILY [facility] Last Admin: 04/28/25 07:42 Dose: 20 mg Documented By: RADHA Calcium Carbonate (Calcium Carbonate 750 Mg Tab.Chew) 750 mg PO Q4H PRN PRN Reason: Heartburn Dextrose (Dextrose 50 % 25 Gm/50 Ml Syringe) 25 gm IVPUSH Q15M PRN; Protocol PRN Reason: per Hypoglycemia Standing Ord. Doxazosin Mesylate (Doxazosin Mesylate 2 Mg Tablet) 2 mg PO BEDTIME [facility] Last Admin: 04/27/25 20:53 Dose: 2 mg Documented By: MENDOZA Fentanyl (Fentanyl 100 Mcg Patch.Td72) 100 mcg TRANSDERMA Q48H [facility] Last Admin: 04/28/25 07:43 Dose: 100 mcg Documented By: RADHA Furosemide (Furosemide 40 Mg Tablet) 80 mg PO DAILY [facility]; Protocol Last Admin: 04/28/25 07:42 Dose: 80 mg Documented By: RADHA Glucose (Glucose Gel 15 Gm Gel..Gram.) 15 gm PO Q15M PRN; Protocol PRN Reason: per Hypoglycemia Standing Ord. Hydromorphone HCl (Hydromorphone Hcl 1 Mg/Ml Syringe) 1 mg IVPUSH Q3H PRN; Protocol PRN Reason: Pain, Severe (Pain Scale 7-10) Lactated Ringer's (Lr) 1,000 mls @ 100 mls/hr IVCONT .Q10H [facility] Last Admin: 04/28/25 05:29 Dose: 100 mls/hr Documented By: MENDOZA Vancomycin HCl 1,500 mg/ (Sodium Chloride) 500 mls @ 333.333 mls/hr IV Q24H [facility] Last Infusion: 04/27/25 14:53 Dose: Infused Documented By: ROCHELLE Cefepime HCl (Maxipime) 2 gm in 50 mls @ 100 mls/hr IV Q24H [facility] Last Infusion: 04/27/25 12:36 Dose: Infused Documented By: ROCHELLE Metronidazole (Flagyl) 500 mg in 100 mls @ 100 mls/hr IV Q12H [facility] Last Infusion: 04/28/25 07:21 Dose: Infused Documented By: RADHA Acetaminophen (Ofirmev) 1,000 mg in 100 mls @ 400 mls/hr IV Q6H [facility] Stop: 04/29/25 02:29 Insulin Human Lispro (Insulin Lispro 100 Unit/Ml 3 Ml Vial) 0 unit SUBCUT QIDACHS [facility]; Protocol Last Admin: 04/28/25 07:45 Dose: 2 unit Documented By: RADHA Magnesium Hydroxide (Milk Of Magnesia 30 Ml Oral.Susp) 30 ml PO DAILY PRN PRN Reason: Constipation Melatonin (Melatonin 3 Mg Tablet) 6 mg PO BEDTIME PRN PRN Reason: Insomnia Metoprolol Succinate (Metoprolol Succinate Er 100 Mg Tab.Er.24h) 200 mg PO DAILY [facility] Last Admin: 04/28/25 07:43 Dose: 200 mg Documented By: RADHA Naloxone HCl (Naloxone Hcl 0.4 Mg/Ml Vial) 0.04 mg IVPUSH Q5M PRN PRN Reason: Excessive sedation or RR < 8 Ondansetron HCl (Ondansetron Hcl 4 Mg/2 Ml Vial) 4 mg IVPUSH Q8H PRN PRN Reason: Nausea and Vomiting Oxycodone HCl (Oxycodone Hcl Immed Release 5 Mg Tablet) 10 mg PO Q4H PRN PRN Reason: Pain, Moderate(Pain Scale 4-6) Last Admin: 04/27/25 16:44 Dose: 10 mg Documented By: KRISTIN Pharmacy Consult (Consult Rx Vancomycin Dosing) 1 each MISCELLANE DAILY PRN PRN Reason: Consult order Sodium Chloride (0.9 % Sodium Chloride Flush 3 Ml Syringe) [facility] Last Admin: 04/28/25 00:47 Dose: Not Given Documented By: MENDOZA Non-Admin Reason: IV Running Sodium Hypochlorite (Sodium Hypochlorite 0.125% 473 Ml Solution) 1 appl TOPICAL DAILY [facility] Stop: 04/28/25 18:00 Last Admin: 04/27/25 12:47 Dose: 1 appl Documented By: ROCHELLE Comments: administered by surgical team during dressing change. Valsartan (Valsartan 160 Mg Tablet) 160 mg PO DAILY [facility] Last Admin: 04/28/25 07:43 Dose: 160 mg Documented By: RADHA Vitamin D (Cholecalciferol (Vitamin D3) 25 Mcg Tablet) 25 mcg PO DAILY [facility] Last Admin: 04/28/25 07:43 Dose: 25 mcg Documented By: RADHA <Nam Wills PA-C - Last Filed: 04/28/25 10:21> Labs CBC & Chem 7: 04/28/25 06:30 04/29/25 05:21 <Nam Wills PA-C - Last Filed: 04/28/25 10:21> Labs: Laboratory Results - last 24 hr 04/27/25 04/27/25 04/27/25 11:08 16:12 20:40 MCV MCH MCHC RDW Plt Count MPV Absolute Nucleated RBC Nucleated RBC % (auto) Hold Purple Top Estim Creat Clear Calc Estimated GFR POC Glucose 168 H 184 H 237 H 04/28/25 04/28/25 06:30 07:11 MCV 79.5 L MCH 26.5 L MCHC 33.3 RDW 14.2 Plt Count 288 MPV 12.1 Absolute Nucleated RBC 0.000 Nucleated RBC % (auto) 0.0 Hold Purple Top SEE NOTE Estim Creat Clear Calc 112.1 Estimated GFR > 60 POC Glucose 190 H <Nam Wills PA-C - Last Filed: 04/28/25 10:21> Microbiology Microbiology Results: Microbiology 04/26/25 09:12 Blood Culture - Preliminary Blood - Venous No growth after 24 hours. 04/26/25 09:12 Blood Culture - Preliminary Blood - Venous No growth after 24 hours. 04/26/25 18:30 Gram Stain - Final Neck Routine Culture - Preliminary Culture in progress. <Nam Wills PA-C - Last Filed: 04/28/25 10:21> Procedures Date of Service Date of Service: 04/28/25 <Nam Wills PA-C - Last Filed: 04/28/25 10:21> 04/29/25 <Sonai Rahman MD - Last Filed: 04/29/25 16:48> Progress Note: A&P Assessment and plan (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 <Nam Wills PA-C - Last Filed: 04/28/25 10:21> Assessment and Plan: 79 year old male who has a history of right-sided head and neck cancer underwent radical neck dissection and closure at [facility]. 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 Patient is POD2 debridement of this wound. Multiple biopsies were taken, results pending. Patient appearing very frail, deconditioned, tired this morning. Reports pain slightly improved from presentation. Patient febrile this morning, oxygen desaturation to 89% on room air, wondering if this is due to not being able to use his CPAP overnight. Hospitalist ordering chest x-ray, results pending Pain improving Requiring large amounts of narcotics. He remains on IV vanco, ID consult recommended adding cefepime and metronidazole. After debridement there still remains some areas of slough and necrotic tissue in the posterior aspect of the wound. The wound bed appears to be improving There were no more pockets of pus. Cellulitis of the face improving, right ear continues to have drainage. We will continue with dressing changes twice daily using Dakin soaked Kerlix lightly packed into the wound dressed with then gauze, ABD pads and tape. B.i.d. dressing changes with Dakin soaked Kerlix, gauze, ABD, Medipore Pathology report pending Chest x-ray pending Continue IV antibiotics. <Nam Wills PA-C - Last Filed: 04/28/25 10:21> 79 year old male who has a history of right-sided head and neck cancer underwent radical neck dissection and closure at [facility]. 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 Patient is POD2 debridement of this wound. Multiple biopsies were taken, results pending. Patient appearing very frail, deconditioned, tired this morning. Reports pain slightly improved from presentation. Patient febrile this morning, oxygen desaturation to 89% on room air, wondering if this is due to not being able to use his CPAP overnight. Hospitalist ordering chest x-ray, results pending Pain improving Requiring large amounts of narcotics. He remains on IV vanco, ID consult recommended adding cefepime and metronidazole. After debridement there still remains some areas of slough and necrotic tissue in the posterior aspect of the wound. The wound bed appears to be improving There were no more pockets of pus. Cellulitis of the face improving, right ear continues to have drainage. We will continue with dressing changes twice daily using Dakin soaked Kerlix lightly packed into the wound dressed with then gauze, ABD pads and tape. B.i.d. dressing changes with Dakin soaked Kerlix, gauze, ABD, Medipore Pt seen and evaluated independently - pt looking improved - wound not malignant by path samples could benefit by wider debridement by head and neck surgeon and cont local wound care working with pt's [facility] rad onc who is working with [facility] head and neck to come up with a plan for either inpt transfer or outpt eval. For now keep inpatient treating with iv antibx, bid dressing changes, PT and strengthening for ADL Pathology report pending Chest x-ray pending Continue IV antibiotics. <Sonia Rahman MD - Last Filed: 04/29/25 16:48> Time Spent With Patient Time: Total time managing care of this patient today ____ minutes. <Nam Wills PA-C - Last Filed: 04/28/25 10:21> Quality Stroke Does the patient have a stroke diagnosis?: No <Nam Wills PA-C - Last Filed: 04/28/25 10:21> VTE Prior VTE?: No <Nam Wills PA-C - Last Filed: 04/28/25 10:21> VTE Risk Level:: Surgical - moderate <Nam Wills PA-C - Last Filed: 04/28/25 10:21> VTE Device Contraindication: N/A - Device Ordered <Nam Wills PA-C - Last Filed: 04/28/25 10:21> VTE Drug Contraindication: N/A - Med Ordered <Nam Wills PA-C - Last Filed: 04/28/25 10:21>
[2025-04-28 09:22] LABS: Glucose, Whole Blood 175 mg/dL (60-115)
[2025-04-28 11:17] LABS: Glucose, Whole Blood 179 mg/dL (60-115)
[2025-04-28] MEDS: cefEPime HCl/D5W 2 GM/50 ML PIGGYBACK IV (11:47)
--- NOTE | 2025-04-28 12:05 | HE.PHANOTE ---
Re: Leigho Renal function improved, dose changed to 1,000mg q12h with predicted Auc 443, predicted trough 13.6. Next trough 04/29 @ 1100.
--- NOTE | 2025-04-28 12:06 | MHC.CM.PN ---
PT rec [facility] SNF's following and updated. Not medically cleared. CM will continue to follow.
[2025-04-28 16:24] LABS: Glucose, Whole Blood 234 mg/dL (60-115)
--- NOTE | 2025-04-28 18:10 | MHC.SL.SWA ---
Speech Pathologist Impression: Risk of Aspiration Due to: Dysphasia Diet Status: Liquid Consistency and Strategies for Safe Swallow: Liquid Intake Recommendation: Thin Liquid Intake Strategies: Solid Food Consistency: Dietary Recommendations: Chopped/Advanced (NDD3) Additional Modifications to Solid Foods: Oral Medication Intake: Whole with Liquid Please contact the pharmacy regarding appropriate crushable or liquid drug formulations that are available whenever modified delivery is recommended. Compensatory Strategies and Precautions to be Taken for Safe Swallow: Supervision While Eating and Drinking for Safe Swallow: Direct Supervision (1:1) Foods to Avoid: Tough, difficult to chew solids. Swallowing Recommended Treatments: Recommendation for Speech: Inpatient Speech Therapy Comment: Patient presents in considerable pain, however tolerated food and water intake today for this evaluation with no clinical signs of aspiration. Patient presents with slow mastication: recommend START diet of Chopped/Advanced, for ease of mastication, Thin liquids (straw ok) and pills whole with liquid or puree as preferred by patient. Recommend patient have supervision at meals to assure that he is managing and progressing through meal. MD/PA/RD notified of recommendation by secure text, RN in person. LABEL REMOVER to follow to assure toleration of diet, possible upgrade. Frequency/Duration: Date Range for Service Req: Timeline to reassess: Venture Capitalist Clinican/Clinical Fellow: No Supervisory Statement: I have reviewed and agree with the student/clinical fellow's documentation: N/A Speech Language Pathologist: Radha Hathaway M.A., [facility]-LABEL REMOVER
[2025-04-28] MEDS: 0.9 % Sodium Chloride Flush 3 ML SYRINGE IVFLUSH (20:58)
[2025-04-29] VITALS (8 sets, daily range): BP systolic 129–186; BP diastolic 59–79; PULSE 60–88; RESP 16–20; TEMP 36.6–37.3; O2SAT 94–97
[2025-04-29 01:30] LABS: Glucose, Whole Blood 239 mg/dL (60-115)
[2025-04-29] MEDS: metroNIDAZOLE/NS 500 MG/100 ML PIGGYBACK 100 MG IV ×2 (06:09→18:22)
[2025-04-29 06:11] LABS: Creatinine Clr Calc Pharmacy 122.9; Estimated Glomerular Filt Rate > 60
[2025-04-29 07:39] LABS: Glucose, Whole Blood 196 mg/dL (60-115)
[2025-04-29] MEDS: Aspirin Enteric Coated 81 MG TABLET.DR PO (07:53)
[2025-04-29] MEDS: Metoprolol Succinate ER 100 MG TAB.ER.24H 200 MG PO (07:55)
[2025-04-29] MEDS: 0.9 % Sodium Chloride Flush 3 ML SYRINGE IVFLUSH ×3 (07:55→23:42)
--- NOTE | 2025-04-29 08:17 | HO.PM.IMPN ---
Subjective Subjective Date of Service: 04/29/25 Interval History: Seen and examined this morning Follow-up for medical consultation Patient observed sitting up in bed eating breakfast, appears more comfortable this morning Review of Systems Review of Systems: Yes all other systems are reviewed and are negative Constitutional Constitutional: Denies chills and Denies fever(s) Physical Exam Vital Signs: Vital Signs: Last Vital Signs Temp 97.8 F 04/29/25 07:48 Pulse 75 04/29/25 07:48 Resp 18 04/29/25 07:48 BP 186/79 H 04/29/25 07:48 Pulse Ox 95 04/29/25 07:48 O2 Del Method Room Air 04/29/25 07:48 O2 Flow Rate 2 04/27/25 10:30 BMI result Body Mass Index 31.0 Const: Other: Awake, alert. Orientation/consciousness: patient oriented x3 HEENT: Other: dressing right side of neck Resp: Other: Left basilar rales Effort & Inspection: normal respiratory effort, able to speak in complete sentences, no respiratory distress and no use of accessory muscles Cardio: Rate: regular rate GI: Inspection: No distended Palpation (GI): Soft to palpation and nontender Neuro: General: patient oriented x3 and moves all extremities Objective Data Active Medications Acetaminophen (Acetaminophen 325 Mg Tablet) 650 mg PO Q6H PRN On Hold: 04/28/25 08:14 Comment: PT IS NOW ON IV TYLENOL PRN Reason: Pain, Mild 1-3,fever,headache Last Admin: 04/27/25 18:24 Dose: 650 mg Amlodipine Besylate (Amlodipine Besylate 10 Mg Tablet) 10 mg PO DAILY [facility]; Protocol Last Admin: 04/29/25 07:54 Dose: 10 mg Documented By: RADHA Aspirin (Aspirin Enteric Coated 81 Mg Tablet.) 81 mg PO DAILY [facility] Last Admin: 04/29/25 07:53 Dose: 81 mg Documented By: RADHA Atorvastatin Calcium (Atorvastatin Calcium 20 Mg Tablet) 20 mg PO DAILY [facility] Last Admin: 04/29/25 07:55 Dose: 20 mg Documented By: RADHA Calcium Carbonate (Calcium Carbonate 750 Mg Tab.Chew) 750 mg PO Q4H PRN PRN Reason: Heartburn Dextrose (Dextrose 50 % 25 Gm/50 Ml Syringe) 25 gm IVPUSH Q15M PRN; Protocol PRN Reason: per Hypoglycemia Standing Ord. Doxazosin Mesylate (Doxazosin Mesylate 2 Mg Tablet) 2 mg PO BEDTIME [facility] Last Admin: 04/28/25 20:50 Dose: 2 mg Documented By: MENDOZA Fentanyl (Fentanyl 100 Mcg Patch.Td72) 100 mcg TRANSDERMA Q48H [facility] Last Admin: 04/28/25 07:43 Dose: 100 mcg Documented By: RADHA Furosemide (Furosemide 40 Mg Tablet) 80 mg PO DAILY [facility]; Protocol On Hold: 04/28/25 08:46 Last Admin: 04/27/25 10:28 Dose: 80 mg Glucose (Glucose Gel 15 Gm Gel..Gram.) 15 gm PO Q15M PRN; Protocol PRN Reason: per Hypoglycemia Standing Ord. Hydromorphone HCl (Hydromorphone Hcl 1 Mg/Ml Syringe) 1 mg IVPUSH Q3H PRN; Protocol PRN Reason: Pain, Severe (Pain Scale 7-10) Last Admin: 04/29/25 07:55 Dose: 1 mg Documented By: RADHA Cefepime HCl (Maxipime) 2 gm in 50 mls @ 100 mls/hr IV Q24H [facility] Last Infusion: 04/28/25 12:29 Dose: Infused Documented By: RADHA Metronidazole (Flagyl) 500 mg in 100 mls @ 100 mls/hr IV Q12H [facility] Last Admin: 04/29/25 06:09 Dose: 100 mls/hr Documented By: MENDOZA Vancomycin HCl 1,000 mg/ (Sodium Chloride) 270 mls @ 270 mls/hr IV Q12H [facility] Last Infusion: 04/29/25 01:34 Dose: Infused Documented By: MENDOZA Insulin Human Lispro (Insulin Lispro 100 Unit/Ml 3 Ml Vial) 0 unit SUBCUT QIDACHS [facility]; Protocol Last Admin: 04/29/25 07:55 Dose: 2 unit Documented By: RADHA Magnesium Hydroxide (Milk Of Magnesia 30 Ml Oral.Susp) 30 ml PO DAILY PRN PRN Reason: Constipation Melatonin (Melatonin 3 Mg Tablet) 6 mg PO BEDTIME PRN PRN Reason: Insomnia Metoprolol Succinate (Metoprolol Succinate Er 100 Mg Tab.Er.24h) 200 mg PO DAILY [facility] Last Admin: 04/29/25 07:55 Dose: 200 mg Documented By: RADHA Naloxone HCl (Naloxone Hcl 0.4 Mg/Ml Vial) 0.04 mg IVPUSH Q5M PRN PRN Reason: Excessive sedation or RR < 8 Ondansetron HCl (Ondansetron Hcl 4 Mg/2 Ml Vial) 4 mg IVPUSH Q8H PRN PRN Reason: Nausea and Vomiting Oxycodone HCl (Oxycodone Hcl Immed Release 5 Mg Tablet) 10 mg PO Q4H PRN PRN Reason: Pain, Moderate(Pain Scale 4-6) Last Admin: 04/27/25 16:44 Dose: 10 mg Documented By: KRISTIN Pharmacy Consult (Consult Rx Vancomycin Dosing) 1 each MISCELLANE DAILY PRN PRN Reason: Consult order Sodium Chloride (0.9 % Sodium Chloride Flush 3 Ml Syringe) [facility] Last Admin: 04/29/25 07:55 Dose: 3 ml Documented By: RADHA Valsartan (Valsartan 160 Mg Tablet) 160 mg PO DAILY [facility] Last Admin: 04/29/25 07:54 Dose: 160 mg Documented By: RADHA Vitamin D (Cholecalciferol (Vitamin D3) 25 Mcg Tablet) 25 mcg PO DAILY [facility] Last Admin: 04/29/25 07:54 Dose: 25 mcg Documented By: RADHA Labs 04/28/25 06:30 04/29/25 05:21 Labs: Laboratory Results - last 24 hr 04/28/25 04/28/25 04/28/25 09:18 11:12 16:20 Estim Creat Clear Calc Estimated GFR POC Glucose 175 H 179 H 234 H 04/28/25 04/29/25 04/29/25 20:35 05:21 07:20 Estim Creat Clear Calc 122.9 Estimated GFR > 60 POC Glucose 239 H 196 H Microbiology Microbiology Results: Microbiology 04/26/25 18:30 Gram Stain - Final Neck Routine Culture - Final Proteus mirabilis 04/26/25 09:12 Blood Culture - Preliminary Blood - Venous No growth after 48 hours. 04/26/25 09:12 Blood Culture - Preliminary Blood - Venous No growth after 48 hours. Assessment and Plan (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 (2) Abscess: Status: Acute (3) Hypertension: Status: Acute Plan This is an 79-year-old male with medical history of T2DM, DHAVAL, diabetic retinopathy, squamous cell carcinoma of the neck, esophageal stricture on soft diet, HTN, tubular adenoma, presented to the ED earlier today due to chronic wound of the right neck. Pt was evaluated by GENERAL SURGERY and was taken to the OR for wound debridement for head and neck infection stemming from original SCC of the neck. Hospitalist group asked to consult for medical management. 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 Fever x1 8/7 no recurrent fever Fever possible atelectasis possible aspiration on broad spectrum abx does not meet sepsis criteria cxr showing possible pneumonia vs atelectasis incentive spirometry Dysphagia due to underlying esophageal stricture seen by speech, tolerating NDD3 diet continue aspiration precautions DMII hold metformin on NPH at baseline SSI NPO diet until speech eval, then resume diabetic diet HTN BP high this am, likely pain contributing. Continue amlodipine nebivolol converted to metoprolol telmisartan converted to valsartan hold lasix while receiving IVF, can resume when Pt should follow with investigation specialist as an outpatient HLD Continue statin, ASA Thank you for allowing us to participate in the care of this patient, we will follow along with you Quality Stroke Does the patient have a stroke diagnosis?: No VTE Prior VTE?: No VTE Risk Level:: Surgical - moderate VTE Device Contraindication: N/A - Device Ordered VTE Drug Contraindication: N/A - Med Ordered
[2025-04-29] MEDS: oxyCODONE HCl Immed Release 5 MG TABLET 10 MG PO ×3 (09:41→23:41)
[2025-04-29 11:30] LABS: Glucose, Whole Blood 267 mg/dL (60-115)
[2025-04-29] MEDS: cefEPime HCl/D5W 2 GM/50 ML PIGGYBACK IV (11:35)
--- NOTE | 2025-04-29 13:18 | MHC.CLN ---
F/U DIET=DIABETIC 1800 KCALS, CHOPPED CONSISTENCY. ADMITTED FOR DEBRIDEMENT OF NECK WOUND. PO INTAKE VARIABLE, WITH MOST MEALS APPROX 25%. ADDING ENSURE MAX PROTEIN BID TO IMPROVE NUTRITIONAL INTAKE. SUPPLEMENT PROVIDES 300 KCALS, 60 G PROTEIN. FOLLOW FOR PO INTAKE AND DIET TOLERANCE.
--- NOTE | 2025-04-29 13:40 | PM.PNGS ---
Subjective Subjective Date of Service: 04/29/25 Interval history: appears improved today, more alert. pain improving. comfortable. Physical Exam Vital Signs: Vital Signs: Last Vital Signs Temp 97.8 F 04/29/25 07:48 Pulse 88 04/29/25 12:00 Resp 18 04/29/25 07:48 BP 129/60 04/29/25 12:00 Pulse Ox 97 04/29/25 12:00 O2 Del Method Room Air 04/29/25 12:00 O2 Flow Rate 2 04/27/25 10:30 BMI result Body Mass Index 31.0 Const: General: comfortable, no acute distress and tired appearing Orientation/consciousness: patient oriented x3 HEENT: Other: large right post auricular dressing. no strike through. some purulent serosanguineous drainage in right ear Neuro: General: patient oriented x3 Objective Data Active Medications Acetaminophen (Acetaminophen 325 Mg Tablet) 650 mg PO Q6H PRN On Hold: 04/28/25 08:14 Comment: PT IS NOW ON IV TYLENOL PRN Reason: Pain, Mild 1-3,fever,headache Last Admin: 04/27/25 18:24 Dose: 650 mg Amlodipine Besylate (Amlodipine Besylate 10 Mg Tablet) 10 mg PO DAILY [facility]; Protocol Last Admin: 04/29/25 07:54 Dose: 10 mg Documented By: RADHA Aspirin (Aspirin Enteric Coated 81 Mg Tablet.) 81 mg PO DAILY [facility] Last Admin: 04/29/25 07:53 Dose: 81 mg Documented By: RADHA Atorvastatin Calcium (Atorvastatin Calcium 20 Mg Tablet) 20 mg PO DAILY [facility] Last Admin: 04/29/25 07:55 Dose: 20 mg Documented By: RADHA Calcium Carbonate (Calcium Carbonate 750 Mg Tab.Chew) 750 mg PO Q4H PRN PRN Reason: Heartburn Dextrose (Dextrose 50 % 25 Gm/50 Ml Syringe) 25 gm IVPUSH Q15M PRN; Protocol PRN Reason: per Hypoglycemia Standing Ord. Doxazosin Mesylate (Doxazosin Mesylate 2 Mg Tablet) 2 mg PO BEDTIME [facility] Last Admin: 04/28/25 20:50 Dose: 2 mg Documented By: MENDOZA Fentanyl (Fentanyl 100 Mcg Patch.Td72) 100 mcg TRANSDERMA Q48H [facility] Last Admin: 04/28/25 07:43 Dose: 100 mcg Documented By: RADHA Furosemide (Furosemide 40 Mg Tablet) 80 mg PO DAILY [facility]; Protocol On Hold: 04/28/25 08:46 Last Admin: 04/27/25 10:28 Dose: 80 mg Glucose (Glucose Gel 15 Gm Gel..Gram.) 15 gm PO Q15M PRN; Protocol PRN Reason: per Hypoglycemia Standing Ord. Hydromorphone HCl (Hydromorphone Hcl 1 Mg/Ml Syringe) 1 mg IVPUSH Q3H PRN; Protocol PRN Reason: Pain, Severe (Pain Scale 7-10) Last Admin: 04/29/25 11:02 Dose: 1 mg Documented By: RADHA Cefepime HCl (Maxipime) 2 gm in 50 mls @ 100 mls/hr IV Q24H [facility] Last Infusion: 04/29/25 12:12 Dose: Infused Documented By: POOJA Metronidazole (Flagyl) 500 mg in 100 mls @ 100 mls/hr IV Q12H [facility] Last Infusion: 04/29/25 08:34 Dose: Infused Documented By: RADHA Insulin Human Lispro (Insulin Lispro 100 Unit/Ml 3 Ml Vial) 0 unit SUBCUT QIDACHS [facility]; Protocol Last Admin: 04/29/25 11:36 Dose: 6 unit Documented By: RADHA Magnesium Hydroxide (Milk Of Magnesia 30 Ml Oral.Susp) 30 ml PO DAILY PRN PRN Reason: Constipation Melatonin (Melatonin 3 Mg Tablet) 6 mg PO BEDTIME PRN PRN Reason: Insomnia Metoprolol Succinate (Metoprolol Succinate Er 100 Mg Tab.Er.24h) 200 mg PO DAILY [facility] Last Admin: 04/29/25 07:55 Dose: 200 mg Documented By: RADHA Naloxone HCl (Naloxone Hcl 0.4 Mg/Ml Vial) 0.04 mg IVPUSH Q5M PRN PRN Reason: Excessive sedation or RR < 8 Ondansetron HCl (Ondansetron Hcl 4 Mg/2 Ml Vial) 4 mg IVPUSH Q8H PRN PRN Reason: Nausea and Vomiting Oxycodone HCl (Oxycodone Hcl Immed Release 5 Mg Tablet) 10 mg PO Q4H PRN PRN Reason: Pain, Moderate(Pain Scale 4-6) Last Admin: 04/29/25 09:41 Dose: 10 mg Documented By: KRISTIN Sodium Chloride (0.9 % Sodium Chloride Flush 3 Ml Syringe) 3 ml IVFLUSH QSHIFT [facility] Last Admin: 04/29/25 07:55 Dose: 3 ml Documented By: RADHA Valsartan (Valsartan 160 Mg Tablet) 160 mg PO DAILY [facility] Last Admin: 04/29/25 07:54 Dose: 160 mg Documented By: RADHA Vitamin D (Cholecalciferol (Vitamin D3) 25 Mcg Tablet) 25 mcg PO DAILY [facility] Last Admin: 04/29/25 07:54 Dose: 25 mcg Documented By: RADHA Labs 04/28/25 06:30 04/29/25 05:21 Labs: Laboratory Results - last 24 hr 04/28/25 04/28/25 04/29/25 16:20 20:35 05:21 Estim Creat Clear Calc 122.9 Estimated GFR > 60 POC Glucose 234 H 239 H C-Reactive Protein 8.63 H Vancomycin Trough 04/29/25 04/29/25 04/29/25 07:20 11:11 11:25 Estim Creat Clear Calc Estimated GFR POC Glucose 196 H 267 H C-Reactive Protein Vancomycin Trough 8.8 L Microbiology Microbiology Results: Microbiology 04/26/25 18:30 Gram Stain - Final Neck Routine Culture - Final Proteus mirabilis 04/26/25 09:12 Blood Culture - Preliminary Blood - Venous No growth after 48 hours. 04/26/25 09:12 Blood Culture - Preliminary Blood - Venous No growth after 48 hours. Procedures Date of Service Date of Service: 04/29/25 Progress Note: A&P Assessment and plan (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 Plan 79 year old male who has a history of right-sided head and neck cancer underwent radical neck dissection and closure at [facility]. 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 Patient is POD3 debridement of this wound. Multiple biopsies were taken, results show no active cancer, the facial lesion biopsy showing actinic keratosis. Patient appearing improved this morning, more comfortable and alert. He has been able to ambulate multiple times. Reports pain is improving and is pretty well controlled with medication. No longer febrile, CXR yesterday showing possible aspiration PNA vs atelectasis. Patient on appropriate abx per hopsitalist. He remains on IV vanco, ID consult recommended adding cefepime and metronidazole. After debridement there still remains some areas of slough and necrotic tissue in the posterior aspect of the wound. The wound bed appears to be improving There were no more pockets of pus. Cellulitis of the face improving, right ear continues to have drainage. We will continue with dressing changes twice daily using Dakin soaked Kerlix lightly packed into the wound dressed with then gauze, ABD pads and tape. Had a lengthy discussion with patient and family about options for care including further debridement, vs palliative care route. Patient would like to continue to manage wound at this time. Dr. Rahman is reaching out to his previous head and neck surgeon for possible transfer with further debridement. B.i.d. dressing changes with Dakin soaked Kerlix, gauze, ABD, Medipore Continue IV antibiotics. Time Spent With Patient Time: Total time managing care of this patient today ____ minutes. Quality Stroke Does the patient have a stroke diagnosis?: No VTE Prior VTE?: No VTE Risk Level:: Surgical - moderate VTE Device Contraindication: N/A - Device Ordered VTE Drug Contraindication: N/A - Med Ordered
--- NOTE | 2025-04-29 14:12 | MHC.CM.PN ---
Per MD not medically cleared for dc. DP: home w/ services and resumption of family assistance (son assisting w/ dressing changes) vs STR @ [facility] vs potential [facility] xfer. CM will continue to follow.
--- NOTE | 2025-04-29 14:39 | MHC.SL.SWA ---
Speech Pathologist Impression: Risk of Aspiration, Oral Phase Dysphagia Risk of Aspiration Due to: Hx Head/Neck CA Dysphasia Diet Status:No Change Liquid Consistency and Strategies for Safe Swallow: Liquid Intake Recommendation: Thin Solid Food Consistency: Dietary Recommendations: Chopped/Advanced (NDD3) Additional Modifications to Solid Foods: Patient presents with slow mastication: recommend diet of Chopped/Advanced, for ease of mastication, Thin liquids (straw ok) and pills whole with liquid or puree as preferred by patient. Recommend patient have supervision at meals to assure that he is managing and progressing through meal. PACKING MACHINE FEEDER to follow 1x to assure toleration of diet, possible upgrade. Oral Medication Intake: Whole with Liquid Please contact the pharmacy regarding appropriate crushable or liquid drug formulations that are available whenever modified delivery is recommended. Compensatory Strategies and Precautions to be Taken for Safe Swallow: Sitting Upright (90 deg) Small Bites and Sips Alternate Liquids/Solids Rate of Ingestion Change Supervision While Eating and Drinking for Safe Swallow: Direct Supervision (1:1) Foods to Avoid: Tough, difficult to chew solids. Swallowing Recommended Treatments: Compens. Strategy Educat. Recommendation for Speech: 1 f/u Personal Development Educator Clinican/Clinical Fellow: No Supervisory Statement: I have reviewed and agree with the student/clinical fellow's documentation: N/A Speech Language Pathologist: Kayley Garcia M.A., [facility]-PACKING MACHINE FEEDER
[2025-04-29 16:36] LABS: Glucose, Whole Blood 220 mg/dL (60-115)
[2025-04-29 20:32] LABS: Glucose, Whole Blood 225 mg/dL (60-115)
--- NOTE | 2025-04-29 23:52 | PC.NURSE ---
Patient is refusing bed alarm. He agrees to ring for assistance OOB, does still have camera at bedside for safety.
[2025-04-30] VITALS (7 sets, daily range): BP systolic 120–152; BP diastolic 58–93; PULSE 64–88; RESP 16–18; TEMP 36–36.8; O2SAT 95–97
[2025-04-30 06:36] LABS: Creatinine Clr Calc Pharmacy 120.6; Estimated Glomerular Filt Rate > 60
--- NOTE | 2025-04-30 07:32 | HE.PHANOTE ---
METRONIDAZOLE IV TO PO PER POLICY SWITCHED FROM 500 IV BID. NEXT DOSE 04/30 800
[2025-04-30 07:35] LABS: Glucose, Whole Blood 191 mg/dL (60-115)
[2025-04-30] MEDS: Aspirin Enteric Coated 81 MG TABLET.DR PO (08:19)
[2025-04-30] MEDS: Metoprolol Succinate ER 100 MG TAB.ER.24H 200 MG PO (08:19)
[2025-04-30] MEDS: fentaNYL 100 MCG PATCH.TD72 TRANSDERMA (08:21)
[2025-04-30] MEDS: 0.9 % Sodium Chloride Flush 3 ML SYRINGE IVFLUSH ×3 (08:45→21:28)
--- NOTE | 2025-04-30 10:12 | P.PNGS_ITS ---
Subjective Subjective Date of Service: 04/30/25 Interval history: No events reported No new complaints Physical Exam 2 Vital Signs: Vital Signs: Last Vital Signs Temp 96.8 F 04/30/25 07:58 Pulse 87 04/30/25 07:58 Resp 18 04/30/25 08:45 BP 148/73 H 04/30/25 07:58 Pulse Ox 96 04/30/25 07:58 O2 Del Method Room Air 04/30/25 07:58 O2 Flow Rate 2 04/27/25 10:30 BMI result Body Mass Index 31.0 Const: Other: Ambulating General: comfortable and no acute distress Neck: Other: Dressings in place, appear clean Resp: Effort & Inspection: normal respiratory effort Cardio: Rate: regular rate GI: Palpation (GI): Soft to palpation Objective Data Active Medications Acetaminophen (Acetaminophen 325 Mg Tablet) 650 mg PO Q6H PRN On Hold: 04/28/25 08:14 Comment: PT IS NOW ON IV TYLENOL PRN Reason: Pain, Mild 1-3,fever,headache Last Admin: 04/27/25 18:24 Dose: 650 mg Amlodipine Besylate (Amlodipine Besylate 10 Mg Tablet) 10 mg PO DAILY [facility]; Protocol Last Admin: 04/30/25 08:19 Dose: 10 mg Documented By: ERIN Aspirin (Aspirin Enteric Coated 81 Mg Tablet.) 81 mg PO DAILY [facility] Last Admin: 04/30/25 08:19 Dose: 81 mg Documented By: ERIN Atorvastatin Calcium (Atorvastatin Calcium 20 Mg Tablet) 20 mg PO DAILY [facility] Last Admin: 04/30/25 08:19 Dose: 20 mg Documented By: ERIN Calcium Carbonate (Calcium Carbonate 750 Mg Tab.Chew) 750 mg PO Q4H PRN PRN Reason: Heartburn Dextrose (Dextrose 50 % 25 Gm/50 Ml Syringe) 25 gm IVPUSH Q15M PRN; Protocol PRN Reason: per Hypoglycemia Standing Ord. Doxazosin Mesylate (Doxazosin Mesylate 2 Mg Tablet) 2 mg PO BEDTIME [facility] Last Admin: 04/29/25 19:52 Dose: 2 mg Documented By: RICARDO Fentanyl (Fentanyl 100 Mcg Patch.Td72) 100 mcg TRANSDERMA Q48H [facility] Last Admin: 04/30/25 08:21 Dose: 100 mcg Documented By: ERIN Furosemide (Furosemide 40 Mg Tablet) 80 mg PO DAILY [facility]; Protocol On Hold: 04/28/25 08:46 Last Admin: 04/27/25 10:28 Dose: 80 mg Glucose (Glucose Gel 15 Gm Gel..Gram.) 15 gm PO Q15M PRN; Protocol PRN Reason: per Hypoglycemia Standing Ord. Hydromorphone HCl (Hydromorphone Hcl 1 Mg/Ml Syringe) 1 mg IVPUSH Q3H PRN; Protocol PRN Reason: Pain, Severe (Pain Scale 7-10) Last Admin: 04/30/25 08:45 Dose: 1 mg Documented By: ERIN Cefepime HCl (Maxipime) 2 gm in 50 mls @ 100 mls/hr IV Q24H [facility] Last Infusion: 04/29/25 12:12 Dose: Infused Documented By: POOJA Insulin Human Lispro (Insulin Lispro 100 Unit/Ml 3 Ml Vial) 0 unit SUBCUT QIDACHS [facility]; Protocol Last Admin: 04/30/25 08:17 Dose: 2 unit Documented By: ERIN Magnesium Hydroxide (Milk Of Magnesia 30 Ml Oral.Susp) 30 ml PO DAILY PRN PRN Reason: Constipation Melatonin (Melatonin 3 Mg Tablet) 6 mg PO BEDTIME PRN PRN Reason: Insomnia Metoprolol Succinate (Metoprolol Succinate Er 100 Mg Tab.Er.24h) 200 mg PO DAILY [facility] Last Admin: 04/30/25 08:19 Dose: 200 mg Documented By: ERIN Metronidazole (Metronidazole 500 Mg Tablet) 500 mg PO Q12H [facility] Last Admin: 04/30/25 08:18 Dose: 500 mg Documented By: ERIN Naloxone HCl (Naloxone Hcl 0.4 Mg/Ml Vial) 0.04 mg IVPUSH Q5M PRN PRN Reason: Excessive sedation or RR < 8 Ondansetron HCl (Ondansetron Hcl 4 Mg/2 Ml Vial) 4 mg IVPUSH Q8H PRN PRN Reason: Nausea and Vomiting Oxycodone HCl (Oxycodone Hcl Immed Release 5 Mg Tablet) 10 mg PO Q4H PRN PRN Reason: Pain, Moderate(Pain Scale 4-6) Last Admin: 04/29/25 23:41 Dose: 10 mg Documented By: OLENA Sodium Chloride (0.9 % Sodium Chloride Flush 3 Ml Syringe) 3 ml IVFLUSH QSHIFT [facility] Last Admin: 04/30/25 08:45 Dose: 3 ml Documented By: ERIN Valsartan (Valsartan 160 Mg Tablet) 160 mg PO DAILY [facility] Last Admin: 04/30/25 08:19 Dose: 160 mg Documented By: ERIN Vitamin D (Cholecalciferol (Vitamin D3) 25 Mcg Tablet) 25 mcg PO DAILY [facility] Last Admin: 04/30/25 08:19 Dose: 25 mcg Documented By: ERIN Labs 04/28/25 06:30 04/30/25 05:50 Labs: Laboratory Results - last 24 hr 04/29/25 04/29/25 04/29/25 11:11 11:25 16:33 Hold Purple Top Estim Creat Clear Calc Estimated GFR POC Glucose 267 H 220 H Vancomycin Trough 8.8 L 04/29/25 04/30/25 04/30/25 20:27 05:50 07:32 Hold Purple Top SEE NOTE Estim Creat Clear Calc 120.6 Estimated GFR > 60 POC Glucose 225 H 191 H Vancomycin Trough Microbiology Microbiology Results: Microbiology 04/26/25 18:30 Gram Stain - Final Neck Routine Culture - Final Proteus mirabilis Procedures Date of Service Date of Service: 04/30/25 Progress Note: A&P Assessment and plan (1) Abscess: Status: Acute Assessment and Plan: Debridement done by Dr. Rahman Dressings in place As per Dr. Rahman, he is being referred to his original head and neck surgeon in [place] Continue wound care Dakin solution dressings used No urgent surgical debridement needed at this time Time Spent With Patient Time: Total time managing care of this patient today ____ minutes. Quality Stroke Does the patient have a stroke diagnosis?: No VTE Prior VTE?: No VTE Risk Level:: Surgical - moderate VTE Device Contraindication: N/A - Device Ordered VTE Drug Contraindication: N/A - Med Ordered
--- NOTE | 2025-04-30 10:31 | P.PNIM_ITS ---
Subjective Subjective Date of Service: 04/30/25 Interval History: Seen and examined this morning Follow-up for medical consultation No overnight events Constitutional Constitutional: Denies chills and Denies fever(s) Physical Exam 2 Vital Signs: Vital Signs: Last Vital Signs Temp 96.8 F 04/30/25 07:58 Pulse 87 04/30/25 07:58 Resp 18 04/30/25 08:45 BP 148/73 H 04/30/25 07:58 Pulse Ox 96 04/30/25 07:58 O2 Del Method Room Air 04/30/25 07:58 O2 Flow Rate 2 04/27/25 10:30 BMI result Body Mass Index 31.0 Const: Other: Awake, alert. Orientation/consciousness: patient oriented x3 HEENT: Other: dressing right side of neck Resp: Other: Left basilar rales Effort & Inspection: normal respiratory effort, able to speak in complete sentences, no respiratory distress and no use of accessory muscles Cardio: Rate: regular rate GI: Inspection: No distended Palpation (GI): Soft to palpation and nontender Neuro: General: patient oriented x3 and moves all extremities Objective Data Active Medications Acetaminophen (Acetaminophen 325 Mg Tablet) 650 mg PO Q6H PRN On Hold: 04/28/25 08:14 Comment: PT IS NOW ON IV TYLENOL PRN Reason: Pain, Mild 1-3,fever,headache Last Admin: 04/27/25 18:24 Dose: 650 mg Amlodipine Besylate (Amlodipine Besylate 10 Mg Tablet) 10 mg PO DAILY [facility]; Protocol Last Admin: 04/30/25 08:19 Dose: 10 mg Documented By: ERIN Aspirin (Aspirin Enteric Coated 81 Mg Tablet.) 81 mg PO DAILY [facility] Last Admin: 04/30/25 08:19 Dose: 81 mg Documented By: ERIN Atorvastatin Calcium (Atorvastatin Calcium 20 Mg Tablet) 20 mg PO DAILY [facility] Last Admin: 04/30/25 08:19 Dose: 20 mg Documented By: ERIN Calcium Carbonate (Calcium Carbonate 750 Mg Tab.Chew) 750 mg PO Q4H PRN PRN Reason: Heartburn Dextrose (Dextrose 50 % 25 Gm/50 Ml Syringe) 25 gm IVPUSH Q15M PRN; Protocol PRN Reason: per Hypoglycemia Standing Ord. Doxazosin Mesylate (Doxazosin Mesylate 2 Mg Tablet) 2 mg PO BEDTIME [facility] Last Admin: 04/29/25 19:52 Dose: 2 mg Documented By: RICARDO Fentanyl (Fentanyl 100 Mcg Patch.Td72) 100 mcg TRANSDERMA Q48H [facility] Last Admin: 04/30/25 08:21 Dose: 100 mcg Documented By: ERIN Furosemide (Furosemide 40 Mg Tablet) 80 mg PO DAILY [facility]; Protocol On Hold: 04/28/25 08:46 Last Admin: 04/27/25 10:28 Dose: 80 mg Glucose (Glucose Gel 15 Gm Gel..Gram.) 15 gm PO Q15M PRN; Protocol PRN Reason: per Hypoglycemia Standing Ord. Hydromorphone HCl (Hydromorphone Hcl 1 Mg/Ml Syringe) 1 mg IVPUSH Q3H PRN; Protocol PRN Reason: Pain, Severe (Pain Scale 7-10) Last Admin: 04/30/25 08:45 Dose: 1 mg Documented By: ERIN Cefepime HCl (Maxipime) 2 gm in 50 mls @ 100 mls/hr IV Q24H [facility] Last Infusion: 04/29/25 12:12 Dose: Infused Documented By: POOJA Insulin Human Lispro (Insulin Lispro 100 Unit/Ml 3 Ml Vial) 0 unit SUBCUT QIDACHS [facility]; Protocol Last Admin: 04/30/25 08:17 Dose: 2 unit Documented By: ERIN Magnesium Hydroxide (Milk Of Magnesia 30 Ml Oral.Susp) 30 ml PO DAILY PRN PRN Reason: Constipation Melatonin (Melatonin 3 Mg Tablet) 6 mg PO BEDTIME PRN PRN Reason: Insomnia Metoprolol Succinate (Metoprolol Succinate Er 100 Mg Tab.Er.24h) 200 mg PO DAILY [facility] Last Admin: 04/30/25 08:19 Dose: 200 mg Documented By: ERIN Metronidazole (Metronidazole 500 Mg Tablet) 500 mg PO Q12H [facility] Last Admin: 04/30/25 08:18 Dose: 500 mg Documented By: ERIN Naloxone HCl (Naloxone Hcl 0.4 Mg/Ml Vial) 0.04 mg IVPUSH Q5M PRN PRN Reason: Excessive sedation or RR < 8 Ondansetron HCl (Ondansetron Hcl 4 Mg/2 Ml Vial) 4 mg IVPUSH Q8H PRN PRN Reason: Nausea and Vomiting Oxycodone HCl (Oxycodone Hcl Immed Release 5 Mg Tablet) 10 mg PO Q4H PRN PRN Reason: Pain, Moderate(Pain Scale 4-6) Last Admin: 04/29/25 23:41 Dose: 10 mg Documented By: OLENA Sodium Chloride (0.9 % Sodium Chloride Flush 3 Ml Syringe) 3 ml IVFLUSH QSHIFT [facility] Last Admin: 04/30/25 08:45 Dose: 3 ml Documented By: ERIN Valsartan (Valsartan 160 Mg Tablet) 160 mg PO DAILY [facility] Last Admin: 04/30/25 08:19 Dose: 160 mg Documented By: ERIN Vitamin D (Cholecalciferol (Vitamin D3) 25 Mcg Tablet) 25 mcg PO DAILY [facility] Last Admin: 04/30/25 08:19 Dose: 25 mcg Documented By: ERIN Labs 04/28/25 06:30 04/30/25 05:50 Labs: Laboratory Results - last 24 hr 04/29/25 04/29/25 04/29/25 11:11 11:25 16:33 Hold Purple Top Estim Creat Clear Calc Estimated GFR POC Glucose 267 H 220 H Vancomycin Trough 8.8 L 04/29/25 04/30/25 04/30/25 20:27 05:50 07:32 Hold Purple Top SEE NOTE Estim Creat Clear Calc 120.6 Estimated GFR > 60 POC Glucose 225 H 191 H Vancomycin Trough Microbiology Microbiology Results: Microbiology 04/26/25 18:30 Gram Stain - Final Neck Routine Culture - Final Proteus mirabilis Assessment and Plan (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 (2) Hypertension: Status: Acute Plan This is an 79-year-old male with medical history of T2DM, DHAVAL, diabetic retinopathy, squamous cell carcinoma of the neck, esophageal stricture on soft diet, HTN, tubular adenoma, presented to the ED earlier today due to chronic wound of the right neck. Pt was evaluated by GENERAL SURGERY and was taken to the OR for wound debridement for head and neck infection stemming from original SCC of the neck. Hospitalist group asked to consult for medical management. 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 Fever x1 8/ no recurrent fever Fever possible atelectasis possible aspiration on broad spectrum abx does not meet sepsis criteria cxr showing possible pneumonia vs atelectasis incentive spirometry no respiratory symptoms Dysphagia due to underlying esophageal stricture seen by speech, tolerating NDD3 diet continue aspiration precautions DMII hold metformin on NPH at baseline SSI NPO diet until speech eval, then resume diabetic diet HTN few high bp readings, likely due to pain, but overall blood pressure under adequate control Continue amlodipine nebivolol converted to metoprolol telmisartan converted to valsartan Resume baseline Lasix HLD Continue statin, ASA Thank you for allowing us to participate in the care of this patient, we will follow along with you Quality Stroke Does the patient have a stroke diagnosis?: No VTE Prior VTE?: No VTE Risk Level:: Surgical - moderate VTE Device Contraindication: N/A - Device Ordered VTE Drug Contraindication: N/A - Med Ordered
[2025-04-30 11:03] LABS: Glucose, Whole Blood 242 mg/dL (60-115)
[2025-04-30] MEDS: cefEPime HCl/D5W 2 GM/50 ML PIGGYBACK IV (11:12)
[2025-04-30] MEDS: oxyCODONE HCl Immed Release 5 MG TABLET 10 MG PO ×3 (11:13→21:26)
[2025-04-30 16:14] LABS: Glucose, Whole Blood 234 mg/dL (60-115)
[2025-04-30 20:20] LABS: Glucose, Whole Blood 241 mg/dL (60-115)
[2025-05-01 02:53] VITALS: BP 159/7; PULSE 67; RESP 18; TEMP 36.7; O2SAT 95
[2025-05-01] MEDS: oxyCODONE HCl Immed Release 5 MG TABLET 10 MG PO ×4 (02:54→20:20)
[2025-05-01 06:21] LABS: Creatinine Clr Calc Pharmacy 114.1; Estimated Glomerular Filt Rate > 60
[2025-05-01 07:24] VITALS: BP 166/70; PULSE 71; RESP 14; TEMP 36.6; O2SAT 97
[2025-05-01 07:47] LABS: Glucose, Whole Blood 216 mg/dL (60-115)
[2025-05-01] MEDS: Aspirin Enteric Coated 81 MG TABLET.DR PO (08:00)
[2025-05-01] MEDS: Metoprolol Succinate ER 100 MG TAB.ER.24H 200 MG PO (08:01)
[2025-05-01] MEDS: 0.9 % Sodium Chloride Flush 3 ML SYRINGE IVFLUSH ×3 (08:03→20:21)
[2025-05-01 08:09] LABS: Hematocrit 30.9 % (42.0-52.0); Hemoglobin 10.0 g/dl (14.0-18.0); Mean Corpuscular HGB Conc 32.4 g/dl (31.0-36.0); Mean Corpuscular Hemoglobin 26.4 pg (27.0-33.0); Mean Corpuscular Volume 81.5 fL (80.0-98.0); NRBC Abs Auto 0.000 X10*3/uL (0.0-0.012); NRBC Pct Auto 0.0 /100WBC (0.0-0.2); Platelet Count 339 X10*3/uL (160-400); Red Blood Count 3.79 X10*6/uL (4.60-5.80); White Blood Count 10.2 X10*3/uL (4.8-10.8)
--- NOTE | 2025-05-01 08:28 | P.PNIM_ITS ---
Subjective Subjective Date of Service: 05/01/25 Interval History: Seen and examined this morning Follow-up for medical consultation No overnight events No change in condition Review of Systems Review of Systems: Yes all other systems are reviewed and are negative Constitutional Constitutional: Denies chills and Denies fever(s) Cardiovascular Cardiovascular: Denies chest pain and Denies palpitations Endocrine Endocrine: Denies palpitations Physical Exam 2 Vital Signs: Vital Signs: Last Vital Signs Temp 97.9 F 05/01/25 07:24 Pulse 71 05/01/25 07:24 Resp 14 05/01/25 07:24 BP 166/70 H 05/01/25 07:24 Pulse Ox 97 05/01/25 07:24 O2 Del Method Room Air 05/01/25 07:24 O2 Flow Rate 2 04/27/25 10:30 BMI result Body Mass Index 31.0 Const: General: comfortable, no acute distress, alert and awake Nutritional Appearance: average body habitus Orientation/consciousness: patient oriented x3 HEENT: Other: dressing right side of neck Resp: Effort & Inspection: normal respiratory effort, able to speak in complete sentences, no respiratory distress and no use of accessory muscles Cardio: Rate: regular rate GI: Inspection: No distended Palpation (GI): Soft to palpation and nontender Neuro: General: patient oriented x3 and moves all extremities Objective Data Active Medications Acetaminophen (Acetaminophen 325 Mg Tablet) 650 mg PO Q6H PRN On Hold: 04/28/25 08:14 Comment: PT IS NOW ON IV TYLENOL PRN Reason: Pain, Mild 1-3,fever,headache Last Admin: 04/27/25 18:24 Dose: 650 mg Amlodipine Besylate (Amlodipine Besylate 10 Mg Tablet) 10 mg PO DAILY [facility]; Protocol Last Admin: 05/01/25 08:00 Dose: 10 mg Documented By: ERIN Aspirin (Aspirin Enteric Coated 81 Mg Tablet.) 81 mg PO DAILY [facility] Last Admin: 05/01/25 08:00 Dose: 81 mg Documented By: ERIN Atorvastatin Calcium (Atorvastatin Calcium 20 Mg Tablet) 20 mg PO DAILY [facility] Last Admin: 05/01/25 08:01 Dose: 20 mg Documented By: ERIN Calcium Carbonate (Calcium Carbonate 750 Mg Tab.Chew) 750 mg PO Q4H PRN PRN Reason: Heartburn Dextrose (Dextrose 50 % 25 Gm/50 Ml Syringe) 25 gm IVPUSH Q15M PRN; Protocol PRN Reason: per Hypoglycemia Standing Ord. Doxazosin Mesylate (Doxazosin Mesylate 2 Mg Tablet) 2 mg PO BEDTIME [facility] Last Admin: 04/30/25 21:24 Dose: 2 mg Documented By: KEYLA Fentanyl (Fentanyl 100 Mcg Patch.Td72) 100 mcg TRANSDERMA Q48H [facility] Last Admin: 04/30/25 08:21 Dose: 100 mcg Documented By: ERIN Furosemide (Furosemide 40 Mg Tablet) 80 mg PO DAILY [facility]; Protocol Last Admin: 05/01/25 08:02 Dose: 80 mg Documented By: ERIN Glucose (Glucose Gel 15 Gm Gel..Gram.) 15 gm PO Q15M PRN; Protocol PRN Reason: per Hypoglycemia Standing Ord. Hydromorphone HCl (Hydromorphone Hcl 1 Mg/Ml Syringe) 1 mg IVPUSH Q3H PRN; Protocol PRN Reason: Pain, Severe (Pain Scale 7-10) Last Admin: 04/30/25 08:45 Dose: 1 mg Documented By: ERIN Cefepime HCl (Maxipime) 2 gm in 50 mls @ 100 mls/hr IV Q24H [facility] Last Infusion: 04/30/25 12:02 Dose: Infused Documented By: ERIN Insulin Human Lispro (Insulin Lispro 100 Unit/Ml 3 Ml Vial) 0 unit SUBCUT QIDACHS [facility]; Protocol Last Admin: 05/01/25 07:59 Dose: 4 unit Documented By: ERIN Magnesium Hydroxide (Milk Of Magnesia 30 Ml Oral.Susp) 30 ml PO DAILY PRN PRN Reason: Constipation Melatonin (Melatonin 3 Mg Tablet) 6 mg PO BEDTIME PRN PRN Reason: Insomnia Metoprolol Succinate (Metoprolol Succinate Er 100 Mg Tab.Er.24h) 200 mg PO DAILY [facility] Last Admin: 05/01/25 08:01 Dose: 200 mg Documented By: ERIN Metronidazole (Metronidazole 500 Mg Tablet) 500 mg PO Q12H [facility] Last Admin: 05/01/25 08:02 Dose: 500 mg Documented By: ERIN Naloxone HCl (Naloxone Hcl 0.4 Mg/Ml Vial) 0.04 mg IVPUSH Q5M PRN PRN Reason: Excessive sedation or RR < 8 Ondansetron HCl (Ondansetron Hcl 4 Mg/2 Ml Vial) 4 mg IVPUSH Q8H PRN PRN Reason: Nausea and Vomiting Oxycodone HCl (Oxycodone Hcl Immed Release 5 Mg Tablet) 10 mg PO Q4H PRN PRN Reason: Pain, Moderate(Pain Scale 4-6) Last Admin: 05/01/25 08:01 Dose: 10 mg Documented By: ERIN Sodium Chloride (0.9 % Sodium Chloride Flush 3 Ml Syringe) 3 ml IVFLUSH QSHIFT [facility] Last Admin: 05/01/25 08:03 Dose: 3 ml Documented By: ERIN Valsartan (Valsartan 160 Mg Tablet) 160 mg PO DAILY [facility] Last Admin: 05/01/25 08:00 Dose: 160 mg Documented By: ERIN Vitamin D (Cholecalciferol (Vitamin D3) 25 Mcg Tablet) 25 mcg PO DAILY [facility] Last Admin: 05/01/25 08:00 Dose: 25 mcg Documented By: ERIN Labs 05/01/25 05:45 05/01/25 05:45 Labs: Laboratory Results - last 24 hr 04/30/25 04/30/25 04/30/25 10:59 16:08 20:08 MCV MCH MCHC RDW Plt Count MPV Absolute Nucleated RBC Nucleated RBC % (auto) Hold Purple Top Estim Creat Clear Calc Estimated GFR POC Glucose 242 H 234 H 241 H 05/01/25 05/01/25 05:45 07:26 MCV 81.5 MCH 26.4 L MCHC 32.4 RDW 14.3 Plt Count 339 MPV 12.1 Absolute Nucleated RBC 0.000 Nucleated RBC % (auto) 0.0 Hold Purple Top SEE NOTE Estim Creat Clear Calc 114.1 Estimated GFR > 60 POC Glucose 216 H Assessment and Plan (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 (2) Hypertension: Status: Acute Plan This is an 79-year-old male with medical history of T2DM, DHAVAL, diabetic retinopathy, squamous cell carcinoma of the neck, esophageal stricture on soft diet, HTN, tubular adenoma, presented to the ED earlier today due to chronic wound of the right neck. Pt was evaluated by GENERAL SURGERY and was taken to the OR for wound debridement for head and neck infection stemming from original SCC of the neck. Hospitalist group asked to consult for medical management. 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 Fever x1 8/7 no recurrent fever Fever possible atelectasis. possible aspiration on broad spectrum abx does not meet sepsis criteria cxr showing possible pneumonia vs atelectasis incentive spirometry no respiratory symptoms Dysphagia underlying esophageal stricture; neck wound seen by speech, tolerating NDD3 diet continue aspiration precautions DMII hold metformin on NPH at baseline continue SSI ADA diet HTN few high bp readings, likely due to pain, but overall blood pressure under adequate control Continue amlodipine nebivolol converted to metoprolol telmisartan converted to valsartan Resume baseline Lasix HLD Continue statin, ASA Thank you for allowing us to participate in the care of this patient, we will follow along with you Quality Stroke Does the patient have a stroke diagnosis?: No VTE Prior VTE?: No VTE Risk Level:: Surgical - moderate VTE Device Contraindication: N/A - Device Ordered VTE Drug Contraindication: N/A - Med Ordered
[2025-05-01 11:06] LABS: Glucose, Whole Blood 269 mg/dL (60-115)
[2025-05-01] MEDS: cefEPime HCl/D5W 2 GM/50 ML PIGGYBACK IV (11:35)
[2025-05-01 11:50] VITALS: BP 108/55; PULSE 66; RESP 14; TEMP 36.7; O2SAT 95
--- NOTE | 2025-05-01 13:59 | PM.PNGS ---
Subjective Subjective Date of Service: 05/01/25 Interval history: No events reported No new complaints Patient admits to pain on the debridement site No fever Physical Exam Vital Signs: Vital Signs: Last Vital Signs Temp 98.0 F 05/01/25 11:50 Pulse 66 05/01/25 11:50 Resp 14 05/01/25 11:50 BP 108/55 L 05/01/25 11:50 Pulse Ox 95 05/01/25 11:50 O2 Del Method Room Air 05/01/25 11:50 O2 Flow Rate 2 04/27/25 10:30 BMI result Body Mass Index 31.0 Const: General: comfortable and no acute distress Neck: Other: Large open wound mostly in the right neck and posteriorly all the way to the occipital area, some fibrinous debris on the upper part, no pus Resp: Effort & Inspection: normal respiratory effort Cardio: Rate: regular rate Objective Data Active Medications Acetaminophen (Acetaminophen 325 Mg Tablet) 650 mg PO Q6H PRN On Hold: 04/28/25 08:14 Comment: PT IS NOW ON IV TYLENOL PRN Reason: Pain, Mild 1-3,fever,headache Last Admin: 04/27/25 18:24 Dose: 650 mg Amlodipine Besylate (Amlodipine Besylate 10 Mg Tablet) 10 mg PO DAILY [facility]; Protocol Last Admin: 05/01/25 08:00 Dose: 10 mg Documented By: ERIN Aspirin (Aspirin Enteric Coated 81 Mg Tablet.) 81 mg PO DAILY [facility] Last Admin: 05/01/25 08:00 Dose: 81 mg Documented By: ERIN Atorvastatin Calcium (Atorvastatin Calcium 20 Mg Tablet) 20 mg PO DAILY [facility] Last Admin: 05/01/25 08:01 Dose: 20 mg Documented By: ERIN Calcium Carbonate (Calcium Carbonate 750 Mg Tab.Chew) 750 mg PO Q4H PRN PRN Reason: Heartburn Dextrose (Dextrose 50 % 25 Gm/50 Ml Syringe) 25 gm IVPUSH Q15M PRN; Protocol PRN Reason: per Hypoglycemia Standing Ord. Doxazosin Mesylate (Doxazosin Mesylate 2 Mg Tablet) 2 mg PO BEDTIME [facility] Last Admin: 04/30/25 21:24 Dose: 2 mg Documented By: KEYLA Fentanyl (Fentanyl 100 Mcg Patch.Td72) 100 mcg TRANSDERMA Q48H [facility] Last Admin: 04/30/25 08:21 Dose: 100 mcg Documented By: ERIN Furosemide (Furosemide 40 Mg Tablet) 80 mg PO DAILY [facility]; Protocol Last Admin: 05/01/25 08:02 Dose: 80 mg Documented By: ERIN Glucose (Glucose Gel 15 Gm Gel..Gram.) 15 gm PO Q15M PRN; Protocol PRN Reason: per Hypoglycemia Standing Ord. Hydromorphone HCl (Hydromorphone Hcl 1 Mg/Ml Syringe) 1 mg IVPUSH Q3H PRN; Protocol PRN Reason: Pain, Severe (Pain Scale 7-10) Last Admin: 04/30/25 08:45 Dose: 1 mg Documented By: ERIN Cefepime HCl (Maxipime) 2 gm in 50 mls @ 100 mls/hr IV Q24H [facility] Last Infusion: 05/01/25 12:05 Dose: Infused Documented By: ERIN Insulin Human Lispro (Insulin Lispro 100 Unit/Ml 3 Ml Vial) 0 unit SUBCUT QIDACHS [facility]; Protocol Last Admin: 05/01/25 11:33 Dose: 6 unit Documented By: ERIN Magnesium Hydroxide (Milk Of Magnesia 30 Ml Oral.Susp) 30 ml PO DAILY PRN PRN Reason: Constipation Melatonin (Melatonin 3 Mg Tablet) 6 mg PO BEDTIME PRN PRN Reason: Insomnia Metoprolol Succinate (Metoprolol Succinate Er 100 Mg Tab.Er.24h) 200 mg PO DAILY [facility] Last Admin: 05/01/25 08:01 Dose: 200 mg Documented By: ERIN Metronidazole (Metronidazole 500 Mg Tablet) 500 mg PO Q12H [facility] Last Admin: 05/01/25 08:02 Dose: 500 mg Documented By: ERIN Naloxone HCl (Naloxone Hcl 0.4 Mg/Ml Vial) 0.04 mg IVPUSH Q5M PRN PRN Reason: Excessive sedation or RR < 8 Ondansetron HCl (Ondansetron Hcl 4 Mg/2 Ml Vial) 4 mg IVPUSH Q8H PRN PRN Reason: Nausea and Vomiting Oxycodone HCl (Oxycodone Hcl Immed Release 5 Mg Tablet) 10 mg PO Q4H PRN PRN Reason: Pain, Moderate(Pain Scale 4-6) Last Admin: 05/01/25 12:17 Dose: 10 mg Documented By: ERIN Sodium Chloride (0.9 % Sodium Chloride Flush 3 Ml Syringe) 3 ml IVFLUSH QSHIFT [facility] Last Admin: 05/01/25 08:03 Dose: 3 ml Documented By: ERIN Valsartan (Valsartan 160 Mg Tablet) 160 mg PO DAILY [facility] Last Admin: 05/01/25 08:00 Dose: 160 mg Documented By: ERIN Vitamin D (Cholecalciferol (Vitamin D3) 25 Mcg Tablet) 25 mcg PO DAILY [facility] Last Admin: 05/01/25 08:00 Dose: 25 mcg Documented By: ERIN Labs 05/01/25 05:45 05/01/25 05:45 Labs: Laboratory Results - last 24 hr 04/30/25 04/30/25 05/01/25 16:08 20:08 05:45 MCV 81.5 MCH 26.4 L MCHC 32.4 RDW 14.3 Plt Count 339 MPV 12.1 Absolute Nucleated RBC 0.000 Nucleated RBC % (auto) 0.0 Hold Purple Top SEE NOTE Estim Creat Clear Calc 114.1 Estimated GFR > 60 POC Glucose 234 H 241 H 05/01/25 05/01/25 07:26 10:58 MCV MCH MCHC RDW Plt Count MPV Absolute Nucleated RBC Nucleated RBC % (auto) Hold Purple Top Estim Creat Clear Calc Estimated GFR POC Glucose 216 H 269 H Microbiology Microbiology Results: Microbiology 04/26/25 09:12 Blood Culture - Final Blood - Venous No growth after 5 days. 04/26/25 09:12 Blood Culture - Final Blood - Venous No growth after 5 days. Procedures Date of Service Date of Service: 05/01/25 Progress Note: A&P Assessment and plan (1) Abscess: Status: Acute Assessment and Plan: Status post debridement by Dr. Rahman With open wound I changed her dressings I used Dakin solution wet-to-dry dressings in the area The patient is awaiting this position with his head and neck surgeon as discussed with Dr. Rahman In the meantime, continue wound care Time Spent With Patient Time: Total time managing care of this patient today ____ minutes. Quality Stroke Does the patient have a stroke diagnosis?: No VTE Prior VTE?: No VTE Risk Level:: Surgical - moderate VTE Device Contraindication: N/A - Device Ordered VTE Drug Contraindication: N/A - Med Ordered
[2025-05-01 15:52] VITALS: BP 122/58; PULSE 67; RESP 16; TEMP 36.1; O2SAT 95
[2025-05-01 16:19] LABS: Glucose, Whole Blood 265 mg/dL (60-115)
[2025-05-01 19:41] VITALS: BP 145/68; PULSE 69; RESP 18; TEMP 36.5; O2SAT 93
[2025-05-01 19:41] LABS: Glucose, Whole Blood 251 mg/dL (60-115)
[2025-05-01 23:14] VITALS: BP 143/68; PULSE 66; RESP 18; TEMP 37.2; O2SAT 96
[2025-05-02] MEDS: oxyCODONE HCl Immed Release 5 MG TABLET 10 MG PO ×4 (00:51→20:57)
[2025-05-02 03:27] VITALS: BP 165/70; PULSE 86; RESP 18; TEMP 36.8; O2SAT 96
[2025-05-02 06:38] LABS: Creatinine Clr Calc Pharmacy 114.1; Estimated Glomerular Filt Rate > 60
[2025-05-02 07:22] LABS: Glucose, Whole Blood 215 mg/dL (60-115)
[2025-05-02 07:28] VITALS: BP 126/61; PULSE 65; RESP 14; TEMP 36; O2SAT 94
--- NOTE | 2025-05-02 08:20 | P.PNIM_ITS ---
Subjective Subjective Date of Service: 05/02/25 Interval History: BP a little high last night, normotensive this morning No acute events overnight Overall feeling OK Pain controlled No headache or vision changes Review of Systems Review of Systems: Yes all other systems are reviewed and are negative Physical Exam 2 Exam: Exam: General: AOx3, no acute distress Head/neck: Dressing on right side of neck Resp: CTA bilaterally CVS: S1, S2, RRR, +murmur GI: +BS, NT, no distention Skin: Warm, dry Neuro: Cranial nerves II-XII grossly intact bilaterally. Motor grossly intact bilaterally Extremities: No edema Psych: Appropriate affect Vital Signs: Vital Signs: Last Vital Signs Temp 96.8 F 05/02/25 07:28 Pulse 65 05/02/25 07:28 Resp 14 05/02/25 07:28 BP 126/61 05/02/25 07:28 Pulse Ox 94 05/02/25 07:28 O2 Del Method Room Air 05/02/25 07:28 O2 Flow Rate 2 04/27/25 10:30 BMI result Body Mass Index 31.0 Objective Data Active Medications Acetaminophen (Acetaminophen 325 Mg Tablet) 650 mg PO Q6H PRN On Hold: 04/28/25 08:14 Comment: PT IS NOW ON IV TYLENOL PRN Reason: Pain, Mild 1-3,fever,headache Last Admin: 04/27/25 18:24 Dose: 650 mg Amlodipine Besylate (Amlodipine Besylate 10 Mg Tablet) 10 mg PO DAILY [facility]; Protocol Last Admin: 05/01/25 08:00 Dose: 10 mg Documented By: ERIN Aspirin (Aspirin Enteric Coated 81 Mg Tablet.) 81 mg PO DAILY [facility] Last Admin: 05/01/25 08:00 Dose: 81 mg Documented By: ERIN Atorvastatin Calcium (Atorvastatin Calcium 20 Mg Tablet) 20 mg PO DAILY [facility] Last Admin: 05/01/25 08:01 Dose: 20 mg Documented By: ERIN Calcium Carbonate (Calcium Carbonate 750 Mg Tab.Chew) 750 mg PO Q4H PRN PRN Reason: Heartburn Dextrose (Dextrose 50 % 25 Gm/50 Ml Syringe) 25 gm IVPUSH Q15M PRN; Protocol PRN Reason: per Hypoglycemia Standing Ord. Doxazosin Mesylate (Doxazosin Mesylate 2 Mg Tablet) 2 mg PO BEDTIME [facility] Last Admin: 05/01/25 20:19 Dose: 2 mg Documented By: LISBETH Fentanyl (Fentanyl 100 Mcg Patch.Td72) 100 mcg TRANSDERMA Q48H [facility] Last Admin: 04/30/25 08:21 Dose: 100 mcg Documented By: ERIN Furosemide (Furosemide 40 Mg Tablet) 80 mg PO DAILY [facility]; Protocol Last Admin: 05/01/25 08:02 Dose: 80 mg Documented By: ERIN Glucose (Glucose Gel 15 Gm Gel..Gram.) 15 gm PO Q15M PRN; Protocol PRN Reason: per Hypoglycemia Standing Ord. Hydromorphone HCl (Hydromorphone Hcl 1 Mg/Ml Syringe) 1 mg IVPUSH Q3H PRN; Protocol PRN Reason: Pain, Severe (Pain Scale 7-10) Last Admin: 05/02/25 03:29 Dose: 1 mg Documented By: LISBETH Cefepime HCl (Maxipime) 2 gm in 50 mls @ 100 mls/hr IV Q24H [facility] Last Infusion: 05/01/25 12:05 Dose: Infused Documented By: ERIN Insulin Human Lispro (Insulin Lispro 100 Unit/Ml 3 Ml Vial) 0 unit SUBCUT QIDACHS [facility]; Protocol Last Admin: 05/02/25 07:43 Dose: 4 unit Documented By: BEATRICE Magnesium Hydroxide (Milk Of Magnesia 30 Ml Oral.Susp) 30 ml PO DAILY PRN PRN Reason: Constipation Melatonin (Melatonin 3 Mg Tablet) 6 mg PO BEDTIME PRN PRN Reason: Insomnia Metoprolol Succinate (Metoprolol Succinate Er 100 Mg Tab.Er.24h) 200 mg PO DAILY [facility] Last Admin: 05/01/25 08:01 Dose: 200 mg Documented By: ERIN Metronidazole (Metronidazole 500 Mg Tablet) 500 mg PO Q12H [facility] Last Admin: 05/01/25 20:19 Dose: 500 mg Documented By: LISBETH Naloxone HCl (Naloxone Hcl 0.4 Mg/Ml Vial) 0.04 mg IVPUSH Q5M PRN PRN Reason: Excessive sedation or RR < 8 Ondansetron HCl (Ondansetron Hcl 4 Mg/2 Ml Vial) 4 mg IVPUSH Q8H PRN PRN Reason: Nausea and Vomiting Oxycodone HCl (Oxycodone Hcl Immed Release 5 Mg Tablet) 10 mg PO Q4H PRN PRN Reason: Pain, Moderate(Pain Scale 4-6) Last Admin: 05/02/25 05:58 Dose: 10 mg Documented By: LISBETH Sodium Chloride (0.9 % Sodium Chloride Flush 3 Ml Syringe) 3 ml IVFLUSH QSHIFT [facility] Last Admin: 05/01/25 20:21 Dose: 3 ml Documented By: LISBETH Valsartan (Valsartan 160 Mg Tablet) 160 mg PO DAILY [facility] Last Admin: 05/01/25 08:00 Dose: 160 mg Documented By: ERIN Vitamin D (Cholecalciferol (Vitamin D3) 25 Mcg Tablet) 25 mcg PO DAILY [facility] Last Admin: 05/01/25 08:00 Dose: 25 mcg Documented By: ERIN Labs 05/01/25 05:45 05/02/25 05:29 Labs: Laboratory Results - last 24 hr 05/01/25 05/01/25 05/01/25 10:58 16:09 19:20 Hold Purple Top Estim Creat Clear Calc Estimated GFR POC Glucose 269 H 265 H 251 H 05/02/25 05/02/25 05:29 07:19 Hold Purple Top SEE NOTE Estim Creat Clear Calc 114.1 Estimated GFR > 60 POC Glucose 215 H Microbiology Microbiology Results: Microbiology 04/26/25 09:12 Blood Culture - Final Blood - Venous No growth after 5 days. 04/26/25 09:12 Blood Culture - Final Blood - Venous No growth after 5 days. Assessment and Plan (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 Plan This is an 79-year-old male with medical history of T2DM, DHAVAL, diabetic retinopathy, squamous cell carcinoma of the neck, esophageal stricture on soft diet, HTN, tubular adenoma, presented to the ED earlier today due to chronic wound of the right neck. Pt was evaluated by GENERAL SURGERY and was taken to the OR for wound debridement for head and neck infection stemming from original SCC of the neck. Hospitalist group asked to consult for medical management. 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 Fever x1 8/7 no recurrent fever Fever possible atelectasis. possible aspiration on broad spectrum abx does not meet sepsis criteria cxr showing possible pneumonia vs atelectasis incentive spirometry no respiratory symptoms Dysphagia underlying esophageal stricture; neck wound seen by speech, tolerating NDD3 diet continue aspiration precautions DMII hold metformin on NPH at baseline continue SSI, will add Lantus 10 units daily due to consistently elevated POC >200 ADA diet HTN few high bp readings, likely due to pain, but overall blood pressure under adequate control Continue amlodipine Nebivolol converted to metoprolol Telmisartan converted to valsartan Resume baseline Lasix HLD Continue statin, ASA Thank you for allowing us to participate in the care of this patient, we will follow along with you. Quality Stroke Does the patient have a stroke diagnosis?: No VTE Prior VTE?: No VTE Risk Level:: Surgical - moderate VTE Device Contraindication: N/A - Device Ordered VTE Drug Contraindication: N/A - Med Ordered
[2025-05-02] MEDS: Metoprolol Succinate ER 100 MG TAB.ER.24H 200 MG PO (08:56)
[2025-05-02] MEDS: fentaNYL 100 MCG PATCH.TD72 TRANSDERMA (08:56)
[2025-05-02] MEDS: 0.9 % Sodium Chloride Flush 3 ML SYRINGE IVFLUSH ×3 (08:57→20:51)
[2025-05-02] MEDS: Aspirin Enteric Coated 81 MG TABLET.DR PO (08:57)
[2025-05-02 11:28] LABS: Glucose, Whole Blood 339 mg/dL (60-115)
[2025-05-02] MEDS: Insulin Glargine,Hum.rec.anlog 100 UNIT/ML 10 ML VIAL 10 UNIT SUBCUT (11:37)
[2025-05-02] MEDS: cefEPime HCl/D5W 2 GM/50 ML PIGGYBACK IV (11:37)
--- NOTE | 2025-05-02 11:42 | P.PNGS_ITS ---
Subjective Subjective Date of Service: 05/02/25 <Nam Wills PA-C - Last Filed: 05/02/25 15:19> 05/03/25 <Sonia Rahman MD - Last Filed: 05/03/25 16:39> Interval history: No acute changes. Still experiencing [id number] pain. Denies fevers. He express interest in returning home. <Nam Wills PA-C - Last Filed: 05/02/25 15:19> Physical Exam 2 Vital Signs: Vital Signs: Last Vital Signs Temp 96.8 F 05/02/25 07:28 Pulse 65 05/02/25 07:28 Resp 14 05/02/25 07:28 BP 126/61 05/02/25 07:28 Pulse Ox 94 05/02/25 07:28 O2 Del Method Room Air 05/02/25 07:28 O2 Flow Rate 2 04/27/25 10:30 BMI result Body Mass Index 31.0 <Nam Wills PA-C - Last Filed: 05/02/25 15:19> Const: General: comfortable, no acute distress and tired appearing <Nam Wills PA-C - Last Filed: 05/02/25 15:19> Orientation/consciousness: patient oriented x3 <Nam Wills PA-C - Last Filed: 05/02/25 15:19> HEENT: Other: There remains some swelling of the preauricular area, there was seropurulent drainage in the external ear canal on the right side <Nam Wills PA-C - Last Filed: 05/02/25 15:19> Neuro: General: patient oriented x3 <Nam Wills PA-C - Last Filed: 05/02/25 15:19> Objective Data Active Medications Acetaminophen (Acetaminophen 325 Mg Tablet) 650 mg PO Q6H PRN On Hold: 04/28/25 08:14 Comment: PT IS NOW ON IV TYLENOL PRN Reason: Pain, Mild 1-3,fever,headache Last Admin: 04/27/25 18:24 Dose: 650 mg Amlodipine Besylate (Amlodipine Besylate 10 Mg Tablet) 10 mg PO DAILY [facility]; Protocol Last Admin: 05/02/25 08:57 Dose: 10 mg Documented By: BEATRICE Aspirin (Aspirin Enteric Coated 81 Mg Tablet.Dr) 81 mg PO DAILY [facility] Last Admin: 05/02/25 08:57 Dose: 81 mg Documented By: BEATRICE Atorvastatin Calcium (Atorvastatin Calcium 20 Mg Tablet) 20 mg PO DAILY [facility] Last Admin: 05/02/25 08:57 Dose: 20 mg Documented By: BEATRICE Calcium Carbonate (Calcium Carbonate 750 Mg Tab.Chew) 750 mg PO Q4H PRN PRN Reason: Heartburn Dextrose (Dextrose 50 % 25 Gm/50 Ml Syringe) 25 gm IVPUSH Q15M PRN; Protocol PRN Reason: per Hypoglycemia Standing Ord. Doxazosin Mesylate (Doxazosin Mesylate 2 Mg Tablet) 2 mg PO BEDTIME [facility] Last Admin: 05/01/25 20:19 Dose: 2 mg Documented By: LISBETH Fentanyl (Fentanyl 100 Mcg Patch.Td72) 100 mcg TRANSDERMA Q48H [facility] Last Admin: 05/02/25 08:56 Dose: 100 mcg Documented By: BEATRICE Furosemide (Furosemide 40 Mg Tablet) 80 mg PO DAILY [facility]; Protocol Last Admin: 05/02/25 08:57 Dose: 80 mg Documented By: BEATRICE Glucose (Glucose Gel 15 Gm Gel..Gram.) 15 gm PO Q15M PRN; Protocol PRN Reason: per Hypoglycemia Standing Ord. Hydromorphone HCl (Hydromorphone Hcl 1 Mg/Ml Syringe) 1 mg IVPUSH Q3H PRN; Protocol PRN Reason: Pain, Severe (Pain Scale 7-10) Last Admin: 05/02/25 08:56 Dose: 1 mg Documented By: BEATRICE Cefepime HCl (Maxipime) 2 gm in 50 mls @ 100 mls/hr IV Q24H [facility] Last Admin: 05/02/25 11:37 Dose: 100 mls/hr Documented By: BEATRICE Insulin Glargine (Insulin Glargine,Hum.Rec.Anlog 100 Unit/Ml 10 Ml Vial) 10 unit SUBCUT DAILY [facility] Last Admin: 05/02/25 11:37 Dose: 10 unit Documented By: BEATRICE Insulin Human Lispro (Insulin Lispro 100 Unit/Ml 3 Ml Vial) 0 unit SUBCUT QIDACHS [facility]; Protocol Last Admin: 05/02/25 11:37 Dose: 8 unit Documented By: BEATRICE Magnesium Hydroxide (Milk Of Magnesia 30 Ml Oral.Susp) 30 ml PO DAILY PRN PRN Reason: Constipation Melatonin (Melatonin 3 Mg Tablet) 6 mg PO BEDTIME PRN PRN Reason: Insomnia Metoprolol Succinate (Metoprolol Succinate Er 100 Mg Tab.Er.24h) 200 mg PO DAILY [facility] Last Admin: 05/02/25 08:56 Dose: 200 mg Documented By: BEATRICE Metronidazole (Metronidazole 500 Mg Tablet) 500 mg PO Q12H [facility] Last Admin: 05/02/25 08:57 Dose: 500 mg Documented By: BEATRICE Naloxone HCl (Naloxone Hcl 0.4 Mg/Ml Vial) 0.04 mg IVPUSH Q5M PRN PRN Reason: Excessive sedation or RR < 8 Ondansetron HCl (Ondansetron Hcl 4 Mg/2 Ml Vial) 4 mg IVPUSH Q8H PRN PRN Reason: Nausea and Vomiting Oxycodone HCl (Oxycodone Hcl Immed Release 5 Mg Tablet) 10 mg PO Q4H PRN PRN Reason: Pain, Moderate(Pain Scale 4-6) Last Admin: 05/02/25 05:58 Dose: 10 mg Documented By: LISBETH Sodium Chloride (0.9 % Sodium Chloride Flush 3 Ml Syringe) 3 ml IVFLUSH QSHIFT [facility] Last Admin: 05/02/25 08:57 Dose: 3 ml Documented By: BEATRICE Valsartan (Valsartan 160 Mg Tablet) 160 mg PO DAILY [facility] Last Admin: 05/02/25 08:57 Dose: 160 mg Documented By: BEATRICE Vitamin D (Cholecalciferol (Vitamin D3) 25 Mcg Tablet) 25 mcg PO DAILY [facility] Last Admin: 05/02/25 08:57 Dose: 25 mcg Documented By: BEATRICE <Nam Wills PA-C - Last Filed: 05/02/25 15:19> Labs CBC & Chem 7: 05/01/25 05:45 05/03/25 06:00 <Nam Wills PA-C - Last Filed: 05/02/25 15:19> Labs: Laboratory Results - last 24 hr 05/01/25 05/01/25 05/02/25 16:09 19:20 05:29 Hold Purple Top SEE NOTE Estim Creat Clear Calc 114.1 Estimated GFR > 60 POC Glucose 265 H 251 H 05/02/25 05/02/25 07:19 11:25 Hold Purple Top Estim Creat Clear Calc Estimated GFR POC Glucose 215 H 339 H <Nam Wills PA-C - Last Filed: 05/02/25 15:19> Microbiology Microbiology Results: Microbiology 04/26/25 09:12 Blood Culture - Final Blood - Venous No growth after 5 days. 04/26/25 09:12 Blood Culture - Final Blood - Venous No growth after 5 days. 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 We are still awaiting a formal plan, discussing with the patient's previous head and neck surgeons for possible transfer. Patient expressing interest in going home and continue wound care, we discussed that it may be easier to transfer hospital hospital if 1 of the surgeons is picking up this case. We will continue with b.i.d. dressing changes with Dakin solutions per Dr. Rahman's recommendation. Continue antibiotics, ambulation as tolerated. <Nam Wills PA-C - Last Filed: 05/02/25 15:19> Patient doing well today, pain is well controlled. We are still awaiting a formal plan, discussing with the patient's previous head and neck surgeons for possible transfer. Patient expressing interest in going home and continue wound care, we discussed that it may be easier to transfer hospital hospital if 1 of the surgeons is picking up this case. We will continue with b.i.d. dressing changes with Dakin solutions per Dr. Rahman's recommendation. Continue antibiotics, ambulation as tolerated. Patient is seen today after the weekend and patient's radiation oncologist has been able to convince his previous head and neck surgeon to evaluate him in [place]. Dr. Szymanski will see the patient next week Friday in the outpatient setting. In the meanwhile patient is looking much improved today he is able to carry out his mobility a little bit better sitting up more awake alert acute pain is under better control. 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 No longer creating a septic picture. Patient's air is less swollen. Plan is to continue dressing changes we will touch base with Infectious Diseases about the plan for long-term antibiotics PICC line if needed to be discharged on IV antibiotics as he is not going to be transferred to another hospital. Patient already is lined up with outpatient pain management. We will update his radiation oncologist. Extensive discussion was had with the patient his and his son under this point they all understand and agree with the plan < Sonia Rahman MD - Last Filed: 05/03/25 16:39> Time Spent With Patient Time: Total time managing care of this patient today ____ minutes. <Nam Wills PA-C - Last Filed: 05/02/25 15:19> Quality Stroke Does the patient have a stroke diagnosis?: No <Nam Wills PA-C - Last Filed: 05/02/25 15:19> VTE Prior VTE?: No <Nam Wills PA-C - Last Filed: 05/02/25 15:19> VTE Risk Level:: Surgical - moderate <Nam Wills PA-C - Last Filed: 05/02/25 15:19> VTE Device Contraindication: N/A - Device Ordered <Nam Wills PA-C - Last Filed: 05/02/25 15:19> VTE Drug Contraindication: N/A - Med Ordered <Nam Wills PA-C - Last Filed: 05/02/25 15:19>
[2025-05-02 11:50] VITALS: BP 113/57; PULSE 66; RESP 16; TEMP 36; O2SAT 95
--- NOTE | 2025-05-02 11:56 | MHC.CLN ---
F/U DIET=DIABETIC 1800 KCALS, CHOPPED CONSISTENCY. ADMITTED FOR DEBRIDEMENT OF NECK WOUND. PO INTAKE VARIABLE, 25-100%. ENSURE MAX PROTEIN BID TO IMPROVE NUTRITIONAL INTAKE. SUPPLEMENT PROVIDES 300 KCALS, 60 G PROTEIN. FOLLOW FOR PO INTAKE AND DIET TOLERANCE.
--- NOTE | 2025-05-02 14:31 | MHC.CM.PN ---
Met with patient, , and son at bedside. DP: xfer to [facility] vs STR @ [facility] vs home w/ VNA ( reports patient is active w/ [facility]). If not able to xfer to [facility], family leaning toward STR.
--- NOTE | 2025-05-02 15:23 | MHC.SLORD ---
Speech Language Pathology Order Status: Pt not seen 05/02, tolerating diet as ordered per RN report. STOCK PULLER to followup as indicated.
[2025-05-02 16:00] VITALS: BP 158/71; PULSE 76; RESP 16; TEMP 36; O2SAT 96
[2025-05-02 16:05] LABS: Glucose, Whole Blood 241 mg/dL (60-115)
--- NOTE | 2025-05-02 16:24 | HO.WOUND ---
Wound Consult: Defer to Surgical Team 79yr old [place] [facility] [place] see H&P for detailed history. Defer topical recommendations to General Surgery Team.
[2025-05-02 20:00] VITALS: BP 119/61; PULSE 75; RESP 17; TEMP 36.1; O2SAT 97
[2025-05-02 20:23] LABS: Glucose, Whole Blood 246 mg/dL (60-115)
[2025-05-02 23:38] VITALS: BP 128/60; PULSE 70; RESP 18; TEMP 36.1; O2SAT 96
[2025-05-03] VITALS (7 sets, daily range): BP systolic 107–154; BP diastolic 53–71; PULSE 66–82; RESP 12–20; TEMP 36–37.1; O2SAT 94–96
[2025-05-03 06:27] LABS: Creatinine Clr Calc Pharmacy 104.8; Estimated Glomerular Filt Rate > 60
[2025-05-03 07:37] LABS: Glucose, Whole Blood 210 mg/dL (60-115)
[2025-05-03] MEDS: Insulin Glargine,Hum.rec.anlog 100 UNIT/ML 10 ML VIAL 10 UNIT SUBCUT (07:50)
[2025-05-03] MEDS: Metoprolol Succinate ER 100 MG TAB.ER.24H 200 MG PO (07:51)
[2025-05-03] MEDS: Aspirin Enteric Coated 81 MG TABLET.DR PO (07:52)
[2025-05-03] MEDS: 0.9 % Sodium Chloride Flush 3 ML SYRINGE IVFLUSH ×2 (07:58→21:24)
--- NOTE | 2025-05-03 10:04 | PM.PNGS ---
Subjective Subjective Date of Service: 05/03/25 <Nam Wills PA-C - Last Filed: 05/03/25 16:01> 05/03/25 <Migel Sawant MD - Last Filed: 05/03/25 14:35> Interval history: no acute changes overnight. Patient complaining of urinary incontinence. Gets sudden urge to urinate, cannot make it to the bathroom. he has not had a history of incontinence in the past. Denies burning with urination, flank pain. Denies fever or chills Does not feel comfortable going home with this happening. <Nam Wills PA-C - Last Filed: 05/03/25 16:01> Physical Exam Vital Signs: Vital Signs: Last Vital Signs Temp 97.3 F 05/03/25 07:51 Pulse 82 05/03/25 07:51 Resp 12 05/03/25 07:51 BP 150/66 H 05/03/25 07:53 Pulse Ox 96 05/03/25 07:51 O2 Del Method Room Air 05/03/25 07:51 O2 Flow Rate 2 04/27/25 10:30 BMI result Body Mass Index 31.0 <Nam Wills PA-C - Last Filed: 05/03/25 16:01> Const: General: comfortable and no acute distress <ACOSTA Justin Last Filed: 05/03/25 16:01> Orientation/consciousness: patient oriented x3 <Nam Wills PA-C - Last Filed: 05/03/25 16:01> HEENT: Other: large posterior head and neck wound, moderate amounts of slough. tender to the touch. right ear: preauricular swelling, unchanged from yesterday, continues to have purulent discharge from the right external ear canal. <Nam Wills PA-C - Last Filed: 05/03/25 16:01> Resp: Effort & Inspection: normal respiratory effort and able to speak in complete sentences <ACOSTA Justin Last Filed: 05/03/25 16:01> : General: Yes no CVA tenderness <ACOSTA Justin Last Filed: 05/03/25 16:01> Back/Spine/Pelvis: Back: no CVA tenderness <ACOSTA Justin Last Filed: 05/03/25 16:01> Neuro: General: patient oriented x3 <Nam Wills PA-C - Last Filed: 05/03/25 16:01> Objective Data Active Medications Acetaminophen (Acetaminophen 325 Mg Tablet) 650 mg PO Q6H PRN PRN Reason: Pain, Mild 1-3,fever,headache Last Admin: 05/03/25 09:42 Dose: 650 mg Documented By: RADHA Amlodipine Besylate (Amlodipine Besylate 10 Mg Tablet) 10 mg PO DAILY REPLACED BY [facility]; Protocol Last Admin: 05/03/25 07:53 Dose: 10 mg Documented By: RADHA Aspirin (Aspirin Enteric Coated 81 Mg Tablet.) 81 mg PO DAILY [facility]PL[facility] BY [facility] Last Admin: 05/03/25 07:52 Dose: 81 mg Documented By: RADHA Atorvastatin Calcium (Atorvastatin Calcium 20 Mg Tablet) 20 mg PO DAILY [facility]PL[facility] BY [facility] Last Admin: 05/03/25 07:51 Dose: 20 mg Documented By: RADHA Calcium Carbonate (Calcium Carbonate 750 Mg Tab.Chew) 750 mg PO Q4H PRN PRN Reason: Heartburn Dextrose (Dextrose 50 % 25 Gm/50 Ml Syringe) 25 gm IVPUSH Q15M PRN; Protocol PRN Reason: per Hypoglycemia Standing Ord. Doxazosin Mesylate (Doxazosin Mesylate 2 Mg Tablet) 2 mg PO BEDTIME REPLACED BY [facility] Last Admin: 05/02/25 20:49 Dose: 2 mg Documented By: LISBETH Fentanyl (Fentanyl 100 Mcg Patch.Td72) 100 mcg TRANSDERMA Q48H REPLACED BY [facility] Last Admin: 05/02/25 08:56 Dose: 100 mcg Documented By: BEATRICE Furosemide (Furosemide 40 Mg Tablet) 80 mg PO DAILY [facility]PL[facility]; Protocol Last Admin: 05/03/25 07:53 Dose: 80 mg Documented By: RADHA Glucose (Glucose Gel 15 Gm Gel..Gram.) 15 gm PO Q15M PRN; Protocol PRN Reason: per Hypoglycemia Standing Ord. Cefepime HCl (Maxipime) 2 gm in 50 mls @ 100 mls/hr IV Q24H REPLACED BY [facility] Last Infusion: 05/02/25 12:45 Dose: Infused Documented By: BEATRICE Insulin Glargine (Insulin Glargine,Hum.Rec.Anlog 100 Unit/Ml 10 Ml Vial) 10 unit SUBCUT DAILY [facility]PL[facility] Last Admin: 05/03/25 07:50 Dose: 10 unit Documented By: RADHA Insulin Human Lispro (Insulin Lispro 100 Unit/Ml 3 Ml Vial) 0 unit SUBCUT QIDACHS REPLACED BY [facility]; Protocol Last Admin: 05/03/25 07:53 Dose: 4 unit Documented By: RADHA Magnesium Hydroxide (Milk Of Magnesia 30 Ml Oral.Susp) 30 ml PO DAILY PRN PRN Reason: Constipation Melatonin (Melatonin 3 Mg Tablet) 6 mg PO BEDTIME PRN PRN Reason: Insomnia Metformin HCl (Metformin Hcl Er 500 Mg Tab.Er.24h) 500 mg PO BID REPLACED BY [facility] Last Admin: 05/03/25 08:57 Dose: 500 mg Documented By: RADHA Metoprolol Succinate (Metoprolol Succinate Er 100 Mg Tab.Er.24h) 200 mg PO DAILY [facility]PL[facility] Last Admin: 05/03/25 07:51 Dose: 200 mg Documented By: RADHA Metronidazole (Metronidazole 500 Mg Tablet) 500 mg PO Q12H REPLACED BY [facility] Last Admin: 05/03/25 07:52 Dose: 500 mg Documented By: RADHA Naloxone HCl (Naloxone Hcl 0.4 Mg/Ml Vial) 0.04 mg IVPUSH Q5M PRN PRN Reason: Excessive sedation or RR < 8 Ondansetron HCl (Ondansetron Hcl 4 Mg/2 Ml Vial) 4 mg IVPUSH Q8H PRN PRN Reason: Nausea and Vomiting Oxycodone HCl (Oxycodone Hcl Immed Release 5 Mg Tablet) 10 mg PO Q4H PRN PRN Reason: Pain, Moderate(Pain Scale 4-6) Last Admin: 05/02/25 20:57 Dose: 10 mg Documented By: LISBETH Sodium Chloride (0.9 % Sodium Chloride Flush 3 Ml Syringe) 3 ml IVFLUSH QSHIFT REPLACED BY [facility] Last Admin: 05/03/25 07:58 Dose: 3 ml Documented By: RADHA Sodium Hypochlorite (Sodium Hypochlorite 0.125% 473 Ml Solution) 1 appl TOPICAL DAILY REPLACED BY [facility] Valsartan (Valsartan 160 Mg Tablet) 160 mg PO DAILY REPLACED BY [facility] Last Admin: 05/03/25 07:53 Dose: 160 mg Documented By: RADHA Vitamin D (Cholecalciferol (Vitamin D3) 25 Mcg Tablet) 25 mcg PO DAILY [facility] Last Admin: 05/03/25 07:53 Dose: 25 mcg Documented By: RADHA <Nam Wills PA-C - Last Filed: 05/03/25 16:01> Labs CBC & Chem 7: 05/01/25 05:45 05/03/25 06:00 <Nam Wills PA-C - Last Filed: 05/03/25 16:01> Labs: Laboratory Results - last 24 hr 05/02/25 05/02/25 05/02/25 11:25 15:50 20:17 Estim Creat Clear Calc Estimated GFR POC Glucose 339 H 241 H 246 H 05/03/25 05/03/25 06:00 07:23 Estim Creat Clear Calc 104.8 Estimated GFR > 60 POC Glucose 210 H <Nam Wills PA-C - Last Filed: 05/03/25 16:01> Procedures Date of Service Date of Service: 05/03/25 <Nam Wills PA-C - Last Filed: 05/03/25 16:01> 05/03/25 <Migel Sawant MD - Last Filed: 05/03/25 14:35> Progress Note: A&P Assessment and plan (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 <Nam Wills PA-C - Last Filed: 05/03/25 16:01> Assessment and Plan: No significant changes with regards to open wound For PICC line placement today for prolonged IV antibiotic treatment in view of growth of Proteus from wound cultures Continue Dakin solution dressing changes for the open wound The plan is to discharge the patient with visiting nurse He is to follow up with his head and neck surgeon has an outpatient Family is at bedside - they state that he has an appointment with his surgeon next week Seen and examined independently <Migel Sawant MD - Last Filed: 05/03/25 14:35> Assessment and Plan: Patient doing okay today, pain is well controlled. Wound is overall unchanged, continues to have significant slough on the head/neck wound with areas of necrosis, preauricular swelling, purulent drainage from right ear. We are continuing with BID wound care with dakins soaked gauze. Patient experiencing episodes of incontinence, will check UA and bladder scan this afternoon. Planning for DC, patient will follow up with head and neck surgeon as an outpatient, continue with wound care at home with Wound clinic from debridement growing proteus mirabilis with wide susceptibility, patient is having picc line insertion for continued IV ertapenam x6 weeks after DC. patient planning to DC to SNF, have been involved with correctional case manager <Nam Wills PA-C - Last Filed: 05/03/25 16:01> Time Spent With Patient Time: Total time managing care of this patient today ____ minutes. <Nam Wills PA-C - Last Filed: 05/03/25 16:01> Quality Stroke Does the patient have a stroke diagnosis?: No <Nam Wills PA-C - Last Filed: 05/03/25 16:01> VTE Prior VTE?: No <Nam Wills PA-C - Last Filed: 05/03/25 16:01> VTE Risk Level:: Surgical - moderate <Nam Wills PA-C - Last Filed: 05/03/25 16:01> VTE Device Contraindication: N/A - Device Ordered <Nam Wills PA-C - Last Filed: 05/03/25 16:01> VTE Drug Contraindication: N/A - Med Ordered <Nam Wills PA-C - Last Filed: 05/03/25 16:01>
[2025-05-03] MEDS: oxyCODONE HCl Immed Release 5 MG TABLET 10 MG PO ×2 (11:19→21:23)
[2025-05-03 11:40] LABS: Glucose, Whole Blood 299 mg/dL (60-115)
--- NOTE | 2025-05-03 12:00 | MHC.SL.SWA ---
Speech Pathologist Impression: Risk of Aspiration, Oropharyngeal Dysphagia Risk of Aspiration Due to: Hx Head/Neck CA Dysphasia Diet Status: No Change Liquid Consistency and Strategies for Safe Swallow: Liquid Intake Recommendation: Thin Solid Food Consistency: Dietary Recommendations: Chopped/Advanced (NDD3) Additional Modifications to Solid Foods: Patient presents with slow mastication, has been stable on diet of Chopped/Advanced, for ease of mastication, Thin liquids (straw ok) and pills whole with liquid or puree as preferred by patient. Recommend patient have supervision at meals to assure that he is managing and progressing through meal. Please re-refer with any changes or further concern. Oral Medication Intake: Whole with Liquid Please contact the pharmacy regarding appropriate crushable or liquid drug formulations that are available whenever modified delivery is recommended. Compensatory Strategies and Precautions to be Taken for Safe Swallow: Sitting Upright (90 deg) Small Bites and Sips Alternate Liquids/Solids Rate of Ingestion Change Supervision While Eating and Drinking for Safe Swallow: Direct Supervision (1:1) Foods to Avoid: Tough, difficult to chew solids. Swallowing Recommended Treatments: Compens. Strategy Educat. Recommendation for Speech: D/C B2B Sales Executive Clinican/Clinical Fellow: No Supervisory Statement: I have reviewed and agree with the student/clinical fellow's documentation: N/A Speech Language Pathologist: Kayley Garcia M.A., CCC-HOMICIDE INVESTIGATOR
[2025-05-03] MEDS: cefEPime HCl/D5W 2 GM/50 ML PIGGYBACK IV (12:39)
[2025-05-03 15:10] LABS: Appearance Urine Clear; Glucose Urine UA Negative (Negative); PH 5.5 (5.0-9.0); Specific Gravity - Urine 1.010 (1.005-1.025); UMIC TRIGGER UACC YES
--- NOTE | 2025-05-03 15:21 | MHC.CM.PN ---
Patient will also require PICC for 6 wks IV ertapenem. DC plan discussed w/ patient, son, and at bedside. Plan to go to [facility] for STR and IV abx.
--- NOTE | 2025-05-03 17:26 | P.PICC_ITS ---
PICC Line Insertion NPICC Diagnosis: neck abscess Indication: usp ABT Pertinent Labs: reviewed Technique: Following informed consent including risks, benefits and alternatives and using sterile technique including cap and mask, sterile gown, glove and drape, the left arm was prepped and draped in the usual sterile fashion of full barrier technique with CHG. Following completion of Comer Protocol the skin and soft tissues were anesthetized with 1% Lidocaine plain. Using ultrasound guidance, left basilic vein access was obtained. Over an 0.018 wire through peel-away sheath, a 4FR single lumen PASV PICC line was positioned. Catheter length is 42cm internal length, 0cm external length, for a total trimmed length of 42cm. The procedure was performed in RM 272. Tip verification was performed by Talon Tovar with Sherlock 3CG. Tip located in SVC. Ultrasound was used to document vein patency and for needle entry. A formal ultrasound picture and cardiac rhythm strip was recorded. Vascular [employer] Publications Specialist has released the line for use and it is currently dressed with a StatLock, Tegaderm, and CHG disc. Verification has been performed for blood return and line patency. Arm Circumference: 30cm Equipment: [employer] POWERPICC SOLO Catheter with Sherlock 3CG tip Catheter Type: 4FR single lumen PASV PICC Lot #: [id number]
--- NOTE | 2025-05-03 17:38 | HO.PM.IMPN ---
Subjective Subjective Date of Service: 05/03/25 Interval History: Neck pain only moderately well controlled Some burning around eyes, not itching or crusting Denies acute hearing changes Review of Systems Review of Systems: Yes all other systems are reviewed and are negative Physical Exam Exam: Exam: General: AOx3, no acute distress Head/neck: Dressing on right side of neck; EOM intact. Sclera not injected, nonicteric Resp: CTA bilaterally CVS: S1, S2, RRR, +murmur GI: +BS, NT, no distention Skin: Warm, dry Neuro: Cranial nerves II-XII grossly intact bilaterally. Motor grossly intact bilaterally Extremities: No edema Psych: Appropriate affect Vital Signs: Vital Signs: Last Vital Signs Temp 98.3 F 05/03/25 16:00 Pulse 66 05/03/25 16:00 Resp 16 05/03/25 16:00 BP 123/59 L 05/03/25 16:00 Pulse Ox 94 05/03/25 16:00 O2 Del Method Room Air 05/03/25 16:00 O2 Flow Rate 2 04/27/25 10:30 BMI result Body Mass Index 31.0 Objective Data Active Medications Acetaminophen (Acetaminophen 325 Mg Tablet) 650 mg PO Q6H PRN PRN Reason: Pain, Mild 1-3,fever,headache Last Admin: 05/03/25 09:42 Dose: 650 mg Documented By: RADHA Amlodipine Besylate (Amlodipine Besylate 10 Mg Tablet) 10 mg PO DAILY [facility]; Protocol Last Admin: 05/03/25 07:53 Dose: 10 mg Documented By: RADHA Aspirin (Aspirin Enteric Coated 81 Mg Tablet.) 81 mg PO DAILY [facility] Last Admin: 05/03/25 07:52 Dose: 81 mg Documented By: RADHA Atorvastatin Calcium (Atorvastatin Calcium 20 Mg Tablet) 20 mg PO DAILY [facility] Last Admin: 05/03/25 07:51 Dose: 20 mg Documented By: RADHA Calcium Carbonate (Calcium Carbonate 750 Mg Tab.Chew) 750 mg PO Q4H PRN PRN Reason: Heartburn Dextrose (Dextrose 50 % 25 Gm/50 Ml Syringe) 25 gm IVPUSH Q15M PRN; Protocol PRN Reason: per Hypoglycemia Standing Ord. Doxazosin Mesylate (Doxazosin Mesylate 2 Mg Tablet) 2 mg PO BEDTIME [facility] Last Admin: 05/02/25 20:49 Dose: 2 mg Documented By: LISBETH Fentanyl (Fentanyl 100 Mcg Patch.Td72) 100 mcg TRANSDERMA Q48H [facility] Last Admin: 05/02/25 08:56 Dose: 100 mcg Documented By: BEATRICE Furosemide (Furosemide 40 Mg Tablet) 80 mg PO DAILY [facility]; Protocol Last Admin: 05/03/25 07:53 Dose: 80 mg Documented By: RADHA Glucose (Glucose Gel 15 Gm Gel..Gram.) 15 gm PO Q15M PRN; Protocol PRN Reason: per Hypoglycemia Standing Ord. Cefepime HCl (Maxipime) 2 gm in 50 mls @ 100 mls/hr IV Q24H [facility] Last Infusion: 05/03/25 13:12 Dose: Infused Documented By: RADHA Insulin Glargine (Insulin Glargine,Hum.Rec.Anlog 100 Unit/Ml 10 Ml Vial) 10 unit SUBCUT DAILY [facility] Last Admin: 05/03/25 07:50 Dose: 10 unit Documented By: RADHA Insulin Human Lispro (Insulin Lispro 100 Unit/Ml 3 Ml Vial) 0 unit SUBCUT QIDACHS [facility]; Protocol Last Admin: 05/03/25 11:54 Dose: 6 unit Documented By: RADHA Magnesium Hydroxide (Milk Of Magnesia 30 Ml Oral.Susp) 30 ml PO DAILY PRN PRN Reason: Constipation Melatonin (Melatonin 3 Mg Tablet) 6 mg PO BEDTIME PRN PRN Reason: Insomnia Metformin HCl (Metformin Hcl Er 500 Mg Tab.Er.24h) 500 mg PO BID [facility] Last Admin: 05/03/25 08:57 Dose: 500 mg Documented By: RADHA Metoprolol Succinate (Metoprolol Succinate Er 100 Mg Tab.Er.24h) 200 mg PO DAILY [facility] Last Admin: 05/03/25 07:51 Dose: 200 mg Documented By: RADHA Metronidazole (Metronidazole 500 Mg Tablet) 500 mg PO Q12H [facility] Last Admin: 05/03/25 07:52 Dose: 500 mg Documented By: RADHA Naloxone HCl (Naloxone Hcl 0.4 Mg/Ml Vial) 0.04 mg IVPUSH Q5M PRN PRN Reason: Excessive sedation or RR < 8 Ondansetron HCl (Ondansetron Hcl 4 Mg/2 Ml Vial) 4 mg IVPUSH Q8H PRN PRN Reason: Nausea and Vomiting Oxycodone HCl (Oxycodone Hcl Immed Release 5 Mg Tablet) 10 mg PO Q4H PRN PRN Reason: Pain, Moderate(Pain Scale 4-6) Last Admin: 05/03/25 11:19 Dose: 10 mg Documented By: RADHA Sodium Chloride (0.9 % Sodium Chloride Flush 3 Ml Syringe) 3 ml IVFLUSH QSHIFT [facility] Last Admin: 05/03/25 16:53 Dose: Not Given Documented By: RADHA Non-Admin Reason: Off unit PICC Sodium Hypochlorite (Sodium Hypochlorite 0.125% 473 Ml Solution) 1 appl TOPICAL DAILY [facility] Last Admin: 05/03/25 11:20 Dose: 1 appl Documented By: RADHA Valsartan (Valsartan 160 Mg Tablet) 160 mg PO DAILY [facility] Last Admin: 05/03/25 07:53 Dose: 160 mg Documented By: RADHA Vitamin D (Cholecalciferol (Vitamin D3) 25 Mcg Tablet) 25 mcg PO DAILY [facility] Last Admin: 05/03/25 07:53 Dose: 25 mcg Documented By: RADHA Labs 05/01/25 05:45 05/03/25 06:00 Labs: Laboratory Results - last 24 hr 05/02/25 05/03/25 05/03/25 20:17 06:00 07:23 Estim Creat Clear Calc 104.8 Estimated GFR > 60 POC Glucose 246 H 210 H Urine Color Urine Appearance Urine pH Ur Specific [place] Urine Protein Urine Glucose (UA) Urine Ketones Urine Blood Urine Nitrite Ur Leukocyte Esterase Urine RBC Urine WBC Ur Squamous Epith Cells Urine Bacteria Hyaline Casts 05/03/25 05/03/25 11:32 14:55 Estim Creat Clear Calc Estimated GFR POC Glucose 299 H Urine Color Yellow Urine Appearance Clear Urine pH 5.5 Ur Specific [place] 1.010 Urine Protein Negative Urine Glucose (UA) Negative Urine Ketones Negative Urine Blood Negative Urine Nitrite Negative Ur Leukocyte Esterase Trace H Urine RBC 0-2 Urine WBC 0-5 Ur Squamous Epith Cells 0-2 Urine Bacteria None Seen Hyaline Casts 0-2 Assessment and Plan (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 Plan This is an 79-year-old male with medical history of T2DM, DHAVAL, diabetic retinopathy, squamous cell carcinoma of the neck, esophageal stricture on soft diet, HTN, tubular adenoma, presented to the ED earlier today due to chronic wound of the right neck. Pt was evaluated by GENERAL SURGERY and was taken to the OR for wound debridement for head and neck infection stemming from original SCC of the neck. Hospitalist group asked to consult for medical management. 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 Fever x1 8/ no recurrent fever Dysphagia underlying esophageal stricture; neck wound seen by speech, tolerating NDD3 diet continue aspiration precautions DMII hold metformin on NPH at baseline continue SSI, will add Lantus 10 units daily due to consistently elevated POC >200 ADA diet HTN few high bp readings, likely due to pain, but overall blood pressure under adequate control Continue amlodipine Nebivolol converted to metoprolol Telmisartan converted to valsartan Resume baseline Lasix HLD Continue statin, ASA Thank you for allowing us to participate in the care of this patient, we will follow along with you. Pt will have PICC line placed this afternoon and plan is to d/c to STR tomorrow. Quality Stroke Does the patient have a stroke diagnosis?: No VTE Prior VTE?: No VTE Risk Level:: Surgical - moderate VTE Device Contraindication: N/A - Device Ordered VTE Drug Contraindication: N/A - Med Ordered
[2025-05-03 17:52] LABS: Glucose, Whole Blood 266 mg/dL (60-115)
--- NOTE | 2025-05-03 18:57 | P.OP_ITS ---
Operative Note Operative Note Date of Service: 04/26/25 Narrative: Preop diagnosis--infected necrotic right head and neck wound Postop diagnosis--infected necrotic right head and neck wound Procedure done--debridement of infected necrotic right head and neck wound with biopsies carried out Surgeon--Lacey Anesthesia- general anesthesia The patient was brought to the operative room under Anesthesia guidance was intubated. He had compression stockings placed before induction received preoperative antibiotics. His neck was prepped and draped in standard surgical fashion. Using the cautery areas of necrotic tissue were debrided often the base of the wound more concentrated in the superior aspect of the posterior ear aspect. Several biopsies were taken of soft tissue from the deep aspect of the wound, the skin soft tissue at the base of the ear near the mastoid area, the s kin on the facial aspect, and the abscess posterior most tissue. These were all sent off for pathology. The big abscess areas along the base of the skull posterior area which was purplish and necrotic skin was debrided down to the more necrotic soft tissue. Areas of purulence were finger dissected and irrigated out to allow drainage of these loculated collections. This was carried out all along the superior aspect of the wound where there were more deeper pockets. At the end Dakin solution dressing was packed into the wound and some Xeroform and surgery for cell at the facial little dissected biopsy site which was bleeding. Patient underwent debridement down to the tendon and the muscle in the wound that was 12 x 8 cm x 1.5 cm. The aspect of the wound closer to the inferior neck was relatively clean without any abscess tissue. Patient was extubated returned stable to recovery room. Specimens were a skin right posterior superficial neck, skin right deep posterior neck, skin posterior right ear excision, skin deep right occipital excision and skin right face show biopsy
[2025-05-03 20:51] LABS: Glucose, Whole Blood 272 mg/dL (60-115)
[2025-05-04 03:34] VITALS: BP 117/58; PULSE 71; RESP 18; TEMP 36.3; O2SAT 96
[2025-05-04] MEDS: oxyCODONE HCl Immed Release 5 MG TABLET 10 MG PO ×3 (03:57→10:53)
[2025-05-04 06:08] LABS: Estimated Glomerular Filt Rate > 60
[2025-05-04 07:08] VITALS: BP 139/65; PULSE 68; RESP 16; TEMP 36.1; O2SAT 95
[2025-05-04] MEDS: Aspirin Enteric Coated 81 MG TABLET.DR PO (07:27)
[2025-05-04] MEDS: Metoprolol Succinate ER 100 MG TAB.ER.24H 200 MG PO (07:28)
[2025-05-04] MEDS: 0.9 % Sodium Chloride Flush 3 ML SYRINGE IVFLUSH (07:30)
[2025-05-04 07:38] LABS: Glucose, Whole Blood 190 mg/dL (60-115)
[2025-05-04] MEDS: Insulin Glargine,Hum.rec.anlog 100 UNIT/ML 10 ML VIAL 10 UNIT SUBCUT (08:02)
[2025-05-04] MEDS: fentaNYL 100 MCG PATCH.TD72 TRANSDERMA (08:02)
[2025-05-04 09:13] LABS: Creatinine Clr Calc Pharmacy 118.4
--- NOTE | 2025-05-04 10:16 | P.PNGS_ITS ---
Subjective Subjective Date of Service: 05/04/25 <Nam Wills PA-C - Last Filed: 05/04/25 10:26> 05/04/25 <Migel Sawant MD - Last Filed: 05/04/25 10:46> Interval history: no acute changes overnight. pateint happy with plan to SNF. Has continued pain in the ear <Nam Wills PA-C - Last Filed: 05/04/25 10:26> Physical Exam 2 Vital Signs: Vital Signs: Last Vital Signs Temp 97.0 F 05/04/25 07:08 Pulse 68 05/04/25 07:08 Resp 16 05/04/25 07:08 BP 139/65 05/04/25 07:08 Pulse Ox 95 05/04/25 07:08 O2 Del Method Room Air 05/04/25 07:08 O2 Flow Rate 2 04/27/25 10:30 BMI result Body Mass Index 31.0 <Nam Wills PA-C - Last Filed: 05/04/25 10:26> Const: General: comfortable and no acute distress <Nam Wills PA-C - Last Filed: 05/04/25 10:26> Orientation/consciousness: patient oriented x3 <Nam Wills PA-C - Last Filed: 05/04/25 10:26> HEENT: Other: Head and neck wound dressings in place. Minimal saturation. Continued yellow, purulent discharge from right ear, and external canal. Mildly tender to palpation <Nam Wills PA-C - Last Filed: 05/04/25 10:26> Neuro: General: patient oriented x3 <Nam Wills PA-C - Last Filed: 05/04/25 10:26> Objective Data Active Medications Acetaminophen (Acetaminophen 325 Mg Tablet) 650 mg PO Q6H PRN PRN Reason: Pain, Mild 1-3,fever,headache Last Admin: 05/04/25 10:12 Dose: 650 mg Documented By: KRISTIN Amlodipine Besylate (Amlodipine Besylate 10 Mg Tablet) 10 mg PO DAILY [facility]; Protocol Last Admin: 05/04/25 07:27 Dose: 10 mg Documented By: KRISTIN Artificial Tears (Artificial Tears 15 Ml Drops) 2 drop EYE-BOTH Q4H PRN PRN Reason: Dry Eyes Aspirin (Aspirin Enteric Coated 81 Mg Tablet.Dr) 81 mg PO DAILY [facility] Last Admin: 05/04/25 07:27 Dose: 81 mg Documented By: KRISTIN Atorvastatin Calcium (Atorvastatin Calcium 20 Mg Tablet) 20 mg PO DAILY [facility] Last Admin: 05/04/25 07:27 Dose: 20 mg Documented By: KRISTIN Calcium Carbonate (Calcium Carbonate 750 Mg Tab.Chew) 750 mg PO Q4H PRN PRN Reason: Heartburn Dextrose (Dextrose 50 % 25 Gm/50 Ml Syringe) 25 gm IVPUSH Q15M PRN; Protocol PRN Reason: per Hypoglycemia Standing Ord. Doxazosin Mesylate (Doxazosin Mesylate 2 Mg Tablet) 2 mg PO BEDTIME [facility] Last Admin: 05/03/25 21:24 Dose: 2 mg Documented By: DELIA Fentanyl (Fentanyl 100 Mcg Patch.Td72) 100 mcg TRANSDERMA Q48H [facility] Last Admin: 05/04/25 08:02 Dose: 100 mcg Documented By: KRISTIN Furosemide (Furosemide 40 Mg Tablet) 80 mg PO DAILY [facility]; Protocol Last Admin: 05/04/25 07:27 Dose: 80 mg Documented By: KRISTIN Glucose (Glucose Gel 15 Gm Gel..Gram.) 15 gm PO Q15M PRN; Protocol PRN Reason: per Hypoglycemia Standing Ord. Cefepime HCl (Maxipime) 2 gm in 50 mls @ 100 mls/hr IV Q24H [facility] Last Infusion: 05/03/25 13:12 Dose: Infused Documented By: RADHA Insulin Glargine (Insulin Glargine,Hum.Rec.Anlog 100 Unit/Ml 10 Ml Vial) 10 unit SUBCUT DAILY [facility] Last Admin: 05/04/25 08:02 Dose: 10 unit Documented By: KRISTIN Comments: Insulin Human Lispro (Insulin Lispro 100 Unit/Ml 3 Ml Vial) 0 unit SUBCUT QIDACHS [facility]; Protocol Last Admin: 05/04/25 08:01 Dose: 2 unit Documented By: KRISTIN Magnesium Hydroxide (Milk Of Magnesia 30 Ml Oral.Susp) 30 ml PO DAILY PRN PRN Reason: Constipation Melatonin (Melatonin 3 Mg Tablet) 6 mg PO BEDTIME PRN PRN Reason: Insomnia Metformin HCl (Metformin Hcl Er 500 Mg Tab.Er.24h) 500 mg PO BID [facility] Last Admin: 05/04/25 07:26 Dose: 500 mg Documented By: KRISTIN Metoprolol Succinate (Metoprolol Succinate Er 100 Mg Tab.Er.24h) 200 mg PO DAILY [facility] Last Admin: 05/04/25 07:28 Dose: 200 mg Documented By: KRISTIN Metronidazole (Metronidazole 500 Mg Tablet) 500 mg PO Q12H [facility] Last Admin: 05/04/25 07:28 Dose: 500 mg Documented By: KRISTIN Naloxone HCl (Naloxone Hcl 0.4 Mg/Ml Vial) 0.04 mg IVPUSH Q5M PRN PRN Reason: Excessive sedation or RR < 8 Ondansetron HCl (Ondansetron Hcl 4 Mg/2 Ml Vial) 4 mg IVPUSH Q8H PRN PRN Reason: Nausea and Vomiting Oxycodone HCl (Oxycodone Hcl Immed Release 5 Mg Tablet) 10 mg PO Q4H PRN PRN Reason: Pain, Moderate(Pain Scale 4-6) Last Admin: 05/04/25 07:26 Dose: 10 mg Documented By: KRISTIN Sodium Chloride (0.9 % Sodium Chloride Flush 3 Ml Syringe) 3 ml IVFLUSH QSHIFT [facility] Last Admin: 05/04/25 07:30 Dose: 3 ml Documented By: KRISTIN Sodium Hypochlorite (Sodium Hypochlorite 0.125% 473 Ml Solution) 1 appl TOPICAL DAILY [facility] Last Admin: 05/04/25 08:06 Dose: 1 appl Documented By: KRISTIN Valsartan (Valsartan 160 Mg Tablet) 160 mg PO DAILY [facility] Last Admin: 05/04/25 07:26 Dose: 160 mg Documented By: KRISTIN Vitamin D (Cholecalciferol (Vitamin D3) 25 Mcg Tablet) 25 mcg PO DAILY [facility] Last Admin: 05/04/25 07:27 Dose: 25 mcg Documented By: KRISTIN <Nam Wills PA-C - Last Filed: 05/04/25 10:26> Labs CBC & Chem 7: 05/01/25 05:45 05/04/25 08:26 <Nam Wills PA-C - Last Filed: 05/04/25 10:26> Labs: Laboratory Results - last 24 hr 05/03/25 05/03/25 05/03/25 11:32 14:55 17:48 Hold Purple Top Estim Creat Clear Calc Estimated GFR POC Glucose 299 H 266 H Urine Color Yellow Urine Appearance Clear Urine pH 5.5 Ur Specific [place] 1.010 Urine Protein Negative Urine Glucose (UA) Negative Urine Ketones Negative Urine Blood Negative Urine Nitrite Negative Ur Leukocyte Esterase Trace H Urine RBC 0-2 Urine WBC 0-5 Ur Squamous Epith Cells 0-2 Urine Bacteria None Seen Hyaline Casts 0-2 05/03/25 05/04/25 05/04/25 20:34 05:02 07:11 Hold Purple Top SEE NOTE Estim Creat Clear Calc Estimated GFR POC Glucose 272 H 190 H Urine Color Urine Appearance Urine pH Ur Specific [place] Urine Protein Urine Glucose (UA) Urine Ketones Urine Blood Urine Nitrite Ur Leukocyte Esterase Urine RBC Urine WBC Ur Squamous Epith Cells Urine Bacteria Hyaline Casts 05/04/25 08:26 Hold Purple Top Estim Creat Clear Calc 118.4 Estimated GFR > 60 POC Glucose Urine Color Urine Appearance Urine pH Ur Specific [place] Urine Protein Urine Glucose (UA) Urine Ketones Urine Blood Urine Nitrite Ur Leukocyte Esterase Urine RBC Urine WBC Ur Squamous Epith Cells Urine Bacteria Hyaline Casts <Nam Wills PA-C - Last Filed: 05/04/25 10:26> Procedures Date of Service Date of Service: 05/04/25 <Nam Wills PA-C - Last Filed: 05/04/25 10:26> 05/04/25 <Migel Sawant MD - Last Filed: 05/04/25 10:46> Progress Note: A&P Assessment and plan (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 <Nam Wills PA-C - Last Filed: 05/04/25 10:26> (2) Abscess: Status: Acute <Nam Wills PA-C - Last Filed: 05/04/25 10:26> Assessment and Plan: Patient denies significant complaints PICC line in place No significant changes with regards to open wound on the posterior neck Plan to discharge to rehab Continue current daily wound care with Dakin solution dressings He has a follow up with this had an ex surgeon next week He is also to continue to follow up with the [facility] here with Dr. Rahman He understands the plan well The patient when seen and examined independently <Migel Sawant MD - Last Filed: 05/04/25 10:46> Assessment and Plan: Patient doign well. He had a picc line inserted yesterday, complains of some pain at the insertion site. Had UA, no suggestive of UTI, bladder scan shows minimal residual, he is not retaining urine. Plan to discharge to SNF, he will begin IV ertapenam for 6 weeks following discharge, will continue to follow up in the wound clinic with Dr. Rahman. He is beeing seen by head and neck surgeon for further management of this wound. Exam is unchanged, continues to have slough on the superior aspect of the wound with some necrotic tissue noted in this area, no evidence of abscess in primary wound. The ear continues to have preauricular swelling, purulent drainage in the external canal, it is mildly tender to the touch. He will continue with wound care, daily dakins soaked gauze, fluff guaze, ABD. Will discharge this afternoon. patient and famly agreeable to this plan. <Nam Wills PA-C - Last Filed: 05/04/25 10:26> Time Spent With Patient Time: Total time managing care of this patient today ____ minutes. <Nam Wills PA-C - Last Filed: 05/04/25 10:26> Quality Stroke Does the patient have a stroke diagnosis?: No <Nam Wills PA-C - Last Filed: 05/04/25 10:26> VTE Prior VTE?: No <Nam Wills PA-C - Last Filed: 05/04/25 10:26> VTE Risk Level:: Surgical - moderate <Nam Wills PA-C - Last Filed: 05/04/25 10:26> VTE Device Contraindication: N/A - Device Ordered <Nam Wills PA-C - Last Filed: 05/04/25 10:26> VTE Drug Contraindication: N/A - Med Ordered <Nam Wills PA-C - Last Filed: 05/04/25 10:26>
--- NOTE | 2025-05-04 10:25 | P.PNIM_ITS ---
Subjective Subjective Date of Service: 05/04/25 Interval History: No acute events overnight Feels OK overall Chronic neck and ear pain, moderately controlled Review of Systems Review of Systems: Yes all other systems are reviewed and are negative Physical Exam 2 Exam: Exam: General: AOx3, no acute distress Head/neck: Dressing on right side of neck Resp: CTA bilaterally CVS: S1, S2, RRR, +murmur GI: +BS, NT, no distention Skin: Warm, dry Neuro: Cranial nerves II-XII grossly intact bilaterally. Motor grossly intact bilaterally Extremities: No edema Psych: Appropriate affect Vital Signs: Vital Signs: Last Vital Signs Temp 97.0 F 05/04/25 07:08 Pulse 68 05/04/25 07:08 Resp 16 05/04/25 07:08 BP 139/65 05/04/25 07:08 Pulse Ox 95 05/04/25 07:08 O2 Del Method Room Air 05/04/25 07:08 O2 Flow Rate 2 04/27/25 10:30 BMI result Body Mass Index 31.0 Objective Data Active Medications Acetaminophen (Acetaminophen 325 Mg Tablet) 650 mg PO Q6H PRN PRN Reason: Pain, Mild 1-3,fever,headache Last Admin: 05/04/25 10:12 Dose: 650 mg Documented By: KRISTIN Amlodipine Besylate (Amlodipine Besylate 10 Mg Tablet) 10 mg PO DAILY [facility]; Protocol Last Admin: 05/04/25 07:27 Dose: 10 mg Documented By: KRISTIN Artificial Tears (Artificial Tears 15 Ml Drops) 2 drop EYE-BOTH Q4H PRN PRN Reason: Dry Eyes Aspirin (Aspirin Enteric Coated 81 Mg Nina.) 81 mg PO DAILY [facility] Last Admin: 05/04/25 07:27 Dose: 81 mg Documented By: KRISTIN Atorvastatin Calcium (Atorvastatin Calcium 20 Mg Tablet) 20 mg PO DAILY [facility] Last Admin: 05/04/25 07:27 Dose: 20 mg Documented By: KRISTIN Calcium Carbonate (Calcium Carbonate 750 Mg Tab.Chew) 750 mg PO Q4H PRN PRN Reason: Heartburn Dextrose (Dextrose 50 % 25 Gm/50 Ml Syringe) 25 gm IVPUSH Q15M PRN; Protocol PRN Reason: per Hypoglycemia Standing Ord. Doxazosin Mesylate (Doxazosin Mesylate 2 Mg Tablet) 2 mg PO BEDTIME [facility] Last Admin: 05/03/25 21:24 Dose: 2 mg Documented By: DELIA Ertapenem (Ertapenem Sodium 1 Gm Vial) 1 gm IVPUSH ONCE ONE Stop: 05/04/25 10:24 Fentanyl (Fentanyl 100 Mcg Patch.Td72) 100 mcg TRANSDERMA Q48H [facility] Last Admin: 05/04/25 08:02 Dose: 100 mcg Documented By: KRISTIN Furosemide (Furosemide 40 Mg Tablet) 80 mg PO DAILY [facility]; Protocol Last Admin: 05/04/25 07:27 Dose: 80 mg Documented By: KRISTIN Glucose (Glucose Gel 15 Gm Gel..Gram.) 15 gm PO Q15M PRN; Protocol PRN Reason: per Hypoglycemia Standing Ord. Cefepime HCl (Maxipime) 2 gm in 50 mls @ 100 mls/hr IV Q24H [facility] Last Infusion: 05/03/25 13:12 Dose: Infused Documented By: RADHA Insulin Glargine (Insulin Glargine,Hum.Rec.Anlog 100 Unit/Ml 10 Ml Vial) 10 unit SUBCUT DAILY [facility] Last Admin: 05/04/25 08:02 Dose: 10 unit Documented By: KRISTIN Comments: Insulin Human Lispro (Insulin Lispro 100 Unit/Ml 3 Ml Vial) 0 unit SUBCUT QIDACHS [facility]; Protocol Last Admin: 05/04/25 08:01 Dose: 2 unit Documented By: KRISTIN Magnesium Hydroxide (Milk Of Magnesia 30 Ml Oral.Susp) 30 ml PO DAILY PRN PRN Reason: Constipation Melatonin (Melatonin 3 Mg Tablet) 6 mg PO BEDTIME PRN PRN Reason: Insomnia Metformin HCl (Metformin Hcl Er 500 Mg Tab.Er.24h) 500 mg PO BID [facility] Last Admin: 05/04/25 07:26 Dose: 500 mg Documented By: KRISTIN Metoprolol Succinate (Metoprolol Succinate Er 100 Mg Tab.Er.24h) 200 mg PO DAILY [facility] Last Admin: 05/04/25 07:28 Dose: 200 mg Documented By: KRISTIN Metronidazole (Metronidazole 500 Mg Tablet) 500 mg PO Q12H [facility] Last Admin: 05/04/25 07:28 Dose: 500 mg Documented By: KRISTIN Naloxone HCl (Naloxone Hcl 0.4 Mg/Ml Vial) 0.04 mg IVPUSH Q5M PRN PRN Reason: Excessive sedation or RR < 8 Ondansetron HCl (Ondansetron Hcl 4 Mg/2 Ml Vial) 4 mg IVPUSH Q8H PRN PRN Reason: Nausea and Vomiting Oxycodone HCl (Oxycodone Hcl Immed Release 5 Mg Tablet) 10 mg PO Q4H PRN PRN Reason: Pain, Moderate(Pain Scale 4-6) Last Admin: 05/04/25 07:26 Dose: 10 mg Documented By: KRISTIN Sodium Chloride (0.9 % Sodium Chloride Flush 3 Ml Syringe) 3 ml IVFLUSH QSHIFT [facility] Last Admin: 05/04/25 07:30 Dose: 3 ml Documented By: KRISTIN Sodium Hypochlorite (Sodium Hypochlorite 0.125% 473 Ml Solution) 1 appl TOPICAL DAILY [facility] Last Admin: 05/04/25 08:06 Dose: 1 appl Documented By: KRISTIN Valsartan (Valsartan 160 Mg Tablet) 160 mg PO DAILY [facility] Last Admin: 05/04/25 07:26 Dose: 160 mg Documented By: KRISTIN Vitamin D (Cholecalciferol (Vitamin D3) 25 Mcg Tablet) 25 mcg PO DAILY [facility] Last Admin: 05/04/25 07:27 Dose: 25 mcg Documented By: KRISTIN Labs 05/01/25 05:45 05/04/25 08:26 Labs: Laboratory Results - last 24 hr 05/03/25 05/03/25 05/03/25 11:32 14:55 17:48 Hold Purple Top Estim Creat Clear Calc Estimated GFR POC Glucose 299 H 266 H Urine Color Yellow Urine Appearance Clear Urine pH 5.5 Ur Specific [place] 1.010 Urine Protein Negative Urine Glucose (UA) Negative Urine Ketones Negative Urine Blood Negative Urine Nitrite Negative Ur Leukocyte Esterase Trace H Urine RBC 0-2 Urine WBC 0-5 Ur Squamous Epith Cells 0-2 Urine Bacteria None Seen Hyaline Casts 0-2 05/03/25 05/04/25 05/04/25 20:34 05:02 07:11 Hold Purple Top SEE NOTE Estim Creat Clear Calc Estimated GFR POC Glucose 272 H 190 H Urine Color Urine Appearance Urine pH Ur Specific [place] Urine Protein Urine Glucose (UA) Urine Ketones Urine Blood Urine Nitrite Ur Leukocyte Esterase Urine RBC Urine WBC Ur Squamous Epith Cells Urine Bacteria Hyaline Casts 05/04/25 08:26 Hold Purple Top Estim Creat Clear Calc 118.4 Estimated GFR > 60 POC Glucose Urine Color Urine Appearance Urine pH Ur Specific [place] Urine Protein Urine Glucose (UA) Urine Ketones Urine Blood Urine Nitrite Ur Leukocyte Esterase Urine RBC Urine WBC Ur Squamous Epith Cells Urine Bacteria Hyaline Casts Assessment and Plan (1) Osteomyelitis: Status: Acute Plan This is an 79-year-old male with medical history of T2DM, DHAVAL, diabetic retinopathy, squamous cell carcinoma of the neck, esophageal stricture on soft diet, HTN, tubular adenoma, presented to the ED earlier today due to chronic wound of the right neck. Pt was evaluated by GENERAL SURGERY and was taken to the OR for wound debridement for head and neck infection stemming from original SCC of the neck. Hospitalist group asked to consult for medical management. 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 Will give one dose ertapenem prior to dischage Blood cultures negative to date Wound culture from neck growing proteus mirabilis Pathology - no malignancy wound care as per surgical team pain management - continue baseline fentayl and prn oxy; prn dilaudid for severe breakthrough pain Leukocytosis resolved. Fever x1 8/7 no recurrent fever Dysphagia underlying esophageal stricture; neck wound seen by speech, tolerating NDD3 diet continue aspiration precautions DMII hold metformin on NPH at baseline continue SSI, will add Lantus 10 units daily due to consistently elevated POC >200 ADA diet HTN few high bp readings, likely due to pain, but overall blood pressure under adequate control Continue amlodipine Nebivolol converted to metoprolol Telmisartan converted to valsartan Resume baseline Lasix HLD Continue statin, ASA Thank you for allowing us to participate in the care of this patient, we will sign off for now. Pt plans on being discharged today to [facility] with outpatient f/u with ENT surgery in [place]. Quality Stroke Does the patient have a stroke diagnosis?: No VTE Prior VTE?: No VTE Risk Level:: Surgical - moderate VTE Device Contraindication: N/A - Device Ordered VTE Drug Contraindication: N/A - Med Ordered
--- NOTE | 2025-05-04 10:29 | MHC.CM.PN ---
Per surgery and medicine, patient medically cleared for dc to SNF for STR and 6 wks IV abx. Patient/family accepted bed at [facility]. Will transport via BLS at 1pm. RN, PA, and patient aware. Patient will update . IMM delivered.
--- NOTE | 2025-05-04 10:41 | P.DS_ITS ---
DS: Providers Provider Date of Service: 05/04/25 Date of admission: 04/26/25 14:38 Date of discharge: 05/04/25 Primary care physician: Oswaldo Barrett MD Admitting clinician: Sonia Rahman Attending physician on admission: Sonia Rahman Consults: 04/26/25 17:28 Consult to Hospitalist Routine Comment: Consulting Provider: [facility] Hospitalists Reason For Exam: med management - 04/26/25 17:30 Consult to Infectious Diseases Routine Consulting Provider: [facility] Infectious Disease Center Reason for consultation: head and neck infection 04/30/25 05:18 Consult to Wound Care Routine Reason for consultation: large neck wound/radiation sarcoma/status post debridements/dissecton Has provider been notified: Yes Attending physician on discharge: Migel Sawant DS: Diagnosis Discharge Diagnosis (1) Osteomyelitis: Status: Acute (2) Abscess: Status: Acute DS: Summary Hospital Course Hospital Course: Admission HPI: Kamron Coker is a 79 year old male who has a history of right-sided head and neck cancer underwent radical neck dissection and closure at [facility]. 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 This was debrided and has been cleaned up and the patient has been followed by radiation oncologist at [facility]. He has seen head and neck surgeons at [facility] who have not wanted to pursue any further surgical intervention. We have been following him for the last 8 months at wound care center here with sharp debridements done in the office and dressing changes. Patient has over the last 3 weeks started to develop worsening skin breakdown in abscess type pockets which have been more painful and created more drainage. The wound seems to be expanding towards the air and towards the occiput mastoid area. I had discussions with the patient's radiation oncologist as well as his original head and neck surgeon at [facility] and they both would like him to have deep biopsies and debridement of these areas. Patient has also seen infectious diseases last week at [facility]. All recommending further debridement. Patient's head and neck surgeons would prefer for this initial step to be done locally before any transfers are done to them. As a result patient is coming in in order to get this carried out by myself in the operating room. Over the last 2 3 days patient is starting have more redness on his face and feeling worse and more pain. Having a lot of drainage from his ear. CT scan done in the emergency room shows the necrotic soft tissue areas superficially and along the cavities of the wound margins however deep tissue does not seem to be obvious for any metastatic disease. The external ear canal looks very inflamed by CT scan and there is drainage that has solidified in his ear canal. Hospital course: Plan to admit go to the OR for debridement and biopsies sent for pathology. Also treat with IV vanco get ID consult. Patient and family understand and agree with the above plan. Based on the results we will update his team of radiation oncologist as well as head and neck surgeons both at [facility] in [facility]. Patient was brought to the OR for debridement of this head and neck wound, abscessed were drained, multiple biopsies take intraoperatively. Pathology from the wound did not identify any malignancy. Biopsy of the right face significant for hypertrophic actinic keratosis positive margins. Initially postoperatively the patient was very uncomfortable, dealing with a lot of pain, we continued with IV antibiotics, Infectious Disease was consulted recommended cefepime, Flagyl, vanco. We continue with wound care b.i.d. with Dakin soaked gauze. The wound began to appear improved, less slough. Continued to have small amounts of purulent discharge from the external ear. On POD 1 packing left in the air was removed. This wound was not redressed. On POD2 patient was febrile, desaturating to 89 on room air, there was some concern for aspiration of contents, chest x-ray was obtained, concerning for possible pneumonia versus atelectasis. Patient's antibiotic coverage appropriate for management of this. Cellulitis the surrounding areas of the wound was improving, the wound bed appeared improved the superior aspect continues to have slough, no further abscesses. We were continuing with twice daily dressing changes. On POD 3 patient was improving, seems more alert, more comfortable, pain improving in the coming days, there were no acute changes we continued with twice daily wound care. POD6, pateint largely unchaged, continuing with wound care, there has been some increased swelling in the preauricular area, continued to have purulent drainage from right external ear canal. Continues to have intermittent pain in the ear and wound. patient interested in discharging, Dr rahman began coordinating care with head and neck surgerons at and [facility] to take this patient for further management. He was requiring a picc line insertion for continued IV ertapenam per the ID recommendations. He had this placed on 05/03, tolerated well, endorsing some pain at the insertion site. Additionally, on 05/03 patient was complaining of urinary incontinence, sudden urge to urinate without being able to make it to the bathroom. UA and PVR bladder scan was ordered, not suggestive of UTI or urinary retention. His wound appears similar, superior aspect continues to have significant amounts of slough with some areas of necrotic tissue. The wound appears clean, no evidence of abscess occurrance. Patient working with social work case manager for a bed at a SNF for cotninued wound care and antibiotic management after discharge. Plan for the patient to DC to SNF, follow up with Dr Rahman in wound clinic as outpatient, he will follow up with head and neck surgeon for further management of this wound as an outpatient next week. At the time of discharge, the patient was in stable condition, on exam his wound remains clean, stable. There remains significant slough on the superior aspect with areas of necrosis. There is still moderate preauricular swelling, with purulent discharge in the ear. the cellulitis surrounding the wound has improved. Status at Discharge Functional status at discharge: independent ambulation Overall status at discharge: patient is progressing back to baseline Time Attestation Discharge Coordination Time (in mins): 40 Quality: Safe Use of Opioids Does Pt have an Active Cancer Diagnosis on the Problem List?: No Quality: Stroke Does the patient have a stroke diagnosis?: No Physical Exam Vital Signs: Vital Signs: Last Vital Signs Temp 97.0 F 05/04/25 07:08 Pulse 68 05/04/25 07:08 Resp 16 05/04/25 07:08 BP 139/65 05/04/25 07:08 Pulse Ox 95 05/04/25 07:08 O2 Del Method Room Air 05/04/25 07:08 O2 Flow Rate 2 04/27/25 10:30 BMI result Body Mass Index 31.0 Const: General: comfortable and no acute distress Orientation/consciousness: patient oriented x3 HEENT: Other: Head and neck wound dressings in place. Minimal saturation. Continued yellow, purulent discharge from right ear, and external canal. Mildly tender to palpation Neuro: General: patient oriented x3 DS: Data Data Completed and Pending Completed studies during hospitalization [Text1]: Pending at discharge 04/26/25 19:29 Surgical [PTH] Routine Labs on day of discharge: Laboratory Results - last 24 hr 05/03/25 05/03/25 05/03/25 11:32 14:55 17:48 Hold Purple Top Creatinine Estim Creat Clear Calc Estimated GFR POC Glucose 299 H 266 H Urine Color Yellow Urine Appearance Clear Urine pH 5.5 Ur Specific [place] 1.010 Urine Protein Negative Urine Glucose (UA) Negative Urine Ketones Negative Urine Blood Negative Urine Nitrite Negative Ur Leukocyte Esterase Trace H Urine RBC 0-2 Urine WBC 0-5 Ur Squamous Epith Cells 0-2 Urine Bacteria None Seen Hyaline Casts 0-2 05/03/25 05/04/25 05/04/25 20:34 05:02 07:11 Hold Purple Top SEE NOTE Creatinine Estim Creat Clear Calc Estimated GFR POC Glucose 272 H 190 H Urine Color Urine Appearance Urine pH Ur Specific [place] Urine Protein Urine Glucose (UA) Urine Ketones Urine Blood Urine Nitrite Ur Leukocyte Esterase Urine RBC Urine WBC Ur Squamous Epith Cells Urine Bacteria Hyaline Casts 05/04/25 08:26 Hold Purple Top Creatinine 0.54 Estim Creat Clear Calc 118.4 Estimated GFR > 60 POC Glucose Urine Color Urine Appearance Urine pH Ur Specific [place] Urine Protein Urine Glucose (UA) Urine Ketones Urine Blood Urine Nitrite Ur Leukocyte Esterase Urine RBC Urine WBC Ur Squamous Epith Cells Urine Bacteria Hyaline Casts Discharge Plan Discharge Anticipated Discharge Date/Time: 05/04/25 12:11 Patient Disposition: Xfer SNF Discharge Diagnosis: head and neck wound secondary to malignancy, radiation Referrals: [facility] [Other] - 1 Week Referral Note: short term rehab Oswaldo Barrett MD [Primary Care Provider, Medical] - 1 Week Discharge Medications: Continued atorvastatin 20 mg tablet 1 tab PO DAILY Novolin 70/30 U-100 Insulin 100 unit/mL (70-30) suspension See Protocol subcut [facility] Protocol: Insulin Correction Scale Less than or equal to 110 ---- Give (units): 0 111 to 150 Give (units): 0 151 to 200 Give (units): 2 201 to 250 Give (units): 4 251 to 300 Give (units): 6 301 to 350 Give (units): 8 Greater than 350 Give (units): 10 Call MD if Blood Glucose > : 350 Rx Instructions: Patient gets his sugar levels checked after he eats and depending on how big his meals are heinjects based on those results. terazosin 2 mg capsule 1 cap PO BEDTIME amlodipine 10 mg tablet 1 tab PO DAILY fluticasone propionate 50 mcg/actuation spray,suspension 1 spray intranasal BEDTIME PRN (Reason: Nasal Congestion) metformin 500 mg tablet extended release 24 hr 1 tab PO BID nebivolol 10 mg tablet 1 tab PO DAILY furosemide 40 mg tablet 80 mg PO DAILY fentanyl 100 mcg/hr patch 72 hour 1 patch topical Q48H telmisartan 80 mg tablet 80 mg PO DAILY oxycodone 10 mg tablet 10 - 20 mg PO Q4-6H PRN (Reason: pain) acetaminophen 500 mg Tablet 500 mg PO DAILY@1200,2100 PRN (Reason: Pain) cholecalciferol (vitamin D3) [Vitamin D3] 25 mcg (1,000 unit) Tablet 25 mcg PO DAILY naloxone 0.4 mg/mL Solution 0.4 mg SUBCUT Q2M PRN (Reason: Opioid Overdose) Rx Instructions: NTExceed 10 mg total dose/episode multivitamin with minerals Tablet 1 tab PO DAILY PreserVision AREDS 4,296 mcg-226 mg-90 mg Capsule 1 cap PO BID aspirin 81 mg tablet,delayed release (DR/EC) 81 mg PO DAILY Discharge Orders: Discharge Order (Routine); Ordered 05/04/25 Ordered By: Nam Wills Diet: Advance to usual diet Activity on Discharge: As tolerated Stand Alone Forms: Patient Portal Discharge page Print Language: Jamaican Activity Restrictions/Additional Instructions: Wound Care instructions: Daily - Dakin soaked gauze, covered with fluff gauze and ABD, secure with tape Care Plan Goals: wound care follow up with nead and neck surgeon Health Concerns: head/neck wound HTN first degree av block Plan of Treatment: discharge to SNF, continue ertapenam via picc line for 6 weeks continue following as an outpatient in the wound clinic with Dr. Rahman follow up with head and neck surgeons Assessment: patient stable, improved since admission
[2025-05-04 11:22] LABS: Glucose, Whole Blood 236 mg/dL (60-115)
[2025-05-04 12:00] VITALS: BP 124/61; PULSE 67; RESP 16; TEMP 36.1; O2SAT 94
--- NOTE | 2025-05-06 13:25 | P.CDIM_ITS ---
PROVIDER RESPONSE TEXT: To clarify, the appropriate diagnosis supported by the clinical indicators: Aspiration Pneumonia: Possible aspiration pneumonia from food with underlying dysphagia QUERY TEXT: PHYSICIAN'S DOCUMENTATION REQUEST Date of Query: 05/03/2025 10:48 AM EDT Patient Name: Kamron Coker Admit Date: 04/26/2025 Dear Mir MAXWELL, A review of the medical record indicates additional documentation may be needed. Please review below and update the documentation accordingly. Clinical Indicators: Progress notes: Plan - Fever, possible atelectasis, possible aspiration On broad spectrum abx. Incentive spirometry. CXR- Low lung volumes with bilateral bronchovascular crowding in the perihilar regions and lower lungs. Patchy opacity in the right lung base, possibly atelectasis vs pneumonia in the appropriate clinical setting. Based on the above, could you clarify in the Progress Notes further specificity regarding the most likely type of pneumonia you suspect you are treating: Aspiration Pneumonia Please indicate substance such as food or vomitus, oils, or other solids or liquids Pneumonia specify organism if known Other (explain) Clinically unable to determine (explain) Thank you, Charissa Urbina, CCS, CDIS Use of terms such as suspected, likely, concern for, or probable (associated with a specific diagnosis that is being evaluated, monitored, or treated as if it exists) are acceptable and can be coded in the inpatient setting, when documented at the time of discharge. Please use your independent medical judgment in providing your response. THIS QUERY IS PART OF THE PERMANENT MEDICAL RECORD
--- NOTE | 2025-06-02 08:45 | P.CDIM_ITS ---
PROVIDER RESPONSE TEXT: To clarify, the appropriate diagnosis supported by the clinical indicators: Clinically unable to determine (explain): radiology report seeing findings showing mild permeative type osseous changes of which osteomyelitis not be excluded given the appearance, overall the findings suggesting malignant otitis externa. Would need MRI or bone biopsy to confirm osteomyelitis. QUERY TEXT: PHYSICIAN'S DOCUMENTATION REQUEST Date of Query: 06/02/2025 05:51 AM EDT Patient Name: Kamron Coker Admit Date: 04/26/2025 Dear Nam Wills PA-C, RETROSPECTIVE QUERY A review of the medical record indicates additional documentation may be needed. Please review below and update the documentation accordingly. Clinical Indicators: Progress notes 04/26 - 05/04/25 - Abscess of right neck wound/possible right malignant otitis media/osteomyelitis of right mastoid tip. Soft Tissue Neck CT 04/26/25 - Impression: Cannot exclude osteomyelitis of the right mastoid tip with mild permeative bone changes and opacification of the right mastoid tip. Cefepime, Vancomycin, IV Tylenol, PICC line placed. Based on the above, please clarify in the Progress Notes within the written Plan further specificity regarding the acuity of the documented Osteomyelitis right mastoid tip: Acute osteomyelitis Subacute osteomyelitis Chronic osteomyelitis Other (explain) Clinically unable to determine (explain) Thank you, Charissa Urbina, CCS, CDIS Use of terms such as suspected, likely, concern for, or probable (associated with a specific diagnosis that is being evaluated, monitored, or treated as if it exists) are acceptable and can be coded in the inpatient setting, when documented at the time of discharge. Please use your independent medical judgment in providing your response. THIS QUERY IS PART OF THE PERMANENT MEDICAL RECORD
== END 2025-05-04 12:27 | disposition skilled nursing facility (03) | DRG 579 ==
LOC: HO.ED 14:54 → HO.EDOVER 15:05 → HO.S3 19:17
PROVIDERS: Physician Assistant Medical; Admitting Provider Surgery; Emergency Provider Emergency Medicine; PCP Internal Medicine; Visit Provider Surgery
PROC: 0LD Tendons, Extraction (ICD-10-PCS; principal; 2025-04-26 17:30)
DX: L03.211 Cellulitis of face (principal); J69.0 Pneumonitis due to inhalation of food and vomit; H60.21 Malignant otitis externa, right ear; I96 Gangrene, not elsewhere classified; J98.11 Atelectasis; M86.9 Osteomyelitis, unspecified; K22.2 Esophageal obstruction; I10 Essential (primary) hypertension; Y84.2 Radiological procedure and radiotherapy as the cause of abnormal reaction of the patient, or of later complication, without mention of misadventure at the time of the procedure; B96.4 Proteus (mirabilis) (morganii) as the cause of diseases classified elsewhere; Z85.89 Personal history of malignant neoplasm of other organs and systems; E78.5 Hyperlipidemia, unspecified; E11.319 Type 2 diabetes mellitus with unspecified diabetic retinopathy without macular edema; I44.0 Atrioventricular block, first degree; E11.69 Type 2 diabetes mellitus with other specified complication; Z87.891 Personal history of nicotine dependence; Z88.0 Allergy status to penicillin; Z79.84 Long term (current) use of oral hypoglycemic drugs; Z79.83 Long term (current) use of bisphosphonates; Z79.899 Other long term (current) drug therapy
CPT/HCPCS: 36415; 36573; 70470; 70491; 71045; 80048; 80053; 80076; 80202; 81001; 82565; 82947; 83605; 85025; 85027; 86140; 87040; 87070; 87077; 87186; 87205; 88304; 92526; 92610; 93005; 97116; 97162; 97530; 99285; C1751; J0131; J0692; J1171; J1335; J1836; J2003; J2704; J3373; J3374; J7120; Q9967

== ENCOUNTER → 2025-04-26 10:05 | Outpatient (BNV) | payer MEDICARE, OTHER, SELFPAY | PROVIDERS: Emergency Provider Emergency Medicine; PCP Internal Medicine; Visit Provider Radiology Diagnostic Radiology | DX: R51.9 Headache, unspecified (principal); L02.11 Cutaneous abscess of neck | CPT/HCPCS: 70470; 70491 ==

== ENCOUNTER 2025-04-26 14:38 | Outpatient (BNV) | payer MEDICARE, OTHER, SELFPAY | END 2025-04-26 17:18 | PROVIDERS: Admitting Provider Surgery; Emergency Provider Emergency Medicine; PCP Internal Medicine; Visit Provider Internal Medicine | DX: I44.0 Atrioventricular block, first degree (principal); I45.10 Unspecified right bundle-branch block | CPT/HCPCS: 93010 ==

== ENCOUNTER 2025-04-26 14:38 | Outpatient (BNV) | payer MEDICARE, OTHER, SELFPAY | END 2025-04-28 07:47 | PROVIDERS: Admitting Provider Surgery; Emergency Provider Emergency Medicine; PCP Internal Medicine; Visit Provider Radiology Diagnostic Radiology | DX: R05.9 Cough, unspecified (principal) | CPT/HCPCS: 71045 ==

== ENCOUNTER → 2025-04-26 14:38 | Outpatient (BNV) | payer MEDICARE, OTHER, SELFPAY | PROVIDERS: Admitting Provider Surgery; Emergency Provider Emergency Medicine; PCP Internal Medicine; Visit Provider Nurse Practitioner Family | DX: C76.0 Malignant neoplasm of head, face and neck (principal) | CPT/HCPCS: 99232; 99233 ==

== ENCOUNTER → 2025-04-26 14:38 | Outpatient (BNV) | payer MEDICARE, OTHER, SELFPAY | PROVIDERS: Admitting Provider Surgery; Emergency Provider Emergency Medicine; PCP Internal Medicine; Visit Provider Surgery | DX: M72.6 Necrotizing fasciitis (principal) | CPT/HCPCS: 11043; 11046; 99223; 99232; 99499 ==

== ENCOUNTER → 2025-04-26 14:38 | Outpatient (BNV) | payer MEDICARE, OTHER, SELFPAY | PROVIDERS: Admitting Provider Surgery; Emergency Provider Emergency Medicine; PCP Internal Medicine; Visit Provider Internal Medicine | DX: C76.0 Malignant neoplasm of head, face and neck (principal); L02.91 Cutaneous abscess, unspecified | CPT/HCPCS: 99232 ==

== ENCOUNTER 2025-06-13 13:46 | Outpatient (AMB) | payer MEDICARE, OTHER, SELFPAY ==
--- OUTSIDE RECORDS SUMMARY | 2024-08-30 07:30 | XMS_ITS ---
Progress note - 08/30/2024 Created on: June 13, 2025 Kamron Coker : 1945
--- NOTE | 2025-06-13 13:56 | MHC.OFFVIS ---
Vital Signs 06/13/25 14:09 Weight 190 lb BP 140/60 H Blood Pressure Location Rt brachial Position Sitting Pulse 68 Pulse Source Pulse Oximeter Pulse Oximetry (%) 97 Oxygen Delivery Method Room Air Intake Visit Reasons: [facility] reff/end of antibiotics Allergies Penicillins (PCN) Allergy (Verified 06/13/25 14:10) Unknown HPI Comments Details: History of Present Illness The patient is an 80-year-old male presenting with follow-up evaluation for concerns of osteomyelitis in the right neck and an ear infection. He has completed a 6-week course of intravenous Ertapenem, concluding on June 17, during which he has reported no fever or chills. Healing of the affected area has shown progression, and although he has utilized oral antibiotics previously, there is no intent to continue them. Documented infections include Proteus Mirabilis, which he has tolerated well, without experiencing any allergic reactions or gastrointestinal distress. Review of Systems - General: Denies fever, denies chills. - Skin: Healing of areas reported. - Ears, Nose, Throat: Reports ear infection, denies sore throat. - Gastrointestinal: Denies diarrhea. - No other systems were discussed or reported in the conversation. Physical Exam - Neck- Right neck area clean with no open wounds. - Respiratory- Lungs clear to auscultation. - Cardiovascular- Heart in regular rhythm. - Abdominal- Abdomen soft, non-tender. Results Plan Patient was informed and verbally consented to the use of an ambient scribe for clinic note documentation during this visit. 1. Other acute osteomyelitis, other site M86.18 HCC 39 The patient completed a 6-week course of intravenous Ertapenem, showing notable improvement and no systemic infection signs like fever or chills. Further antibiotic treatment is not planned after the current course ends. Monitoring for any recurrence signs is critical. 2. Unspecified acute noninfective otitis externa, unspecified ear H60.509 Managed with antibiotic treatment for associated Proteus Mirabilis infection. The patient tolerated it well with no adverse reactions and will follow up with an ENT specialist in [place]. 3. Other bacterial infections of unspecified site A49.8 Treated effectively with Ertapenem, with no adverse reactions reported. Monitoring for recurrence is advised. Discussion Notes I discussed the likely diagnosis of osteomyelitis and Proteus Mirabilis infection with the patient, as well as the risk and benefits of continuing antibiotic treatment. The patient consented to use [employer] technology for follow-up and dictation purposes. The benefits of completing the current antibiotic regimen and the need for an ENT follow-up in [place] for continuous management of the ear infection were also discussed, with the understanding that antibiotics will be stopped on June 17 if no adverse symptoms occur. Medical Decision Making The clinical thought process involved evaluating the severity of the patient's condition, primarily addressing right neck osteomyelitis and Proteus Mirabilis infection. Based on the treatment course with Ertapenem, showing improvement and no systemic infection signs, I determined it was appropriate to discontinue antibiotics after completion of the course. The patient demonstrated no adverse reactions, indicating effective management. The main goal remains to prevent any recurrence and ensure smooth recovery. Referral to an ENT specialist in [place] ensures continued comprehensive management of ear infection concerns. Patient Instructions - Finish the current antibiotic course as prescribed until June 17. - Monitor for any signs of fever, chills, or new symptoms, and seek medical attention if they occur. - Attend follow-up with the ENT specialist in [place] as advised. - Keep the area clean and observe for any changes in the condition. 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 History of lithotripsy History of appendectomy History of colonoscopy Social History Household Members: Spouse and Children Housing: House Do you presently have visiting nurse or other home services: No Patient Tobacco Use Status: Former Tobacco user e-Cigarette/Vaping Use: Never Used Second Hand Smoke Exposure: No service: No Physical Exam Exam Exam: first picture is one [facility],second picture is today Vital Signs: Last Vital Signs Pulse 68 06/13/25 14:09 BP 140/60 H 06/13/25 14:09 Pulse Ox 97 06/13/25 14:09 Oxygen Delivery Method Room Air 06/13/25 14:09 Assessment & Plan Assessment & Plan (1) Osteomyelitis: Comment: na Code(s): M86.9 - Osteomyelitis, unspecified Category: Medical Plan: na Orders: Orders IR cvc remove any age Today M86.9 - Osteomyelitis, unspecified Coding Level of Care Code Est Pt Level 3 (22657) Diagnoses Osteomyelitis M86.9
[2025-06-13 14:09] VITALS: BP 140/60; PULSE 68; O2SAT 97
== END 2025-06-13 14:39 | disposition home or self-care (01) ==
LOC: HO.HID 13:46
PROVIDERS: PCP Internal Medicine; Visit Provider Internal Medicine
DX: M86.9 Osteomyelitis, unspecified (principal)
CPT/HCPCS: 99213

== ENCOUNTER → 2025-06-13 13:46 | Outpatient (BNVA) | payer MEDICARE, OTHER, SELFPAY | PROVIDERS: PCP Internal Medicine; Visit Provider Internal Medicine | DX: M86.18 Other acute osteomyelitis, other site (principal) | CPT/HCPCS: 99212 ==

== ENCOUNTER 2025-08-23 10:51 | Outpatient (AMB) | payer MEDICARE, OTHER, SELFPAY ==
--- OUTSIDE RECORDS SUMMARY | 2025-08-22 13:15 | XMS_ITS | Encounter Summary ---
Author Organization [facility] Address [address] [address] Phone Care Team Providers Care Chemistry Instructor Name Role Phone Oswaldo Barrett MD Primary Care Provider Encounter Details Date Type Department Care Team (Late st Contact Info) Description 08/22/2025 1:15 PM EST [facility] [address] [place] [place] [place] [address] Jeramie Grant MD [address] [address] Essential hypertension (Primary Dx); Chronic kidney disease, stage 2 (mild); Type 2 diabetes mellitus with diabetic chronic kidney disease (HCC) Social History Tobacco Use Types Packs/Day Years Used Date Smoking Tobacco: Never Smokeless Tobacco: Never Sex and Gender Information Value Date Recorded Sex Assigned at Not on file Legal Sex Male 5:10 PM EST Gender Identity Not on file Sexual Orientation Not on file documented as of this encounter Last Filed Vital Signs Vital Sign Reading Time Taken Comments Blood Pressure 146/62 08/22/2025 1:16 PM EST Pulse 61 08/22/2025 1:16 PM EST Temperature - - Respiratory Rate - - Oxygen Saturation 99% 08/22/2025 1:16 PM EST Inhaled Oxygen Concentration - - Weight 91.4 kg (201 lb 6.4 oz) 08/22/2025 1:16 P M EST Height - - Body Mass Index 28.09 07/18/2022 1:54 PM EDT documented in this encounter Functional Status * BP Answer Date of Assessment Author 146/Teo 08/22/2025 1:16 PM Najma Jamison MA * Pulse Answer Date of Assessment Author 61 08/22/2025 1:16 PM EST Najma Sawant MA * SpO2 Answer Date of Assessment Author 99 08/22/2025 1:16 PM Najma Jamison MA * Weight Answer Date of Assessment Author 3222.4 08/22/2025 1:16 PM Najma Jamison MA * BP Answer Date of Assessment Author 146/62 08/22/2025 1:16 PM Najma Jamison MA * Weight Answer Date of Assessment Author 3222.4 08/22/2025 1:16 PM Najma Jamison MA documented as of this encounter Plan of Treatment Upcoming Encounters Date Type Department Care Team (Late st Contact Info) Description 08/28/2026 1:30 PM EST Office [facility] [address] [place] [phone] Jeramie Grant MD [address] [facility] [address] [place] [address] documented as of this encounter Visit Diagnoses Diagnosis Essential hypertension- Primary Chronic kidney disease, 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
[2025-08-23 11:22] VITALS: BMI 30.6
--- NOTE | 2025-08-23 11:22 | MHC.OFFVIS ---
Vital Signs 08/23/25 11:22 Height 5 ft 8 in Weight 201 lb BMI 30.6 Intake Visit Reasons: Onychomycosis Intake Note: Kamron is a 80 year old male who presents today as a new patient for an evaluation of his onychomycosis. Patient reports the fungus is located primarily on bilateral hallux and he has notices his other toes seem to have Fungus starting grow as well. patient states this has been going on for years since he was in the [place]. he has fluid leaking from his left toe and he has tried treating the fungus with vicks however no other treatment was tried. Allergies Penicillins (PCN) Allergy (Verified 08/23/25 11:24) Unknown HPI Comments Details: The patient is an 80 year old individual with a past medical history as seen below presenting for routine diabetic foot care and evaluation of drainage from the left hallux. Patient was accompanied by his son who assisted in providing history. The patient has a history of diabetes, with a reported A1c of 7.8 in March, which was down from 8.2. Recent lab work was reportedly done within the past month at an outside facility. Blood sugars have been decent, though there is some concern about them going low at night. The patient reports drainage from the left hallux. The drainage does not seem purulent but occasionally has a small amount of blood. The patient reports some tingling in the feet and intermittent pain in all toes. There is a history of stubbing the right hallux earlier in the year, which caused part of the nail to separate and was subsequently trimmed back. The patient has been receiving nail care at the [facility] and has a future appointment scheduled. The patient previously tried to trim the nails independently and nicked the skin, prompting the patient to seek professional podiatry care. For a suspected fungal infection, the patient had been applying Vicks to the two big toes. Patient denies any other pedal concerns at this time. 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 - Musculoskeletal: Reports intermittent pain in the toes due to thickened and elongated toenails x10, worse to the left hallux. - Integumentary: Reports drainage from the left hallux. All systems reviewed & are unremarkable except as noted in HPI and below Physical Exam Vital Signs: BMI result Body Mass Index 30.6 Extrem Other: Bilateral lower extremity focused physical exam: Derm: Loosely adhered left hallucal nail to nailbed with serous drainage noted. Malodorous. Toenails x10 noted to be thickened, elongated, discolored, and dystrophic with subungual debris. No open lesions, abrasions, or wounds noted. No erythema, ecchymosis, or discoloration noted. Maceration noted to 4th interdigital spaces bilaterally. Vascular: DP/PT pulses palpable. CFT less than 3 seconds. Temperature gradient warm to warm. Pedal hair absent. Varicosities noted. Mild edema noted. Neuro: Protective sensation is grossly intact to light touch and diminished to monofilament testing. MSK: Pain on palpation to the left hallucal nail due to loosely adhered nail to nailbed. No crepitus or fluctuance noted. Range of motion of the forefoot, hindfoot and ankles within normal limits. Pes planus noted. Slow gait noted. Office Procedures AMB Debridement/Avulsion Podia Details: Debrided toenails x9 using sterile nail nippers without any incidents. Applied Betadine to the macerated areas of interdigital space 4. Bilaterally. Procedure: Left hallux total nail avulsion Cleansed left hallux with alcohol swab and injected 10cc of 2% lidocaine plain in a hallux block fashion. Next applied a tourniquet to the left hallux and then cleansed the left hallux with Betadine. Attention was drawn to the partially detached left hallucal nail and a Hiland was utilized to free the offending nail from the nail bed and nail matrix. Next using a hemostat, the offending nail was removed completely. Upon removal of the nail a macerated and malodorous nailbed was noted. A curette was used to debride the nailbed and assess for nailbed laceration. At this time no nailbed laceration was noted. Next, Triple antibiotic ointment, 2x2 gauze, and Coban was then applied to the left hallux. Procedure was done with no incidents. Provided patient with aftercare instructions. 49215-Ivmdjirwozz of Nail 6+ 42898 Partial/Total nail avulsion (1 nail) Procedure code (CPT) selection complete Office Meds lidocaine HCl 10 mg/mL (1 %) injection solution Performing Provider: Soha Allen DPM Performing Location: [facility] Administered by: Soha Allen DPM on 08/26/25 18:53 Dose Route Admin Location Dispensed Lot Number Expiration Date [facility] Taxonomy Teacher 10 mL subcut 10 mL [id number] Total Dispensed Waste 10 mL 0 % Triple Antibiotic 3.5 mg-400 unit-5,000 unit topical ointment packet Performing Provider: Soha Allen DPM Performing Location: [facility] Administered by: Soha Allen DPM on 08/26/25 18:53 Dose Route Admin Location Dispensed Lot Number Expiration Date [facility] Taxonomy Teacher 1 appl topical 1 appl [id number] [place] povidone-iodine 10 % topical swab Performing Provider: Soha Allen DPM Performing Location: [facility] Administered by: Soha Allen DPM on 08/26/25 18:53 Dose Route Admin Location Dispensed Lot Number Expiration Date [facility] Taxonomy Teacher 1 appl topical 1 appl [id number] [employer]. ethyl chloride 100 % topical spray Performing Provider: Soha Allen DPM Performing Location: [facility] Administered by: Soha Allen DPM on 08/26/25 18:53 Dose Route Admin Location Dispensed Lot Number Expiration Date [place] Taxonomy Teacher 1 appl topical 116 mL [id number] [employer]. Results Reviewed Results Reviewed: Obtained a left hallux wound culture to be sent to microbiology. Patient reports an A1c of 7.8. Assessment & Plan Assessment & Plan (1) Diabetes type 2: Code(s): E11.9 - Type 2 diabetes mellitus without complications Category: Medical (2) Onychomycosis: Code(s): B35.1 - Tinea unguium Category: Medical (3) Nail disorder: Code(s): L60.9 - Nail disorder, unspecified Category: Medical (4) Nail dystrophy: Code(s): L60.3 - Nail dystrophy Category: Medical (5) Onycholysis: Code(s): L60.1 - Onycholysis Category: Medical (6) Cellulitis of great toe, left: Code(s): L03.032 - Cellulitis of left toe Category: Medical (7) Varicose veins of bilateral lower extremities with other complications: Code(s): I83.893 - Varicose veins of bilateral lower extremities with other complications Category: Medical Plan Patient was informed and verbally consented to the use of an ambient scribe for clinic note documentation during this visit. I discussed with the patient that the left hallux nail was loose, which I believe is the source of the drainage. I recommended a total nail avulsion to prevent future infection and allow the nail to grow out properly. After discussion, the patient consented to the procedure. I also discussed treatment options for onychomycosis, comparing oral terbinafine, which requires liver function monitoring, with topical ciclopirox. I recommended the topical treatment to avoid systemic side effects, and the patient agreed. I advised the patient to use iodine to dry out the maceration between the toes to prevent the skin from breaking down into a wound. Post-procedure care instructions were provided, including keeping the bandage on for 24 hours, followed by daily soaks in Epsom salt and warm water for two weeks, and applying Neosporin and a new Band-Aid. I advised the patient to follow up in two weeks for a wound check and to return every nine weeks for routine nail care. - Debrided toenails x9 and applied Betadine to macerated areas. - Performed total nail avulsion of left hallux. - Obtained wound culture of the left hallux. - Ciclopirox topical solution was prescribed for onychomycosis, to be applied to the remaining toenails. - The patient was advised to use Betadine swabs to dry the macerated skin between the fourth and fifth toes bilaterally. - The patient was instructed to bring a copy of the recent lab work from June to the next appointment. - A follow-up appointment is scheduled in two weeks to check on the healing of the left hallux. - The patient will continue with routine nail care every nine weeks. RTC in 2 weeks. Orders: Orders Routine Culture w Gram Stain 08/23/25 B35.1 - Tinea unguium, L03.032 - Cellulitis of left toe, L60.1 - Onycholysis AMB Debridement/Avulsion Podiatry 08/23/25 B35.1 - Tinea unguium, L60.1 - Onycholysis, L60.3 - Nail dystrophy, L60.9 - Nail disorder, unspecified Medications: New ciclopirox 8% 1 appl topical BEDTIME 6.6 mL 0RF 4 weeks B35.1 - Tinea unguium, E11.9 - Type 2 diabetes mellitus without complications, L60.3 - Nail dystrophy, L60.9 - Nail disorder, unspecified Coding Level of Care Code New Pt Level 4 (12430) Diagnoses Diabetes type 2 E11.9 Onychomycosis B35.1 Nail disorder L60.9 Nail dystrophy L60.3 Onycholysis L60.1 Cellulitis of great toe, left L03.032 Varicose veins of bilateral lower extremities with other complications I83.893 CPT Codes Skin Debridement - CPT: 32994-Sdltjgdkksy of Nail 6+ ([id number]) Skin Debridement - CPT: 90058 Partial/Total nail avulsion (1 nail) ([id number]) Time Spent (min) 65 Comment 20 mins for procedure
--- OUTSIDE RECORDS SUMMARY | 2025-08-23 12:46 | XMS_ITS | Clinical Summary ---
Author Organization [facility] Address [address] [place] [address] Phone Care Team Providers Care Clinical Academic Allergist Name Role Phone Oswaldo Barrett MD Primary Care Provider [phone] Allergies Active Allergy Reactions Criticality Noted Date Comments Penicillins Rash Low 05/24/2021 Medications Fluticasone Propionate (FLONASE ALLERGY RELIEF NA) Active Multiple Vitamins-Hymera als (ICAPS AREDS FORMULA PO) Take 1 capsule by mouth 1 (one) time each day Active aspirin (ST COSMO) 81 MG EC tablet Take 1 tablet by mouth 1 (one) time each day Active atorvastatin (LIPITOR) 20 MG tablet Take 20 mg by mouth 1 (one) time each day 04/30/20 21 Active hydroCHLOROthi azide 25 MG tablet Take 25 mg by mouth 1 (one) time each day 04/25/20 21 Active NovoLIN 70/30 (70-30) 100 UNIT/ML injection 04/30/20 21 Active metFORMIN XR (GLUCOPHAGE-XR ) 500 MG 24 hr tablet Take 500 mg by mouth twice a day 05/01/20 21 Active Multiple Vitamins-Hymera als (ICAPS PLUS PO) Take 1 tablet by mouth 1 (one) time each day Active triamcinolone (KENALOG) 0.1 % cream APPLY TWO TIMES A DAY TO THE AFFECTED AREA(S) OF ECZEMA FOR 1-2 WEEKS AT A TIME FOR FLARES. NOT FOR FACE OR BODY FOLDS 07/31/20 21 Active morphine (MS CONTIN) 30 MG 12 hr tablet TAKE ONE TABLET BY MOUTH TWICE A DAY - DO NOT EXCEED 2 TABLETS PER DAY 07/30/20 24 Active morphine (MSIR) 15 MG tablet Take 15 mg by mouth 06/21/20 24 Active telmisartan (MICARDIS) 80 MG tablet Take 1 tablet (80 mg total) by mouth 1 (one) time each day 90 tablet 3 06/08/20 25 Active nebivolol (BYSTOLIC) 10 MG tabletIndicati ons:Essential hypertension,C hronic kidney disease, stage 2 (mild),Type 2 diabetes mellitus with diabetic chronic kidney disease (HCC) Take 1 tablet (10 mg total) by mouth 1 (one) time each day in the evening 90 tablet 3 07/18/20 25 026 Active furosemide (LASIX) 80 MG tablet Take 80 mg by mouth in the morning and 80 mg in the evening. Active fentaNYL (DURAGESIC) 100 MCG/HR Place 1 patch on the skin every 3rd (third) day Active oxyCODONE (OxyCONTIN) 20 MG 12 hr abuse-deterren t tablet Take 20 mg by mouth every 12 (twelve) hours Do not crush, chew, or split. Active amLODIPine (NORVASC) 10 MG tabletIndicati ons:Essential hypertension,C hronic kidney disease, stage 2 (mild),Type 2 diabetes mellitus with diabetic chronic kidney disease (HCC) Take 0.5 tablets (5 mg total) by mouth 1 (one) time each day 45 tablet 08/22/20 25 026 Active terazosin (HYTRIN) 2 MG capsule Take 3 capsules (6 mg total) by mouth 1 (one) time each day 270 capsule 08/22/20 25 026 Active terazosin (HYTRIN) 2 MG capsule Take 6 mg by mouth 1 (one) time each day 04/30/20 21 025 Discontinued(Re order (does not appear on AVS)) amLODIPine (NORVASC) 10 MG tabletIndicati ons:Essential hypertension,C hronic kidney disease, stage 2 (mild),Type 2 diabetes mellitus with diabetic chronic kidney disease (HCC) Take 1 tablet (10 mg total) by mouth 1 (one) time each day 90 tablet 3 07/18/20 25 025 Discontinued Active Problems Problem Noted Date Diagnosed Date Edema 08/22/2025 Encounter for fitting and adjustment of hearing aid 07/28/2023 07/28/2023 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 Type 2 diabetes mellitus 07/28/2023 023 Chronic kidney disease, stage 2 (mild) 3 Essential hypertension 04/24/2016 Resolved Problems Problem Noted Date Diagnosed Date Resolved Date Aortic valve disorder 07/04/20202020 Asthma without status asthmaticus 07/04/2020 06/15/2021 Mixed conductive and sensori neural hearing loss 07/04/2020 06/15/2021 Obesity 07/04/2020 06/15/2021 Type 2 diabetes mellitus without complication 07/04/20 20 06/15/2021 History of aortic valve stenosis 04/04/2020 06/15/2021 [...] Encounters Date Type Department Care Team Description 08/22/2025 1:15 PM EST Office Visit [facility] [address] [place] [address] Jeramie Grant MD Essential hypertension (Primary Dx); Chronic kidney disease, stage 2 (mild); Type 2 diabetes mellitus with diabetic chronic kidney disease (HCC) 07/18/2025 Refill [facility] [address] [address] Zoë Gar Essential hypertension; Chronic kidney disease, stage 2 (mild); Type 2 diabetes mellitus with diabetic chronic kidney disease (HCC) 07/18/2025 Refill [facility] [address] [phone] Zoë Gar Essential hypertension; Chronic kidney disease, stage 2 (mild); Type 2 diabetes mellitus with diabetic chronic kidney disease (HCC) 07/09/2025 Orders Only [facility] [address] [place] [address] Jeramie Grant MD Essential hypertension; Chronic kidney disease, stage 2 (mild) 06/07/2025 Refill [facility] [address] [phone] Concepción Latif 06/06/2025 Refill [facility] [address] [phone] Iliana Worthy MA from Last 3 Months Immunizations Immunization Administration Dates Next Due DTaP, Unspecified 05/23/2012 Influenza Split High Dose Pr eservative Free IM 06/02/2024 Influenza Whole 07/08/2002 Influenza, Unspecified 05/23/2021,2019,06/06/2016,06/18,05/23/2012 Moderna SARS-COV-2 07/16/2021,11/20/2020, 021 Pneumococcal Conjugate 13-Valent 10/01/2012 Pneumococcal Polysaccharide 07/07/2017, 2 Shingrix 07/03/2018,04/21/2018 Td 07/08/2002 Tdap 05/08/2012 Zoster [...] oz) 08/22/2025 1:16 P M EST Height 180.3 cm (5' 11 ) 07/18/2022 1:54 PM EDT Body Mass Index 28.09 07/18/2022 1:54 PM EDT Plan of Treatment Upcoming Encounters Date Type Department Care Team (Late st Contact Info) Description 08/28/2026 1:30 PM EST Office Visit [facility] [address] [place] [address] Jeramie Grant MD [address] [facility] [address] [place] [address] Health Maintenance Due Date Last Done Comments Diabetes: Hemoglobin A1C 07/18/2022 Diabetes: Pedal Pulse Checked 07/18/2022 Diabetes: Sensory Foot Exam 07/18/2022 Diabetes: Visual Foot Exam 07/18/2022 Diabetes: Ophthalmology Exam 11/17/2025 11/17/2024 Pneumococcal Vaccine: 50+ Years Completed 07/07/2017, 10/01/2012, 05/08/2012 Pneumococcal Vaccine: Peds (0 to 5 Years) and At-Risk Patients (6 to 49 Years) Discontinued 07/07/2017, 10/01/2012, 05/08/2012 Influenza Vaccine Completed 06/17/2025, , 07/06/2023, Additional history exists Hepatitis B Vaccine Aged Out No longe r eligible based on patient's age to complete [place] [address] Medicare [place] [address] Care Teams Clinical Academic Allergist Relationship Specialty Start Date End Date Oswaldo Barrett MD [address] [place], [place] PCP - General Internal Medicine 06/15/21
--- OUTSIDE RECORDS SUMMARY | 2025-08-23 12:46 | XMS_ITS | Encounter Summary ---
Author Organization [facility] Address [facility] [place] [address] Care Team Providers Care Lead Refinery Supervisor Name Role Phone Oswaldo Barrett MD Primary Care Provider [phone] Encounter Details Date Type Department Care Team (Late st Contact Info) Description 05/17/2025 Lab [place] [phone] Ba Stafford MD [facility] [place] [address] Social History Tobacco Use Types Packs/Day Years Used Date Smoking Tobacco: Never Smokeless Tobacco: Never Alcohol Use Standard Drinks/Week Comments No 0 (1 standard drink = 0.6 oz pur e alcohol) [facility] Utilities Answer Date Recorded In the past 12 months has [facility] [employer], gas, oil, or water [employer] threatened to shut off services in your [...] place to sleep or slept in a nursing home (including now)? No 10/14/2023 DH IPV [...] Procedure Name Priority Date/Time Associated Diagnosis Comments CONSULTATION Routine 04/26/2025 12:00 PM EDT documented in this encounter Results * (ABNORMAL) Consultation (04/26/2025 12:00 PM EDT) Case Report Surgical Pathology Report Case: [id number] Authorizing Provider: Ba Stafford MD Collected: 04/26/2025 1200 Ordering Location: Laboratory Received: 05/17/2025 0550 Pathologist: Peter King MD Specimen: Neck, Right, [id number] 05/19/2025 12:18 PM EDT [facility] Final Diagnosis CONSULTATION CASE Outside slide(s) labeled [id number], collection date 04/26/2025. A - Right posterior superficial neck, skin excision - Granulation tissue and mixed inflammation (see discussion) B - Right deep posterior neck, skin excision - Ulcer, granulation tissue, fibrinoid debris, coccoid bacteria aggregates and mixed inflammation (see discussion) C - Right posterior ear, skin excision - Ulcer, granulation tissue, and mixed inflammation (see discussion) D - Deep right occiput, skin excision - Ulcer, granulation tissue, fat necrosis, reactive myofibroblastic changes and mixed inflammation (see discussion) E - Right face, skin biopsy - Hypertrophic actinic keratosis, present at specimen edges (see discussion) 05/19/2025 12:18 PM EDT [facility] at 1218 EDT Discussion Interpretation is somewhat limited given the presence of cautery and processing artifact on the provided H&E-stained sections. This case was reviewed by an additional intradepartmental dermatopathologist for consensus diagnoses. 05/19/2025 12:18 PM EDT [facility] Clinical Information Neck wound 05/19/2025 12:18 PM EDT [facility] Gross Description CONSULTATION CASE A - 6 slide(s) labeled [id number], collection date 04/26/2025. Requesting institution: [facility] Requesting provider : Dr. Ba Stafford Outside Institution [place] [id number] P: [phone] [facility] pathology slide(s) are reviewed. For the full text of [facility] report(s) please refer to the attached scanned documents. 05/19/2025 12:18 PM EDT [facility] Result Note THIS RESULT REQUIRES PHYSICIAN/HERO FOLLOW UP(A) 05/19/2025 12:18 PM EDT [facility] Tissue STRUCTURE OF RIGHT HALF OF NECK / Unknown 04/26/2025 12:00 PM EDT 05/17/2025 4:35 PM EDT us Ba Stafford MD PATHOLOGY/CYTOLOGY ORDERAB LES Final Result [facility] [place] [address] documented in this encounter Visit Diagnoses Not on filedocumented in this encounter Care Teams Lead Refinery Supervisor Relationship Specialty Start Date End Date Oswaldo Barrett MD [address] [place] [address] [address] [place], [place] [address] PCP - General 08/14/10 documented as of this encounter
--- OUTSIDE RECORDS SUMMARY | 2025-08-23 12:47 | XMS_ITS | Clinical Summary ---
Author Organization [facility] Address [facility] [place] [address] Care Team Providers Care Gardening Supervisor Name Role Phone Oswaldo Barrett MD [...] mouth daily. Active fluticasone (FLONASE) 50 mcg/actuation [place], Suspension 1 spray daily. Acti ve multivitamin with minerals Tablet Take 1 tablet by mouth daily. Active insulin NPH - insulin regular 70/30 (NOVOLIN MIX 70/30) Suspension Inject subcutaneously. Active clarithromycin (BIAXIN) 500 mg Tablet Take 500 mg by mouth. Take 1 tablet before dental procedures. Active hydroCHLOROthi azide (Hydrodiuril) 25 mg Tablet Take 25 mg by mouth daily. Active Vit A,C,E-Zinc-P D Driver per 4,296 mcg-226 mg-90 mg Capsule Take 1 capsule by mouth Twice daily. Active oxyCODONE (Roxicodone) 10 mg tablet Take 10 mg by mouth 2 times daily. Active ofloxacin (Floxin) 0.3 % Drops Place 3 drops into the right ear daily. 5 mL 3 5 Active Active Problems Problem Noted Date Diagnosed [...] hyperlipidemia 04/24/2016 Coronary artery disease invo lving tetlin coronary artery of tetlin heart without angina pectoris 11/17/2013 Overview (07/04/2020): Overview: Coronary arteriosclerosis Skin cancer of scalp or skin of neck 05/01/2012 Encounters Date Type Department Care Team Description 06/14/2025 Multidisciplinary Ca [place] [phone] Ash Dowling MD 2025 [place] [phone] Carlota Allen RN 05/26/2025 4:20 PM EDT [place] [phone] Ash Dowling MD History of skin cancer; Sarcoma of head and neck 05/26/2025 3:15 PM EDT [place] [phone] Atul Carey MD Skin cancer of scalp or skin of neck 05/26/2025 Travel from Last 3 Months Family History Medical History Relation Comments Liver Cancer Father Relation Status Comments Father Social History Tobacco Use Types Packs/Day Years Used Date Smoking Tobacco: Never Smokeless Tobacco: Never Tobacco Cessation:Counseling Given: Not Answered Alcohol Use Standard Drinks/Week Comments No 0 (1 standard drink = 0.6 oz pur e alcohol) [facility] Utilities Answer Date Recorded In the [...] place to sleep or slept in a [facility] (including now)? No 10/14/2023 DH IPV Inpatient [...] EDT Inhaled Oxygen Concentration - - Weight 84.8 kg (187 lb) 05/26/2025 3:56 PM EDT Height 179.1 cm (5' 10.5 ) 05/26/2025 3:56 PM ED T Body Mass Index 26.45 05/26/2025 3:56 PM EDT Plan of Treatment Health Maintenance Due Date Last Done Comments DM Hemoglobin A1c 1955 DM Ophthalmology Exam 1955 DM Urine Microalbumin yearly 1955 Pneumoccocal Vaccine: 50+ (1 of 2 - PCV) 1962 Tetanus/Diphtheria/Pertussis Vaccines (1 - Tdap) 05/31 Zoster vaccine (1 of 2) 1993 RSV Vaccine (1 - 1-dose 75+ series) 2018 DM Creatinine yearly 10/14/2024 10/14/2023 Covid-19 Vaccine (1 - 2024- season) 2025 Influenza (Flu) vaccine (1 o f 1 - Influenza standard series) 05/23/2025 Procedures Procedure Name Priority Date/Time Associated Diagnosis Comments CT SCAN (SCAN) 08/02/2025 12:00 AM EST COMPREHENSIVE METABOLIC PANEL Routine 10/14/2023 12:11 PM EST 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 us Scanning Provider MEDIA MGR SCAN EXT ORDR/RSLT F inal Result * (ABNORMAL) Comprehensive metabolic panel (non-fasting) (10/14/2023 12:11 PM EST) Glucose 275(H) 65 - 199 mg/dL [facility] Comment:Diabetes: >=200 mg/d L plus symptoms Blood Urea Nitrogen 17 10 - 20 mg/dL [facility] Creatinine 0.79(L) 0.80 - 1.50 mg/dL [facility] Sodium 136 135 - 145 mmol/L [facility] Potassium 4.8 3.5 - 5.0 mmol/L [facility] Comment: Please note: Patients with WBC >100,000 may have falsely elevated Potassium levels. For accurate Potassium quantification in these patients send serum separator tube (gold top) for subsequent determinations. Contact the Clinical Chemistry Laboratory if there are any questions. Chloride 99 98 - 107 mmol/L [facility] Carbon Dioxide 26 22 - 31 mmol/L [facility] Anion Gap 11 5 - 15 mmol/L [facility] Calcium 9.9 8.5 - 10.5 mg/dL [facility] Protein, Total 7.6 6.1 - 8.0 g/dL [facility] Albumin 4.2 3.2 - 5.2 g/dL [facility] Aspartate Aminotransferase 17 0 - 39 unit/L [facility] Alanine Aminotransferase 18 0 - 55 unit/L [facility] Alkaline Phosphatase 134(H) 40 - 130 unit/L [facility] Bilirubin, Total 0.7 0.2 - 1.3 mg/dL [facility] Est Glomerular Filtration Rate 90 >=60 mL/min/1. 73 m [facility] Comment: This patient's estimated GFR [...] Kemp APRN CHEMISTRY ORDERABLES [place] [address] from Last 3 Months or Most Recently Relevant to Health Maintenance Insurance [facility] MEDICARE [employer] Advance Directives Documents on File Type Date Recorded Patient Checking Department Supervisor Expl anation Advance Directives and Livin g Will 09/25/2023 4:05 PM Care Teams Gardening Supervisor Relationship Specialty Start Date End Date Oswaldo Barrett MD [address] [place] [address] DR OROZCO, TIA [address] PCP - General 08/14/10
== END 2025-08-23 12:34 | disposition home or self-care (01) ==
LOC: HO.HPODS 10:52
PROVIDERS: PCP Internal Medicine; Visit Provider Student in an Organized Health Care Education/Training Program
DX: E11.9 Type 2 diabetes mellitus without complications (principal); B35.1 Tinea unguium; L60.9 Nail disorder, unspecified; L60.3 Nail dystrophy; L60.1 Onycholysis; L03.032 Cellulitis of left toe; I83.893 Varicose veins of bilateral lower extremities with other complications
CPT/HCPCS: 11721; 11730; 99204

== ENCOUNTER 2025-08-23 10:51 | Outpatient (REF) | payer MEDICARE, OTHER, SELFPAY | END 2025-08-23 10:52 | disposition home or self-care (01) | LOC: HO.LNP 10:51 | PROVIDERS: PCP Internal Medicine; Visit Provider Student in an Organized Health Care Education/Training Program | DX: E11.9 Type 2 diabetes mellitus without complications (principal); B35.1 Tinea unguium; L60.3 Nail dystrophy; L60.1 Onycholysis; L03.032 Cellulitis of left toe; I83.893 Varicose veins of bilateral lower extremities with other complications | CPT/HCPCS: 87070; 87077; 87186; 87205 ==

== ENCOUNTER 2025-09-07 11:41 | Outpatient (AMB) | payer MEDICARE, OTHER, SELFPAY ==
--- OUTSIDE RECORDS SUMMARY | 2025-05-09 10:30 | XMS_ITS ---
Author Organization Oswaldo Barrett MD Address [address] [place] [phone] Care Team Providers Care Care Team Assistant Name Role Phone Oswaldo Barrett Primary Care Provider REASON FOR VISIT ALL MED NEED REFILLED Encounters Encounter Location Date Provider Diagnosis Oswaldo Barrett MD [address] [facility] [address] [place] [phone] 05/09/2025 Oswaldo Barrett Plan Of Treatment Next Appt Details Provider Name:Oswaldo chandler, 10/11/2025 07:30:00 AM, [address] [facility], [address] [facility], [place], [place], [phone], Provider Name:Oswaldo Tobinard ier, 10/17/2025 02:30:00 PM, [address], [address], [place], [phone], Progress Notes * Kamron COKER MDOB:[birth year] (79 yo M)Acc No.[id number]:05/09/2025 Patient: Lula Kamron CLANCY :1945 A ge:79 Y S ex:Male Address:[facility] [address], [place] [address] * true * Date: Generated for Toi styles/Bijan/Merrillsmitting on: 11/08/2024 03:35 PM EST
--- OUTSIDE RECORDS SUMMARY | 2025-05-19 06:40 | XMS_ITS ---
Author Organization Oswaldo Barrett MD Address [address] [place] [phone] Care Team Providers Care Fruit Washer Name Role Phone Oswaldo Barrett Primary Care Provider [phone] REASON FOR VISIT needs all scripts Medications Medication SIG (Take, Route, Frequency, Duration) Notes Start Date End Date Status hydroCHLOROthiazide 25 MG 1 capsule in t he morning Orally Once a day for 90 days Active Bystolic 10 MG 1 tablet Orally Once a day for 90 days Active Furosemide 40 MG 2 tabs Orally Once a day for 90 days 11/30/2024 Active NovoLIN 70/30 70-30 % as directed Subcut aneous 60u in am 40 in pm for 90 days 03/12/2012 Active metFORMIN HCl ER 500 MG 2 tablet with ev ening meal Orally DX E11.65 twice a day for 90 days Active Atorvastatin Calcium 20 MG 1 tablet Oral ly Once a day for 90 days Active Omeprazole 20 MG 1 capsule Orally Onc e a day for 90 days 02/03/2018 Active amLODIPine Besylate 10 MG 1 tablet Orall y Once a day for 90 days Active traMADol HCl 50 MG one or 2 tabs Orally twice a day for 30 days 04/09/2024 Active Telmisartan 80 MG 1 tablet Orally Once a day for 90 days Active Lancets - use to test blood serna gar invitro DX: E 11.65 twice a day for 90 days 09/28/2019 Active Alcoh-Wipe - use to test blood serna gar externally DX E11.65 twice a day for 90 days 09/28/2019 Active Syringe (Disposable) 1 ML use to inject insulin sub Q Dx: E 11.65 twice a day for 90 days 09/28/2019 Active Terazosin HCl 2 MG 1 capsule Orally Onc e a day for 90 days 06/18/2011 Active Flonase 50 MCG/ACT 2 sprays Nasally Onc e a day for 90 days Active Pregabalin 25 MG 1 capsule Orally Twi ce a day for 90 days Active Tylenol 8 Hour 650 MG 2 tablets as neede d Orally every 8 hrs for 90 days Active Aspirin 81 MG 1 tablet Orally Once a day for 90 days Active FreeStyle Lite Test - use to test blood sugar In Vitro DX: 11.65 twice a day for 90 days 09/01/2018 Active Encounters Encounter Location Date Provider Diagnosis Oswaldo Barrett MD 10 [facility] [address] [place], [place] [phone] 05/19/2025 Oswaldo Barrett Type II or unspecifi ed type diabetes mellitus without mention of complication, uncontrolled E11.65 ; Prostatism N40.0 ; 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 ; Essential hypertension I10 ; Pure hypercholesterolemia E78.00 and Gastroesophageal reflux disease without esophagitis K21.9 Assessments Encounter Date Diagnosis (ICD Code) Assessment Notes Treatment Notes Treatment Clinical Notes Section Notes 05/19/2025 Type II or unspecifi ed type diabetes mellitus without mention of complication, uncontrolled (ICD-10 - E11.65) 05/19/2025 Prostatism (ICD-10 - N40.0) 05/19/2025 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) 05/19/2025 Essential hypertensi on (ICD-10 - I10) 05/19/2025 Pure hypercholesterolemia (ICD-10 - E78.00) 05/19/2025 Gastroesophageal ref lux disease without esophagitis (ICD-10 - K21.9) Plan Of Treatment Medication Medication Name Sig Start Date Stop Date Notes hydroCHLOROthiazide 25 MG 1 capsule in t he morning Orally Once a day for 90 days Bystolic 10 MG 1 tablet Orally Once a day for 90 days Furosemide 40 MG 2 tabs Orally Once a day for 90 days 11/30/2024 NovoLIN 70/30 70-30 % as directed Subcut aneous 60u in am 40 in pm for 90 days 03/12/2012 metFORMIN HCl ER 500 MG 2 tablet with ev ening meal Orally DX E11.65 twice a day for 90 days Atorvastatin Calcium 20 MG 1 tablet Oral ly Once a day for 90 days Omeprazole 20 MG 1 capsule Orally Onc e a day for 90 days 02/03/2018 amLODIPine Besylate 10 MG 1 tablet Orall y Once a day for 90 days traMADol HCl 50 MG one or 2 tabs Orally twice a day for 30 days 04/09/2024 Telmisartan 80 MG 1 tablet Orally Once a day for 90 days Lancets - use to test blood serna gar invitro DX: E 11.65 twice a day for 90 days 09/28/2019 Alcoh-Wipe - use to test blood serna gar externally DX E11.65 twice a day for 90 days 09/28/2019 Syringe (Disposable) 1 ML use to inject insulin sub Q Dx: E 11.65 twice a day for 90 days 09/28/2019 Terazosin HCl 2 MG 1 capsule Orally Onc e a day for 90 days 06/18/2011 Flonase 50 MCG/ACT 2 sprays Nasally Onc e a day for 90 days Pregabalin 25 MG 1 capsule Orally Twi ce a day for 90 days Tylenol 8 Hour 650 MG 2 tablets as neede d Orally every 8 hrs for 90 days Aspirin 81 MG 1 tablet Orally Once a day for 90 days FreeStyle Lite Test - use to test blood sugar In Vitro DX: 11.65 twice a day for 90 days 09/01/2018 Next Appt Details Provider Name:Oswaldo chandler, 10/11/2025 07:30:00 AM, [address] [facility], [address], [place], [place], [phone], Provider Name:Oswaldo mcnairr, 10/17/2025 02:30:00 PM, [address] [facility], [address], [place], [place], [phone], Progress Notes * Kamron COKER MDOB:[birth year] (79 yo M)Acc No.[id number]:05/19/2025 Patient: Kamron RUIZ :1945 A ge:79 Y S ex:Male Address:[address] [place] [address], [place] [address] * Refills Refill Pregabalin Capsule, 25 MG, Orally, 180 Capsule, 1 capsule, Twice a day, 90 days, Refills=3 Refill Tylenol 8 Hour Tablet Extended Release, 650 MG, Orally, 540 Tablet, 2 tablets as needed, every 8 hrs, 90 days, Refills=3 Refill Aspirin Tablet Delayed Release, 81 MG, Orally, 90 Tablet, 1 tablet, Once a day, 90 days, Refills=3 Refill FreeStyle Lite Test Strip, -, In Vitro DX: 11.65, 200, use to test blood sugar, twice a day, 90 days, Refills=3 Refill Lancets Miscellaneous, -, invitro DX: E 11.65, 200, use to test blood sugar, twice a day, 90 days, Refills=3 Refill Alcoh-Wipe Sheet, -, externally DX E11.65, 200, use to test blood sugar, twice a day, 90 days, Refills=3 Refill Syringe (Disposable) Miscellaneous, 1 ML, sub Q Dx: E 11.65, 200, use to inject insulin, twice a day, 90 days, Refills=3 Refill Terazosin HCl Capsule, 2 MG, Orally, 90 Capsule, 1 capsule, Once a day, 90 days, Refills=3 Refill Flonase Suspension, 50 MCG/ACT, Nasally, 3, 2 sprays, Once a day, 90 days, Refills=6 Refill traMADol HCl Tablet, 50 MG, Orally, 90, one or 2 tabs, twice a day, 30 days, Refills=2 Refill Telmisartan Tablet, 80 MG, Orally, 90 Tablet, 1 tablet, Once a day, 90 days, Refills=3 Refill Atorvastatin Calcium Tablet, 20 MG, Orally, 90 Tablet, 1 tablet, Once a day, 90 days, Refills=3 Refill Omeprazole Capsule Delayed Release, 20 MG, Orally, 90 Capsule, 1 capsule, Once a day, 90 days, Refills=3 Refill amLODIPine Besylate Tablet, 10 MG, Orally, 90 Tablet, 1 tablet, Once a day, 90 days, Refills=3 Refill hydroCHLOROthiazide Tablet, 25 MG, Orally, 90 Capsule, 1 capsule in the morning, Once a day, 90 days, Refills=3 Refill Bystolic Tablet, 10 MG, Orally, 90 Tablet, 1 tablet, Once a day, 90 days, Refills=3 Refill Furosemide Tablet, 40 MG, Orally, 180 Tablet, 2 tabs, Once a day, 90 days, Refills=3 Refill NovoLIN 70/30 Suspension, 70-30 %, Subcutaneous, as directed, 60u in am 40 in pm, 90 days, Refills=3 Refill metFORMIN HCl ER Tablet Extended Release 24 Hour, 500 MG, Orally DX E11.65, 360 Tablet, 2 tablet with evening meal, twice a day, 90 days, Refills=3 * true * Date: Generated for Toi styles/Bijan/Kevin on: 11/08/2024 03:33 PM EST
--- OUTSIDE RECORDS SUMMARY | 2025-05-30 11:30 | XMS_ITS ---
Author Organization Oswaldo Barrett MD Address [address] [place] [phone] Care Team Providers Care Leaf Stamper Name Role Phone Oswaldo Barrett Primary Care Provider REASON FOR VISIT 2 month Encounters Encounter Location Date Provider Diagnosis Oswaldo Barrett MD [address] [place] [phone] 05/30/2025 Oswaldo Barrett Plan Of Treatment Next Appt Details Provider Name:Oswaldo chandler, 10/11/2025 07:30:00 AM, 10 [facility], [address], [place], [place], [phone], Provider Name:Oswaldo chandler, 10/17/2025 02:30:00 PM, [address], [address], [place], [place], [phone], Progress Notes * Kamron COKER MDOB:[birth year] (80 yo M)Acc No.[id number]:05/30/2025 Progress Notes Patient: Kamron RUIZ Provider: Iam Barrett MD :1945 A ge:79 Y S ex:Male Date:05/30/2025 Address:[address] [place] [address], [place], [id number] Subjective: * Chief Complaints: * 1 . 2 month. * Medical History: Objective: * Vitals: Assessment: Plan: * Treatment: * * The named appointment provid er may or may not be the originator of this progress note, and it is not deemed complete until electronically signed by the appointment provider. Sign off status: Pending * Provider: Iam Barrett MD Date: 0 05/30/2025 Generated for Toi styles/Bijan/Merrillsmitting on: 11/08/2024 03:33 PM EST
--- OUTSIDE RECORDS SUMMARY | 2025-06-21 06:59 | XMS_ITS ---
Author Organization Oswaldo Barrett MD Address [address] [place] [phone] Care Team Providers Care Music Journalist Name Role Phone Oswaldo Barrett Primary Care Provider REASON FOR VISIT d/c summary Encounters Encounter Location Date Provider Diagnosis Oswaldo Barrett MD 10 [facility] [address] [place] [phone] 06/21/2025 Oswaldo Barrett Plan Of Treatment Next Appt Details Provider Name:Oswaldo chandler, 10/11/2025 07:30:00 AM, [address] [facility], [address], [place], [place], [phone], Provider Name:Oswaldo Fitzgerald geraldine, 10/17/2025 02:30:00 PM, [address] [facility], [address], [place], [phone], Progress Notes * Kamron COKER MDOB:[birth year] (80 yo M)Acc No.[id number]:06/21/2025 Patient: Lula Kamron CLANCY :1945 A ge:80 Y S ex:Male Address:[facility] [address], [place] [address] * true * Date: Generated for Toi styles/Bijan/Javeditting on: 11/08/2024 03:34 PM EST
--- OUTSIDE RECORDS SUMMARY | 2025-06-23 09:20 | XMS_ITS ---
Author Organization Oswaldo Barrett MD Address [address] [place] [phone] Care Team Providers Care Collection Systems Technician Name Role Phone Oswaldo Barrett Primary Care Provider [phone] REASON FOR VISIT FYI Refusing services Encounters Encounter Location Date Provider Diagnosis Oswaldo Barrett MD 10 [facility] [address] [place] [phone] 06/23/2025 Oswaldo Barrett Plan Of Treatment Next Appt Details Provider Name:Oswalod chandler, 10/11/2025 07:30:00 AM, [facility], [address], [place], [place], [phone], Provider Name:Oswaldo Tobinard ier, 10/17/2025 02:30:00 PM, [address], [address], [place], [phone], Progress Notes * Kamron COKER MDOB:[birth year] (80 yo M)Acc No.[id number]:06/23/2025 Patient: Lula Kamron CLANCY :1945 A ge:80 Y S ex:Male Address:[facility] [address], [place] [address] * true * Date: Generated for Toi styles/Bijan/Merrillsmitting on: 11/08/2024 03:33 PM EST
--- OUTSIDE RECORDS SUMMARY | 2025-06-28 08:20 | XMS_ITS ---
Author Organization Oswaldo Barrett MD Address [address] [place] [phone] Care Team Providers Care Retail Services Professional Name Role Phone Oswaldo Barrett Primary Care Provider REASON FOR VISIT [facility] need to go to Medications Medication SIG (Take, Route, Frequency, Duration) Notes Start Date End Date Status NovoLIN 70/30 70-30 % as directed Subcut aneous 60u in am 40 in pm for 90 days 03/12/2012 Active Bystolic 10 MG 1 tablet Orally Once a day for 90 days Active Furosemide 40 MG 2 tabs Orally Once a day for 90 days 11/30/2024 Active metFORMIN HCl ER 500 MG 2 tablet with ev ening meal Orally DX E11.65 twice a day for 90 days Active Gaviscon 95-358 MG/15ML 15 mL after meal s and at bedtime as needed Orally Four times a day for 90 days Active Atorvastatin Calcium 20 MG 1 tablet Oral ly Once a day for 90 days Active Omeprazole 20 MG 1 capsule Orally Onc e a day for 90 days 02/03/2018 Active amLODIPine Besylate 10 MG 1 tablet Orall y Once a day for 90 days Active hydroCHLOROthiazide 25 MG 1 capsule in t he morning Orally Once a day for 90 days Active Telmisartan 80 MG 1 tablet Orally [...] e a day for 90 days Active FreeStyle Lite Test - use to test blood sugar In Vitro DX: 11.65 twice a day for 90 days 09/01/2018 Active Pregabalin 25 MG 1 capsule Orally Twi ce a day for 90 days 07/05/2025 Active Tylenol 8 Hour 650 MG 2 tablets as neede d Orally every 8 hrs for 90 days Active Aspirin 81 MG 1 tablet Orally Once a day for 90 days Active Encounters Encounter Location Date Provider Diagnosis Oswaldo Barrett MD [address] [place] [address] [place] [phone] 06/28/2025 Oswaldo Barrett Type II or unspecifi ed type diabetes mellitus without mention of complication, uncontrolled E11.65 ; Prostatism N40.0 ; Essential hypertension I10 ; Pure hypercholesterolemia E78.00 and Gastroesophageal reflux disease without esophagitis K21.9 Assessments Encounter Date Diagnosis (ICD Code) Assessment Notes Treatment Notes Treatment Clinical Notes Section Notes 06/28/2025 Type II or unspecifi ed type diabetes mellitus without mention of complication, uncontrolled (ICD-10 - E11.65) 06/28/2025 Prostatism (ICD-10 - N40.0) 06/28/2025 Essential hypertensi on (ICD-10 - I10) 06/28/2025 Pure hypercholesterolemia (ICD-10 - E78.00) 06/28/2025 Gastroesophageal ref lux disease without esophagitis (ICD-10 - K21.9) Plan Of Treatment Medication Medication Name Sig Start Date Stop Date Notes NovoLIN 70/30 70-30 % as directed Subcut aneous 60u in am 40 in pm for 90 days 03/12/2012 Bystolic 10 MG 1 tablet Orally Once a day for 90 days Furosemide 40 MG 2 tabs Orally Once a day for 90 days 11/30/2024 metFORMIN HCl ER 500 MG 2 tablet with ev ening meal Orally DX E11.65 twice a day for 90 days Gaviscon 95-358 MG/15ML 15 mL after meal s and at bedtime as needed Orally Four times a day for 90 days Atorvastatin Calcium 20 MG 1 tablet Oral ly Once a day for 90 days Omeprazole 20 MG 1 capsule Orally Onc e a day for 90 days 02/03/2018 amLODIPine Besylate 10 MG 1 tablet Orall y Once a day for 90 days hydroCHLOROthiazide 25 MG 1 capsule in t he morning Orally Once a day for 90 days Telmisartan 80 MG 1 tablet Orally Once [...] Onc e a day for 90 days FreeStyle Lite Test - use to test blood sugar In Vitro DX: 11.65 twice a day for 90 days 09/01/2018 Pregabalin 25 MG 1 capsule Orally Twi ce a day for 90 days 07/05/2025 Tylenol 8 Hour 650 MG 2 tablets as neede d Orally every 8 hrs for 90 days Aspirin 81 MG 1 tablet Orally Once a day for 90 days Next Appt Details Provider Name:Oswaldo chandler, 10/11/2025 07:30:00 AM, [address] [place] [address], [address], [place], [place], [phone], Provider Name:Oswaldo Edna Fitzgerald geraldine, 10/17/2025 02:30:00 PM, [address] [place] [address], [address], [place], [place], [phone], Progress Notes * Kamron COKER MDOB:[birth year] (80 yo M)Acc No.[id number]:06/28/2025 Patient: Kamron RUIZ :1945 A ge:80 Y S ex:Male Address:[address] [place] [address], [place] [address] * Refills Refill Pregabalin Capsule, 25 MG, [...] Once a day, 90 days, Refills=6 Refill Telmisartan Tablet, 80 MG, Orally, 90 [...] Refill NovoLIN 70/30 Suspension, 70-30 %, Subcutaneous, 20, as directed, 60u in am 40 in pm, 90 days, Refills=3 Refill metFORMIN HCl ER Tablet Extended Release 24 Hour, 500 MG, Orally DX E11.65, 360 Tablet, 2 tablet with evening meal, twice a day, 90 days, Refills=3 Refill Gaviscon Suspension, 95-358 MG/15ML, Orally, 5400 ml, 15 mL after meals and at bedtime as needed, Four times a day, 90 days, Refills=4 * true * Date: Generated for Toi styles/Bijan/Kevin on: 11/08/2024 03:34 PM EST
--- OUTSIDE RECORDS SUMMARY | 2025-07-07 06:30 | XMS_ITS ---
Author Organization Oswaldo Barrett MD Address [address] [place] [phone] Care Team Providers Care Associate Pathologist Name Role Phone Oswaldo Barrett Primary Care Provider [phone] Allergies Allergen (clinical drug ingredient) Drug/Non Drug Allergy documented on EMR Reaction Allergy Type Onset Date Status penicillin (uncoded) hives Allergy Active REASON FOR VISIT PH/TCM, Accompanied by son Medications Medication SIG (Take, Route, Frequency, Duration) Notes Start Date End Date Status Morphine Sulfate ER 30 MG 1 capsule thre e ties a day Orally Once a day Not-Taking Morphine Sulfate 15 MG 1.5 tabs four carolina es a day Orally four times a day Not-Taking Gaviscon 95-358 MG/15ML 15 mL after meal s and at bedtime as needed Orally Four times a day for 90 days Not-Taking hydroCHLOROthiazide 25 MG 1 capsule in t he morning Orally Once a day for 90 days Not-Taking Furosemide 40 MG 2 tabs Orally Once a day for 90 days 11/30/2024 Active Flonase 50 MCG/ACT 2 sprays Nasally Onc e a day for 90 days Active Atorvastatin Calcium 20 MG 1 tablet Oral ly Once a day for 90 days Active Omeprazole 20 MG 1 capsule Orally Onc e a day for 90 days 02/03/2018 Not-Taking Syringe (Disposable) 1 ML use to inject insulin sub Q Dx: E 11.65 twice a day for 90 days 09/28/2019 Active Terazosin HCl 2 MG 1 capsule Orally Onc e a day for 90 days 06/18/2011 Active Alcoh-Wipe - use to test blood sugar externally DX E11.65 twice a day for 90 days 09/28/2019 Active Tylenol 8 Hour 650 MG 2 [...] a day for 90 days 09/28/2019 Active Doxycycline Hyclate 100 MG 1 capsule Ora lly twice a day for 10 days 12/28/2024 Not-Taking traMADol HCl 50 MG one or 2 tabs Orally twice a day for 30 days 04/09/2024 Active Pregabalin 25 MG 1 capsule Orally Twice a day for 90 days 07/05/2025 Not-Taking oxyCODONE HCl 10 MG 1 tablet as needed Orally every 6 hrs Active fentaNYL 100 MCG/HR 1 patch to skin Transdermal Active NovoLIN 70/30 70-30 % as directed Subcutaneous 60u in am 40 in pm 03/12/2012 Active metFORMIN HCl ER 500 MG 2 tablet with ev ening meal Orally DX E11.65 twice a day Active Ofloxacin 0.3 % 10 drops into affected ear Otic Once a day Active Nystatin 020653 UNIT/GM 1 application Externally Twice a day Active Bystolic 10 MG 1 tablet Orally Once a day Active Telmisartan 80 MG 1 tablet Orally Once a day Active amLODIPine Besylate 10 MG 1 tablet Orall y Once a day Active Vital Signs Blood pressure systolic 132 mm Hg 07/07/20 25 Blood pressure diastolic 50 mm Hg 025 Height 70 in 07/07/2025 Weight 203 lbs 07/07/2025 BMI 29.12 kg/m2 07/07/2025 weight is down 9 pounds sin e 03-29-25 Encounters Encounter Location Date Provider Diagnosis Oswaldo Barrett MD [address] [place], [place] [phone] 07/07/2025 Oswaldo Barrett Type II or unspecified type diabetes mellitus without mention of complication, uncontrolled E11.65 ; Essential hypertension I10 ; Rectal bleeding K62.5 and History of skin cancer Z85.828 Assessments Encounter Date Diagnosis (ICD Code) Assessment Notes Treatment Notes Treatment Clinical Notes Section Notes 07/07/2025 Type II or unspecified type diabetes mellitus without mention of complication, uncontrolled (ICD-10 - E11.65) having sugars fluctuating with weight loss 07/07/2025 Essential hypertension (ICD-10 - I10) doing well 07/07/2025 Rectal bleeding (ICD-10 - K62.5) will evaluate after all the other surgery is done 07/07/2025 History of skin cancer (ICD-10 - Z85.828) going [facility] to have [facility] tomorrow Plan Of Treatment Medication Medication Name Sig Start Date Stop Date Notes NovoLIN 70/30 70-30 % as directed Subcut aneous 60u in am 40 in pm 03/12/2012 metFORMIN HCl ER 500 MG 2 tablet with ev ening meal Orally DX E11.65 twice a day Bystolic 10 MG 1 tablet Orally Once a day Telmisartan 80 MG 1 tablet Orally Once a day amLODIPine Besylate 10 MG 1 tablet Orally Once a day Treatment Notes Assessment Notes Type II or unspecified type diabetes mellitus without mention of complication, uncontrolled having sugars fluctuating with weight lo ss Essential hypertension doing well Rectal bleeding will evaluate after all the other surgery is done History of skin cancer going to [facility] o have surgery tomorrow Next Appt Details Follow Up: 2 Months, Reason: Provider Name:Oswaldo chandler, 10/11/2025 07:30:00 AM, [address], [address], [place], [place], [phone], Provider Name:Oswaldo Fitzgerald ier, 10/17/2025 02:30:00 PM, [address], [address], [place], [place], [phone], Progress Notes * Kamron COKER MDOB:[birth year] (80 yo M)Acc No.[id number]:07/07/2025 Patient: Kamron RUIZ Provider: Iam Barrett MD :1945 A ge:80 Y S ex:Male Date:07/07/2025 Address:[address] [place] [address], [facility], [id number] Subjective: * Chief Complaints: * P H/TCMAccompanied by son * HPI: S ymptom(s): patient is a 80 yo male here for transitional care management visit following recent discharge. Discharge summary has been reviewed and medications reconcilled/ just released from rehab unit. the doctor put on iv antibiotics. had an infection in ear and half of face. discharge through ear canal. going to [facility] for further debriding. * ROS: G eneral/Constitutional: Denies C hills. D enies F atigue. D enies F ever. D enies H eadache. E NT: Denies S ore throat. R espiratory: Denies C ough. D enies S hortness of breath at rest. D enies S hortness of breath with exertion. G astrointestinal: Denies D iarrhea. D enies N ausea. * Medical History: * Surgical History: * Hospitalization/Major Diagno stic Procedure: * Medications: T akingOfloxacin 0.3 % Solution 10 drops into affected ear Otic Once a day Nystatin 335492 UNIT/GM Powder 1 application Externally Twice a day oxyCODONE HCl 10 MG Tablet 1 tablet as needed Orally every 6 hrs fentaNYL 100 MCG/HR Patch 72 Hour 1 patch to skin Transdermal traMADol HCl 50 MG Tablet one or 2 tabs Orally twice a day Tylenol 8 Hour 650 MG Tablet Extended Release 2 tablets as needed Orally every 8 hrs Aspirin 81 MG Tablet Delayed Release 1 tablet Orally Once a day FreeStyle Lite Test - Strip use to test blood sugar In Vitro DX: 11.65 twice a day Lancets - Miscellaneous use to test blood sugar invitro DX: E 11. twice a day Alcoh-Wipe - Sheet use to test blood sugar externally DX E11.65 twice a day Syringe (Disposable) 1 ML Miscellaneous use to inject insulin sub Q Dx: E 11. twice a day Terazosin HCl 2 MG Capsule 1 capsule Orally Once a day Flonase 50 MCG/ACT Suspension 2 sprays Nasally Once a day Telmisartan 80 MG Tablet 1 tablet Orally Once a day Atorvastatin Calcium 20 MG Tablet 1 tablet Orally Once a day amLODIPine Besylate 10 MG Tablet 1 tablet Orally Once a day Bystolic 10 MG Tablet 1 tablet Orally Once a day Furosemide 40 MG Tablet 2 tabs Orally Once a day NovoLIN 70/30 70-30 % Suspension as directed Subcutaneous 60u in am 40 in pm metFORMIN HCl ER 500 MG Tablet Extended Release 24 Hour 2 tablet with evening meal Orally DX E11.65 twice a day Taking Ofloxacin 0.3 % Solution 10 drops into affected ear Otic Once a day Taking Nystatin 119201 UNIT/GM Powder 1 application Externally Twice a day Taking oxyCODONE HCl 10 MG Tablet 1 tablet as needed Orally every 6 hrs Taking fentaNYL 100 MCG/HR Patch 72 Hour 1 patch to skin Transdermal Taking traMADol HCl 50 MG Tablet one or 2 tabs Orally twice a day Taking Tylenol 8 Hour 650 MG Tablet Extended Release 2 tablets as needed Orally every 8 hrs Taking Aspirin 81 MG Tablet Delayed Release 1 tablet Orally Once a day Taking FreeStyle Lite Test - Strip use to test blood sugar In Vitro DX: 11. twice a day Taking Lancets - Miscellaneous use to test blood sugar invitro DX: E 11. twice a day Taking Alcoh-Wipe - Sheet use to test blood sugar externally DX E11.65 twice a day Taking Syringe (Disposable) 1 ML Miscellaneous use to inject insulin sub Q Dx: E 11. twice a day Taking Terazosin HCl 2 MG Capsule 1 capsule Orally Once a day Taking Flonase 50 MCG/ACT Suspension 2 sprays Nasally Once a day Taking Telmisartan 80 MG Tablet 1 tablet Orally Once a day Taking Atorvastatin Calcium 20 MG Tablet 1 tablet Orally Once a day Taking amLODIPine Besylate 10 MG Tablet 1 tablet Orally Once a day Taking Bystolic 10 MG Tablet 1 tablet Orally Once a day Taking Furosemide 40 MG Tablet 2 tabs Orally Once a day Taking NovoLIN 70/30 70-30 % Suspension as directed Subcutaneous 60u in am 40 in pm Taking metFORMIN HCl ER 500 MG Tablet Extended Release 24 Hour 2 tablet with evening meal Orally DX E11.65 twice a day Not-Taking/PRNDoxycycline Hyclate 100 MG Capsule 1 capsule Orally twice a day Pregabalin 25 MG Capsule 1 capsule Orally Twice a day Omeprazole 20 MG Capsule Delayed Release 1 capsule Orally Once a day hydroCHLOROthiazide 25 MG Tablet 1 capsule in the morning Orally Once a day Gaviscon 95-358 MG/15ML Suspension 15 mL after meals and at bedtime as needed Orally Four times a day Morphine Sulfate ER 30 MG Capsule Extended Release 24 Hour 1 capsule three ties a day Orally Once a day Morphine Sulfate 15 MG Tablet 1.5 tabs four times a day Orally four times a day Medication List reviewed and reconciled with the patientNot-Taking/PRN Doxycycline Hyclate 100 MG Capsule 1 capsule Orally twice a day Not-Taking/PRN Pregabalin 25 MG Capsule 1 capsule Orally Twice a day Not-Taking/PRN Omeprazole 20 MG Capsule Delayed Release 1 capsule Orally Once a day Not-Taking/PRN hydroCHLOROthiazide 25 MG Tablet 1 capsule in the morning Orally Once a day Not-Taking/PRN Gaviscon 95-358 MG/15ML Suspension 15 mL after meals and at bedtime as needed Orally Four times a day Not-Taking/PRN Morphine Sulfate ER 30 MG Capsule Extended Release 24 Hour 1 capsule three ties a day Orally Once a day Not-Taking/PRN Morphine Sulfate 15 MG Tablet 1.5 tabs four times a day Orally four times a day Medication List reviewed and reconciled with the patient * Allergies: p enicillin: hivesyes[Allergies Verified] Objective: * Vitals: H t: 70, Wt: 203, BMI:29.12, BP:132/50, Wt-k.08. weight is down 9 pounds since 03-29-25. * Examination: G eneral Examination: GENERAL APPEARANCE: a lert, well hydrated, in no distress.? HEAD: n ormocephalic. EARS: R IGHT EAR with no exucate. SKIN: g ood turgor. HEART: r egular rate and rhythm, no murmurs, rubs, gallops.? LUNGS: n o wheezes, rales, rhonchi, good air movement, clear to auscultation bilaterally. RECTAL EXAM: n o masses palpable, stool guaiac negative.? Assessment: * Assessment: 1. T ype II or unspecified type diabetes mellitus without mention of complication, uncontrolled - E11.65 (Primary) 2 . E ssential hypertension - I10 3 . R ectal bleeding - K62.5 4 . H istory of skin cancer - Z85.828 Plan: * Treatment: 2. E ssential hypertension Continue Telmisartan Tablet, 80 MG, 1 tablet, Orally, Once a day; C ontinue amLODIPine Besylate Tablet, 10 MG, 1 tablet, Orally, Once a day; C ontinue Bystolic Tablet, 10 MG, 1 tablet, Orally, Once a day. Notes: doing well 3. R ectal bleeding Notes: will evaluate after all the other surgery is done 4. H istory of skin cancer Notes: going to [facility] to have surgery tomorrow * Procedure Codes: G 2211 Complex e/m visit add on * Follow Up: 2 Months * * Sign off status: Completed true * Provider: Iam Barrett MD Date: 1 Generated for Toi styles/Bijan/Javeditting on: 1 11/08/2024 03:35 PM EST History and Physical Notes * HPI (History of Present Illness) Category Sub-Category Detail Notes Category Not es Symptom(s) patient is a 80 yo male here for transitional care management visit following recent discharge. Discharge summary has been reviewed and medications reconcilled/ just released from rehab unit. the doctor put on iv antibiotics. had an infection in ear and half of face. discharge through ear canal. going to [facility] for further debriding. Examination Category Sub-Category Detail Notes Category Not es General Examination GENERAL APPEARANCE: alert, w ell hydrated, in no distress HEAD: normocephalic EARS: RIGHT EAR with no ex ucate HEART: regular rate and rhy thm, no murmurs, rubs, gallops LUNGS: no wheezes, rales, r honchi, good air movement, clear to auscultation bilaterally SKIN: good turgor RECTAL EXAM: no masses palpable, stool guaiac negative
--- OUTSIDE RECORDS SUMMARY | 2025-08-01 06:45 | XMS_ITS ---
Author Organization Oswaldo Barrett MD Address [address] [place] [phone] Care Team Providers Care Business Broker Name Role Phone Oswaldo Barrett Primary Care Provider Allergies Allergen (clinical drug ingredient) Drug/Non Drug Allergy documented on EMR Reaction Allergy Type Onset Date Status penicillin (uncoded) hives Allergy Active Reason For Referral Reason ONYCHOMYCOSIS Diagnosis 1 Onychomycosis (B35.1 ) Referral Organization Oswaldo Barrett MD Referring Provider First Name Oswaldo Referring Provider Last Name Arnold Referring Provider Speciality Internal M edicine Referred Provider LUIS CORTES Referred Provider Specialty Podiatry General Notes Abby Falcon 08/01/2025 12:11:02 PM >THE REFERRAL HAS BEEN FAXED TO [facility] FOR NEW PATIENT APPT , MR MEJÍA IS AWARE, Abby Falcon 08/29/2025 12:13:16 PM >OFFICE NOTE RECD FOR VISIT 08/23/25 Referral Priority Routine Referral Appointment Date 08/23/2025 REASON FOR VISIT CHECK LEFT BIG TOE drainage x 2.5 weeks, Accompanied by son Medications Medication SIG (Take, Route, Frequency, Duration) Notes Start Date End Date Status traMADol HCl 50 MG one or 2 tabs Orally twice a day for 30 days 04/09/2024 Active fentaNYL 100 MCG/HR 1 patch to skin Transdermal Active Aspirin 81 MG 1 tablet Orally Once a day for 90 days Active Tylenol 8 Hour 650 MG 2 tablets as neede d Orally every 8 hrs for 90 days Active FreeStyle Lite Test - use to test blood sugar In Vitro DX: 11.65 twice a day for 90 days 09/01/2018 Active Morphine Sulfate 15 MG 1.5 tabs four carolina es a day Orally four times a day Not-Taking Morphine Sulfate ER 30 MG 1 capsule thre e ties a day Orally Once a day Not-Taking Nystatin 365922 UNIT/GM 1 application Externally Twice a day Active Ofloxacin 0.3 % 10 drops into affected ear Otic Once a day Active oxyCODONE HCl 10 MG 1 tablet as needed Orally every 6 hrs Active Gaviscon 95-358 MG/15ML 15 mL after meal s and at bedtime as needed Orally Four times a day for 90 days Not-Taking hydroCHLOROthiazide 25 MG 1 capsule in t he morning Orally Once a day for 90 days Not-Taking Pregabalin 25 MG 1 capsule Orally Twice a day for 90 days 07/05/2025 Not-Taking Doxycycline Hyclate 100 MG 1 capsule Ora lly twice a day for 10 days 12/28/2024 Not-Taking Omeprazole 20 MG 1 capsule Orally Onc e a day for 90 days 02/03/2018 Not-Taking Telmisartan 80 MG 1 tablet Orally Once a day Active Bystolic 10 MG 1 tablet Orally Once a day Active amLODIPine Besylate 10 MG 1 tablet Orall y Once a day Active metFORMIN HCl ER 500 MG 2 tablet with ev ening meal Orally DX E11.65 twice a day Active NovoLIN 70/30 70-30 % as directed Subcutaneous 60u in am 40 in pm 03/12/2012 Active Atorvastatin Calcium 20 MG 1 tablet Oral ly Once a day for 90 days Active Furosemide 40 MG 2 tabs Orally Once a day for 90 days 11/30/2024 Active Syringe (Disposable) 1 ML use to inject insulin sub Q Dx: E 11.65 twice a day for 90 days 09/28/2019 Active Flonase 50 MCG/ACT 2 sprays Nasally Onc e a day for 90 days Active Terazosin HCl 2 MG 1 capsule Orally Onc e a day for 90 days 06/18/2011 Active Lancets - use to test blood sugar invitro DX: E 11.65 twice a day for 90 days 09/28/2019 Active Alcoh-Wipe - use to test blood sugar externally DX E11.65 twice a day for 90 days 09/28/2019 Active Vital Signs Blood pressure systolic 138 mm Hg 08/01/20 25 Blood pressure diastolic 50 mm Hg 025 Height 70 in 08/01/2025 Weight 215 lbs 08/01/2025 BMI 30.85 kg/m2 08/01/2025 weight is up 12 pounds since 07-07-25 Encounters Encounter Location Date Provider Diagnosis Oswaldo Barrett MD [address] [place], [place] [phone] 08/01/2025 Oswaldo Barrett Onychomycosis B35.1 Assessments Encounter Date Diagnosis (ICD Code) Assessment Notes Treatment Notes Treatment Clinical Notes Section Notes 08/01/2025 Onychomycosis (ICD-10 - B35.1) does not look like a bacterial infection. [place] [facility] [place]THE REFERRAL HAS BEEN FAXED TO [facility] FOR NEW PATIENT APPT. Plan Of Treatment Treatment Notes Assessment Notes Onychomycosis does not look like a bacterial infection. will [place] [facility] [place]THE REFERRAL HAS BEEN FAXED TO [facility] FOR NEW PATIENT APPT. Referrals Referral Date Details 08/01/2025 08/01/2025, MILLY CORDOBA Next Appt Details Provider Name:Oswaldo chandler, 10/11/2025 07:30:00 AM, [address], [address], [place], [place], [phone], Provider Name:Oswaldo Fitzgerald ier, 10/17/2025 02:30:00 PM, [address], [address], [place], [phone], Progress Notes * Kamron MEJÍA MDOB:[birth year] (80 yo M)Acc No.[id number]:08/01/2025 Progress Notes Patient: Kamron RUIZ Provider: aIm Barrett MD :1945 A ge:80 Y S ex:Male Date:08/01/2025 Address:[address] [place] [address], [id number] Subjective: * Chief Complaints: * C HECK LEFT BIG TOE drainage x 2.5 weeksAccompanied by son * HPI: S ymptom(s): patient is a 80 yo male with complaint of left great toe drainage for 2.5 weeks. * ROS: G eneral/Constitutional: Denies C hills. [...] affected ear Otic Once a day Nystatin 868869 UNIT/GM Powder 1 application Externally Twice a [...] Suspension 2 sprays Nasally Once a day Atorvastatin Calcium 20 MG Tablet 1 tablet Orally Once a day Furosemide 40 MG Tablet 2 tabs Orally Once a day Telmisartan 80 MG Tablet 1 tablet Orally Once a day amLODIPine Besylate 10 MG Tablet 1 tablet Orally Once a day Bystolic 10 MG Tablet 1 tablet Orally Once a day NovoLIN 70/30 70-30 % Suspension as directed Subcutaneous 60u in am 40 in pm metFORMIN HCl ER 500 MG Tablet Extended Release 24 Hour 2 tablet with evening meal Orally DX E11.65 twice a day Taking Ofloxacin 0.3 % Solution 10 drops into affected ear Otic Once a day Taking Nystatin 708764 UNIT/GM Powder 1 application Externally Twice a [...] 2 sprays Nasally Once a day Taking Atorvastatin Calcium 20 MG Tablet 1 tablet Orally Once a day Taking Furosemide 40 MG Tablet 2 tabs Orally Once a day Taking Telmisartan 80 MG Tablet 1 tablet Orally Once a day Taking amLODIPine Besylate 10 MG Tablet 1 tablet Orally Once a day Taking Bystolic 10 MG Tablet 1 tablet Orally Once a day Taking NovoLIN 70/30 [...] Objective: * Vitals: H t: 70, Wt: 215, BMI:30.85, BP:138/50, Wt-k.52. weight is up 12 pounds since 07-07-25. * Examination: G eneral Examination: GENERAL APPEARANCE: a lert, well hydrated, in no distress.? EXTREMITIES: h as nails that are chronically infected with fungus. appears that it is a serous fluid from the nail pulling off. Assessment: * Assessment: 1. O nychomycosis - B35.1 (Primary) Plan: * Treatment: * Procedure Codes: * * Sign off status: Completed true * Provider: Iam Barrett MD Date: 10/01/2024 Generated for Toi styles/Bijan/Javeditting on: 11/08/2024 03:34 PM EST History and Physical Notes * HPI (History of Present Illness) Category Sub-Category Detail Notes Category Not es Symptom(s) patient is a 80 yo male with complaint of left great toe drainage for 2.5 weeks Examination Category Sub-Category Detail Notes Category Not es General Examination GENERAL APPEARANCE: alert, w ell hydrated, in no distress EXTREMITIES: has nails that are c hronically infected with fungus. appears that it is a serous fluid from the nail pulling off Consultation Request Notes Referral Date Referring Provider Referred Provider Not es 08/01/2025 Oswaldo Barrett CHINENY E ONYCHOMYCOSIS
--- OUTSIDE RECORDS SUMMARY | 2025-08-15 03:46 | XMS_ITS ---
Author Organization Oswaldo Barrett MD Address [address] [place] [phone] Care Team Providers Care Coil Rewind Machine Operator Name Role Phone Oswaldo Barrett Primary Care Provider REASON FOR VISIT Referral Medications Medication SIG (Take, Route, Frequency, Duration) Notes Start Date End Date Status Pravastatin Sodium 40 MG 1 tablet Orally Once a day for 90 days 08/15/2025 Active Encounters Encounter Location Date Provider Diagnosis Oswaldo Barrett MD [address] [place] [phone] 08/15/2025 Oswaldo Barrett Pure hypercholestero lemia E78.00 Assessments Encounter Date Diagnosis (ICD Code) Assessment Notes Treatment Notes Treatment Clinical Notes Section Notes 08/15/2025 Pure hypercholesterolemia (ICD-10 - E78.00) Plan Of Treatment Medication Medication Name Sig Start Date Stop Date Notes Pravastatin Sodium 40 MG 1 tablet Orally Once a day for 90 days 08/15/2025 Atorvastatin Calcium 20 MG 1 tablet Orally Once a day Next Appt Details Provider Name:Oswaldo Fitzgerald geraldine, 10/11/2025 07:30:00 AM, [address] [facility], [address], [place], [place], [phone], Provider Name:Oswaldo Fitzgerald ier, 10/17/2025 02:30:00 PM, [address] [facility], [address], [place], [place], [phone], Progress Notes * Kamron COKER MDOB:[birth year] (80 yo M)Acc No.[id number]:08/15/2025 Patient: Lula LOPEZALDENJami Kamron Damon :1945 A ge:80 Y S ex:Male Address:[address] [place] [address], [place] [phone] * Refills Stop Atorvastatin Calcium Tablet, 20 MG, Orally, 1 tablet, Once a day Start Pravastatin Sodium Tablet, 40 MG, Orally, 90 Tablet, 1 tablet, Once a day, 90 days, Refills=3 * true * Date: Generated for Toi styles/Bijan/Javeditting on: 11/08/2024 03:33 PM EST
--- OUTSIDE RECORDS SUMMARY | 2025-08-30 06:00 | XMS_ITS ---
Author Organization Oswaldo Barrett MD Address [address] [place] [phone] Care Team Providers Care Information Resources Manager Name Role Phone Oswaldo Barrett Primary Care Provider Allergies Allergen (clinical drug ingredient) Drug/Non Drug Allergy documented on EMR Reaction Allergy Type Onset Date Status penicillin (uncoded) hives Allergy Active Reason For Referral 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) Referral Organization Oswaldo Barrett MD Referring Provider First Name Oswaldo Referring Provider Last Name Arnold Referring Provider Speciality Internal M edicine Referred Provider [facility] Referred Provider Specialty Oncology General Notes Yolanda Martinez 1 11/03/2024 10:46:07 AM > referral info faxed with letter Referral Priority Routine REASON FOR VISIT 2 month, Accompanied by son Medications Medication SIG (Take, Route, Frequency, Duration) Notes Start Date End Date Status Ofloxacin 0.3 % 10 drops into affected ear Otic Once a day Not-Taking Ciclopirox 8 % 1 application Externally Once a day Active oxyCODONE HCl 20 MG 1 tablet as needed Orally every 6 hrs Active Nystatin 652725 UNIT/GM 1 application Externally Twice a day Active Pravastatin Sodium 40 MG 1 tablet Orally Once a day for 90 days 08/15/2025 Active Morphine Sulfate ER 30 MG 1 capsule thre e ties a day Orally Once a day Not-Taking Gaviscon 95-358 MG/15ML 15 mL after meal s and at bedtime as needed Orally Four times a day for 90 days Not-Taking Terazosin HCl 2 MG 2-3 tabsQD Orally Once a day for 90 days 06/18/2011 Active Morphine Sulfate 15 MG 1.5 tabs four carolina es a day Orally four times a day Not-Taking hydroCHLOROthiazide 25 MG 1 capsule in t he morning Orally Once a day for 90 days Not-Taking Omeprazole 20 MG 1 capsule Orally Onc e a day for 90 days 02/03/2018 Not-Taking Pregabalin 25 MG 1 capsule Orally Twice a day for 90 days 07/05/2025 Not-Taking metFORMIN HCl ER 500 MG 2 tablet with ev ening meal Orally DX E11.65 twice a day Active NovoLIN 70/30 70-30 % as directed Subcutaneous 60u in am 40 in pm 03/12/2012 Active Doxycycline Hyclate 100 MG 1 capsule Ora lly twice a day for 10 days 12/28/2024 Not-Taking Telmisartan 80 MG 1 tablet Orally Once a day Active Bystolic 10 MG 1 tablet Orally Once a day Active amLODIPine Besylate 10 MG 0.5 tab Orally Once a day Active Furosemide 40 MG 2 tabs Orally Once a day for 90 days 11/30/2024 Active Flonase 50 MCG/ACT 2 sprays Nasally Onc e a day for 90 days Active Syringe (Disposable) 1 ML use to inject insulin sub Q Dx: E 11.65 twice a day for 90 days 09/28/2019 Active FreeStyle Lite Test - use to test blood sugar In Vitro DX: 11.65 twice a day for 90 days 09/01/2018 Active Aspirin 81 MG 1 tablet Orally Once a day for 90 days Active Alcoh-Wipe - use to test blood sugar externally DX E11.65 twice a day for 90 days 09/28/2019 Active Lancets - use to test blood sugar invitro DX: E 11.65 twice a day for 90 days 09/28/2019 Active Tylenol 8 Hour 650 MG 2 tablets as neede d Orally every 8 hrs for 90 days Active traMADol HCl 50 MG one or 2 tabs Orally twice a day for 30 days 04/09/2024 Active fentaNYL 100 MCG/HR 1 patch to skin Transdermal Active Vital Signs Blood pressure systolic 102 mm Hg 08/30/20 25 Blood pressure diastolic 48 mm Hg 025 Height 70 in 08/30/2025 Weight 205 lbs 08/30/2025 BMI 29.41 kg/m2 08/30/2025 weight is down 10 pounds sin ce 08-01-25 Encounters Encounter Location Date Provider Diagnosis Oswaldo Barrett MD [address] [place] [address] Drive [address] [place], [place] [phone] 08/30/2025 Oswaldo Barrett Prostatism N40.0 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 Assessments Encounter Date Diagnosis (ICD Code) Assessment Notes Treatment Notes Treatment Clinical Notes Section Notes 08/30/2025 Prostatism (ICD-10 - N40.0) 08/30/2025 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) referral to [facility] Plan Of Treatment Medication Medication Name Sig Start Date Stop Date Notes Pravastatin Sodium 40 MG 1 tablet Orally Once a day for 90 days 08/15/2025 Terazosin HCl 2 MG 2-3 tabsQD Orally On ce a day for 90 days 06/18/2011 Treatment Notes Assessment Notes Sarcoma referral to [facility] Referrals Referral Date Details 08/30/2025 08/30/2025, sarcoma, [facility] Next Appt Details Follow Up: 3 Months, Reason: Provider Name:Oswaldo chandler, 10/11/2025 07:30:00 AM, [address] [place] [address], [address], [place], [place], [phone], Provider Name:Oswaldo chandler, 10/17/2025 02:30:00 PM, [address] [place] [address] Drive, [address], [place], [place], [phone], Progress Notes * Kamron MEJÍA MDOB:[birth year] (80 yo M)Acc No.[id number]:08/30/2025 Progress Notes Patient: Kamron RUIZ Provider: Iam Barrett MD :1945 A ge:80 Y S ex:Male Date:08/30/2025 [facility], [id number] Subjective: * Chief Complaints: * 2 monthAccompanied by son * HPI: S ymptom(s): patient is a 80 yo male here for 2 month follow up visit/ went to podiatry and was put on doxycycline and removed the toenail/ wonders about going to [facility] for the cancer. . his doctors in [place] say he needs referral to [facility]. * ROS: G eneral/Constitutional: Denies [place]. [...] Hospitalization/Major Diagno stic Procedure: * Medications: T akingCiclopirox 8 % Solution 1 application Externally Once a day Nystatin 797162 UNIT/GM Powder 1 application Externally Twice a day oxyCODONE HCl 20 MG Tablet 1 tablet as needed Orally [...] a day Terazosin HCl 2 MG Capsule 2-3 tabsQD Orally Once a day Flonase 50 MCG/ACT Suspension 2 sprays Nasally Once a day Furosemide 40 MG Tablet 2 tabs Orally Once a day Telmisartan 80 MG Tablet 1 tablet Orally Once a day amLODIPine Besylate 10 MG Tablet 0.5 tab Orally Once a day Bystolic 10 MG Tablet 1 tablet Orally Once a day NovoLIN 70/30 70-30 % Suspension as directed Subcutaneous 60u in am 40 in pm metFORMIN HCl ER 500 MG Tablet Extended Release 24 Hour 2 tablet with evening meal Orally DX E11.65 twice a day Pravastatin Sodium 40 MG Tablet 1 tablet Orally Once a day Taking Ciclopirox 8 % Solution 1 application Externally Once a day Taking Nystatin 698924 UNIT/GM Powder 1 application Externally Twice a day Taking oxyCODONE HCl 20 MG Tablet 1 tablet as needed Orally [...] day Taking Terazosin HCl 2 MG Capsule 2-3 tabsQD Orally Once a day Taking Flonase 50 MCG/ACT Suspension 2 sprays Nasally Once a day Taking Furosemide 40 MG Tablet 2 tabs Orally Once a day Taking Telmisartan 80 MG Tablet 1 tablet Orally Once a day Taking amLODIPine Besylate 10 MG Tablet 0.5 tab Orally Once a day Taking Bystolic 10 MG Tablet 1 tablet Orally Once a day Taking NovoLIN 70/30 70-30 % Suspension as directed Subcutaneous 60u in am 40 in pm Taking metFORMIN HCl ER 500 MG Tablet Extended Release 24 Hour 2 tablet with evening meal Orally DX E11.65 twice a day Taking Pravastatin Sodium 40 MG Tablet 1 tablet Orally Once a day Not-Taking/PRNOfloxacin 0.3 % Solution 10 drops into affected ear Otic Once a day Doxycycline Hyclate 100 MG [...] List reviewed and reconciled with the patientNot-Taking/PRN Ofloxacin 0.3 % Solution 10 drops into affected ear Otic Once a day Not-Taking/PRN Doxycycline Hyclate 100 MG Capsule 1 capsule [...] Objective: * Vitals: H t: 70, Wt: 205, BMI:29.41, BP:102/48, Wt-k.99. weight is down 10 pounds since 08-01-25. * Examination: G eneral Examination: GENERAL APPEARANCE: a lert, well hydrated, in no distress.? HEAD: n ormocephalic. SKIN: g ood turgor. HEART: n o murmurs, rubs, gallops, regular rate and rhythm.? LUNGS: n o wheezes, rales, rhonchi, good air movement, clear to auscultation bilaterally. Assessment: * Assessment: 1. 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 P rostatism - N40.0 Plan: * Treatment: 2. P rostatism Refill Terazosin HCl Capsule, 2 MG, 2-3 tabsQD, Orally, Once a day, 90 days, 270, Refills 3; R efill Pravastatin Sodium Tablet, 40 MG, 1 tablet, Orally, Once a day, 90 days, 90 Tablet, Refills 3.? * Procedure Codes: * Follow Up: 3 Months * * Sign off status: Completed true * Provider: Iam Barrett MD Date: 10/31/2024 Generated for Toi styles/Bijan/Kevin on: 11/08/2024 03:34 PM EST History and Physical Notes * HPI (History of Present Illness) Category Sub-Category Detail Notes Category Not es Symptom(s) patient is a 80 yo male here for 2 month follow up visit/ went to podiatry and was put on doxycycline and removed the toenail/ wonders about going to [facility] for the cancer. . his doctors in [place] say he needs referral to [facility]. Examination Category Sub-Category Detail Notes Category Not es General Examination GENERAL APPEARANCE: alert, w ell hydrated, in no distress HEAD: normocephalic HEART: no murmurs, rubs, ga llops, regular rate and rhythm LUNGS: no wheezes, rales, r honchi, good air movement, clear to auscultation bilaterally SKIN: good turgor Consultation Request Notes Referral Date Referring Provider Referred Provider Not es 08/30/2025 Oswaldo Barrett [facility], [facility] sarcoma
[2025-09-07 11:48] VITALS: BMI 30.6
--- NOTE | 2025-09-07 11:48 | MHC.OFFVIS ---
Vital Signs 09/07/25 11:48 Height 5 ft 8 in Weight 201 lb BMI 30.6 Intake Visit Reasons: f/u TNA of left hallux Intake Note: Kamron is a 80 year old male who presents to the office today for a follow up for TNA of his left hallux. At last visit a total nail avulsion of left hallux was performed, a wound culture of the left hallux was obtained, and Ciclopirox was prescribed. Pt states recovery is going well however he notes a slight discoloration on the toe bed. he denies experiencing ay pain at this time. Allergies Penicillins (PCN) Allergy (Verified 09/07/25 11:49) Unknown HPI Comments Details: The patient is an 80 year old male presenting for follow-up status post left hallux TNA. Patient was accompanied by his son. A wound culture was taken during his previous procedure in which results were positive for Enterococcus and Corynebacterium, for which he was prescribed doxycycline and completed the course two days ago. His home care regimen has included daily Epsom salt and warm water soaking for over 15 minutes and application of bacitracin ointment and a Band-Aid. For management of onychomycosis, the patient applies Ciclopirox to his other nails but has avoided the left hallucal nail. He receives routine nail care at the [place]. He denies any new pedal injuries. Denies any other pedal concerns. 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 - Musculoskeletal: Reports healing to the left hallucal nail status post left hallux TNA. - Integumentary: Reports fungal changes to toenails x9. All systems reviewed & are unremarkable except as noted in HPI and below Physical Exam Vital Signs: BMI result Body Mass Index 30.6 Extrem Other: Bilateral lower extremity focused physical exam: Derm: Healing noted to the left hallucal TMA site with macerated nailbed noted. No active drainage, purulence, or bleeding noted. Resolution of malodor noted. Toenails x9 noted to be thickened, elongated, discolored, and dystrophic with subungual debris. No open lesions, abrasions, or wounds noted. No erythema, ecchymosis, or discoloration noted. Reduced Maceration noted to 4th interdigital spaces bilaterally. Vascular: DP/PT pulses palpable. CFT less than 3 seconds. Temperature gradient warm to warm. Pedal hair absent. Varicosities noted. Mild edema noted. Neuro: Protective sensation is grossly intact to light touch and diminished to monofilament testing. MSK: No Pain on palpation to the left hallucal nail bed. No crepitus or fluctuance noted. Range of motion of the forefoot, hindfoot and ankles within normal limits. Pes planus noted. Slow gait noted. Office Procedures [facility] Podiatry Dressing Details of Procedure: Mechanically debrided the left hallucal nailbed of scab tissue and applied Betadine and a Band-Aid to the left hallucal nailbed of without any incidents. Additional procedure code (CPT) needed (06127) Results Reviewed Results Reviewed: Microbiology 08/23/25 10:51 Toe Left Great Gram Stain - Final 08/23/25 10:51 Toe Left Great Routine Culture - Final Enterococcus faecalis Corynebacterium species Patient reports an A1c of 7.8. Assessment & Plan Assessment & Plan (1) Diabetes type 2: Code(s): E11.9 - Type 2 diabetes mellitus without complications Category: Medical (2) Onychomycosis: Code(s): B35.1 - Tinea unguium Category: Medical (3) Nail disorder: Code(s): L60.9 - Nail disorder, unspecified Category: Medical (4) Nail dystrophy: Code(s): L60.3 - Nail dystrophy Category: Medical (5) Onycholysis: Code(s): L60.1 - Onycholysis Category: Medical (6) Cellulitis of great toe, left: Code(s): L03.032 - Cellulitis of left toe Category: Medical (7) Varicose veins of bilateral lower extremities with other complications: Code(s): I83.893 - Varicose veins of bilateral lower extremities with other complications Category: Medical Plan Patient was informed and verbally consented to the use of an ambient scribe for clinic note documentation during this visit. I informed the patient and his quantitative associate that the left hallucal nail bed is healing and patient no longer needs to adhere to aftercare instructions for the total nail avulsion. Advised patient if wearing tight shoes then patient may apply a Band-Aid to the area for protection. Advised patient to apply Betadine to the nailbed to prevent maceration. We discussed continuing the Ciclopirox on his other nails for onychomycosis but to avoid the left hallux. I instructed the patient to call us for any signs of worsening infection, such as pus, swelling, or redness. The plan is for follow-up on an as-needed basis as patient states [facility] - Advised patient to apply Betadine to the left hallucal nailbed. - Patient may apply a Band-Aid to the left hallux when wearing tight shoes for protection. - Advised patient to avoid barefoot walking and to wear supportive shoe gear. - Advised patient to avoid tight-fitting shoes. - Continue application of Ciclopirox to the other toenails for onychomycosis, avoiding the left hallux. - The Ciclopirox layer can be removed with an alcohol swab or by buffing with a nail file before reapplying. - The patient was advised to return or call if he develops signs of infection, such as pus, increased swelling, or redness. - Continue routine nail care. RTC PRN. Coding Level of Care Code Est Pt Level 3 (79034) Diagnoses Diabetes type 2 E11.9 Onychomycosis B35.1 Nail disorder L60.9 Nail dystrophy L60.3 Onycholysis L60.1 Cellulitis of great toe, left L03.032 Varicose veins of bilateral lower extremities with other complications I83.893 CPT Codes Podiatry Dressing - All charges added?: Additional procedure code (CPT) needed ([id number]) Time Spent (min) 25 Comment 5 mins for procedure
--- OUTSIDE RECORDS SUMMARY | 2025-09-07 15:33 | XMS_ITS | Encounter Summary ---
Author Organization Formerly [facility] Address [facility] [place] [address] Care Team Providers Care Line Staker Name Role Phone Oswaldo Barrett MD Primary Care Provider [phone] Encounter Details Date Type Department Care Team (Late st Contact Info) Description 05/17/2025 Lab [place] [id number] Ba Stafford MD [facility] [place] [address] Social History Tobacco Use Types Packs/Day Years Used Date Smoking Tobacco: Never Smokeless Tobacco: Never Alcohol Use Standard Drinks/Week Comments No 0 (1 standard drink = 0.6 oz pur e alcohol) [facility] Utilities Answer Date Recorded In the past 12 months has [facility] [employer], gas, oil, or water [employer] threatened to shut off services in your [...] place to sleep or slept in a fpc (including now)? No 10/14/2023 DH IPV Inpatient [...] EDT) Case Report Surgical Pathology Report Case: [id number] Authorizing Provider: Ba Stafford MD Collected: 04/26/2025 1200 Ordering Location: Laboratory Received: 05/17/2025 5830 Pathologist: Peter King MD Specimen: Neck, Right, [id number] 05/19/2025 12:18 PM EDT [facility] Final Diagnosis CONSULTATION CASE Outside slide(s) labeled [id number], collection date 04/26/2025. A - Right posterior [...] edges (see discussion) 05/19/2025 12:18 PM EDT [facility] at 1218 EDT Discussion Interpretation is somewhat limited given the presence of cautery and processing artifact on the provided H&E-stained sections. This case was reviewed by an additional intradepartmental dermatopathologist for consensus diagnoses. 05/19/2025 12:18 PM EDT [facility] Clinical Information Neck wound 05/19/2025 12:18 PM EDT [facility] Gross Description CONSULTATION CASE A - 6 slide(s) labeled [id number], collection date 04/26/2025. Requesting institution: [facility] Requesting provider : Dr. Ba Staffrod Outside Institution [place] [id number] P: [phone] [facility] pathology slide(s) are reviewed. For the full text of the [facility] report(s) please refer to the attached scanned documents. 05/19/2025 12:18 PM EDT [facility] Result Note THIS RESULT REQUIRES PHYSICIAN/HERO FOLLOW UP(A) 05/19/2025 12:18 PM EDT [facility] Tissue STRUCTURE OF RIGHT HALF OF NECK / Unknown 04/26/2025 12:00 PM EDT 05/17/2025 4:35 PM EDT us Ba Stafford MD PATHOLOGY/CYTOLOGY ORDERAB LES Final Result [facility] [place] [address] documented in this encounter Visit Diagnoses Not on filedocumented in this encounter Care Teams Line Staker Relationship Specialty Start Date End Date Oswaldo Barrett MD [address] [place] [address] [place], T[place] [address] PCP - General 08/14/10 documented as of this encounter
--- OUTSIDE RECORDS SUMMARY | 2025-09-07 15:34 | XMS_ITS | Clinical Summary ---
Author Organization [facility] Address [facility] [place] [address] Care Team Providers Care Payroll Assistant Name Role Phone Oswaldo Barrett MD Primary Care Provider [phone] Allergies Active Allergy Reactions Criticality Noted Date [...] mouth daily. Active fluticasone (FLONASE) 50 mcg/actuation [place]antage, Suspension 1 spray daily. Acti ve multivitamin with minerals Tablet Take 1 tablet by mouth daily. Active insulin NPH - insulin regular 70/30 (NOVOLIN MIX 70/30) Suspension Inject subcutaneously. Active clarithromycin (BIAXIN) 500 mg Tablet Take 500 mg by mouth. Take 1 tablet before dental procedures. Active hydroCHLOROthi azide (Hydrodiuril) 25 mg Tablet Take 25 mg by mouth daily. Active Vit A,C,E-Zinc-[place] [employer]orer per 4,296 mcg-226 mg-90 mg Capsule Take [...] hyperlipidemia 04/24/2016 Coronary artery disease invo lving [place] coronary artery of [place] heart without angina pectoris 11/17/2013 Overview (07/04/2020): Overview: Coronary arteriosclerosis Skin cancer of scalp or skin of neck 05/01/2012 Encounters Date Type Department Care Team Description 06/14/2025 Multidisciplinary Ca [place] [address] Ash Dowling MD from Last 3 Months Family History Medical History Relation Comments Liver Cancer Father Relation Status Comments Father Social History Tobacco Use Types Packs/Day Years Used Date Smoking Tobacco: Never Smokeless Tobacco: Never Tobacco Cessation:Counseling Given: Not Answered Alcohol Use Standard Drinks/Week Comments No 0 (1 standard drink = 0.6 oz pur e alcohol) [facility] Utilities Answer Date Recorded In the past [...] place to sleep or slept in a residential (including now)? No 10/14/2023 [facility] IPV Inpatient [...] yearly 10/14/2024 10/14/2023 Covid-19 Vaccine (1 - season) 2025 Influenza (Flu) vaccine (1 o [...] EST) Glucose 275(H) 65 - 199 mg/dL [facility] Comment:Diabetes: >=200 mg/d L plus symptoms Blood Urea Nitrogen 17 10 - 20 mg/dL [facility] Creatinine 0.79(L) 0.80 - 1.50 mg/dL [facility] Sodium 136 135 - 145 mmol/L [facility] Potassium 4.8 3.5 - 5.0 mmol/L [facility] Comment: Please note: Patients with WBC >100,000 may have falsely elevated Potassium levels. For accurate Potassium quantification in these patients send serum separator tube (gold top) for subsequent determinations. Contact the Clinical Chemistry Laboratory if there are any questions. Chloride 99 98 - 107 mmol/L [facility] Carbon Dioxide 26 22 - 31 mmol/L [facility] Anion Gap 11 5 - 15 mmol/L [facility] Calcium 9.9 8.5 - 10.5 mg/dL [facility] Protein, Total 7.6 6.1 - 8.0 g/dL [facility] Albumin 4.2 3.2 - 5.2 g/dL [facility] Aspartate Aminotransferase 17 0 - 39 unit/L [facility] Alanine Aminotransferase 18 0 - 55 unit/L [facility] Alkaline Phosphatase 134(H) 40 - 130 unit/L [facility] Bilirubin, Total 0.7 0.2 - 1.3 mg/dL [facility] Est Glomerular Filtration Rate 90 >=60 mL/min/1. 73 m [facility] Comment: This patient's estimated GFR was [...] Kemp APRN CHEMISTRY ORDERAB[place] [address] from Last 3 Months or Most Recently Relevant to Health Maintenance Insurance [facility] MEDICARE [facility] FOR [facility] Advance Directives Documents on File Type Date Recorded Patient Chief Recordist Expl anation Advance Directives and Joselito g Will 09/25/2023 4:05 PM Care Teams Payroll Assistant Relationship Specialty Start Date End Date Oswaldo Barrett MD [address] [place] [address] [place] [address] PCP - General 08/14/10
--- OUTSIDE RECORDS SUMMARY | 2025-09-07 15:35 | XMS_ITS | Patient Health Record ---
Author Organization Oswaldo Barrett MD Address [address] [place] [phone] Care Team Providers Care Tax Collector Name Role Phone Oswaldo Barrett Primary Care Provider Allergies Allergen (clinical drug ingredient) Drug/Non Drug Allergy documented on EMR Reaction Allergy Type Onset Date Status penicillin (uncoded) hives Allergy Active Results Component Value Reference Range Notes Hemoglobin A1c Reviewed date:12/28/2024 09:16:38 AM Interpretation: Performing Lab: Notes/Report: Hemoglobin A1c 8.2 Hemoglobin A1c Reviewed date:03/29/2025 03:31:31 PM Interpretation: Performing Lab: Notes/Report: Hemoglobin A1c 7.7 Complete Blood Count Auto Di ff Reviewed date:10/08/2024 12:38:08 PM Interpretation: Performing Lab:[facility], [address] [place] [phone] Notes/Report: White Blood Count 8.8 4.8-10.8 X10*3/uL Red Blood Count 3.95 4.60-5.80 X10*6/uL Hemoglobin 10.6 14.0-18.0 g/dl Hematocrit 34.2 42.0-52.0 % Mean Corpuscular Volume 86.6 80.0-98.0 fL Mean Corpuscular Hemoglobin 26.8 27.0-33.0 pg Mean Corpuscular HGB Conc 31.0 31.0-36.0 g/dl Red Cell Distribution Width 13.6 11.0-16.0 % Platelet Count 247 160-400 X10*3/uL Mean Platelet Volume 13.2 9.4-12.4 fL Neutrophils Percent Auto 64.1 45-73 % Imm Gran Pct Auto 0.2 0.0-0.4 % Lymphocytes Percent Auto 19.3 20-40 % Monocytes Percent Auto 12.1 2-11 % Eosinophils Percent Auto 3.6 0-4 % Basophils Percent Auto 0.7 0-2 % NRBC Pct Auto 0.0 0.0-0.2 /100WBC Neutrophils Absolute Auto 5.6 2.0-8.3 x10*3/uL Imm Gran Abs Auto 0.02 0.00-0.03 X10*3/uL Lymphocytes Absolute Auto 1.7 1.2-4.9 X10*3/uL Monocytes Absolute Auto 1.1 0.1-1.2 X10*3/uL Eosinophils Absolute Auto 0.3 0.0-0.4 X10*3/uL Basophils Absolute Auto 0.1 0.0-0.2 X10*3/uL NRBC Abs Auto 0.000 0.0-0.012 X10*3/uL Comprehensive [place]. Panel Fa st Reviewed date:10/07/2024 05:30:51 PM Interpretation: Performing Lab:[facility], [address] [place] [address] Notes/Report: Sodium 138 135-145 mmol/L Potassium 5.2 3.3-5.1 mmol/L Chloride 103 96-108 mmol/L Carbon Dioxide 29 22-29 mmol/L Anion Gap 11 12-20 Blood Urea Nitrogen 23 9-16 mg/dL Creatinine 0.74 0.5-1.4 mg/dL Estimated Glomerular Filt Rate > 60 Chronic Kidney Disease: Estimated GFR < 60 mL/min/1.73m2 Severe Kidney Disease: Estimated GFR < 15 mL/min/1.73m2 Glucose Fasting 200 60-99 mg/dL A fasting glucose of 126 mg/dl or greater on more than one occasion is considered diagnostic of diabetes. Calcium 9.4 8.4-10.2 mg/dL Bilirubin Total 0.3 0.0-1.0 mg/dL Aspartate Amino Transferase 17 5-37 U/L Alanine Aminotransferase 12 0-40 U/L Total Protein 7.3 6.5-8.0 g/dL Albumin Level 3.4 3.5-5.0 g/dL Alkaline Phosphatase 132 39-117 U/L Lipid Panel Reviewed date:10/07/2024 05:19:10 PM Interpretation: Performing Lab:[facility], [address] [phone] Notes/Report: Triglycerides 59 <150 mg/dL Desirable Triglyceride: less than 150 mg/dL Borderline High Triglyceride 150-199 mg/dL High Triglyceride: 200-499 mg/dL Very High Triglyceride: greater than or equal to 5OO mg/dL Cholesterol 94 <200 mg/dL Desirable Cholesterol: less than 200 mg/dL Borderline High Cholesterol: 200-239 mg/dL High Cholesterol: greater than 239 mg/dL LDL Cholesterol Calculated 53 <100 mg/dL Desirable LDL: less than 100 mg/dL Near Optimal/Above Optimal LDL: 110-129 mg/dL Borderline High LDL: 130-159 mg/dL High LDL: 160-189 mg/dL Very High LDL: greater than or equal to 190 mg/dL HDL Cholesterol 30 >40 mg/dL Desirable HDL: greater than 40 mg/dL Note: This HDL assay may give artificially low results in patients with liver disease. PSA,Total (Free>4and<10) Reviewed date:10/07/2024 05:17:26 PM Interpretation: Performing Lab:[facility], [address] [phone] Notes/Report: PSA,Total (Free>4and<10) 0.46 0.00-4.00 ng/mL A Free PSA was not performed: The percentage of Free PSA can be used to enhance the differentiation of prostate cancer from benign prostatic disease in subjects whose PSA levels are between 4.0 and 10.0 ng/mL. For subjects whose PSA levels are below 4.0 or above 10.0 ng/mL, the risk of prostate cancer is determined on the basis of the PSA alone. Therefore the % Free PSA is recommended only for those subjects whose PSA levels are between 4.0 and 10.0 ng/mL. PSA methodology: Garibay Alinity i Chemiluminescent Microparticle Immunoassay (CMIA) Microalbumin, Random Reviewed date:10/07/2024 05:17:17 PM Interpretation: Performing Lab:[address] [phone] Notes/Report: Creatinine Urine 76.24 Microalbumin Urine 32.0 Microalbum/Creatinine Ratio Ur 41.9 <30 ug/mg cr Albumin/Creatinine Ratio Reference Ranges: Normal: < 30 ug/mg creatinine Microalbuminuria: 30 - 300 ug/mg creatinine Clinical Albuminuria: > 300 ug/mg creatinine Hemoglobin A1c Reviewed date:10/07/2024 05:17:35 PM Interpretation: Performing Lab:[facility], [address] [phone] Notes/Report: Hemoglobin A1c % 8.5 <6.0 % Hemoglobin A1C Reference Range Adults: 4.8 - 6.0 % Non diabetic: < 6.0 % Goal: < 7.0 % Additional Action Suggested: > 8.0 % Note: Hemoglobin A1c results are invalid for patients with abnormal amounts of HbF. Blood transfusions may impact the HbA1c concentration in the patient sample. Estimated Average Glucose 197 eAG = Estimated average glucose which is %A1C expressed as average glucose, using the formula of the [id number] Average Glucose study (ADAG), Diabetes Care, Vol.31,#8, 2007 UA ClnCatch+Micro w/rflx Cul t Reviewed date:10/07/2024 05:29:27 PM Interpretation: Performing Lab:[facility], [address] [place] [phone] Notes/Report: [id number] Urine, Clean Catch Color Urine Yellow Appearance Urine Cloudy PH 6.0 5.0-9.0 Glucose Urine UA Negative Negative mg/dL Urine Blood Negative Negative Specific [place] - Urine 1.020 1.005-1.025 Urine Protein Negative Neg-Trace mg/dL Urine Ketones Negative Negative mg/dL Nitrite Urine Negative Negative Leukocyte Esterase Urine Large (3+) Negative RBC Urine 0-2 0-2 /HPF WBC Urine >50 0-5 /HPF Squamous Epithelial Cell Urine 3-5 0-2 /HPF Bacteria Urine 2+ None Seen Hyaline Casts Urine 3-5 0-2 /LPF UA ClnCatch+Micro w/rflx Cul t Reviewed date:10/28/2024 10:00:28 AM Interpretation: Performing Lab:[facility], [address] [phone] Notes/Report: Urine, Clean Catch Color Urine Yellow Appearance Urine Cloudy PH 7.0 5.0-9.0 Glucose Urine UA Negative Negative mg/dL Urine Blood Trace Negative Specific [place] - Urine 1.010 1.005-1.025 Urine Protein Negative Neg-Trace mg/dL Urine Ketones Negative Negative mg/dL Nitrite Urine Negative Negative Leukocyte Esterase Urine Large (3+) Negative RBC Urine 0-2 0-2 /HPF WBC Urine >50 0-5 /HPF Squamous Epithelial Cell Urine 0-2 0-2 /HPF Bacteria Urine None Seen None Seen Hyaline Casts Urine 0-2 0-2 /LPF UA ClnCatch+Micro w/rflx Cul t Reviewed date:11/22/2024 04:07:45 PM Interpretation: Performing Lab:[facility], [address] [phone] Notes/Report: [id number] 0730 Urine, Clean Catch Color Urine Yellow Appearance Urine Clear PH 5.5 5.0-9.0 Glucose Urine UA >=1000 Negative mg/dL Urine Blood Negative Negative Specific [place] - Urine 1.020 1.005-1.025 Urine Protein Negative Neg-Trace mg/dL Urine Ketones Negative Negative mg/dL Nitrite Urine Negative Negative Leukocyte Esterase Urine Negative Negative RBC Urine 0-2 0-2 /HPF WBC Urine 0-5 0-5 /HPF Squamous Epithelial Cell Urine 0-2 0-2 /HPF Bacteria Urine None Seen None Seen Hyaline Casts Urine 0-2 0-2 /LPF Glucose, finger stick Reviewed date:12/28/2024 09:10:22 AM Interpretation: Performing Lab: Notes/Report: Value 285 Glucose, finger stick Reviewed date:03/29/2025 02:14:29 PM Interpretation: Performing Lab: Notes/Report: Value 252 Urine Culture Reviewed date:10/12/2024 10:28:51 AM Interpretation: Performing Lab:[address] [phone] Notes/Report: O:CITKOS Citrobacter koseri Urine Culture Quant Urine Culture > 100,000 cfu/mL Cefazolin <=1 Cefepime <=0.12 Ceftriaxone <=0.25 Ciprofloxacin <=0.06 Gentamicin <=1 Nitrofurantoin 32 Trimethoprim/Sulfametho xazole <=20 Urine Culture Reviewed date:10/28/2024 01:00:47 PM Interpretation: Performing Lab:[address] [phone] Notes/Report: O:CITKOS Citrobacter koseri Urine Culture Quant Urine Culture 10,000 to 50,000 cfu/mL Cefazolin <=1 Cefepime <=0.12 Ceftriaxone <=0.25 Ciprofloxacin <=0.06 Gentamicin <=1 Nitrofurantoin 32 Trimethoprim/Sulfametho xazole <=20 US venous duplex LE BI Reviewed date:12/14/2024 12:23:29 PM Interpretation: Performing Lab: Notes/Report: [address] [address] Ultrasound Report Signed Patient: Kamron Coker MR#: [id number] 109 : 1945 Acct:[id number] Age/Sex: 79 / M ADM Date: 12/13/24 Loc: HO.US Attending Dr: Oswaldo Barrett MD Ordering Physician: Oswaldo Barrett MD Date of Service: 12/13/24 Procedure(s): US venous duplex LE BI Accession Number(s): [id number] cc: Oswaldo Barrett MD EXAMINATION: US TRIPLEX LOWER EXTREMITY, BILATERAL CLINICAL INFORMATION: Edema, lower extremities. COMPARISON: None available. TECHNIQUE: Color-flow triplex imaging with spectral analysis and compression Doppler were performed on the bilateral lower extremities. FINDINGS: Respiratory variation, normal compression and augmented flow are noted throughout the interrogated common femoral vein, superficial femoral vein, profunda femoral vein, popliteal vein and midcalf peroneal and posterior tibial venous segments . There is no Worthy's cyst. US/US venous duplex LE BI IMPRESSION: No acute deep venous thrombosis involving the bilateral lower extremities. Negative for DVT.. Electronically signed by: Luis Daigle MD 12/14/2024 11:20 AM EDT RP Dictated By: Luis Solano MD Signed By: <Electronically signed by Luis Serrano MD in OV> 12/14/24 1120 DD/ 1240 TD/TT: 12/13/24 1300 Executive Chef Assistant: [place] [id number] Ultrasound Report Signed Patient: Nguyen MR#: [id number] 109 : 1945 Acct:[id number] Age/Sex: 79 / M ADM Date: 12/13/24 Loc: .US Attending Dr: Oswaldo Barrett MD Ordering Physician: Oswaldo Barrett MD Date of Service: 12/13/24 Procedure(s): US latisha ous duplex LE BI Accession Number(s): [id number] cc: Oswaldo Barrett MD EXAMINATION: US TRIPLEX LOWER EXTREMITY, BILATERAL CLINICAL INFORMATION: Edema, lower extremities. COMPARISON: None available. TECHNIQUE: Color-flow triplex i maging with spectral analysis and compression Doppler were perform ed on the bilateral lower extremities. FINDINGS: Respiratory variatio n, normal compression and augmented flow are noted throughout the interrogated common femoral vein, superficial femoral vein, profunda femor al vein, popliteal vein and midcalf peroneal and posterior tibial latisha ous segments . There is no Worthy's cyst. U S/US venous duplex LE BI IMPRESSION: No acute deep venous thrombosis involving the bilateral lower extremities. Negativ e for DVT.. Electronically roberto d by: Luis Daigle MD 12/14/2024 11:20 AM EDT RP Dictated By: Luis Rowe MD Signed By: <Electronically signed by Luis Serrano MD in OV> 12/14/24 1120 DD/ 1240 TD/TT: 12/13/24 1300 Executive Chef Assistant: Pathology Reviewed date:03/30/2025 07:38:29 PM Interpretation: Performing Lab:[facility], [address] [place] [phone] Notes/Report: ------ Name: Kamron Coker Age/Sex: 79/M : 1945 Unit#: [id number] Attend Dr: Sonia Rahman MD Re03/28/25 Status : [facility] Location: [facility] Disch: ------ SPEC : [id number] RECD : 03/29/25 STATUS: LENNY OHARA NUM: [id number] MADELAINE: 03/28/[address] [facility] [address]: Sonia Rahman MD ENTERED: 03/29/25 13 SP TYPE: Surgical OTHR DR: Oswaldo Barrett MD ORDERED: Gross Micro L3/2 Diagnosis A. Labeled tissue f rom neck , biopsy: Necrotic soft tissue with abscess and bacterial overgrowth suggestin g cellulitis, and benign skin with reactive epidermal hyperplasia and granulation tissue ( see comment). B. Labeled biopsy n emilia tissue , biopsy: Benign ulcerated skin with inflammation, necrosis, and crush artifact (see comment). Comment: No malignan cy is identified in these biopsies, but malignancy adjacent to these samples cannot be excluded. If clinical suspicion is high, or there is continued growth of the lesion, re-bi opsy is warranted. Clinical History Non-healing wound, h ead and neck cancer, radiation tissue Microscopic Description Microscopic sections reviewed. Material Received A. Tissue from neck, question R/O malignancy B. Biopsy neck tissu e, question R/O malignancy Gross Description Received in 2 parts. A. Received in forma liang labeled ?skin of neck? are 3 fragments of chavez-white skin measuring 0.5-0.[address] dimension which are entirely submitted for microscopic examination, 3 pieces in cassette A. B. Received in forma liang labeled ?neck? is a fragment of red chavez colored skin measuring 0.9 x 0.3 x 0.2 cm which i s wrapped in lens paper and entirely submitted for microscopic examination, 1 piece in cassette B. ([facility]) This case was review ed intradepartmentally. CONTINUED ON NEXT PAGE ------ Name: Kamron Coker Age/Sex: 79/M : 1945 Unit#: [id number] Attend Dr: Sonia Rahman MD Re03/28/25 Status : [facility] Location: [facility] Disch: ------ SPEC : [id number] RECD : 03/29/25 STATUS: LENNY OHARA NUM: [id number] MADELAINE: 03/28/25-[address] [facility] [address]: Sonia Rahman MD ENTERED: 03/29/25 13 SP TYPE: Surgical OTHR DR: Oswaldo Barrett MD ORDERED: Gross Micro L3/2 IHC S/NG Disclaimer NOTE: Unless otherwi se stated, all tissue is formalin-fixed and paraffin-embedded. Some or all of the immunohistochemical tests reported herein may have been developed and their performance characteristics determined by [facility]. They have not been cleared or appr leoncio by the U.S. Food and Drug Administration (FDA). However, the FDA has determined that such clearance or approval is not necessary. This laboratory is certified under the Clinical Laboratory Improvement Amendments of 1988 (CLIA) as qualified to perform high comp lexity clinical laboratory testing. Copies To: Oswaldo Barrett MD [facility] [address] [facility] [address] [place] [address] Sonia Rahman MD [address] [place] [address] ------ Signed (signature on file) [place] 03/30/25 1414 ------ END OF REPORT Complete Blood Count Auto [facility] Reviewed date:04/26/2025 02:44:09 PM Interpretation: Performing Lab:[facility], [address] [place] [phone] Notes/Report: White Blood Count 16.3 4.8-10.8 X10*3/uL Red Blood Count 3.69 4.60-5.80 X10*6/uL Hemoglobin 9.6 14.0-18.0 g/dl Hematocrit 30.1 42.0-52.0 % Mean Corpuscular Volume 81.6 80.0-98.0 fL Mean Corpuscular Hemoglobin 26.0 27.0-33.0 pg Mean Corpuscular HGB Conc 31.9 31.0-36.0 g/dl Red Cell Distribution Width 14.3 11.0-16.0 % Platelet Count 330 160-400 X10*3/uL Mean Platelet Volume 11.7 9.4-12.4 fL Neutrophils Percent Auto 84.8 45-73 % Imm Gran Pct Auto 0.6 0.0-0.4 % Lymphocytes Percent Auto 5.1 20-40 % Monocytes Percent Auto 8.9 2-11 % Eosinophils Percent Auto 0.3 0-4 % Basophils Percent Auto 0.3 0-2 % NRBC Pct Auto 0.0 0.0-0.2 /100WBC Neutrophils Absolute Auto 13.9 2.0-8.3 x10*3/uL Imm Gran Abs Auto 0.09 0.00-0.03 X10*3/uL Lymphocytes Absolute Auto 0.8 1.2-4.9 X10*3/uL Monocytes Absolute Auto 1.5 0.1-1.2 X10*3/uL Eosinophils Absolute Auto 0.1 0.0-0.4 X10*3/uL Basophils Absolute Auto 0.1 0.0-0.2 X10*3/uL NRBC Abs Auto 0.000 0.0-0.012 X10*3/uL Liver Panel Reviewed date:04/26/2025 02:43:41 PM Interpretation: Performing Lab:[facility], [address] [place] [phone] Notes/Report: Bilirubin Total 0.8 0.0-1.0 mg/dL Bilirubin Direct 0.4 0.0-0.5 mg/dL Aspartate Amino Transferase 22 5-37 U/L Alanine Aminotransferase 12 0-40 U/L Total Protein 7.3 6.5-8.0 g/dL Albumin Level 3.5 3.5-5.0 g/dL Alkaline Phosphatase 147 39-117 U/L Basic Metabolic Panel Reviewed date:04/26/2025 02:31:28 PM Interpretation: Performing Lab:[facility], [address] [place] [phone] Notes/Report: Sodium 137 135-145 mmol/L Potassium 4.2 3.3-5.1 mmol/L Chloride 97 96-108 mmol/L Carbon Dioxide 30 22-29 mmol/L Anion Gap 14 12-20 Blood Urea Nitrogen 23 9-16 mg/dL Creatinine 0.73 0.5-1.4 mg/dL Creatinine Clr Calc Pharmacy 83.7 eGFR (calculated from the MDRD study equation) and eCrCl (calculated from the Cockcroft-Gault equation) are based on different parameters and may not yield comparable results. If eCrCl result is absurd, please check patient's height/weight. Estimated Glomerular Filt Rate > 60 Chronic Kidney Disease: Estimated GFR < 60 mL/min/1.73m2 Severe Kidney Disease: Estimated GFR < 15 mL/min/1.73m2 Glucose Random 134 60-115 mg/dL Calcium 9.3 8.4-10.2 mg/dL Lactic Acid Reviewed date:04/26/2025 02:31:39 PM Interpretation: Performing Lab:[facility], [address] [phone] Notes/Report: Lactic Acid 1.5 0.5-2.0 mmol/L Glucose, Whole Blood Reviewed date:04/26/2025 02:43:28 PM Interpretation: Performing Lab:[facility], [address] [place] [phone] Notes/Report: Glucose, Whole Blood 131 60-115 mg/dL METER # : [id number] Pathology Reviewed date:04/28/2025 07:59:37 PM Interpretation: Performing Lab:[address] [phone] Notes/Report: ------ Name: Kamron Coker Age/Sex: 79/M : 1945 [id number] Unit#: [id number] Attend Dr: Sonia Rahman MD Re04/26/25 Status : ADM IN Location: [facility] 377-1 Disch: ------ SPEC : [id number] RECD : 04/27/25 [facility] NUM: [id number] MADELAINE: 04/26/[address] [facility] [address]: Sonia Rahman MD ENTERED: 04/27/25 SP TYPE: Surgical OTHR DR: Oswaldo Barrett MD ORDERED: Gross Micro L3/5 Diagnosis A. Skin, right poste rior superficial neck, excision: Skin and subcutis with marked dermal fibrosis, chr onic inflammation and abundant granulation tissue formation; no malignancy identified. B. Skin, right deep posterior neck, excision: Soft tissue gangrenous necrosis; no malignancy identified. C. Skin, posterior r ight ear, excision: Ulcerated skin with marked dermal fibrosis, acute and chronic inflammation and granulation tissue formation; no malignancy identified. D. Skin, deep right occiput, excision: Ulcerated and necrotic skin with marked deep dermal acute and chr onic inflammation, fibrosis, abscess, granulation tissue formation and prominent ectati c vessels. See comment. E. Skin, right face, biopsy: Hypertrophic actinic keratosis; positive margins. Comment: The ectatic vessels in part D are somewhat prominent; however, they lack significant cytologi c atypia. Overt features of malignancy are not seen. Clinical History Neck wound Microscopic Description Microscopic sections reviewed. Material Received A. Right posterior superficial neck skin B. 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 Skin posterior ri ght ear D. Deep occiput right E. Right facial bx Gross Description Received in 5 parts. A. Received in forma liang, on Telfa, labeled ?right posterior superficial neck skin? is an unoriented ellipse o f skin measuring 1.5 x 0.9 cm which has been excised to a depth of 0.6 CONTINUED ON NEXT PAGE ------ Name: Kamron Coker Age/Sex: 79/M : 1945 Unit#: [id number] Attend Dr: Sonia Rahman MD Re04/26/25 Status : ADM IN Location: [facility] 377-1 Disch: ------ SPEC : [id number] RECD : 04/27/25 STATUS: LENNY OHARA NUM: [id number] MADELAINE: 04/26/[address] [facility] [address]: Sonia Rahman MD ENTERED: 04/27/25- 16 SP TYPE: Surgical OTHR DR: Oswaldo Barrett MD ORDERED: Gross Micro L3/5 Gross Description (Continued) cm. The skin surface is chavez-white and smooth. The underside is composed of white subcutis. The margins of excis ion are inked blue. The specimen is serially sectioned across the short axis and entir blaise submitted for microscopic examination, 4 pieces in cassette A. B. Received in forma liang, on Telfa, labeled ?right deep posterior neck tissue? is a portion of soft, friable pink-white tissue measuring 2.5 x 1.2 x 0.6 cm in greatest dimension which is serially sectione d across the short axis and entirely submitted for microscopic examination, 5 piece s in cassette B. C. Received in forma liang, on Telfa, labeled ?skin posterior right ear? is a fragment of skin measuring 0.9 x 0.6 x 0.3 cm in greatest dimension. The skin surface is white and smooth. The underside is chavez-white. The underside is inked blue. The specimen is bisected and entirely submitted f or microscopic examination, 2 pieces in cassette C. Received in the same container is a fragment of rubbery, pink white tissue measuring 0.4 x 0.3 x 0.2 cm which i s submitted in the same cassette for a total of 3 pieces. D. Received in forma liang, on Telfa labeled ?deep occiput right? is a portion of skin measuring 2.0 x 1.4 cm in greatest dimension which has been excised to a depth of 0.7 cm. The skin surface is white and smooth. The underside is composed of pink-white subcutis with a small amount of ad herent yellow adipose tissue. The margins of excision are inked blue. The specimen is seri ally sectioned across the short axis and entirely submitted for microscopic examinat ion, 6 pieces in cassette D1. Received in the same container are 2 fragments of rubbery, pink white tissue together measuring 1.5 x 0.9 x 0.4 cm. Each pieces bisected and submitted for microscopic examination, 4 piece s in cassette D 2. E. Received in forma liang, on Telfa, labeled ?right facial biopsy? is a portion of chavez keratotic appearing skin measuring 1.0 x 0.9 cm which has been excised to a depth of 0.5 cm. The skin surface is rough and shaggy. The underside is chavez-white. The underside is inked blue. The specimen i s bisected and entirely submitted for microscopic examination, 2 pieces in cassette E. ([facility]) This case was review ed intradepartmentally. IHC S/NG Disclaimer NOTE: Unless otherwi se stated, all tissue is formalin-fixed and paraffin-embedded. Some or all of the immunohistochemical tests reported herein may have been developed and their performance characteristics determined by [facility]. They have not been cleared or appr leoncio by the U.S. Food and Drug Administration (FDA). However, the FDA has determined that such clearance or approval is not necessary. This laboratory is certified under the Clinical Laboratory Improvement Amendments of 1988 (CLIA) as qualified to perform high comp lexity clinical laboratory testing. CONTINUED ON NEXT PAGE ------ Name: Kamron Coker Age/Sex: 79/M : 1945 Unit#: [id number] Attend Dr: Sonia Rahman MD Re04/26/25 Status : ADM IN Location: [facility] 377-1 Disch: ------ SPEC : [id number] RECD : 04/27/25 STATUS: LENNY LEV NUM: [id number] MADELAINE: 04/26/[address] [facility] [address]: Sonia Rahman MD ENTERED: 04/27/25- 16 SP TYPE: Surgical OTHR DR: Oswaldo Barrett MD ORDERED: Gross Micro L3/5 Copies To: Oswaldo Barrett MD [facility] [address] [place] [id number] Sonia Rahman MD [address] [place] [address] [place] [address] ------ Signed (signature on file) Mando Jeff MD 04/28/25 1530 ------ END OF REPORT Gram stain Reviewed date:04/29/2025 08:59:14 AM Interpretation: Performing Lab:[facility], [address] [place] [phone] Notes/Report: RIGHT NECK WOUND Gram stain Gram stain results: Gram stain 4+ polys Gram stain 3+ Gram-positive cocci Blood Culture (First) Reviewed date:05/01/2025 02:53:06 PM Interpretation: Performing Lab:[facility], [address] [phone] Notes/Report: Blood Culture (First) No growth after 5 days. Blood Culture (Second) Reviewed date:05/01/2025 02:53:06 PM Interpretation: Performing Lab:[address] [address] Notes/Report: Blood Culture (Second) No growth after 5 days. Routine Culture Reviewed date:04/29/2025 08:58:22 AM Interpretation: Performing Lab:[facility], [address] [place] [phone] Notes/Report: RIGHT NECK WOUND O:PROMIR Proteus mirabilis Routine Culture Quant Org ID Routine Culture 2+ Ampicillin <=2 Cefazolin (Non-Urine) 4 Cefepime 0.25 Ceftriaxone <=0.25 Ciprofloxacin <=0.06 Gentamicin <=1 Trimethoprim/Sulfametho xazole <=20 CT head/brain wo/w con Reviewed date:04/26/2025 02:43:17 PM Interpretation: Performing Lab: Notes/Report: [address] [address] [address] Scan Report Signed Patient: Kamron Coker MR#: [id number] 109 : 1945 Acct:[id number] Age/Sex: 79 / M ADM Date: 04/26/25 Loc: .ED Attending Dr: Ordering Physician: Caron Parrish PA-C Date of Service: 04/26/25 Procedure(s): CT head/brain wo/w IV con Accession Number(s): [id number] cc: Caron Parrish PA-C; Oswaldo Barrett MD Report Number: [id number]: Total DLP = 0.00 mGy-cm EXAMINATION: CT HEAD WITH/WITHOUT CONTRAST CLINICAL INFORMATION: Infection. COMPARISON: Please refer to the CT neck examination performed concurrently. TECHNIQUE: Contiguous axial imaging was performed from the skull base to vertex before and after the administration of 100 mL of Omnipaque [address] examination was performed using dose optimization techniques as appropriate, variously including the following: *Automated exposure control *Adjustment of mA and/or kV according to patient size (this includes techniques or standardized protocols for targeted exams where dose is matched to indication/reason for exam; i.e. extremities or head) *Use of iterative reconstruction technique FINDINGS: Please refer to the CT neck examination performed concurrently. There is no evidence of intracranial hemorrhage or extra-axial fluid collection. There is no mass effect, or edema. No CT evidence of acute territorial infarct. Ventricles, sulci, and cisterns are diffusely somewhat prominent, in keeping with age related cerebral and cerebellar volume loss. No hydrocephalus. No midline shift. Negative hyperdense MCA sign. Negative insular ribbon sign. Patchy periventricular and deep white matter hypoattenuation is consistent with mild to moderate small vessel ischemic changes. Normal pituitary. Mild atheromatous calcification of the bilateral carotid siphons and V4 segments vertebral arteries bilaterally. There is ossification of the anterior and posterior falx. There are pachymeningeal calcifications of the tentorium. Globes and orbital contents demonstrate bilateral lens replacements but are otherwise normal. Extracranial soft tissues demonstrate edema and phlegmonous changes extending from the right posterior ear, abutting the right mastoid, to the right mid occipital region, where there appears to be soft tissue ulceration. Refer to the dedicated CT neck report. The paranasal sinuses are normally pneumatized. Fluid opacification of the right mastoid tip. Inflammation of the right external auditory canal and associated soft tissues with phlegmonous changes. No evidence of coalescent mastoiditis. No bone lesions. There are no acute fractures evident. CT/CT head/brain wo/w IV con IMPRESSION: 1. No acute intracranial abnormality. 2. 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 Refer to the dedicated neck CT report, which was performed concurrently. Electronically signed by: Ashu Denis MD 04/26/2025 12:14 PM EDT Dictated By: Ashu Denis MD Signed By: <Electronically signed by Ashu Denis MD in OV> 04/26/25 1214 DD/ 0936 TD/TT: 04/26/25 1129 Executive Chef Assistant: [place] [address] CT Scan Report Signed Patient: Nguyen MR#: [id number] 109 : 1945 Acct:[id number] Age/Sex: 79 / M ADM Date: 04/26/25 Loc: HO.ED Attending Dr: Ordering Physician: Caron Parrish PA-C Date of Service: 04/26/25 Procedure(s): CT head/brain wo/w IV con Accession Number(s): [id number] cc: Caron Parrish PA-C; Oswaldo Barrett MD Report Number: [id number]: Total DLP = 0.00 mGy-cm EXAMINATION: CT HEAD WITH/WITHOUT CONTRAST CLINICAL INFORMATION: Infection. COMPARISON: Please refer to the CT neck examination performed concurrently. TECHNIQUE: Contiguous axial jamil ging was performed from the skull base to vertex before and after the administration of 100 mL of Omnipaque [address] examination was performed using dose optimization techniques as appropriate, various ly including the following: *Automated exposure control *Adjustment of mA an d/or kV according to patient size (this includes techniques or standa rdized protocols for targeted exams where dose is matched to indication/reason for exam; i.e. extremities or head) *Use of iterative reconstruction technique FINDINGS: Please refer to the CT neck examination performed concurrently. There is no evidence of intracranial hemorrhage or extra-axial fluid collection. There is no mass eff ect, or edema. No CT evidence of acute territorial infarct. Ventricles, sulci, a nd cisterns are diffusely somewhat prominent, in keeping with age rel ated cerebral and cerebellar volume loss. No hydrocephalus. No mi dline shift. Negative hyperdense MCA sign. Negative insular ribbon sign. Patchy periventricul ar and deep white matter hypoattenuation is consistent with mild to moderate small vessel ischemic changes. Normal pituitary. Mild atheromatous calcification of the bilateral carotid siphons and V4 segments vertebral arteries bilaterally. There is ossificatio n of the anterior and posterior falx. There are pachymeningeal calcifications of the tentorium. Globes and orbital contents demonstrate bilateral lens replacements but are otherwise normal. Extracranial soft ti ssues demonstrate edema and phlegmonous changes extending from the r ight posterior ear, abutting the right mastoid, to the right mid occipi yady region, where there appears to be soft tissue ulceration. Refer to the dedicated CT neck report. The paranasal sinuse s are normally pneumatized. Fluid opacification of the right mastoid tip. Inflammation of the right external auditory ca nal and associated soft tissues with phlegmonous changes. No evidence of coalescent mastoiditis. No bone lesions. The re are no acute fractures evident. C T/CT head/brain wo/w IV con IMPRESSION: 1. No acute intracra nial abnormality. 2. Findings suggesti ng malignant otitis externa on the right. Refer to the dedicated neck C T report, which was performed concurrently. Electronically roberto d by: Ashu Denis MD 04/26/2025 12:14 PM EDT Dictated By: Ashu Denis MD Signed By: <Demar orr signed by Ashu Denis MD in OV> 04/26/25 1214 DD/ 0936 TD/TT: 04/26/25 1129 Executive Chef Assistant: CT soft tissue neck w con Reviewed date:04/26/2025 02:41:24 PM Interpretation: Performing Lab: Notes/Report: [address] [address] [address] Scan Report Signed Patient: Kamron Coker MR#: [id number] 109 : 1945 Acct:[id number] Age/Sex: 79 / M ADM Date: 04/26/25 Loc: HO.ED Attending Dr: Ordering Physician: Caron Parrish PA-C Date of Service: 04/26/25 Procedure(s): CT soft tissue neck w IV con Accession Number(s): [id number] cc: Caron Parrish PA-C; Oswaldo Barrett MD Report Number: [id number]: Total DLP = 2528.00 mGy-cm EXAMINATION: CT SOFT TISSUE NECK WITH CONTRAST CLINICAL INFORMATION: Infection. COMPARISON: None available. TECHNIQUE: Following the intravenous administration of 60 mL of Omnipaque 350 intravenous contrast, helical imaging was performed in the axial plane with generation of coronal and sagittal reformatted images. This CT examination was performed using dose optimization techniques as appropriate, variously including the following: *Automated exposure control *Adjustment of mA and/or kV according to patient size (this includes techniques or standardized protocols for targeted exams where dose is matched to indication/reason for exam; i.e. 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 The right internal jugular vein has been resected along with the right sternocleidomastoid muscle, and much of the right posterior lateral neck as well. Edema and thickening along the right occipital soft tissues is present, with a focal ulceration seen in the right occiput. Underlying extensive inflammation and phlegmonous changes are present. There is thickening of the right external auditory canal including the membranous and osseous canal. Posterior to the canal and posteroinferior to the right ear there is soft tissue edema and a suspected abscess collection versus phlegmonous collection which extends posterior lateral to the mastoid, and abuts the mastoid tip, measuring approximately 3.8 x 1.8 x 3.3 cm (AP, TRV, CC). Edema and phlegmonous change extends along the posterior right occiput the approximate right paramedian neck and inferior along the surgical resection plane. Abutting the mastoid tip there are mild permeative type osseous changes of which osteomyelitis cannot be excluded given the appearance. There is opacification of the right mastoid tip. 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 The right submandibular gland has been resected along with the right parotid gland. There are infiltrative changes in the right parotid space, surrounding the right posterior masseter muscle. No obvious mucosal space lesion is evident. The left internal jugular vein is patent. There are moderate right greater than left carotid bulb calcifications present. No abnormal lymphadenopathy is present. The larynx, epiglottis, aryepiglottic folds, subglottic trachea, and thyroid gland are unremarkable in appearance. The superior esophagus is normal in appearance. The imaged upper mediastinal contents demonstrate no abnormalities. There is linear scarring/consolidation in the left upper lobe anteriorly. Lung apices otherwise appear grossly clear. Imaged intracranial contents demonstrate patent dural venous sinuses. No mass effect, edema, hemorrhage, or abnormal enhancement. The globes and orbits demonstrate lens replacements bilaterally. They are otherwise normal. CT/CT soft tissue neck w IV con IMPRESSION: 1. Complex examination. Modified radical right neck dissection with extensive postoperative changes in the right posterolateral neck. Edema and phlegmonous change extends from the right external auditory canal to the right paramedian occiput and inferiorly along the right posterior neck. There appears to be a soft tissue ulceration present in the right occipital soft tissues. 2. 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 Cannot exclude an abscess collection posterior and inferior to the ear/mastoid versus a phlegmonous collection measuring approximately 3.8 x 1.8 x 3.3 cm. 3. Cannot exclude osteomyelitis of the right mastoid tip with mild permeative bone changes and opacification of the right mastoid tip. 4. Additional findings as detailed in the body of the report. Electronically signed by: Ashu Denis MD 04/26/2025 12:06 PM EDT Dictated By: Ashu Denis MD Signed By: <Electronically signed by Ashu Denis MD in OV> 04/26/25 1206 DD/ 1039 TD/TT: 04/26/25 1129 Executive Chef Assistant: [address] [address] [address] Scan Report Signed Patient: Nguyen MR#: [id number] 109 : 1945 Acct:[id number] Age/Sex: 79 / M ADM Date: 04/26/25 Loc: HO.ED Attending Dr: Ordering Physician: Caron Parrish PA-C Date of Service: 04/26/25 Procedure(s): CT sof t tissue neck w IV con Accession Number(s): [id number] cc: Caron Parrish PA-C; Oswaldo Barrett MD Report Number: [id number]: Total DLP = 2528.00 mGy-cm EXAMINATION: CT SOFT TISSUE NECK WITH CONTRAST CLINICAL INFORMATION: Infection. COMPARISON: None available. TECHNIQUE: Following the intrav enous administration of 60 mL of Omnipaque 350 intravenous contrast , helical imaging was performed in the axial plane with generation of c oronal and sagittal reformatted images. This CT examination was performed using dose optimization techniques as appropriate, various ly including the following: *Automated exposure control *Adjustment of mA an d/or kV according to patient size (this includes techniques or standa rdized protocols for targeted exams where dose is matched to indication/reason for exam; i.e. extremities or head) *Use of iterative reconstruction technique FINDINGS: There has been a mod ified right radical neck dissection. The right internal jugular vei n has been resected along with the right sternocleidomastoid muscle, and much of the right posterior lateral neck as well. Edema and thickening along the right occipital soft tissues is present, with a focal ulcerat ion seen in the right occiput. Underlying extensive inflammation and phlegmonous changes are present. There is thickening of the right external auditory canal including the membranous and osseo us canal. Posterior to the canal and posteroinferior to t he right ear there is soft tissue edema and a suspected abscess collection versus phlegmonous collection which extends posterior la teral to the mastoid, and abuts the mastoid tip, measuring approximat blaise 3.8 x 1.8 x 3.3 cm (AP, TRV, CC). Edema and phlegmonou s change extends along the posterior right occiput the approximate righ t paramedian neck and inferior along the surgical resection plane. Abutting the mastoid tip there are mild permeative type osseous changes of which osteomyelit is cannot be excluded given the appearance. There is opacification of the right mastoid tip. 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 The right submandibu lar gland has been resected along with the right parotid gland. There are infiltrative changes in the right parotid space, surrounding t he right posterior masseter muscle. No obvious mucosal s pace lesion is evident. The left internal ju gular vein is patent. There are moderate r ight greater than left carotid bulb calcifications present. No abnormal lymphadenopathy is present. The larynx, epiglott is, aryepiglottic folds, subglottic trachea, and thyroid gland are unremarkable in appearance. The superior esophagus is normal in appearance. The imaged upper mediastinal contents demonstrate no abnormalities. There is linear scarring/consolidation in the left upper lobe anteriorly. Lung api awais otherwise appear grossly clear. Imaged intracranial contents demonstrate patent dural venous sinuses. No mass effect, ross a, hemorrhage, or abnormal enhancement. The globes and orbit s demonstrate lens replacements bilaterally. They are otherwise normal. C T/CT soft tissue neck w IV con IMPRESSION: 1. Complex examinati on. Modified radical right neck dissection with extensive postoperat ede changes in the right posterolateral neck. Edema and phlegmonous pabon ge extends from the right external auditory canal to the right paramed candelaria occiput and inferiorly along the right posterior neck. Ther e appears to be a soft tissue ulceration present in the right occipital soft tissues. 2. Findings concerni ng for right malignant otitis externa as described. Cannot exclude an ab scess collection posterior and inferior to the ear/mastoid versus a phlegmonous collection measuring approximately 3.8 x 1.8 x 3.3 cm. 3. Cannot exclude osteomyelitis of the right mastoid tip with mild permeative bone pabon ges and opacification of the right mastoid tip. 4. Additional findin gs as detailed in the body of the report. Electronically roberto d by: Ashu Denis MD 04/26/2025 12:06 PM EDT Dictated By: Ashu Murray MD Signed By: <Demar orr signed by Ashu Denis MD in OV> 04/26/25 1206 DD/ 1039 TD/TT: 04/26/25 1129 Executive Chef Assistant: Glucose, Whole Blood Reviewed date:04/27/2025 09:30:02 AM Interpretation: Performing Lab:[facility], [address] [place] [phone] Notes/Report: Glucose, Whole Blood 187 60-115 mg/dL METER # : [id number] Complete Blood Count Auto Di ff Reviewed date:05/01/2025 02:53:06 PM Interpretation:in hospital [facility] [place] Performing Lab:[facility], [address] [place] [address] Notes/Report: White Blood Count 14.3 4.8-10.8 X10*3/uL Red Blood Count 3.28 4.60-5.80 X10*6/uL Hemoglobin 8.7 14.0-18.0 g/dl Hematocrit 26.4 42.0-52.0 % Mean Corpuscular Volume 80.5 80.0-98.0 fL Mean Corpuscular Hemoglobin 26.5 27.0-33.0 pg Mean Corpuscular HGB Conc 33.0 31.0-36.0 g/dl Red Cell Distribution Width 14.2 11.0-16.0 % Platelet Count 285 160-400 X10*3/uL Mean Platelet Volume 11.9 9.4-12.4 fL Neutrophils Percent Auto 84.5 45-73 % Imm Gran Pct Auto 0.6 0.0-0.4 % Lymphocytes Percent Auto 5.3 20-40 % Monocytes Percent Auto 8.3 2-11 % Eosinophils Percent Auto 0.8 0-4 % Basophils Percent Auto 0.5 0-2 % NRBC Pct Auto 0.0 0.0-0.2 /100WBC Neutrophils Absolute Auto 12.1 2.0-8.3 x10*3/uL Imm Gran Abs Auto 0.08 0.00-0.03 X10*3/uL Lymphocytes Absolute Auto 0.8 1.2-4.9 X10*3/uL Monocytes Absolute Auto 1.2 0.1-1.2 X10*3/uL Eosinophils Absolute Auto 0.1 0.0-0.4 X10*3/uL Basophils Absolute Auto 0.1 0.0-0.2 X10*3/uL NRBC Abs Auto 0.000 0.0-0.012 X10*3/uL Comprehensive Met. Panel Reviewed date:04/27/2025 09:28:21 AM Interpretation: Performing Lab:[address] [address] Notes/Report: Sodium 136 135-145 mmol/L Potassium 4.1 3.3-5.1 mmol/L Chloride 101 96-108 mmol/L Carbon Dioxide 27 22-29 mmol/L Anion Gap 12 12-20 Blood Urea Nitrogen 12 9-16 mg/dL Creatinine 0.55 0.5-1.4 mg/dL Creatinine Clr Calc Pharmacy 116.2 eGFR (calculated from the MDRD study equation) and eCrCl (calculated from the Cockcroft-Gault equation) are based on different parameters and may not yield comparable results. If eCrCl result is absurd, please check patient's height/weight. Estimated Glomerular Filt Rate > 60 Chronic Kidney Disease: Estimated GFR < 60 mL/min/1.73m2 Severe Kidney Disease: Estimated GFR < 15 mL/min/1.73m2 Glucose Random 204 60-115 mg/dL Calcium 8.6 8.4-10.2 mg/dL Bilirubin Total 0.7 0.0-1.0 mg/dL Aspartate Amino Transferase 26 5-37 U/L Alanine Aminotransferase 11 0-40 U/L Total Protein 6.1 6.5-8.0 g/dL Albumin Level 2.8 3.5-5.0 g/dL Alkaline Phosphatase 123 39-117 U/L Glucose, Whole Blood Reviewed date:04/27/2025 09:29:36 AM Interpretation: Performing Lab:[address] [address] Notes/Report: Glucose, Whole Blood 200 60-115 mg/dL METER # : [id number] Glucose, Whole Blood Reviewed date:04/27/2025 08:22:55 PM Interpretation: Performing Lab:[address], [place] [address] Notes/Report: Glucose, Whole Blood 168 60-115 mg/dL METER # : [id number] Glucose, Whole Blood Reviewed date:04/27/2025 08:22:46 PM Interpretation: Performing Lab:[facility], [address] [place] [phone] Notes/Report: Glucose, Whole Blood 184 60-115 mg/dL METER # : [id number] Glucose, Whole Blood Reviewed date:04/28/2025 07:57:15 PM Interpretation: Performing Lab:[facility], [address] [place] [phone] Notes/Report: Glucose, Whole Blood 237 60-115 mg/dL METER # : [id number] Complete Blood Count no Diff Reviewed date:04/28/2025 07:56:46 PM Interpretation: Performing Lab:[facility], [address] [place] [phone] Notes/Report: White Blood Count 10.6 4.8-10.8 X10*3/uL Red Blood Count 3.51 4.60-5.80 X10*6/uL Hemoglobin 9.3 14.0-18.0 g/dl Hematocrit 27.9 42.0-52.0 % Mean Corpuscular Volume 79.5 80.0-98.0 fL Mean Corpuscular Hemoglobin 26.5 27.0-33.0 pg Mean Corpuscular HGB Conc 33.3 31.0-36.0 g/dl Red Cell Distribution Width 14.2 11.0-16.0 % Platelet Count 288 160-400 X10*3/uL Mean Platelet Volume 12.1 9.4-12.4 fL NRBC Pct Auto 0.0 0.0-0.2 /100WBC NRBC Abs Auto 0.000 0.0-0.012 X10*3/uL Hold Lav - Possible Hematolo gy Reviewed date:04/28/2025 07:57:06 PM Interpretation: Performing Lab:[facility], [address] [place] [phone] Notes/Report: Hold Lav - Possible Hematology SEE NOTE Specimen will be held untested for 8 hours. Call Hematology if testing is desired. Creatinine Reviewed date:04/28/2025 07:57:25 PM Interpretation: Performing Lab:[facility], [address] [place] [phone] Notes/Report: Creatinine 0.57 0.5-1.4 mg/dL Creatinine Clr Calc Pharmacy 112.1 eGFR (calculated from the MDRD study equation) and eCrCl (calculated from the Cockcroft-Gault equation) are based on different parameters and may not yield comparable results. If eCrCl result is absurd, please check patient's height/weight. Estimated Glomerular Filt Rate > 60 Chronic Kidney Disease: Estimated GFR < 60 mL/min/1.73m2 Severe Kidney Disease: Estimated GFR < 15 mL/min/1.73m2 Glucose, Whole Blood Reviewed date:04/28/2025 07:56:55 PM Interpretation: Performing Lab:[facility], [address] [phone] Notes/Report: Glucose, Whole Blood 190 60-115 mg/dL METER # : [id number] XR chest 1V Reviewed date:04/28/2025 07:56:24 PM Interpretation: Performing Lab: Notes/Report: [address] [place] [address] XRay Report Signed Patient: Kamron Coker MR#: [id number] 109 : 1945 Acct:[id number] Age/Sex: 79 / M ADM Date: 04/26/25 Loc: .S3 377-[address]: Sonia Rahman MD Ordering Physician: Amber Hunter Date of Service: 04/28/25 Procedure(s): XR chest 1V Accession Number(s): [id number] cc: Amber Hunter; Oswaldo Barrett MD EXAMINATION: XR CHEST CLINICAL INFORMATION: cough COMPARISON: None available. TECHNIQUE: Frontal view of the chest was obtained. FINDINGS: Prior median sternotomy. The cardiac and mediastinal contours appear normal. There is vascular congestion or crowding in the hilar regions. There are low lung volumes. There is bronchovascular crowding in the perihilar regions and lower lungs bilaterally. There is patchy opacity in the right lung base which could represent pneumonia versus atelectasis in the appropriate clinical setting. No pneumothorax or effusion. No focal osseous or soft tissue abnormality. XR/XR chest 1V IMPRESSION: 1. Low lung volumes with bilateral bronchovascular crowding in the perihilar regions and lower lungs. 2. Patchy opacity in the right lung base, possibly atelectasis versus pneumonia in the appropriate clinical setting. 3. Prior median sternotomy. Electronically signed by: Ashu Denis MD 04/28/2025 09:17 AM EDT RP Dictated By: Ashu Denis MD Signed By: <Electronically signed by Ashu Denis MD in OV> 04/28/259[address] DD/ 6 TD/TT: 04/28/25910 Executive Chef Assistant: [address] [address] XRay Report Signed Patient: Nguyen MR#: [id number] 109 : 1945 Acct:[id number] Age/Sex: 79 / M ADM Date: 04/26/25 Loc: .S3 377-[address]: Jesusita Rahman MD Ordering Physician: Amber Hunter Date of Service: 04/28/25 Procedure(s): XR chest 1V Accession Number(s): [id number] cc: Tyesha Hunter; Oswaldo Barrett MD EXAMINATION: XR CHEST CLINICAL INFORMATION: cough COMPARISON: None available. TECHNIQUE: Frontal view of the chest was obtained. FINDINGS: Prior median sternot harjeet. The cardiac and mediastinal contours appear normal. There is vas cular congestion or crowding in the hilar regions. There are low lung volumes. There is bronchovascular crowding in the perihilar regions an d lower lungs bilaterally. There is patchy opac ity in the right lung base which could represent pneumonia versus atelectasis in the appropriate clinical setting. No pneumothorax or effusion. No focal osseous or soft tissue abnormality. X R/XR chest 1V IMPRESSION: 1. Low lung volumes with bilateral bronchovascular crowding in the perihilar regions an d lower lungs. 2. Patchy opacity in the right lung base, possibly atelectasis versus pneumonia in the appropriate clinical setting. 3. Prior median sternotomy. Electronically roberto d by: Ashu Denis MD 04/28/2025 09:17 AM EDT Dictated By: Ashu Murray MD Signed By: <Demar orr signed by Ashu Denis MD in OV> 04/28/25916 DD/ 6 TD/TT: 04/28/25910 Executive Chef Assistant: Glucose, Whole Blood Reviewed date:04/28/2025 03:04:08 PM Interpretation: Performing Lab:[facility], [address] [phone] Notes/Report: Glucose, Whole Blood 175 60-115 mg/dL METER # : [id number] Glucose, Whole Blood Reviewed date:04/28/2025 03:04:16 PM Interpretation: Performing Lab:[facility], [address] [place] [phone] Notes/Report: Glucose, Whole Blood 179 60-115 mg/dL METER # : [id number] Glucose, Whole Blood Reviewed date:04/28/2025 08:00:52 PM Interpretation: Performing Lab:[facility], [address] [place] [phone] Notes/Report: Glucose, Whole Blood 234 60-115 mg/dL METER # : [id number] Glucose, Whole Blood Reviewed date:04/29/2025 08:57:47 AM Interpretation: Performing Lab:[facility], [address] [place] [phone] Notes/Report: Glucose, Whole Blood 239 60-115 mg/dL METER # : [id number] Creatinine Reviewed date:04/29/2025 08:59:45 AM Interpretation: Performing Lab:[facility], [address] [place] [phone] Notes/Report: Creatinine 0.52 0.5-1.4 mg/dL Creatinine Clr Calc Pharmacy 122.9 eGFR (calculated from the MDRD study equation) and eCrCl (calculated from the Cockcroft-Gault equation) are based on different parameters and may not yield comparable results. If eCrCl result is absurd, please check patient's height/weight. Estimated Glomerular Filt Rate > 60 Chronic Kidney Disease: Estimated GFR < 60 mL/min/1.73m2 Severe Kidney Disease: Estimated GFR < 15 mL/min/1.73m2 C Reactive Protein Reviewed date:04/29/2025 08:57:58 AM Interpretation: Performing Lab:[facility], [address] [place] [phone] Notes/Report: C Reactive Protein 8.63 < or = 0.50 mg/dL Glucose, Whole Blood Reviewed date:04/29/2025 08:59:34 AM Interpretation: Performing Lab:[facility], [address] [place] [phone] Notes/Report: Glucose, Whole Blood 196 60-115 mg/dL METER # : [id number] Vancomycin Trough Reviewed date:04/30/2025 04:57:02 PM Interpretation: Performing Lab:[facility], [address] [place] [phone] Notes/Report: Vancomycin Trough 8.8 10.0-20.0 mcg/mL Glucose, Whole Blood Reviewed date:04/29/2025 04:19:05 PM Interpretation: Performing Lab:[facility], [address] [place] [phone] Notes/Report: Glucose, Whole Blood 267 60-115 mg/dL METER # : [id number] Glucose, Whole Blood Reviewed date:04/30/2025 04:54:14 PM Interpretation: Performing Lab:[facility], [address] [place] [phone] Notes/Report: Glucose, Whole Blood 220 60-115 mg/dL METER # : [id number] Glucose, Whole Blood Reviewed date:04/30/2025 04:50:41 PM Interpretation: Performing Lab:[facility], [address] [place] [phone] Notes/Report: Glucose, Whole Blood 225 60-115 mg/dL METER # : [id number] Hold Lav - Possible Hematolo gy Reviewed date:04/30/2025 04:51:47 PM Interpretation: Performing Lab:[facility], [address] [phone] Notes/Report: Hold Lav - Possible Hematology SEE NOTE Specimen will be held untested for 8 hours. Call Hematology if testing is desired. Creatinine Reviewed date:04/30/2025 04:53:56 PM Interpretation: Performing Lab:[address] [phone] Notes/Report: Creatinine 0.53 0.5-1.4 mg/dL Creatinine Clr Calc Pharmacy 120.6 eGFR (calculated from the MDRD study equation) and eCrCl (calculated from the Cockcroft-Gault equation) are based on different parameters and may not yield comparable results. If eCrCl result is absurd, please check patient's height/weight. Estimated Glomerular Filt Rate > 60 Chronic Kidney Disease: Estimated GFR < 60 mL/min/1.73m2 Severe Kidney Disease: Estimated GFR < 15 mL/min/1.73m2 Glucose, Whole Blood Reviewed date:04/30/2025 04:54:04 PM Interpretation: Performing Lab:[facility], [address] [phone] Notes/Report: Glucose, Whole Blood 191 60-115 mg/dL METER # : [id number] Glucose, Whole Blood Reviewed date:04/30/2025 04:51:04 PM Interpretation: Performing Lab:[facility], [address] [phone] Notes/Report: Glucose, Whole Blood 242 60-115 mg/dL METER # : [id number] Glucose, Whole Blood Reviewed date:04/30/2025 04:50:22 PM Interpretation: Performing Lab:[facility], [address] [phone] Notes/Report: Glucose, Whole Blood 234 60-115 mg/dL METER # : [id number] Glucose, Whole Blood Reviewed date:05/01/2025 02:53:06 PM Interpretation: Performing Lab:[address] [phone] Notes/Report: Glucose, Whole Blood 241 60-115 mg/dL METER # : [id number] Complete Blood Count no Diff Reviewed date:05/01/2025 02:53:06 PM Interpretation: Performing Lab:[facility], [address] [phone] Notes/Report: White Blood Count 10.2 4.8-10.8 X10*3/uL Red Blood Count 3.79 4.60-5.80 X10*6/uL Hemoglobin 10.0 14.0-18.0 g/dl Hematocrit 30.9 42.0-52.0 % Mean Corpuscular Volume 81.5 80.0-98.0 fL Mean Corpuscular Hemoglobin 26.4 27.0-33.0 pg Mean Corpuscular HGB Conc 32.4 31.0-36.0 g/dl Red Cell Distribution Width 14.3 11.0-16.0 % Platelet Count 339 160-400 X10*3/uL Mean Platelet Volume 12.1 9.4-12.4 fL NRBC Pct Auto 0.0 0.0-0.2 /100WBC NRBC Abs Auto 0.000 0.0-0.012 X10*3/uL Hold Lav - Possible Hematolo gy Reviewed date:05/01/2025 02:53:06 PM Interpretation: Performing Lab:[facility], [address] [phone] Notes/Report: Hold Lav - Possible Hematology SEE NOTE Specimen will be held untested for 8 hours. Call Hematology if testing is desired. Creatinine Reviewed date:05/01/2025 02:53:06 PM Interpretation: Performing Lab:[facility], [address] [phone] Notes/Report: Creatinine 0.56 0.5-1.4 mg/dL Creatinine Clr Calc Pharmacy 114.1 eGFR (calculated from the MDRD study equation) and eCrCl (calculated from the Cockcroft-Gault equation) are based on different parameters and may not yield comparable results. If eCrCl result is absurd, please check patient's height/weight. Estimated Glomerular Filt Rate > 60 Chronic Kidney Disease: Estimated GFR < 60 mL/min/1.73m2 Severe Kidney Disease: Estimated GFR < 15 mL/min/1.73m2 Glucose, Whole Blood Reviewed date:05/01/2025 02:53:06 PM Interpretation: Performing Lab:[facility], [address] [place] [phone] Notes/Report: Glucose, Whole Blood 216 60-115 mg/dL METER # : [id number] Glucose, Whole Blood Reviewed date:05/01/2025 02:53:06 PM Interpretation: Performing Lab:[facility], [address] [phone] Notes/Report: Glucose, Whole Blood 269 60-115 mg/dL METER # : [id number] Glucose, Whole Blood Reviewed date:05/02/2025 11:58:24 AM Interpretation: Performing Lab:[facility], [address] [phone] Notes/Report: Glucose, Whole Blood 265 60-115 mg/dL METER # : [id number] Glucose, Whole Blood Reviewed date:05/02/2025 11:58:24 AM Interpretation: Performing Lab:[facility], [address] [phone] Notes/Report: Glucose, Whole Blood 251 60-115 mg/dL METER # : [id number] Hold Lav - Possible Hematolo gy Reviewed date:05/02/2025 11:58:24 AM Interpretation: Performing Lab:[facility], [address] [phone] Notes/Report: Hold Lav - Possible Hematology SEE NOTE Specimen will be held untested for 8 hours. Call Hematology if testing is desired. Creatinine Reviewed date:05/02/2025 11:58:24 AM Interpretation: Performing Lab:[facility], [address] [phone] Notes/Report: Creatinine 0.56 0.5-1.4 mg/dL Creatinine Clr Calc Pharmacy 114.1 eGFR (calculated from the MDRD study equation) and eCrCl (calculated from the Cockcroft-Gault equation) are based on different parameters and may not yield comparable results. If eCrCl result is absurd, please check patient's height/weight. Estimated Glomerular Filt Rate > 60 Chronic Kidney Disease: Estimated GFR < 60 mL/min/1.73m2 Severe Kidney Disease: Estimated GFR < 15 mL/min/1.73m2 Glucose, Whole Blood Reviewed date:05/02/2025 11:58:24 AM Interpretation: Performing Lab:[facility], [address] [phone] Notes/Report: Glucose, Whole Blood 215 60-115 mg/dL METER # : [id number] Hold Green Gel Reviewed date:05/02/2025 11:58:24 AM Interpretation: Performing Lab:[facility], [address] [phone] Notes/Report: Hold Green Gel See Note Specimen held untested for 24 hours; Call to request Chemistry testing. Glucose, Whole Blood Reviewed date:05/02/2025 11:58:24 AM Interpretation: Performing Lab:[facility], [address] [phone] Notes/Report: Glucose, Whole Blood 339 60-115 mg/dL METER # : [id number] Glucose, Whole Blood Reviewed date:05/02/2025 05:45:43 PM Interpretation: Performing Lab:[facility], [address] [phone] Notes/Report: Glucose, Whole Blood 241 60-115 mg/dL METER # : [id number] Glucose, Whole Blood Reviewed date:05/03/2025 06:10:53 PM Interpretation: Performing Lab:[facility], [address] [phone] Notes/Report: Glucose, Whole Blood 246 60-115 mg/dL METER # : [id number] Creatinine Reviewed date:05/03/2025 06:15:48 PM Interpretation: Performing Lab:[facility], [address] [phone] Notes/Report: Creatinine 0.61 0.5-1.4 mg/dL Creatinine Clr Calc Pharmacy 104.8 eGFR (calculated from the MDRD study equation) and eCrCl (calculated from the Cockcroft-Gault equation) are based on different parameters and may not yield comparable results. If eCrCl result is absurd, please check patient's height/weight. Estimated Glomerular Filt Rate > 60 Chronic Kidney Disease: Estimated GFR < 60 mL/min/1.73m2 Severe Kidney Disease: Estimated GFR < 15 mL/min/1.73m2 Glucose, Whole Blood Reviewed date:05/03/2025 06:01:09 PM Interpretation: Performing Lab:[facility], [address] [phone] Notes/Report: Glucose, Whole Blood 210 60-115 mg/dL METER # : [id number] UA ClnCatch+Micro w/rflx Cul t Reviewed date:05/03/2025 06:01:34 PM Interpretation: Performing Lab:[facility], [address] [phone] Notes/Report: [id number] Urine, Clean Catch Color Urine Yellow Appearance Urine Clear PH 5.5 5.0-9.0 Glucose Urine UA Negative Negative mg/dL Urine Blood Negative Negative Specific [place] - Urine 1.010 1.005-1.025 Urine Protein Negative Neg-Trace mg/dL Urine Ketones Negative Negative mg/dL Nitrite Urine Negative Negative Leukocyte Esterase Urine Trace Negative RBC Urine 0-2 0-2 /HPF WBC Urine 0-5 0-5 /HPF Squamous Epithelial Cell Urine 0-2 0-2 /HPF Bacteria Urine None Seen None Seen Hyaline Casts Urine 0-2 0-2 /LPF Glucose, Whole Blood Reviewed date:05/03/2025 03:33:07 PM Interpretation: Performing Lab:[facility], [address] [phone] Notes/Report: Glucose, Whole Blood 299 60-115 mg/dL METER # : [id number] Glucose, Whole Blood Reviewed date:05/03/2025 05:55:00 PM Interpretation: Performing Lab:[facility], [address] [phone] Notes/Report: Glucose, Whole Blood 266 60-115 mg/dL METER # : [id number] Glucose, Whole Blood Reviewed date:05/04/2025 02:04:33 PM Interpretation: Performing Lab:[facility], [address] [phone] Notes/Report: Glucose, Whole Blood 272 60-115 mg/dL METER # : [id number] Hold Lav - Possible Hematolo gy Reviewed date:05/04/2025 02:04:33 PM Interpretation: Performing Lab:[facility], [address] [phone] Notes/Report: Hold Lav - Possible Hematology SEE NOTE Specimen will be held untested for 8 hours. Call Hematology if testing is desired. Creatinine Reviewed date:05/04/2025 02:04:33 PM Interpretation: Performing Lab:[facility], [address] [phone] Notes/Report: Creatinine 0.54 0.5-1.4 mg/dL Creatinine Clr Calc Pharmacy 118.4 eGFR (calculated from the MDRD study equation) and eCrCl (calculated from the Cockcroft-Gault equation) are based on different parameters and may not yield comparable results. If eCrCl result is absurd, please check patient's height/weight. Estimated Glomerular Filt Rate > 60 Chronic Kidney Disease: Estimated GFR < 60 mL/min/1.73m2 Severe Kidney Disease: Estimated GFR < 15 mL/min/1.73m2 Glucose, Whole Blood Reviewed date:05/04/2025 02:04:33 PM Interpretation: Performing Lab:[facility], [address] [phone] Notes/Report: Glucose, Whole Blood 190 60-115 mg/dL METER # : [id number] Glucose, Whole Blood Reviewed date:05/04/2025 02:04:33 PM Interpretation: Performing Lab:[facility], [address] [phone] Notes/Report: Glucose, Whole Blood 236 60-115 mg/dL METER # : [id number] Gram stain Reviewed date:08/26/2025 12:43:46 PM Interpretation: Performing Lab:[address] [phone] Notes/Report: Gram stain Gram stain results: Gram stain No polys Gram stain 1+ epithelial cells Gram stain 4+ Gram-negative rods Gram stain 4+ Gram-positive rods Gram stain 4+ Gram-positive cocci Routine Culture Reviewed date:08/26/2025 06:40:51 PM Interpretation: Performing Lab:[address] [phone] Notes/Report: O:ENTFAC Enterococcus faecalis Routine Culture Quant Org ID Routine Culture 3+ O:CORSPE Corynebacterium species Routine Culture Quant Org ID Routine Culture 4+ Routine Culture Susc N/A Routine Culture Susceptibility not routinely performed on this isolate. Ampicillin <=2 Vancomycin 2 Reason For Referral Reason ONYCHOMYCOSIS Diagnosis 1 Onychomycosis (B35.1 ) Referral Organization Oswaldo Barrett MD Referring Provider First Name Oswaldo Referring Provider Last Name Arnold Referring Provider Speciality Internal edicine Referred Provider LUIS CORTES Referred Provider Specialty Podiatry General Notes Abby Falcon 08/01/2025 12:11:02 PM >THE REFERRAL HAS BEEN FAXED TO [facility] FOR [facility] PATIENT APPT , MR COKER IS AWARE, Abby Falcon 08/29/2025 12:13:16 PM >OFFICE NOTE RECD FOR VISIT 08/23/25 Referral Priority Routine Referral Appointment Date 08/23/2025 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) Referral Organization Oswaldo Barrett MD Referring Provider First Name Oswaldo Referring Provider Last Name Arnold Referring Provider Speciality Internal edicine Ref[facility] Provider [facility] Referred Provider Specialty Oncology General Notes Yolanda Martinez 1 11/03/2024 10:46:07 AM > referral info faxed with letter Referral Priority Routine Medications Medication SIG (Take, Route, Frequency, Duration) Notes Start Date End Date Status Telmisartan 80 MG 1 tablet Orally Once a day Active Bystolic 10 MG 1 tablet Orally Once a day Active amLODIPine Besylate 10 MG 0.5 tab Orally Once a day Active Ofloxacin 0.3 % 10 drops into affected ear Otic Once a day Not-Taking Omeprazole 20 MG 1 capsule Orally Onc e a day for 90 days 02/03/2018 Not-Taking Ciclopirox 8 % 1 application Externally Once a day Active Pregabalin 25 MG 1 capsule Orally Twice a day for 90 days 07/05/2025 Not-Taking oxyCODONE HCl 20 MG 1 tablet as needed Orally every 6 hrs Active Nystatin 669187 UNIT/GM 1 application Externally Twice a day Active hydroCHLOROthiazide 25 MG 1 capsule in t he morning Orally Once a day for 90 days Not-Taking metFORMIN HCl ER 500 MG 2 tablet with ev ening meal Orally DX E11.65 twice a day Active NovoLIN 70/30 70-30 % as directed Subcutaneous 60u in am 40 in pm 03/12/2012 Active Doxycycline Hyclate 100 MG 1 capsule Ora lly twice a day for 10 days 12/28/2024 Not-Taking fentaNYL 100 MCG/HR 1 patch to skin Transdermal Active Morphine Sulfate ER 30 MG 1 capsule thre e ties a day Orally Once a day Not-Taking Gaviscon 95-358 MG/15ML 15 mL after meal s and at bedtime as needed Orally Four times a day for 90 days Not-Taking Terazosin HCl 2 MG 2-3 tabsQD Orally Once a day for 90 days 06/18/2011 Active Tylenol 8 Hour 650 MG 2 tablets as neede d Orally every 8 hrs for 90 days Active traMADol HCl 50 MG one or 2 tabs Orally twice a day for 30 days 04/09/2024 Active Morphine Sulfate 15 MG 1.5 tabs four [place] es a day Orally four times a day Not-Taking Syringe (Disposable) 1 ML use to inject insulin sub Q Dx: E 11.65 twice a day for 90 days 09/28/2019 Active Furosemide 40 MG 2 tabs Orally Once a day for 90 days 11/30/2024 Active Flonase 50 MCG/ACT 2 sprays Nasally Onc e a day for 90 days Active FreeStyle Lite Test - use to test blood sugar In Vitro DX: 11.65 twice a day for 90 days 09/01/2018 Active Pravastatin Sodium 40 MG 1 tablet Orally Once a day for 90 days 08/15/2025 Active Aspirin 81 MG 1 tablet Orally Once a day for 90 days Active Alcoh-Wipe - use to test blood sugar externally DX E11.65 twice a day for 90 days 09/28/2019 Active Lancets - use to test blood sugar invitro DX: E 11.65 twice a day for 90 days 09/28/2019 Active Immunizations Vaccine Route Administration Date Status Comme nts Flu Vaccine IM Intramuscular 07/15/2011 Administered Flu Vaccine IM Intramuscular 06/11/2012 Administered PPSV23 (Pnemovax) Unknown 05/08/2012 Administered Tetanus Unknown 07/08/2002 Administered TDaP Unknown 05/08/2012 Administered Shingles Unknown 12/30/2008 Administered Prevnar 13 Unknown 10/01/2012 Administered Flu Vaccine IM Intramuscular 06/17/2013 Administered Flu Vaccine IM Intramuscular 06/18/2014 Administered [employer] Fluarix Quadrivalent IM Intramuscular 06/08/2015 Administe red Fluarix Quadrivalent IM Intramuscular 06/04/2016 Administneda red Fluarix Quadrivalent IM Intramuscular 06/19/2017 Administneda red PPSV23 (Pnemovax) IM Intramuscular 07/07/2017 Administered Shingrix IM Intramuscular 04/21/2018 Administered Fluarix Quadrivalent IM Intramuscular 06/02/2018 Administneda red Shingrix IM Intramuscular 07/03/2018 Administered Fluarix Quadrivalent IM Intramuscular 06/08/2019 Adminveronica nunes Influenza High Dose IM Intramuscular 05/26/2020 Administer ed Covid Vaccine Unknown 10/17/2020 Administered moderna SARS-COV-2 Moderna Unknown 11/20/2020 Administered Influenza High Dose IM Intramuscular 06/14/2021 Administer ed SARS-COV-2 Moderna Unknown 07/16/2021 Administered SARS-COV-2 Moderna Unknown 01/31/2022 Administered SARS-COV-2 Moderna Unknown 06/23/2022 Administered Influenza High Dose Unknown 06/23/2022 Administered Flu Vaccine Unknown 06/18/2014 Others received at [facility] Social History Tobacco Use: Social History Observation [...] ast year? 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20) Active confirmed Problem 138052795 Low HDL (under 4 0) (E78.6) Active confirmed Problem 64388333 Type II or unspe cified type diabetes mellitus without mention of complication, uncontrolled (E11.65) Active confirmed Problem 9265717057351 Coronary artery disease involving [place] coronary artery of [place] heart without angina pectoris (I25.10) Active confirmed Problem 14757554 Aortic stenosis (Q25.3) Active confirmed Problem 823273681 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 Problem 930479475 Pure hypercholesterolemia (E78.00) Active confirmed Problem 988720926 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) Active confirmed Problem 230930513 Squamous cell carcinoma of skin of trunk, except scrotum (C44.529) Active confirmed Problem 060441758 Abdominal bruit (R09.89) Active confirmed Problem 58878316 Unspecified slee p apnea (G47.30) Active confirmed Problem 604264005 Chronic kidney disease, unspecified CKD stage (N18.9) Active confirmed Problem 977278048 Acute constipati on (K59.00) Active confirmed Vital Signs Blood pressure diastolic 48 mm Hg 08/30/2025 keyanna ght is down 10 pounds since 08-01-25 Height 70 in 08/30/2025 weight is down 10 pounds since 08-01-25 Blood pressure systolic 102 mm Hg 08/30/2025 weig ht is down 10 pounds since 08-01-25 Weight 205 lbs 08/30/2025 weight is down 10 pounds since 08-01-25 BMI 29.41 kg/m2 08/30/2025 weight is down 10 pounds since 08-01-25 Encounters Encounter Location Date Provider Diagnosis Oswaldo Barrett MD [address] [place] [address] [id number] 10/07/2024 Oswaldo Barrett Type II or unspecifi ed type diabetes mellitus without mention of complication, uncontrolled E11.65 ; Chronic kidney disease, unspecified CKD stage N18.9 ; Essential hypertension I10 and Pure hypercholesterolemia E78.00 Oswaldo Barrett MD [address] [place] [id number] 10/26/2024 Oswaldo Bombardier UTI (urinary tract infection) N39.0 Oswaldo Barrett MD [address] [place] [address] [id number] 11/22/2024 Oswaldo Barrett Hematuria, unspecifi ed type R31.9 Oswaldo Barrett MD [address] [place] [address] [id number] 10/14/2024 Oswaldo Cristaardier Type II or unspecifi ed type diabetes mellitus without mention of complication, uncontrolled E11.65 ; Chronic kidney disease, unspecified CKD stage N18.9 ; Essential hypertension I10 ; Pure hypercholesterolemia E78.00 ; 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 ; Gastroesophageal reflux disease without esophagitis K21.9 and Depression screening Z13.31 Oswaldo Barrett MD [address] [place] [address] [id number] 11/30/2024 Oswaldo Barrett Dependent edema R60. 9 Oswaldo Barrett MD [address] [place] [address] [id number] 12/13/2024 Oswaldo Barrett Dependent edema R60. 9 ; Cellulitis L03.90 and Eyelid abnormality H02.9 Oswaldo Barrett MD [address] [place] [address] [id number] 12/28/2024 Oswaldo Tobinardier Type II or unspecifi ed type diabetes mellitus without mention of complication, uncontrolled E11.65 ; Dependent edema R60.9 and Cellulitis L03.90 Oswaldo Barrett MD [address] [place] [address] [id number] 01/17/2025 Oswaldo Tobinardier Type II or unspecifi ed type diabetes mellitus without mention of complication, uncontrolled E11.65 ; Dependent edema R60.9 and Cellulitis L03.90 Oswaldo Barrett MD [address] [place] [address] [id number] 02/15/2025 Oswaldo Bombardier Type II or unspecifi ed type diabetes mellitus without mention of complication, uncontrolled E11.65 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 Oswaldo Barrett MD [address] [place] [address] [id number] 03/29/2025 Oswaldo Bombardier Type II or unspecifi ed type diabetes mellitus without mention of complication, uncontrolled E11.65 Oswaldo Barrett MD [address] [place] [address] [id number] 07/07/2025 Oswaldo Barrett Type II or unspecifi ed type diabetes mellitus without mention of complication, uncontrolled E11.65 ; Essential hypertension I10 ; Rectal bleeding K62.5 and History of skin cancer Z85.828 Oswaldo Barrett MD [address] [place] [address] [id number] 08/01/2025 Oswaldo Barrett Onychomycosis B35.1 Oswaldo Barrett MD [address] [place] [address] [id number] 08/30/2025 Oswaldo Barrett Prostatism N40.0 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 Oswaldo Barrett MD [address] [place] [address] [id number] 12/09/2024 Oswaldo Barrett MD [address] [place] [address] [id number] 12/13/2024 Oswaldo Barrett MD [address] [place] [address] [id number] 02/04/2025 Oswaldo Barrett Type II or unspecifi ed type diabetes mellitus without mention of complication, uncontrolled E11.65 Oswaldo Barrett MD [address] [place] [address] [id number] 04/28/2025 Oswaldo Barrett MD [address] [place] [address] [id number] 05/05/2025 Oswaldo Barrett MD [address] [place] [address] [id number] 05/09/2025 Oswaldo Barrett MD [address] [place] [address] [id number] 05/19/2025 Oswaldo Barrett Type II or unspecifi ed type diabetes mellitus without mention of complication, uncontrolled E11.65 ; Prostatism N40.0 ; 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 ; Essential hypertension I10 ; Pure hypercholesterolemia E78.00 and Gastroesophageal reflux disease without esophagitis K21.9 Oswaldo Barrett MD [address] [place] [address] [id number] 06/21/2025 Oswaldo Barrett MD [address] [place] [address] [id number] 06/23/2025 Oswaldo Barrett MD [address] [place] [address] [id number] 06/28/2025 Oswaldo Barrett Type II or unspecifi ed type diabetes mellitus without mention of complication, uncontrolled E11.65 ; Prostatism N40.0 ; Essential hypertension I10 ; Pure hypercholesterolemia E78.00 and Gastroesophageal reflux disease without esophagitis K21.9 Oswaldo Barrett MD [address] [place] [address] [id number] 08/15/2025 Oswaldo Barrett Pure hypercholestero lemia E78.00 Assessments Encounter Date Diagnosis (ICD Code) Assessment Notes Treatment Notes Treatment Clinical Notes Section Notes 10/07/2024 Type II or unspecifi ed type diabetes mellitus without mention of complication, uncontrolled (ICD-10 - E11.65) 10/07/2024 Chronic kidney disea se, unspecified CKD stage (ICD-10 - N18.9) 10/26/2024 UTI (urinary tract infection) (ICD-10 - N39.0) 11/22/2024 Hematuria, unspecifi ed type (ICD-10 - R31.9) 10/14/2024 Type II or unspecifi ed type diabetes mellitus without mention of complication, uncontrolled (ICD-10 - E11.65) a1c is satisfactory, will continue current regiment 10/14/2024 Chronic kidney disea se, unspecified CKD stage (ICD-10 - N18.9) stable, 11/30/2024 Dependent edema (ICD -10 - R60.9) patient verbalized understanding of medication and directions for use 12/13/2024 Dependent edema (ICD -10 - R60.9) will increase furesmide to 2 pills per day/ THE ORDER WAS GIVEN TO PATIENT STAT AND US DEPT HAD US SEND HIM RIGHT [place] [facility] [place] patient verbalized understanding of change in dose of medication 12/13/2024 Cellulitis (ICD-10 - L03.90) patient verblized understanding of medication and directions for use 12/28/2024 Type II or unspecifi ed type diabetes mellitus without mention of complication, uncontrolled (ICD-10 - E11.65) running a little high but will observe and will cntnue current regiment in the meantime 01/17/2025 Type II or unspecifi ed type diabetes mellitus without mention of complication, uncontrolled (ICD-10 - E11.65) 02/15/2025 Type II or unspecifi ed type diabetes mellitus without mention of complication, uncontrolled (ICD-10 - E11.65) doing well. will continue current regiment 03/29/2025 Type II or unspecifi ed type diabetes mellitus without mention of complication, uncontrolled (ICD-10 - E11.65) continue with present treatment doing well 07/07/2025 Type II or unspecifi ed type diabetes mellitus without mention of complication, uncontrolled (ICD-10 - E11.65) having sugars fluctuating with weight loss 07/07/2025 Essential hypertensi on (ICD-10 - I10) doing well 08/01/2025 Onychomycosis (ICD-1 0 - B35.1) does not look like a bacterial infection. will refer [place]iat[place] [facility] [place]/THE REFERRAL HAS BEEN FAXED TO [facility] FOR NEW PATIENT APPT. 08/30/2025 Prostatism (ICD-10 - N40.0) 08/30/2025 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) referral to [facility] 02/04/2025 Type II or unspecifi ed type diabetes mellitus without mention of complication, uncontrolled (ICD-10 - E11.65) 05/19/2025 Type II or unspecifi ed type diabetes mellitus without mention of complication, uncontrolled (ICD-10 - E11.65) 06/28/2025 Type II or unspecifi ed type diabetes mellitus without mention of complication, uncontrolled (ICD-10 - E11.65) 08/15/2025 Pure hypercholesterolemia (ICD-10 - E78.00) 10/07/2024 Essential hypertensi on (ICD-10 - I10) 10/14/2024 Essential hypertensi on (ICD-10 - I10) well controlled, will cpntinue current regiment 12/13/2024 Eyelid abnormality (ICD-10 - H02.9) is going to get wound evaluation so will have them look at it 12/28/2024 Dependent edema (ICD -10 - R60.9) will continue current regiment and will continue to monitor 01/17/2025 Dependent edema (ICD -10 - R60.9) 02/15/2025 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 is not healing well 07/07/2025 Rectal bleeding (ICD -10 - K62.5) will evaluate after all the other surgery is done 05/19/2025 Prostatism (ICD-10 - N40.0) 06/28/2025 Prostatism (ICD-10 - N40.0) 10/07/2024 Pure hypercholesterolemia (ICD-10 - E78.00) 10/14/2024 Pure hypercholesterolemia (ICD-10 - E78.00) doing well, stable, will continue current regiment 12/28/2024 Cellulitis (ICD-10 - L03.90) patint verbalized understanding of medicationand directions for use 01/17/2025 Cellulitis (ICD-10 - L03.90) to continue on the cdoxycycline 07/07/2025 History of skin canc er (ICD-10 - Z85.828) going to [place] to have surgery tomorrow 05/19/2025 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) 06/28/2025 Essential hypertensi on (ICD-10 - I10) 10/14/2024 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 05/19/2025 Essential hypertensi on (ICD-10 - I10) 06/28/2025 Pure hypercholesterolemia (ICD-10 - E78.00) 10/14/2024 Gastroesophageal ref lux disease without esophagitis (ICD-10 - K21.9) stable, will contonue current regiment 05/19/2025 Pure hypercholesterolemia (ICD-10 - E78.00) 06/28/2025 Gastroesophageal ref lux disease without esophagitis (ICD-10 - K21.9) 10/14/2024 Depression screening (ICD-10 - Z13.31) negative screen 05/19/2025 Gastroesophageal ref lux disease without esophagitis (ICD-10 - K21.9) 12/28/2024 Other advised the measles vaccination Plan Of Treatment Pending Test Test Name Order Date Electrocardiogram (EKG) 01/01/2018 XR GI SERIES 01/01/2018 US LEG BILATERAL 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, [address], [place], [place], [id number], Insurance Providers Payer Name Payer Address Payer Phone Subscriber Number Group Number Insured Name Patient Relationship to Insured Coverage Start Date Coverage End Date [employer] [address] [place] [address] [id number] Kamron Coker Self - patient is the insured [facility] [address] [place] [address] [id number] Kamron Coker Self - patient is the insured [employer] [address] [place] [address] [id number] Kamron Coker Self - patient is the insured Medical (General) History Medical History History ICD Code Colonoscopy 2011; repeat Col onoscopy 03/19/2017 due in 5 years - Dr. 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
== END 2025-09-07 12:36 | disposition home or self-care (01) ==
LOC: HO.HPODS 11:42
PROVIDERS: PCP Internal Medicine; Visit Provider Student in an Organized Health Care Education/Training Program
DX: E11.9 Type 2 diabetes mellitus without complications (principal); L60.3 Nail dystrophy; B35.1 Tinea unguium; L60.1 Onycholysis; L03.032 Cellulitis of left toe; I83.893 Varicose veins of bilateral lower extremities with other complications
CPT/HCPCS: 11720; 99213

== ENCOUNTER → 2025-09-07 11:41 | Outpatient (BNVA) | payer MEDICARE, OTHER, SELFPAY | PROVIDERS: PCP Internal Medicine; Visit Provider Student in an Organized Health Care Education/Training Program | DX: E11.9 Type 2 diabetes mellitus without complications (principal); B35.1 Tinea unguium; L60.9 Nail disorder, unspecified; L60.3 Nail dystrophy; L60.1 Onycholysis; L03.032 Cellulitis of left toe; I83.893 Varicose veins of bilateral lower extremities with other complications | CPT/HCPCS: 11720; 99212 ==